=== PATIENT | female | born 1935 | race Caucasian/White ===

== ENCOUNTER 2020-04-16 14:34 | Inpatient (IN) | payer MEDICARE, MEDICAID ==
[~2020-04-16] VITALS: Ht 167.6 cm; Wt 106.5 kg
--- NOTE | 2020-04-16 13:50 | NUR ---
Admission Note with Justification for Admission to [facility] Patient admitted to [facility] for protective oversight for emergency stabilization of acute psychiatric crisis. Pt admitted from: [facility] to [facility] Mode of arrival: EMS Accompanied By: EMS Precipitating behaviors that initiated intake and admission: anxiety, aggression, combative, paranoia Description of failure of out patient attempts at stabilization in previous setting list behavior and medication trials: trazodone Behaviors and assessment findings upon admission: Intermittent confusion, attention seeking Plan: Admit for protective oversight for adjustment and stabilization of medications, behaviors and mood. Intense treatment regimen including groups, medication adjustments, therapy, consistent regimen for ADL's, self care, and sleep hygiene. Daily monitoring by Inpatient staff, Psychiatry, and Medical Physician.
[2020-04-16 14:47] VITALS: BP 109/60
[2020-04-16] MEDS ORDERED: ALBUTEROL SULFATE 2.5 MG/3 ML NEBU. INH PRN (15:45)
[2020-04-16] MEDS ORDERED: NON FORMULARY ITEM (Mg Trisilicate/Alh/Nahco3/Aa (Gaviscon 80-14.2 Mg Tab Chew) 1 EACH) PO PRN (15:45)
[2020-04-16] MEDS ORDERED: LOPERAMIDE HCL PO SCH (16:00)
[2020-04-16] MEDS ORDERED: MELA5TAB20 PO (16:55)
[2020-04-16] MEDS ORDERED: TIOT18CA IH (16:55)
[2020-04-16] MEDS ORDERED: KETO5DRO OU (16:55)
[2020-04-16] MEDS ORDERED: FLUT9.9S NS (16:55)
[2020-04-16] MEDS ORDERED: POLY17PO5 PO (16:55)
[2020-04-16] MEDS ORDERED: SPIR25TA5 PO (16:55)
[2020-04-16] MEDS ORDERED: FURO-68 PO (16:55)
[2020-04-16] MEDS ORDERED: MAGN24003 PO (16:55)
[2020-04-16] MEDS ORDERED: VIT1CAPS12 PO (16:55)
[2020-04-16] MEDS ORDERED: VITA1TAB19 PO (16:55)
[2020-04-16] MEDS ORDERED: OLAN5TAB99 PO (16:55)
[2020-04-16] MEDS ORDERED: DIVA125C2 PO (16:55)
[2020-04-16] MEDS ORDERED: ALBU2.5V8 INH (16:55)
[2020-04-16] MEDS ORDERED: FLUO20CA16 PO (16:55)
[2020-04-16] MEDS ORDERED: IPRA4AER INH (16:55)
[2020-04-16] MEDS ORDERED: LEVO150T5 PO (16:55)
[2020-04-16] MEDS ORDERED: POTA10TA5 PO (16:55)
[2020-04-16] MEDS ORDERED: ATEN25TA42 PO (16:55)
[2020-04-16] MEDS ORDERED: LOPE2TAB27 PO (16:55)
[2020-04-16] MEDS ORDERED: METH1TAB20 PO (16:55)
[2020-04-16] MEDS ORDERED: MG T1TAB PO (16:55)
[2020-04-16] MEDS ORDERED: CHOL500050 PO (16:55)
[2020-04-16] MEDS ORDERED: DICL100G18 TP (16:55)
[2020-04-16] MEDS ORDERED: TRAZ-120 PO (16:55)
[2020-04-16] MEDS ORDERED: WARF2TAB96 PO (16:56)
[2020-04-16] MEDS ORDERED: NON FORMULARY ITEM (Ipratropium/Albuterol Sulfate (Combivent Respimat Inhal) 1 PUFF) INH SCH (17:00)
[2020-04-16] MEDS: KETOROLAC TROMETHAMINE 0.5% OPHTH SOLUTION BOTTLE. OU SCH ×2 (17:00→21:42)
[2020-04-16] MEDS ORDERED: MELATONIN 3 MG TABLET PO PRN (17:45)
[2020-04-16] MEDS ORDERED: LOPERAMIDE 2 MG CAPSULE PO PRN (17:45)
[2020-04-16] MEDS ORDERED: MAGNESIUM HYDROXIDE 2,400 MG/30 ML ORAL.SUSP. PO PRN (17:45)
[2020-04-16] MEDS: FUROSEMIDE 40 MG TABLET PO SCH (18:00)
[2020-04-16 18:23] LABS: BASO # 0.1 x10^3/uL (0.0-0.2); BASO % 1 % (0-3); EOS # 0.2 x10^3/uL (0.0-0.7); EOS % 2 % (0-3); HEMOGLOBIN 12.7 g/dL (12.0-15.5); LYMPH % 11 % (24-48); MEAN CORPUSCULAR HEMOGLOBIN 29 pg (25-35); MEAN CORPUSCULAR HGB CONC 32 g/dL (31-37); MEAN CORPUSCULAR VOLUME 90 fL (79-100); MONO # 0.5 x10^3/uL (0.0-1.1); MONO % 6 % (0-9); NEUT # 7.1 x10^3uL (1.8-7.7); NEUT % 80 % (31-73); PLATELET COUNT 461 x10^3/uL (140-400); RED BLOOD COUNT 4.46 x10^6/uL (3.50-5.40); RED CELL DISTRIBUTION WIDTH 17.2 % (11.5-14.5); WHITE BLOOD COUNT 8.9 x10^3/uL (4.0-11.0)
[2020-04-16 18:29] LABS: ALBUMIN/GLOBULIN RATIO 0.7 (1.0-1.7); CALCIUM 9.2 mg/dL (8.5-10.1); CREATININE 0.9 mg/dL (0.6-1.0); GFR 59.4; MAGNESIUM 2.4 mg/dL (1.8-2.4); POTASSIUM 4.6 mmol/L (3.5-5.1); TOTAL BILIRUBIN 0.4 mg/dL (0.2-1.0); TOTAL PROTEIN 7.5 g/dL (6.4-8.2)
[2020-04-16] MEDS: METHENAMINE HIPPURATE 1 GM TABLET PO SCH (21:00)
[2020-04-16] MEDS: MULTIVITAMIN I-VITE TABLET. PO SCH (21:00)
[2020-04-16] MEDS ORDERED: WARFARIN 2 MG TABLET. PO SCH (21:00)
[2020-04-16] MEDS: traZODone 50 MG TABLET. PO SCH (21:00)
[2020-04-16] MEDS: DIVALPROEX 125 MG CAP.SPRINK PO SCH (21:00)
[2020-04-16] MEDS: POTASSIUM CHLORIDE 10 MEQ TABLET.ER. PO SCH (21:00)
[2020-04-16] MEDS: MAG HYDROX/AL HYDROX/SIMETH 30 ML ORAL.SUSP PO PRN (21:36)
[2020-04-16] MEDS: IPRATROPIUM/ALBUTEROL 20/100mcg/INH INHALER. INH SCH (21:44)
[2020-04-16] MEDS: DICLOFENAC SODIUM 1% TOPICAL GEL 100GM TUBE. TP SCH (21:44)
--- NOTE | 2020-04-16 22:40 | PDOC ---
Exam Note: Derick Note: Please also refer to the separate dictated note~for this date of service dictated separately.~Patient seen individually. Discussed the patient with Nursing staff reviewed the chart.~Reviewed interim history and current functioning. Reviewed vital signs,~Labs/ Radiology~and current medications noted below. Continue current treatment with the changes noted in the dictated addendum note Assessment: Vital Signs/I&O: Vital Signs Date Time Temp Pulse Resp B/P (MAP) Pulse Ox O2 Delivery O2 Flow Rate FiO2 04/16/20 14:47 97.9 70 20 109/60 (76) 98 Room Air Labs: Laboratory Tests Test 04/16/20 18:00 White Blood Count 8.9 x10^3/uL (4.0-11.0) Red Blood Count 4.46 x10^6/uL (3.50-5.40) Hemoglobin 12.7 g/dL (12.0-15.5) Hematocrit 40.0 % (36.0-47.0) Mean Corpuscular Volume 90 fL (79-100) Mean Corpuscular Hemoglobin 29 pg (25-35) Mean Corpuscular Hemoglobin Concent 32 g/dL (31-37) Red Cell Distribution Width 17.2 % (11.5-14.5) H Platelet Count 461 x10^3/uL (140-400) H Neutrophils (%) (Auto) 80 % (31-73) H Lymphocytes (%) (Auto) 11 % (24-48) L Monocytes (%) (Auto) 6 % (0-9) Eosinophils (%) (Auto) 2 % (0-3) Basophils (%) (Auto) 1 % (0-3) Neutrophils # (Auto) 7.1 x10^3uL (1.8-7.7) Lymphocytes # (Auto) 1.0 x10^3/uL (1.0-4.8) Monocytes # (Auto) 0.5 x10^3/uL (0.0-1.1) Eosinophils # (Auto) 0.2 x10^3/uL (0.0-0.7) Basophils # (Auto) 0.1 x10^3/uL (0.0-0.2) Prothrombin Time 11.8 SEC (9.4-11.4) H Prothrombin Time INR 1.1 (0.9-1.1) Sodium Level 139 mmol/L (136-145) Potassium Level 4.6 mmol/L (3.5-5.1) Chloride Level 99 mmol/L (98-107) Carbon Dioxide Level 38 mmol/L (21-32) H Anion Gap 2 (6-14) L Blood Urea Nitrogen 18 mg/dL (7-20) Creatinine 0.9 mg/dL (0.6-1.0) Estimated GFR (Cockcroft-Gault) 59.4 BUN/Creatinine Ratio 20 (6-20) Glucose Level 94 mg/dL (70-99) Calcium Level 9.2 mg/dL (8.5-10.1) Magnesium Level 2.4 mg/dL (1.8-2.4) Total Bilirubin 0.4 mg/dL (0.2-1.0) Aspartate Amino Transferase (AST) 23 U/L (15-37) Alanine Aminotransferase (ALT) 22 U/L (14-59) Alkaline Phosphatase 116 U/L (46-116) Total Protein 7.5 g/dL (6.4-8.2) Albumin 3.0 g/dL (3.4-5.0) L Albumin/Globulin Ratio 0.7 (1.0-1.7) L Current Medications: Meds: Current Medications Medications (Trade) Dose Ordered Sig/Marina Route PRN Reason Start Time Stop Time Status Last Admin Dose Admin Diclofenac Sodium (Voltaren) 1 afua QID TP 04/16/20 21:00 04/16/20 21:44 Ketorolac Tromethamine (Acular) 1 drop QID OU 04/16/20 17:00 04/16/20 21:42 Warfarin Sodium (Coumadin) 2 mg HS PO 04/16/20 21:00 04/16/20 21:37 Al Hydroxide/Mg Hydroxide (Mylanta Plus Xs) 15 ml PRN AFTMEALHC PRN PO DYSPEPSIA 04/16/20 17:15 04/16/20 21:36 Albuterol/ Ipratropium (Combivent Respimat 20-100 Mcg) 1 puff RTQID INH 04/16/20 20:00 04/16/20 21:44 I have reviewed the current psychotropics carefully including drug interactions. Risk benefit ratio favors no change other than as noted in my dictated progress note. ROHIT SIBLEY MD Apr 16, 2020 22:40
--- NOTE | 2020-04-16 23:59 | NUR ---
Patient is laying in her bed on assumption of care, awake. Pleasant demeanor, compliant with assessments. Patient is very particular, needy, entitled, attention-seeking. She refused to take almost all of her PO medications, only accepting her Coumadin. She requested PRN Mylanta to take before her pills. This nurse went through each medication as patient requested, explaining what it was for. Patient had multiple reasons for refusal: "I've never taken that before." "I've been on another medication for 50 years, why change it now?" "I have trouble swallowing." "Maybe I'll take that one tomorrow." This nurse explained to patient several times that we adjust, add or discontinue medicines here in order to find the right balance, and that our bodies change as we age and sometimes meds don't work as well as they used to. She still insisted that she wasn't going to take those medications right now. During HS care, the patient appeared to be feigning helplessness. Staff observed that she seemed to be more capable of performing certain ADL tasks than she was letting on. Patient denied any pain or discomfort, no agitation. Denies SI. Speech eval ordered for patient's complaint of difficulty swallowing. Will continue to monitor.
[2020-04-17] MEDS: LEVOTHYROXINE 150 MCG TABLET PO SCH (05:18)
[2020-04-17 06:16] VITALS: BP 134/80
[2020-04-17] MEDS: IPRATROPIUM/ALBUTEROL 20/100mcg/INH INHALER. INH SCH ×6 (08:00→20:15)
[2020-04-17] MEDS: POLYETHYLENE GLYCOL 3350 17 GM PACKET. PO SCH ×2 (08:19→09:00)
[2020-04-17] MEDS: POTASSIUM CHLORIDE 10 MEQ TABLET.ER. PO SCH ×2 (08:20→20:13)
[2020-04-17] MEDS: MULTIVITAMIN I-VITE TABLET. PO SCH ×2 (08:20→20:14)
[2020-04-17] MEDS: DIVALPROEX 125 MG CAP.SPRINK PO SCH ×2 (08:20→20:13)
[2020-04-17] MEDS: VITAMIN B COMPLEX CAPSULE. PO SCH (08:20)
[2020-04-17] MEDS: METHENAMINE HIPPURATE 1 GM TABLET PO SCH ×2 (08:20→20:14)
[2020-04-17] MEDS: FUROSEMIDE 40 MG TABLET PO SCH ×2 (08:20→17:30)
[2020-04-17] MEDS: CHOLECALCIFEROL (VITAMIN D3) 1,000 UNIT TABLET PO SCH (08:21)
[2020-04-17] MEDS: traZODone 50 MG TABLET. PO SCH ×3 (08:21→20:13)
[2020-04-17] MEDS: ATENOLOL 25 MG TABLET PO SCH (08:21)
[2020-04-17] MEDS: SPIRONOLACTONE 25 MG TABLET PO SCH (08:21)
[2020-04-17] MEDS: FLUoxetine HCL 20 MG CAPSULE PO SCH (08:21)
[2020-04-17] MEDS: FLUTICASONE 50MCG/NASAL SPRAY 16GM BOTTLE. NS SCH ×2 (08:23→09:00)
[2020-04-17] MEDS: DICLOFENAC SODIUM 1% TOPICAL GEL 100GM TUBE. TP SCH ×6 (08:24→20:15)
[2020-04-17] MEDS: KETOROLAC TROMETHAMINE 0.5% OPHTH SOLUTION BOTTLE. OU SCH ×5 (08:24→20:15)
[2020-04-17] MEDS ORDERED: NON FORMULARY ITEM (Tiotropium Bromide (Spiriva) 18 MCG) IH SCH (09:00)
--- NOTE | 2020-04-17 09:05 | HP ---
ADMIT DATE: 04/16/2020 PSYCHIATRIC ADMISSION HISTORY AND EVALUATION This late entry date of service 04/16 covers elements not covered in my initial note. I met with the patient evening of 04/16 in her room. Discussed with nursing staff, reviewed the chart. Discussed with DARYL Reynolds. Previously, I discussed with Catina Stewart, hospital unit coordinator after we received a referral from [facility] to consider inpatient psychiatric stabilization for the patient. IDENTIFYING DATA: The patient is an 85-year-old female, referred to us from [facility] after she had a psychiatric consultation there, resulting in a referral for inpatient psychiatric stabilization on account of worsening anxiety, being aggressive to staff at [facility]. She was punching staff, throwing chairs, paranoid. She thought she was being poisoned. She was delusional, thought there was a worm in her room and this persisted at . Prior to that, she has been an inpatient at [facility] for several weeks following a UTI and encephalopathy consequent to that. Her confusion has worsened over the past 6 months. Attempts were made at adjustments in her psychotropics at the [facility], but when she failed this, she is referred for inpatient psychiatric stabilization. CHIEF COMPLAINT: "I came here today." HISTORY OF PRESENT ILLNESS: The patient has a history of worsening symptoms of depression, anxiety, paranoia, short-term memory deficits. She has been residing at [facility] for some time and then was inpatient at following the UTI/sepsis and encephalopathy. She returned to [facility] for a couple of days. The above behaviors resurfaced. She was referred back to and then to us. She does have a history of mood swings, questionable history of bipolar symptoms. No active suicidal or homicidal ideation. She has had sleep and appetite changes. PAST PSYCHIATRIC HISTORY: As above. PAST MEDICAL HISTORY: Asthma, CHF, fibromyalgia, GERD, hypertension, obstructive sleep apnea, atrial fibrillation, COPD with chronic hypoxic respiratory failure. CODE STATUS: DNR. ALLERGIES: TYLENOL, CODEINE, LATEX, MEPERIDINE, VICODIN, TROPICAMIDE, CORTISONE, GABAPENTIN, NEOMYCIN, PROPOXYPHENE, PREDNISONE. ACCU-CHEKS: Not applicable. DIET: Regular, cardiac. Ambulates with assistance of 2 persons. CURRENT PSYCHOTROPICS: Depakote 125 mg t.i.d. a.c., Prozac 20 mg a day, melatonin 5 mg at bedtime, Zyprexa 2.5 mg b.i.d. and p.r.n. trazodone 12.5 mg t.i.d. p.r.n. FAMILY HISTORY: Noncontributory. SOCIAL HISTORY: No history of alcohol, drug abuse; physical, sexual or elder abuse. She is not known to be a perpetrator. REACTION TO HOSPITALIZATION: The patient accepting of it. ASSETS: Supportive, living at the above nursing facility. MENTAL STATUS EXAMINATION: The patient was seen individually evening of 04/16. REVIEW OF SYSTEMS: Ambulation impaired. No CV, , pulmonary, eye, ENT system symptoms on review. She is complaining of feeling hot and wanted air-conditioning turned down She is oriented to herself, situation, knew she had come here on 04/16 from [facility]. She knew the year was 2019, month was March, not exactly sure about the date, though she knew it was the latter part of the month. Speech is coherent. Thought processes goal directed. Intellect average. Insight good. Judgment intact. Short-term memory is impaired. She is paranoid, suspicious. Attention span short. IMPRESSION: Major depressive disorder, recurrent with psychotic features, rule out bipolar disorder, mixed with psychotic features; major neurocognitive disorder, early Alzheimer, vascular with delusion, depression; psychotic disorder, unspecified. Rest as above. PLAN: Admit to Geropsychiatry Unit at [facility]. I will see the patient daily individually from a psychiatric standpoint. Medical followup with Dr. Rodríguez/Dr. Mercedes. Continue the patient on her current psychotropics. She remains on 6 liters oxygen consequent to COPD. 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 We will continue current psychotropics. Observe baseline, adjust as clinically indicated. ESTIMATED LENGTH OF STAY: 10-12 days. DISPOSITION: Plans back to long-term when stable. MAN Lena SIBLEY MD DR: VAN/brianda JOB#: [id number] / [id number]
[2020-04-17 11:11] LABS: THYROID STIM HORMONE (TSH) 7.603 uIU/mL (0.358-3.740)
[2020-04-17 15:07] LABS: THYROXINE 8.5 ug/dL (4.5-12.0)
[2020-04-17 15:11] LABS: VAL ACID 9 mcg/mL (50-100)
[2020-04-17] MEDS ORDERED: WARFARIN 2 MG TABLET. PO SCH (16:00)
[2020-04-17] MEDS ORDERED: WARFARIN 5 MG TABLET. PO ONE (16:00)
[2020-04-17 16:28] VITALS: BP 110/53
--- NOTE | 2020-04-17 17:58 | NUR ---
Pt has been up in bed. Has been attention seeking at times. Took meds but refused creams, inhalers and eye drops stating she only takes those at night. Pt c/o stomach being upset. Has had 1 soft stool and 2 loose stools today will collect next loose stool. State she doesn't know why she is here. States she has her own help at home.
[2020-04-17] MEDS: MIRTAZAPINE 7.5 MG TABLET. PO SCH (20:13)
[2020-04-17 21:32] LABS: BACTERIA,URINE 0 /HPF (0-FEW); BILIRUBIN,URINE NEG (NEG); CLARITY,URINE CLEAR; COLOR,URINE YELLOW; GLUCOSE,URINE NEG (NEG); HYALINE CASTS, URINE FEW /HPF; NITRITE,URINE NEG (NEG); RBC,URINE 0 /HPF (0-2); SQUAMOUS EPITHELIAL CELL,UR MOD /LPF; UROBILINOGEN,URINE 0.2 mg/dL (0.2 mg/dL); WBC,URINE OCC /HPF (0-4)
--- NOTE | 2020-04-17 22:00 | NUR ---
Patient is laying in her bed on assumption of care, awake. Pleasant demeanor, compliant with assessments. More compliant with her medications this evening, only refusing to take her Trazadone. She continues to feign helplessness, was incontinent of urine several times.....often soiling herself right after staff had been in to see if she needed anything. She was encouraged by staff to participate more in her own ADL care, and she eventually did cooperate with being assisted from bed to chair to toilet with 2-assist. No agitation. Denies any pain or discomfort. Will continue to monitor.
--- NOTE | 2020-04-17 22:48 | PDOC ---
Exam Note: Derick Note: Please also refer to the separate dictated note~for this date of service dictated separately.~Patient seen individually. Discussed the patient with Nursing staff reviewed the chart.~Reviewed interim history and current functioning. Reviewed vital signs,~Labs/ Radiology~and current medications noted below. Continue current treatment with the changes noted in the dictated addendum note Assessment: Vital Signs/I&O: Vital Signs Date Time Temp Pulse Resp B/P (MAP) Pulse Ox O2 Delivery O2 Flow Rate FiO2 04/17/20 16:28 97.8 67 20 110/53 (72) 96 6.0 04/16/20 14:47 Room Air I & O 04/16/20 04/16/20 04/17/20 15:00 23:00 07:00 Intake Total 240 ml 240 ml Balance 240 ml 240 ml Labs: Laboratory Tests Test 04/17/20 21:05 Urine Collection Type Unknown Urine Color Yellow Urine Clarity Clear Urine pH 8.5 Urine Specific [place] 1.020 Urine Protein Neg (NEG-TRACE) Urine Glucose (UA) Neg mg/dL (NEG) Urine Ketones (Stick) Neg mg/dL (NEG) Urine Blood Neg (NEG) Urine Nitrite Neg (NEG) Urine Bilirubin Neg (NEG) Urine Urobilinogen Dipstick 0.2 mg/dL (0.2 mg/dL) Urine Leukocyte Esterase Neg (NEG) Urine RBC 0 /HPF (0-2) Urine WBC Occ /HPF (0-4) Urine Squamous Epithelial Cells Mod /LPF Urine Bacteria 0 /HPF (0-FEW) Urine Hyaline Casts Few /HPF Current Medications: Meds: Current Medications Medications (Trade) Dose Ordered Sig/Marina Route PRN Reason Start Time Stop Time Status Last Admin Dose Admin Atenolol (Tenormin) 25 mg DAILY PO 04/17/20 09:00 04/17/20 08:21 Vitamin D (Vitamin D3) 1,000 unit DAILY PO 04/17/20 09:00 04/17/20 08:21 Fluoxetine HCl (PROzac) 20 mg DAILY PO 04/17/20 09:00 04/17/20 08:21 Levothyroxine Sodium (Synthroid) 150 mcg DAILY06 PO 04/17/20 06:00 04/17/20 05:18 Spironolactone (Aldactone) 25 mg DAILY PO 04/17/20 09:00 04/17/20 08:21 Vitamin B Complex 1 cap DAILY PO 04/17/20 09:00 04/17/20 08:20 Warfarin Sodium (Coumadin) 5 mg 1X WARF ONCE PO 04/17/20 16:00 04/17/20 16:01 DC 04/17/20 17:31 Mirtazapine (Remeron) 7.5 mg QHS PO 04/17/20 21:00 04/17/20 20:13 I have reviewed the current psychotropics carefully including drug interactions. Risk benefit ratio favors no change other than as noted in my dictated progress note. Diagnosis: Problems: (1) Major depressive disorder with psychotic features (2) Major neurocognitive disorder (3) Dementia in Alzheimer's disease with delusions (4) Dementia in Alzheimer's disease with depression (5) Dementia, vascular, with depression (6) Dementia, vascular, with delusions (7) Psychotic disorder ROHIT SIBLEY MD Apr 17, 2020 22:48
[2020-04-18 01:06] LABS: HEMOGLOBIN A1C 5.4 % (4.8-5.6)
--- NOTE | 2020-04-18 02:15 | CONS ---
DATE OF CONSULTATION: REASON FOR CONSULTATION: Medical management. HISTORY OF PRESENT ILLNESS: The patient is an 85-year-old female patient, who was a resident at [facility] and was referred from [facility] on account of being anxious, aggressive towards staff, punching throwing chair, paranoid, thinks she is being poisoned, delusional, thinks there is a bomb in her room, all this in a background of major neurocognitive disorder with delusion and behavioral disturbances, major depressive disorder, recurrent, mild with anxious features. PAST MEDICAL HISTORY: Significant for bronchial asthma, congestive heart failure, fibromyalgia, gastroesophageal reflux disease, hypertension, obstructive sleep apnea, atrial fibrillation, COPD with chronic hypoxic respiratory failure. PAST PSYCHIATRIC HISTORY: Significant for anxiety, depression. PAST SURGICAL HISTORY: Significant for breast biopsy, bilateral cataract extraction and she also has dental surgery. ALLERGIES: She is allergic to ACETAMINOPHEN, CODEINE, GABADONE, LATEX, MEPERIDINE, NEOMYCIN, PROPOXYPHENE, TROPICAMIDE, VICODIN, CORTISONE and PREDNISONE. MEDICATIONS: She is currently on following medications: She is on methenamine hippurate 1 gram twice a day, ipratropium bromide and albuterol sulfate 1 puff 4 times a day, Spiriva HandiHaler 1 inhalation once a day, albuterol sulfate 1 inhalation every 4 hours. She is on Coumadin 2 mg at bedtime, atenolol 25 mg once a day, spironolactone 25 mg once a day, diclofenac sodium 1 gram applied topically 4 times a day, divalproex sodium 125 mg p.o. b.i.d., fluoxetine 20 mg daily, trazodone 12.5 mg 3 times a day, olanzapine 2.5 mg at bedtime. She is on potassium chloride 10 mEq twice a day, furosemide 40 mg twice a day, Flonase 2 sprays to each nostril once a day, ketorolac for Acular 1 drop to each eye 4 times a day. She is on Gaviscon 1 chewable tablet every 4 hours, loperamide 2 mg every 4 hours, milk of magnesia 30 mL p.o. daily p.r.n. for constipation, polyethylene glycol for MiraLax 17 grams daily, levothyroxine 150 mcg daily, vitamin B complex one tablet once a day, cholecalciferol (vitamin D) 1250 mcg daily, melatonin 5 mg at bedtime and ____ one capsule twice a day. FAMILY HISTORY: Unremarkable. SOCIAL HISTORY: She is , has 2 sons. She never smoked, does not use any smokeless tobacco, does not drink alcohol or use any recreational drugs. She is currently a resident at [facility]. REVIEW OF SYSTEMS: The patient complained mostly of generalized weakness and inability to do anything for herself and also diffuse abdominal pain and diarrhea versus incontinence. PHYSICAL EXAMINATION: GENERAL: When I examined her, she was resting slightly, propped up in bed, in no apparent respiratory distress. She was somewhat pale. No jaundice, cyanosis or thyromegaly. No jugular venous distention. No limb edema. VITAL SIGNS: Her heart rate was 84, blood pressure was 134/80, temperature was 97.9, respiratory rate 20 and oxygen saturation was 96%. HEAD, EYES, EARS, NOSE AND THROAT: Normocephalic, atraumatic. NECK: Supple. HEART: Showed normal first and second heart sounds. No gallop, rub or murmur. CHEST: Clear to auscultation. No crepitation or rhonchi. ABDOMEN: Distended, soft, mild tenderness mostly in the left upper quadrant. NEUROLOGIC: She is awake, alert. All her cranial nerves seem to be intact. She moves upper extremities to much good extent than lower extremities. She claimed that she is unable to walk or do anything for herself. LABORATORY DATA: Her lab work showed a white cell count of 8900, hemoglobin 12.7, hematocrit 40, MCV 90 and platelet count 461,000. Her chemistry showed a serum sodium 139, potassium 4.6, chloride 99, bicarbonate 38, anion gap of 2, BUN 18, creatinine 0.9, estimated GFR was 59 mL per minute. Her glucose was 94. Calcium was 9.2, magnesium was 2.4. Her serum iron, TIBC and iron saturation are all consistent with iron deficiency anemia. Her total bilirubin, AST, ALT, alkaline phosphatase normal. Total protein 7.5, albumin 3. Her serum triglycerides 157, total cholesterol 233, LDL was 166, VLDL was 31 and HDL was 36 and ratio was 6. 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 Her prothrombin time and INR are normal. Her valproic acid was only 9 mcg/mL. IMPRESSION: In summary, this is an 85-year-old female patient who was admitted as a transfer from [facility] on account of being extremely anxious, aggressive towards staff, punching throwing chair, paranoid, thinks she is being poisoned, delusional, thinks there is a bomb in her room, all this in a major neurocognitive disorder with delusion and behavioral disorder, major depressive disorder, recurrent, mild with anxious features. Medically, she is known to have atrial fibrillation; however, rate is well controlled, although her INR is subtherapeutic. She is known to have bronchial asthma, chronic obstructive pulmonary disease, congestive heart failure with preserved ejection fraction, hypertension, hypothyroidism. She has also chronic hypoxic respiratory failure from which she is on 6 liters of oxygen by nasal cannula. She is also known to have pulmonary hypertension. Psychologically, she is known to have anxiety and depression as well as paranoia. 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 All in all, she seemed to be medically stable and I will obviously follow her lab works that are still pending at the time of this dictation. I will definitely continue with all her current medication and probably her Coumadin needs to be increased to maintain her INR between 2-2.5 and I believe the pharmacy is adjusting that. Thank you, Dr. Rebolledo, for allowing me to participate in the care of this patient. YULISSA MICHELLE MD DR: CATHERINE/brianda JOB#: [id number] / [id number]
[2020-04-18] MEDS: LEVOTHYROXINE 150 MCG TABLET PO SCH (05:14)
[2020-04-18 06:36] VITALS: BP 114/76
[2020-04-18 06:59] LABS: BASO % 1 % (0-3); EOS # 0.2 x10^3/uL (0.0-0.7); EOS % 3 % (0-3); HEMATOCRIT 39.6 % (36.0-47.0); HEMOGLOBIN 12.8 g/dL (12.0-15.5); LYMPH # 1.1 x10^3/uL (1.0-4.8); LYMPH % 13 % (24-48); MEAN CORPUSCULAR HEMOGLOBIN 29 pg (25-35); MEAN CORPUSCULAR HGB CONC 32 g/dL (31-37); MEAN CORPUSCULAR VOLUME 90 fL (79-100); MONO # 0.7 x10^3/uL (0.0-1.1); MONO % 9 % (0-9); NEUT # 6.3 x10^3uL (1.8-7.7); NEUT % 75 % (31-73); PLATELET COUNT 382 x10^3/uL (140-400); RED BLOOD COUNT 4.41 x10^6/uL (3.50-5.40); RED CELL DISTRIBUTION WIDTH 17.7 % (11.5-14.5); WHITE BLOOD COUNT 8.4 x10^3/uL (4.0-11.0)
[2020-04-18 07:10] LABS: ALBUMIN 2.9 g/dL (3.4-5.0); ALBUMIN/GLOBULIN RATIO 0.7 (1.0-1.7); CALCIUM 9.3 mg/dL (8.5-10.1); GFR 52.6; POTASSIUM 4.5 mmol/L (3.5-5.1); TOTAL BILIRUBIN 0.4 mg/dL (0.2-1.0); TOTAL PROTEIN 7.2 g/dL (6.4-8.2)
[2020-04-18] MEDS: FLUTICASONE 50MCG/NASAL SPRAY 16GM BOTTLE. NS SCH (09:00)
[2020-04-18] MEDS: POLYETHYLENE GLYCOL 3350 17 GM PACKET. PO SCH (09:00)
[2020-04-18] MEDS: VITAMIN B COMPLEX CAPSULE. PO SCH (09:39)
[2020-04-18] MEDS: KETOROLAC TROMETHAMINE 0.5% OPHTH SOLUTION BOTTLE. OU SCH ×4 (09:39→20:21)
[2020-04-18] MEDS: DIVALPROEX 125 MG CAP.SPRINK PO SCH ×3 (09:39→20:22)
[2020-04-18] MEDS: METHENAMINE HIPPURATE 1 GM TABLET PO SCH ×2 (09:39→20:22)
[2020-04-18] MEDS: FLUoxetine HCL 20 MG CAPSULE PO SCH (09:40)
[2020-04-18] MEDS: SPIRONOLACTONE 25 MG TABLET PO SCH (09:40)
[2020-04-18] MEDS: traZODone 50 MG TABLET. PO SCH ×4 (09:40→20:23)
[2020-04-18] MEDS: MULTIVITAMIN I-VITE TABLET. PO SCH ×2 (09:40→20:23)
[2020-04-18] MEDS: FUROSEMIDE 40 MG TABLET PO SCH ×3 (09:40→17:22)
[2020-04-18] MEDS: POTASSIUM CHLORIDE 10 MEQ TABLET.ER. PO SCH ×2 (09:41→20:22)
[2020-04-18] MEDS: CHOLECALCIFEROL (VITAMIN D3) 1,000 UNIT TABLET PO SCH (09:41)
[2020-04-18] MEDS: ATENOLOL 25 MG TABLET PO SCH (09:41)
--- NOTE | 2020-04-18 11:16 | PDOC ---
Exam Note: Derick Note: This note is a late entry for 04/17/2020 covers elements not covered in my initial note. Subjective: The patient was seen individually in the evening of 04/17/2020. Per Gail BRITO, she slept 1-1/4 hours previous night. She remains anxious, restless, but not aggressive. Review of Systems: Ambulation impaired with 2-person assist. No CV, , pulmonary, eye, system symptoms on review. Mental Status Exam: Insight and judgment, recent and remote memory, attention and concentration, fund of knowledge is poor consistent with her diagnoses. Laboratory Data: Reviewed. 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 Anxiety disorder unspecified. Impulse control disorder unspecified. Plan: Start Remeron 7.5 mg p.o. h.s. We will check valproic acid level in the morning and adjust Depakote thereafter. Rest unchanged for now. Assessment: Vital Signs/I&O: Vital Signs Date Time Temp Pulse Resp B/P (MAP) Pulse Ox O2 Delivery O2 Flow Rate FiO2 04/18/20 09:41 70 114/76 04/18/20 06:36 98.0 18 95 6.0 04/16/20 14:47 Room Air I & O 04/17/20 04/17/20 04/18/20 15:00 23:00 07:00 Intake Total 600 ml 120 ml Balance 600 ml 120 ml Labs: Laboratory Tests Test 04/17/20 21:05 04/18/20 06:36 Urine Collection Type Unknown Urine Color Yellow Urine Clarity Clear Urine pH 8.5 Urine Specific [place] 1.020 Urine Protein Neg (NEG-TRACE) Urine Glucose (UA) Neg mg/dL (NEG) Urine Ketones (Stick) Neg mg/dL (NEG) Urine Blood Neg (NEG) Urine Nitrite Neg (NEG) Urine Bilirubin Neg (NEG) Urine Urobilinogen Dipstick 0.2 mg/dL (0.2 mg/dL) Urine Leukocyte Esterase Neg (NEG) Urine RBC 0 /HPF (0-2) Urine WBC Occ /HPF (0-4) Urine Squamous Epithelial Cells Mod /LPF Urine Bacteria 0 /HPF (0-FEW) Urine Hyaline Casts Few /HPF White Blood Count 8.4 x10^3/uL (4.0-11.0) Red Blood Count 4.41 x10^6/uL (3.50-5.40) Hemoglobin 12.8 g/dL (12.0-15.5) Hematocrit 39.6 % (36.0-47.0) Mean Corpuscular Volume 90 fL (79-100) Mean Corpuscular Hemoglobin 29 pg (25-35) Mean Corpuscular Hemoglobin Concent 32 g/dL (31-37) Red Cell Distribution Width 17.7 % (11.5-14.5) H Platelet Count 382 x10^3/uL (140-400) Neutrophils (%) (Auto) 75 % (31-73) H Lymphocytes (%) (Auto) 13 % (24-48) L Monocytes (%) (Auto) 9 % (0-9) Eosinophils (%) (Auto) 3 % (0-3) Basophils (%) (Auto) 1 % (0-3) Neutrophils # (Auto) 6.3 x10^3uL (1.8-7.7) Lymphocytes # (Auto) 1.1 x10^3/uL (1.0-4.8) Monocytes # (Auto) 0.7 x10^3/uL (0.0-1.1) Eosinophils # (Auto) 0.2 x10^3/uL (0.0-0.7) Basophils # (Auto) 0.0 x10^3/uL (0.0-0.2) Prothrombin Time 12.0 SEC (9.4-11.4) H Prothrombin Time INR 1.2 (0.9-1.1) H Sodium Level 141 mmol/L (136-145) Potassium Level 4.5 mmol/L (3.5-5.1) Chloride Level 102 mmol/L (98-107) Carbon Dioxide Level 40 mmol/L (21-32) H Anion Gap -1 (6-14) L Blood Urea Nitrogen 23 mg/dL (7-20) H Creatinine 1.0 mg/dL (0.6-1.0) Estimated GFR (Cockcroft-Gault) 52.6 BUN/Creatinine Ratio 23 (6-20) H Glucose Level 96 mg/dL (70-99) Calcium Level 9.3 mg/dL (8.5-10.1) Total Bilirubin 0.4 mg/dL (0.2-1.0) Aspartate Amino Transferase (AST) 24 U/L (15-37) Alanine Aminotransferase (ALT) 20 U/L (14-59) Alkaline Phosphatase 108 U/L (46-116) Total Protein 7.2 g/dL (6.4-8.2) Albumin 2.9 g/dL (3.4-5.0) L Albumin/Globulin Ratio 0.7 (1.0-1.7) L Current Medications: Meds: Current Medications Medications (Trade) Dose Ordered Sig/Marina Route PRN Reason Start Time Stop Time Status Last Admin Dose Admin Warfarin Sodium (Coumadin) 5 mg 1X WARF ONCE PO 04/17/20 16:00 04/17/20 16:01 DC 04/17/20 17:31 Mirtazapine (Remeron) 7.5 mg QHS PO 04/17/20 21:00 04/17/20 20:13 I have reviewed the current psychotropics carefully including drug interactions. Risk benefit ratio favors no change other than as noted in my dictated progress note. Diagnosis: Problems: (1) Dementia, vascular, with depression (2) Dementia, vascular, with delusions (3) Dementia in Alzheimer's disease with depression (4) Dementia in Alzheimer's disease with delusions (5) Major neurocognitive disorder (6) Dementia in Alzheimer's disease with early onset with behavioral disturbance (7) Major depressive disorder with psychotic features (8) Psychotic disorder ROHIT SIBLEY MD Apr 18, 2020 11:16
--- NOTE | 2020-04-18 12:17 | NUR ---
Pharmacy Warfarin Dosing Note S:Pharmacy consulted to assist with anticoagulation therapy started with target INR: 2-2.5 O:ARNULFO KEVIN is a 85 year old F with Atrial Fibrillation LABS: Last INR: 1.2 Last HGB: 12.8 Last HCT: 39.6 Last PLT: 12.8 Last dose of 5 mg given on 04/17/20 at 1600 Previous Regimen: Vitamin K given: Drug Interaction Changes: Same Interacting Drug Ongoing Drug Interactions: A:INR Below desired Range. Target Range for this patient is: 2-2.5 P: Warfarin dose: 5 mg Today at 1600 Bridge Therapy: None Next INR due 04/19/20 @ 0600 Pharmacy anticoagulation service will continue to follow. CURTIS COOPER [facility], 04/18/20 1740
[2020-04-18] MEDS: DICLOFENAC SODIUM 1% TOPICAL GEL 100GM TUBE. TP SCH ×3 (13:00→20:21)
--- NOTE | 2020-04-18 13:00 | NUR ---
PSYCHOSOCIAL ASSESSMENT ADMISSION DATE: 04/16/20 CONTACT INFORMATION: DPOA/Guardian Contact Name: Federico Arzola Contact Address: [place], [place] Contact Phone #: ETHNIC ORIGIN: REASONS FOR ADMISSION: Aggressive Anxiety/Panic Combative Suspicious/paranoid ADDITIONAL ADMISSION COMMENTS: According to the intake, pt is anxious, aggressive towards staff, punching, throwing a chair, paranoid, things she being poisoned, delusional that there is a bomb in her room. REASON FOR ADMISSION IN PATIENT/FAMILY'S OWN WORDS: N/A PATIENT/FAMILY EXPECTATIONS FOR ADMISSION: N/A LIVING SITUATION: Patient lives with: [facility] Other living arrangements: Contact Name: David Contact Address: [address]; [place] [address] Contact Phone #: Contact Fax #: FAMILY RELATIONS: Marital Status: # of Marriages: # of Children: 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 Fitzpatrick (psychologist) STRENGTHS & WEAKNESSES: Patient's strengths: Good verbal skills Approachable Other patient strengths: Patient's weaknesses: Poor family support Impulsive Physically Aggressive Other patient weaknesses: PRELIMINARY PLAN OF TREATMENT: Preliminary plan: Dec. Anxiety/Panic Promote Coping Skill Medication Stabilization Dec. Aggression Other preliminary treatment comments: DISCHARGE PLANNING: Discharge planning/disposition: Current Living Arrange. Additional discharge needs identified: Continued mental health support ADDITIONAL INFORMATION: Other Pertinent Data: SW attempted to contact pt son twice to complete PSA. SW will continue to contact son.
[2020-04-18] MEDS: IPRATROPIUM/ALBUTEROL 20/100mcg/INH INHALER. INH SCH ×3 (13:22→20:00)
--- NOTE | 2020-04-18 15:12 | NUR ---
Nursing note: Pt in her room for morning meds and assessment. She was compliant with her meds and cooperative with her assessment. She did not have any complaints this morning. Pt refused her 1400 trazodone and was also complaining of pain in her hip at that time. Scheduled voltaren gel was administered. Will continue to monitor.
--- NOTE | 2020-04-18 15:58 | NUR ---
PINKY attempted to contact pt son Federico and ended up leaving a message requesting a call back to discuss pt history/PSA and goals for discharge.
[2020-04-18] MEDS ORDERED: WARFARIN 5 MG TABLET. PO ONE (16:00)
[2020-04-18 16:15] VITALS: BP 95/52
[2020-04-18] MEDS: ALBUTEROL SULFATE 8GM INHALER. INH PRN (20:21)
[2020-04-18] MEDS: MIRTAZAPINE 7.5 MG TABLET. PO SCH (20:22)
--- NOTE | 2020-04-18 22:44 | PDOC ---
Exam Note: Derick Note: Please also refer to the separate dictated note~for this date of service dictated separately.~Patient seen individually. Discussed the patient with Nursing staff reviewed the chart.~Reviewed interim history and current functioning. Reviewed vital signs,~Labs/ Radiology~and current medications noted below. Continue current treatment with the changes noted in the dictated addendum note Assessment: Vital Signs/I&O: Vital Signs Date Time Temp Pulse Resp B/P (MAP) Pulse Ox O2 Delivery O2 Flow Rate FiO2 04/18/20 16:15 97.8 98 20 95/52 (66) 95 6.0 04/16/20 14:47 Room Air I & O 04/17/20 04/17/20 04/18/20 15:00 23:00 07:00 Intake Total 600 ml 120 ml Balance 600 ml 120 ml Labs: Laboratory Tests Test 04/18/20 06:36 White Blood Count 8.4 x10^3/uL (4.0-11.0) Red Blood Count 4.41 x10^6/uL (3.50-5.40) Hemoglobin 12.8 g/dL (12.0-15.5) Hematocrit 39.6 % (36.0-47.0) Mean Corpuscular Volume 90 fL (79-100) Mean Corpuscular Hemoglobin 29 pg (25-35) Mean Corpuscular Hemoglobin Concent 32 g/dL (31-37) Red Cell Distribution Width 17.7 % (11.5-14.5) H Platelet Count 382 x10^3/uL (140-400) Neutrophils (%) (Auto) 75 % (31-73) H Lymphocytes (%) (Auto) 13 % (24-48) L Monocytes (%) (Auto) 9 % (0-9) Eosinophils (%) (Auto) 3 % (0-3) Basophils (%) (Auto) 1 % (0-3) Neutrophils # (Auto) 6.3 x10^3uL (1.8-7.7) Lymphocytes # (Auto) 1.1 x10^3/uL (1.0-4.8) Monocytes # (Auto) 0.7 x10^3/uL (0.0-1.1) Eosinophils # (Auto) 0.2 x10^3/uL (0.0-0.7) Basophils # (Auto) 0.0 x10^3/uL (0.0-0.2) Prothrombin Time 12.0 SEC (9.4-11.4) H Prothrombin Time INR 1.2 (0.9-1.1) H Sodium Level 141 mmol/L (136-145) Potassium Level 4.5 mmol/L (3.5-5.1) Chloride Level 102 mmol/L (98-107) Carbon Dioxide Level 40 mmol/L (21-32) H Anion Gap -1 (6-14) L Blood Urea Nitrogen 23 mg/dL (7-20) H Creatinine 1.0 mg/dL (0.6-1.0) Estimated GFR (Cockcroft-Gault) 52.6 BUN/Creatinine Ratio 23 (6-20) H Glucose Level 96 mg/dL (70-99) Calcium Level 9.3 mg/dL (8.5-10.1) Total Bilirubin 0.4 mg/dL (0.2-1.0) Aspartate Amino Transferase (AST) 24 U/L (15-37) Alanine Aminotransferase (ALT) 20 U/L (14-59) Alkaline Phosphatase 108 U/L (46-116) Total Protein 7.2 g/dL (6.4-8.2) Albumin 2.9 g/dL (3.4-5.0) L Albumin/Globulin Ratio 0.7 (1.0-1.7) L Current Medications: Meds: Current Medications Medications (Trade) Dose Ordered Sig/Marina Route PRN Reason Start Time Stop Time Status Last Admin Dose Admin Warfarin Sodium (Coumadin) 5 mg 1X WARF ONCE PO 04/18/20 16:00 04/18/20 16:01 DC 04/18/20 17:23 Divalproex Sodium (Depakote Sprinkles) 250 mg TID PO 04/18/20 14:00 04/18/20 20:22 I have reviewed the current psychotropics carefully including drug interactions. Risk benefit ratio favors no change other than as noted in my dictated progress note. Diagnosis: Problems: (1) Dementia, vascular, with depression (2) Dementia, vascular, with delusions (3) Dementia in Alzheimer's disease with depression (4) Dementia in Alzheimer's disease with delusions (5) Major neurocognitive disorder (6) Dementia in Alzheimer's disease with early onset with behavioral disturbance (7) Major depressive disorder with psychotic features (8) Psychotic disorder ROHIT SIBLEY MD Apr 18, 2020 22:44
--- NOTE | 2020-04-19 01:32 | NUR ---
Pt has been in her room this shift, she has had numerous somatic complaints, mainly due to her fibromyalgia and lung disease. She took her meds whole after some prompting.
[2020-04-19] MEDS: LEVOTHYROXINE 150 MCG TABLET PO SCH (05:26)
[2020-04-19] MEDS: MAG HYDROX/AL HYDROX/SIMETH 30 ML ORAL.SUSP PO PRN ×3 (06:12→17:33)
[2020-04-19 06:29] VITALS: BP 97/64
[2020-04-19] MEDS: KETOROLAC TROMETHAMINE 0.5% OPHTH SOLUTION BOTTLE. OU SCH ×4 (09:44→20:40)
[2020-04-19] MEDS: DICLOFENAC SODIUM 1% TOPICAL GEL 100GM TUBE. TP SCH ×4 (09:46→20:41)
[2020-04-19] MEDS: ALBUTEROL SULFATE 8GM INHALER. INH PRN (09:46)
[2020-04-19] MEDS: FLUTICASONE 50MCG/NASAL SPRAY 16GM BOTTLE. NS SCH (09:47)
[2020-04-19] MEDS: IPRATROPIUM/ALBUTEROL 20/100mcg/INH INHALER. INH SCH ×5 (09:47→20:40)
[2020-04-19] MEDS: POLYETHYLENE GLYCOL 3350 17 GM PACKET. PO SCH ×2 (09:47→10:12)
[2020-04-19] MEDS: METHENAMINE HIPPURATE 1 GM TABLET PO SCH ×2 (09:47→10:05)
[2020-04-19] MEDS: MULTIVITAMIN I-VITE TABLET. PO SCH ×3 (09:48→21:00)
[2020-04-19] MEDS: traZODone 50 MG TABLET. PO SCH ×3 (09:49→20:41)
[2020-04-19] MEDS: VITAMIN B COMPLEX CAPSULE. PO SCH (09:49)
[2020-04-19] MEDS: ATENOLOL 25 MG TABLET PO SCH ×2 (09:50→10:00)
[2020-04-19] MEDS: CHOLECALCIFEROL (VITAMIN D3) 1,000 UNIT TABLET PO SCH (09:50)
[2020-04-19] MEDS: POTASSIUM CHLORIDE 10 MEQ TABLET.ER. PO SCH ×2 (09:51→20:42)
[2020-04-19] MEDS: FUROSEMIDE 40 MG TABLET PO SCH ×3 (09:51→17:18)
[2020-04-19] MEDS: DIVALPROEX 125 MG CAP.SPRINK PO SCH ×3 (09:51→20:42)
[2020-04-19] MEDS: FLUoxetine HCL 20 MG CAPSULE PO SCH (09:51)
[2020-04-19] MEDS: QUEtiapine 25 MG TABLET. PO SCH ×3 (09:52→17:19)
[2020-04-19] MEDS: SPIRONOLACTONE 25 MG TABLET PO SCH ×2 (09:53→10:30)
--- NOTE | 2020-04-19 10:01 | PDOC ---
Exam Note: Derick Note: This note is a late entry for 04/18/2020 covers elements not covered in my initial note. Subjective: The patient was seen individually in the morning of 04/18/2020 with treatment team meeting with Raymond (social service staff), [facility] staff, and Dione BRITO. I met the patient in the evening in her room with Dione BRITO. She slept 7-1/2 hours previous night. Appetite 50%. Nursing report indicate the patient appears entitled, anxious, demanding. She was having loose stools yesterday and was purposely trying to soil the nursing staff. Review of Systems: Ambulation impaired. No CV, , pulmonary, eye, system symptoms on review. Mental Status Exam: Oriented to herself. Insight and judgment, recent and remote memory, attention and concentration, fund of knowledge is poor consistent with her diagnoses. Laboratory Data: Reviewed. Impression: Major depressive disorder with psychotic features. Major neurocogn itive disorder, Alzheimer, vascular with delusions, depression and behavioral disturbance. Anxiety disorder unspecified. Impulse control disorder unspecified. Plan: Valproic acid level is 9 on Depakote 125 mg t.i.d. We will increase to 250 mg t.i.d. Check CBC, CMP, valproic acid level in 3 days. She states she was taken off of Xanax 6 days back and wants back on it, but we will change the Zyprexa 2.5 mg b.i.d. to Seroquel 25 mg t.i.d. and then adjust gradually, keep her off the Xanax. Assessment: Vital Signs/I&O: Vital Signs Date Time Temp Pulse Resp B/P (MAP) Pulse Ox O2 Delivery O2 Flow Rate FiO2 04/19/20 09:50 70 97/64 04/19/20 06:29 97.2 20 99 04/18/20 16:15 6.0 04/16/20 14:47 Room Air I & O 04/18/20 04/18/20 04/19/20 15:00 23:00 07:00 Intake Total 240 ml 360 ml Balance 240 ml 360 ml Current Medications: Meds: Current Medications Medications (Trade) Dose Ordered Sig/Marina Route PRN Reason Start Time Stop Time Status Last Admin Dose Admin Warfarin Sodium (Coumadin) 5 mg 1X WARF ONCE PO 04/18/20 16:00 04/18/20 16:01 DC 04/18/20 17:23 Divalproex Sodium (Depakote Sprinkles) 250 mg TID PO 04/18/20 14:00 04/19/20 09:51 Quetiapine Fumarate (SEROquel) 25 mg 0900,1300,1700 PO 04/19/20 09:00 04/19/20 09:52 I have reviewed the current psychotropics carefully including drug interactions. Risk benefit ratio favors no change other than as noted in my dictated progress note. Diagnosis: Problems: (1) Dementia, vascular, with depression (2) Dementia, vascular, with delusions (3) Dementia in Alzheimer's disease with depression (4) Dementia in Alzheimer's disease with delusions (5) Major neurocognitive disorder (6) Dementia in Alzheimer's disease with early onset with behavioral disturbance (7) Major depressive disorder with psychotic features (8) Psychotic disorder ROHIT SIBLEY MD Apr 19, 2020 10:01
[2020-04-19 11:00] VITALS: BP 100/70
--- NOTE | 2020-04-19 13:30 | NUR ---
Patient is compliant with morning medications taken 2 at a time with water. Patient wants a detailed explanation of each medication before she will take it. Patient compliant with all oral, optical, inhaled and topical medications at this time. Patient has many somatic complaints and explained her fibromyalgia in great detail. Patient angry that she could not have a shower today as yesterday was her shower day. She stated she did not remember that and doubted that it was true. Patient was in her room until lunch, sitting in her wheelchair and looking out the window. After lunch staff encouraged patient to go to day room to participate in group. Patient observed sitting in day room but is not contributing to the discussion about leisure activities. Patient told nurse she was unable to hear what was being said and asked to be taken back to her room. CNAs said that patient should stay in group and so patient continued to sit in the day room. Nurse held patients atenolol, lasix and spirolactone as patients BP was 97/64 and then 2 hours later was 100/70. Will consult with doctor Marcos on rounds.
--- NOTE | 2020-04-19 14:07 | NUR ---
Pharmacy Warfarin Dosing Note S:Pharmacy consulted to assist with anticoagulation therapy started with target INR: 2 -3 O:ARNULFO KEVIN is a 85 year old F with Atrial Fibrillation LABS: Last INR: 2 Last HGB: 12.8 Last HCT: 39.6 Last PLT: 382 Last dose of 5 mg given on 04/18/20 at 1600 Previous Regimen: Vitamin K given: N Drug Interaction Changes: Same Interacting Drug Ongoing Drug Interactions: A:INR Within desired Range. Target Range for this patient is: 2 -3 P: Warfarin dose: 4 mg Today at 1600 Bridge Therapy: None Next INR due 04/20/20 @ 0600 Pharmacy anticoagulation service will continue to follow. CURTIS COOPER [facility], 04/19/20 1861
--- NOTE | 2020-04-19 14:27 | NUR ---
Patient refused 1200 combivent respirmat inhaler stating that she "doesn't have that kind and won't use it". Nurse provided education to patient about substitution of drugs while in the hospital and how it is done based on what is stocked in the pharmacy. Nurse also stressed that the medication we supply would do the same things for her, she continued to refuse. Patient in day room on 6L continuous oxygen, This nurse obtained high flow NC from ICU and assisted patient to switch from the standard NC.
--- NOTE | 2020-04-19 14:45 | NUR ---
ACTIVITY THERAPY ASSESSMENT completed based on notes, interview, and observation. Pt. was off to the side in the daybook and was willing to let AT ask questions. Pt. was calm and pleasant during time of assessment. Pt. was nonsensical at times. Pt. said that it would be easier to participate in groups if her eyes and ears were better. Pt. states that she likes to play bingo, read, and write. Pt. said that she is willing to try exercise groups but is a bit unsure of them.Pt. said that she was admitted to the unit to build back up strength so she could just use her walker. Pt was able to tell AT that she was at [place] after some thought but was unaware of the city we were in. Pt reports unsuitability at times, indigestion, and dry mouth. Pt didn't want to continue talking until AT got her some water. AT got some water and continued on with assessment. Pt said that her is and she has two sons. Pt reports she is 85 and born in 1935 and that the year is 2019. Pt. reports that her friends aren't here anymore and that she only sees her family on the holidays. Pt. reported she was having a bad day and had frequent somatic complaints. Initial goal is aimed to increase self-esteem development and socialization skills. Pt will participate in at least three activity therapy sessions per week. Addendum: 04/25/20 at 1254 by SNEHA PELLETIER ACT Goal changed 04/25: Pt. will participate in one individual or group before discharge Addendum: 05/09/20 at 1651 by SNEHA PELLETIER ACT Goal changed 05/09: Pt. will participate in at least two Activity Therapy groups per week
[2020-04-19] MEDS ORDERED: WARFARIN 4 MG TABLET. PO ONE (16:00)
[2020-04-19 16:03] VITALS: BP 97/56
--- NOTE | 2020-04-19 17:23 | NUR ---
Patient refused combivent respimat inhaler. Stating "I don't think I need that". Nurse provided education but patient continued to refuse.
--- NOTE | 2020-04-19 17:33 | NUR ---
patient reports esophogeal/stomach discomfort when she eats. PRN Mylanta provided per order per patient request.
--- NOTE | 2020-04-19 18:16 | NUR ---
Nurse spoke with Dr Rodríguez about patients low blood pressures. Patients pressures too low to give atenolol, furosemide and spriolactone, they were held today. Patient has a history of CHF, Dr Rodríguez ordered a chest xray. Dr Mercedes is on starting tomorrow. Nurse will address BP and meds with him after the xray is resulted.
--- NOTE | 2020-04-19 19:59 | RAD ---
EXAM: AP View of the chest DATE: 04/19/2020 5:07 PM INDICATION: Congestive heart failure COMPARISON: No Prior FINDINGS: Heart is mildly enlarged. Prominence of pulmonary arterial trunk may seen with pulmonary arterial hypertension. Atherosclerotic calcifications of the aorta are seen. Linear opacities in the left greater than right midlung and lung base likely scarring/atelectasis. Trace left pleural effusion. No pneumothorax. IMPRESSION: 1. Cardiomegaly. 2. Trace left pleural effusion. 3. No definite radiographic evidence for pulmonary edema consolidation consolidation. Electronically signed by: Talha Paris MD (04/19/2020 7:56 PM) ASHWIN
[2020-04-19] MEDS: MIRTAZAPINE 15 MG TABLET PO SCH (20:42)
--- NOTE | 2020-04-19 22:32 | PDOC ---
Exam Note: Derick Note: Please also refer to the separate dictated note~for this date of service dictated separately.~Patient seen individually. Discussed the patient with Nursing staff reviewed the chart.~Reviewed interim history and current functioning. Reviewed vital signs,~Labs/ Radiology~and current medications noted below. Continue current treatment with the changes noted in the dictated addendum note Assessment: Vital Signs/I&O: Vital Signs Date Time Temp Pulse Resp B/P (MAP) Pulse Ox O2 Delivery O2 Flow Rate FiO2 04/19/20 16:03 97.5 70 18 97/56 (70) 96 High Flow Nasal Cannula 6.0 I & O 04/18/20 04/18/20 04/19/20 15:00 23:00 07:00 Intake Total 240 ml 360 ml Balance 240 ml 360 ml Labs: Laboratory Tests Test 04/19/20 09:39 Prothrombin Time 20.5 SEC (9.4-11.4) H Prothrombin Time INR 2.0 (0.9-1.1) H Current Medications: Meds: Current Medications Medications (Trade) Dose Ordered Sig/Marina Route PRN Reason Start Time Stop Time Status Last Admin Dose Admin Quetiapine Fumarate (SEROquel) 25 mg 0900,1300,1700 PO 04/19/20 09:00 04/19/20 17:19 Warfarin Sodium (Coumadin) 4 mg 1X WARF ONCE PO 04/19/20 16:00 04/19/20 16:01 DC 04/19/20 17:19 Mirtazapine (Remeron) 15 mg QHS PO 04/19/20 21:00 04/19/20 20:42 I have reviewed the current psychotropics carefully including drug interactions. Risk benefit ratio favors no change other than as noted in my dictated progress note. Diagnosis: Problems: (1) Dementia, vascular, with depression (2) Dementia, vascular, with delusions (3) Dementia in Alzheimer's disease with depression (4) Dementia in Alzheimer's disease with delusions (5) Major neurocognitive disorder (6) Dementia in Alzheimer's disease with early onset with behavioral disturbance (7) Major depressive disorder with psychotic features (8) Psychotic disorder ROHIT SIBLEY MD Apr 19, 2020 22:32
--- NOTE | 2020-04-20 00:58 | NUR ---
Last evening pt was in her room and had large BM in her wc. She had numerous complaints about care and was reluctant to assist staff by standing saying she was too weak. Eventually she did stand and transfer with encouragement and some assistance. She took her meds whole but refused the vitamin saying it was too big and began sorting meds arbitrarily saying she would take this or that one but not others. When I asked pt what is the name of the meds you are refusing she did not know and could not say why she did not want to take them. Then she wanted to take some now and some later on. Eventually she did take them at one time. Since going to bed she has been sleeping well.
[2020-04-20] MEDS: LEVOTHYROXINE 150 MCG TABLET PO SCH (05:58)
[2020-04-20 05:59] VITALS: BP 111/69
[2020-04-20] MEDS: DICLOFENAC SODIUM 1% TOPICAL GEL 100GM TUBE. TP SCH ×4 (08:56→20:18)
[2020-04-20] MEDS: IPRATROPIUM/ALBUTEROL 20/100mcg/INH INHALER. INH SCH ×5 (08:57→18:03)
[2020-04-20] MEDS: KETOROLAC TROMETHAMINE 0.5% OPHTH SOLUTION BOTTLE. OU SCH ×4 (08:57→20:18)
[2020-04-20] MEDS: FLUTICASONE 50MCG/NASAL SPRAY 16GM BOTTLE. NS SCH (08:57)
[2020-04-20] MEDS: POLYETHYLENE GLYCOL 3350 17 GM PACKET. PO SCH ×2 (08:57→09:13)
[2020-04-20] MEDS: MULTIVITAMIN I-VITE TABLET. PO SCH ×2 (08:58→20:18)
[2020-04-20] MEDS: DIVALPROEX 125 MG CAP.SPRINK PO SCH ×3 (08:58→17:31)
[2020-04-20] MEDS: ATENOLOL 25 MG TABLET PO SCH (08:58)
[2020-04-20] MEDS: CHOLECALCIFEROL (VITAMIN D3) 1,000 UNIT TABLET PO SCH (08:58)
[2020-04-20] MEDS: SPIRONOLACTONE 25 MG TABLET PO SCH (08:58)
[2020-04-20] MEDS: VITAMIN B COMPLEX CAPSULE. PO SCH (08:58)
[2020-04-20] MEDS: FLUoxetine HCL 20 MG CAPSULE PO SCH (08:58)
[2020-04-20] MEDS: METHENAMINE HIPPURATE 1 GM TABLET PO SCH ×2 (08:58→20:18)
[2020-04-20] MEDS: QUEtiapine 25 MG TABLET. PO SCH ×3 (08:59→17:32)
[2020-04-20] MEDS: POTASSIUM CHLORIDE 10 MEQ TABLET.ER. PO SCH ×2 (08:59→20:18)
[2020-04-20] MEDS: FUROSEMIDE 40 MG TABLET PO SCH ×2 (08:59→17:32)
[2020-04-20] MEDS: traZODone 50 MG TABLET. PO SCH ×3 (08:59→20:17)
--- NOTE | 2020-04-20 10:37 | NUR ---
Patient refused to take her miralax, she stated she does not need it. Patient reports having a large bowel movement yesterday. Patient was compliant with the remaining medications. She takes them one at a time with water. She is very resistive with her prescribed scheduled inhaler, she will sometimes use it after a discussion about its ingredients and how it works. She did use it this morning. She remains on 6L oxygen with high flow NC. Patient remains unwilling to help during transfers, insisting that she cannot stand (patient has been observed standing, she has assisted during previous transfers) to get from wheelchair to shower chair, she eventually cooperated with staff. Patient withdrawn to room stating that she is just "cold all over" and in pain. Nurse provided extra blankets. Patient stating that "the light hurts her eyes" and wants to sit in the dark in her room with the curtains closed. Patient reported that she "must have thrush" as her throat is sore. Nurse examined tongue with pen light, noting nothing abnormal. Patient record shows she is allergic to many oral pain relievers and she refuses to take naproxen stating it upsets her stomach. She has scheduled diclofenac sodium gel prescribed QID. Nurse spoke to patients son when he called to check her progress. Son stated that those aren't "verified" allergies on the list and he believes that they are simply things that patient did not like taking. Son stated he will call patient on his break from work. Nurse added patient to hospitalist list for tomorrow regarding thrush and some additional type of pain control.
--- NOTE | 2020-04-20 12:56 | NUR ---
PINKY attempted to return call to Jennifer at [facility] and was not able to leave a message as her voicemail is full. PINKY will try back at a later time.
--- NOTE | 2020-04-20 14:23 | NUR ---
Pharmacy Warfarin Dosing Note S:Pharmacy consulted to assist with anticoagulation therapy started with target INR: 2 -2.5 O:ARNULFO KEVIN is a 85 year old F with Atrial Fibrillation LABS: Last INR: 2.6 Last HGB: 12.8 Last HCT: 39.6 Last PLT: 382 Last dose of 4 mg given on 04/18/20 at 1600 Previous Regimen: Vitamin K given: N Drug Interaction Changes: Same Interacting Drug Ongoing Drug Interactions: A:INR Above desired Range. Target Range for this patient is: 2 -2.5 P: Warfarin dose: 3 mg Today at 1600 Bridge Therapy: None Next INR due: 04/21/20 Pharmacy anticoagulation service will continue to follow. MARYLIN PETERSEN, 04/20/20 [id number]
[2020-04-20] MEDS ORDERED: WARFARIN 3 MG TABLET. PO ONE (16:00)
[2020-04-20 16:04] VITALS: BP 111/71
--- NOTE | 2020-04-20 18:09 | NUR ---
Patient remains resistive to inhaler, refusing it at 1200 and 1600. She stated she will take Naproxen for pain if Dr Mercedes prescribes it for her tomorrow.
[2020-04-20] MEDS: MIRTAZAPINE 15 MG TABLET PO SCH (20:18)
--- NOTE | 2020-04-20 22:31 | PDOC ---
Exam Note: Derick Note: Please also refer to the separate dictated note~for this date of service dictated separately.~Patient seen individually. Discussed the patient with Nursing staff reviewed the chart.~Reviewed interim history and current functioning. Reviewed vital signs,~Labs/ Radiology~and current medications noted below. Continue current treatment with the changes noted in the dictated addendum note Assessment: Vital Signs/I&O: Vital Signs Date Time Temp Pulse Resp B/P (MAP) Pulse Ox O2 Delivery O2 Flow Rate FiO2 04/20/20 16:04 97.8 75 18 111/71 (84) 99 04/20/20 05:59 Nasal Cannula 6.0 I & O 04/19/20 04/19/20 04/20/20 14:59 22:59 06:59 Intake Total 420 ml 600 ml Balance 420 ml 600 ml Labs: Laboratory Tests Test 04/20/20 06:40 Prothrombin Time 26.5 SEC (9.4-11.4) H Prothrombin Time INR 2.6 (0.9-1.1) H Current Medications: Meds: Current Medications Medications (Trade) Dose Ordered Sig/Marina Route PRN Reason Start Time Stop Time Status Last Admin Dose Admin Warfarin Sodium (Coumadin) 3 mg 1X WARF ONCE PO 04/20/20 16:00 04/20/20 16:01 DC 04/20/20 17:34 I have reviewed the current psychotropics carefully including drug interactions. Risk benefit ratio favors no change other than as noted in my dictated progress note. Diagnosis: Problems: (1) Dementia, vascular, with depression (2) Dementia, vascular, with delusions (3) Dementia in Alzheimer's disease with depression (4) Dementia in Alzheimer's disease with delusions (5) Major neurocognitive disorder (6) Dementia in Alzheimer's disease with early onset with behavioral disturbance (7) Major depressive disorder with psychotic features (8) Psychotic disorder ROHIT SIBLEY MD Apr 20, 2020 22:31
--- NOTE | 2020-04-21 05:13 | NUR ---
Last evening pt took meds whole without issue. When going to bed she would not assist by standing saying her legs are too weak. Sit to stand used and HS cares completed. She was not very happy with sit to stand, explained to her as she gets stronger she will not need to use it any more. After going to bed she has slept well.
[2020-04-21] MEDS: LEVOTHYROXINE 150 MCG TABLET PO SCH (06:13)
[2020-04-21 06:26] VITALS: BP 99/61
[2020-04-21] MEDS: IPRATROPIUM/ALBUTEROL 20/100mcg/INH INHALER. INH SCH ×6 (08:00→21:21)
[2020-04-21] MEDS: ATENOLOL 25 MG TABLET PO SCH (09:00)
[2020-04-21] MEDS: FLUTICASONE 50MCG/NASAL SPRAY 16GM BOTTLE. NS SCH (09:15)
[2020-04-21] MEDS: KETOROLAC TROMETHAMINE 0.5% OPHTH SOLUTION BOTTLE. OU SCH ×4 (09:15→21:22)
[2020-04-21] MEDS: VITAMIN B COMPLEX CAPSULE. PO SCH (09:17)
[2020-04-21] MEDS: FLUoxetine HCL 20 MG CAPSULE PO SCH (09:18)
[2020-04-21] MEDS: DIVALPROEX 125 MG CAP.SPRINK PO SCH ×3 (09:18→21:22)
[2020-04-21] MEDS: CHOLECALCIFEROL (VITAMIN D3) 1,000 UNIT TABLET PO SCH (09:18)
[2020-04-21] MEDS: MULTIVITAMIN I-VITE TABLET. PO SCH ×2 (09:18→21:22)
[2020-04-21] MEDS: SPIRONOLACTONE 25 MG TABLET PO SCH (09:18)
[2020-04-21] MEDS: METHENAMINE HIPPURATE 1 GM TABLET PO SCH ×2 (09:18→21:22)
[2020-04-21] MEDS: QUEtiapine 25 MG TABLET. PO SCH ×3 (09:19→16:25)
[2020-04-21] MEDS: POTASSIUM CHLORIDE 10 MEQ TABLET.ER. PO SCH ×2 (09:19→21:22)
[2020-04-21] MEDS: POLYETHYLENE GLYCOL 3350 17 GM PACKET. PO SCH (09:19)
[2020-04-21] MEDS: FUROSEMIDE 40 MG TABLET PO SCH ×2 (09:19→16:25)
[2020-04-21] MEDS: traZODone 50 MG TABLET. PO SCH ×3 (09:19→21:22)
--- NOTE | 2020-04-21 09:19 | PDOC ---
Exam Note: Derick Note: This note is a late entry for 04/19/2020 covers elements not covered in my initial note. Subjective: The patient was seen individually in the evening of 04/19/2020. Per Natalee BRITO, she slept just 3-1/4 hours previous night. Per nursing report she has been extremely needy, anxious, demanding at times, somewhat hard of hearing. Review of Systems: She is hard of hearing. Ambulation 2-person assist. No CV, , pulmonary, eye system symptoms on review. She has vague somatic symptoms. Mental Status Exam: Oriented to herself and situation. Speech coherent, at times a little pressured. Abstraction fair. Computation impaired. Language function intact. Mood and affect somewhat anxious, labile. Laboratory Data: Reviewed. 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 Anxiety disorder unspecified. Impulse control disorder unspecified. Plan: Increase Remeron from 7.5 mg h.s. to 15 mg h.s. due to her insomnia. Start trazodone 50 mg h.s. p.r.n. May repeat x1 for insomnia. Continue Seroquel, Depakote, Prozac, melatonin along with Zyprexa p.r.n. Check CBC, CMP, valproic acid level on 04/21/2020 and then adjust Depakote to reach therapeutic level. Assessment: Vital Signs/I&O: Vital Signs Date Time Temp Pulse Resp B/P (MAP) Pulse Ox O2 Delivery O2 Flow Rate FiO2 04/21/20 06:26 97.4 79 20 99/61 (74) 94 6.0 04/20/20 05:59 Nasal Cannula I & O 04/20/20 04/20/20 04/21/20 14:59 22:59 06:59 Intake Total 600 ml 360 ml 120 ml Balance 600 ml 360 ml 120 ml Current Medications: Meds: Current Medications Medications (Trade) Dose Ordered Sig/Marina Route PRN Reason Start Time Stop Time Status Last Admin Dose Admin Warfarin Sodium (Coumadin) 3 mg 1X WARF ONCE PO 04/20/20 16:00 04/20/20 16:01 DC 04/20/20 17:34 I have reviewed the current psychotropics carefully including drug interactions. Risk benefit ratio favors no change other than as noted in my dictated progress note. Diagnosis: Problems: (1) Dementia, vascular, with depression (2) Dementia, vascular, with delusions (3) Dementia in Alzheimer's disease with depression (4) Dementia in Alzheimer's disease with delusions (5) Major neurocognitive disorder (6) Dementia in Alzheimer's disease with early onset with behavioral disturbance (7) Major depressive disorder with psychotic features (8) Psychotic disorder ROHIT SIBLEY MD Apr 21, 2020 09:19
[2020-04-21] MEDS: DICLOFENAC SODIUM 1% TOPICAL GEL 100GM TUBE. TP SCH ×4 (09:20→21:23)
[2020-04-21] MEDS ORDERED: NAPROXEN 500 MG TABLET PO PRN (11:00)
[2020-04-21 11:04] LABS: BASO # 0.1 x10^3/uL (0.0-0.2); BASO % 1 % (0-3); EOS # 0.2 x10^3/uL (0.0-0.7); EOS % 2 % (0-3); LYMPH # 0.7 x10^3/uL (1.0-4.8); LYMPH % 10 % (24-48); MEAN CORPUSCULAR HEMOGLOBIN 29 pg (25-35); MEAN CORPUSCULAR HGB CONC 33 g/dL (31-37); MEAN CORPUSCULAR VOLUME 89 fL (79-100); MONO # 0.5 x10^3/uL (0.0-1.1); MONO % 8 % (0-9); NEUT # 5.1 x10^3uL (1.8-7.7); NEUT % 78 % (31-73); PLATELET COUNT 322 x10^3/uL (140-400); RED BLOOD COUNT 4.18 x10^6/uL (3.50-5.40); RED CELL DISTRIBUTION WIDTH 17.2 % (11.5-14.5); WHITE BLOOD COUNT 6.5 x10^3/uL (4.0-11.0)
[2020-04-21 11:13] LABS: ALBUMIN 2.7 g/dL (3.4-5.0); ALBUMIN/GLOBULIN RATIO 0.7 (1.0-1.7); CALCIUM 8.6 mg/dL (8.5-10.1); CREATININE 1.1 mg/dL (0.6-1.0); GFR 47.1; POTASSIUM 4.6 mmol/L (3.5-5.1); TOTAL BILIRUBIN 0.2 mg/dL (0.2-1.0); TOTAL PROTEIN 6.5 g/dL (6.4-8.2)
[2020-04-21 11:23] LABS: VAL ACID 39 mcg/mL (50-100)
--- NOTE | 2020-04-21 12:55 | NUR ---
Pharmacy Warfarin Dosing Note S:Pharmacy consulted to assist with anticoagulation therapy started 04/16 with target INR: 2 -3 O:ARNULFO KEVIN is a 85 year old F with Atrial Fibrillation LABS: Last INR: 4.1 Last HGB: 12.0 Last HCT: 37.0 Last PLT: 322 Last dose of 3 mg given on 04/20/20 at 1600 Previous Regimen: 4 mg given 04/19/20 at 1600 Vitamin K given: N Drug Interaction Changes: Same Interacting Drug A:INR Above desired Range. Target Range for this patient is: 2 -3 P: Warfarin dose: Hold Today at 1600 Bridge Therapy: None Next INR due 04/22 Pharmacy anticoagulation service will continue to follow. MARYLIN PETERSEN, 04/21/20 2902
--- NOTE | 2020-04-21 13:13 | NUR ---
NURSING SHIFT NOTE PT WAS IN HER BED THIS AM UPON ASSESSMENT AND MEDICATION ADMINISTRATION. PT REFUSED TO GET UP OUT OF BED. PT WAS VERY RUDE THIS AM. PT DID TAKE HER PILLS WHOLE AFTER COMPLAINING ABOUT THEM AND TOOK THEM 1 PILL AT A TIME. PT HAS VOLTAREN GEL THAT SHE STATES GOES "ALL OVER HER BODY", APPLIED TO NECK, SHOULDERS, AND KNEES. PT HAS 2-3+ EDEMA IN HER LOWER LEGS. PT DOES HAVE HER LENZ BOOTS ON WHILE IN THE BED TO PROTECT HER HEELS. PT CURRENTLY ON 6L OF OXYGEN AND IS SOB WHILE MOVING AROUND IN THE BED. PT ATENOLOL HELD THIS AM D/T LOW BP. WILL REEVALUATE AT A LATER TIME. PRN ORDER OBTAINED FROM DR KUO FOR NAPROSYN 500 BID PRN PAIN. ORDER FROM PHARMACY FOR NO COUMADIN DOSE TODAY. PT DID TAKE HER MIRALAX THIS AM, BUT REFUSED TO USE THE INHALER. PT IS CURRENTLY A [id number] ASSISTANCE. WILL CONTINUE TO MONITOR. DARYL KELLER.
[2020-04-21 15:55] VITALS: BP 93/66
[2020-04-21] MEDS: MIRTAZAPINE 15 MG TABLET PO SCH (21:22)
--- NOTE | 2020-04-21 22:20 | PDOC ---
Exam Note: Derick Note: Please also refer to the separate dictated note~for this date of service dictated separately.~Patient seen individually. Discussed the patient with Nursing staff reviewed the chart.~Reviewed interim history and current functioning. Reviewed vital signs,~Labs/ Radiology~and current medications noted below. Continue current treatment with the changes noted in the dictated addendum note Assessment: Vital Signs/I&O: Vital Signs Date Time Temp Pulse Resp B/P (MAP) Pulse Ox O2 Delivery O2 Flow Rate FiO2 04/21/20 15:55 97.8 74 17 93/66 (75) 97 Room Air 6.0 I & O 04/20/20 04/20/20 04/21/20 15:00 23:00 07:00 Intake Total 600 ml 360 ml 120 ml Balance 600 ml 360 ml 120 ml Labs: Laboratory Tests Test 04/21/20 10:47 White Blood Count 6.5 x10^3/uL (4.0-11.0) Red Blood Count 4.18 x10^6/uL (3.50-5.40) Hemoglobin 12.0 g/dL (12.0-15.5) Hematocrit 37.0 % (36.0-47.0) Mean Corpuscular Volume 89 fL (79-100) Mean Corpuscular Hemoglobin 29 pg (25-35) Mean Corpuscular Hemoglobin Concent 33 g/dL (31-37) Red Cell Distribution Width 17.2 % (11.5-14.5) H Platelet Count 322 x10^3/uL (140-400) Neutrophils (%) (Auto) 78 % (31-73) H Lymphocytes (%) (Auto) 10 % (24-48) L Monocytes (%) (Auto) 8 % (0-9) Eosinophils (%) (Auto) 2 % (0-3) Basophils (%) (Auto) 1 % (0-3) Neutrophils # (Auto) 5.1 x10^3uL (1.8-7.7) Lymphocytes # (Auto) 0.7 x10^3/uL (1.0-4.8) L Monocytes # (Auto) 0.5 x10^3/uL (0.0-1.1) Eosinophils # (Auto) 0.2 x10^3/uL (0.0-0.7) Basophils # (Auto) 0.1 x10^3/uL (0.0-0.2) Prothrombin Time 42.6 SEC (9.4-11.4) H Prothrombin Time INR 4.1 (0.9-1.1) H Sodium Level 140 mmol/L (136-145) Potassium Level 4.6 mmol/L (3.5-5.1) Chloride Level 102 mmol/L (98-107) Carbon Dioxide Level 34 mmol/L (21-32) H Anion Gap 4 (6-14) L Blood Urea Nitrogen 36 mg/dL (7-20) H Creatinine 1.1 mg/dL (0.6-1.0) H Estimated GFR (Cockcroft-Gault) 47.1 BUN/Creatinine Ratio 33 (6-20) H Glucose Level 85 mg/dL (70-99) Calcium Level 8.6 mg/dL (8.5-10.1) Total Bilirubin 0.2 mg/dL (0.2-1.0) Aspartate Amino Transferase (AST) 20 U/L (15-37) Alanine Aminotransferase (ALT) 19 U/L (14-59) Alkaline Phosphatase 93 U/L (46-116) Total Protein 6.5 g/dL (6.4-8.2) Albumin 2.7 g/dL (3.4-5.0) L Albumin/Globulin Ratio 0.7 (1.0-1.7) L Valproic Acid Level 39 mcg/mL (50-100) L Valproic Acid Last Dose Date 04/20/20 Valproic Acid Last Dose Time 2100 Current Medications: I have reviewed the current psychotropics carefully including drug interactions. Risk benefit ratio favors no change other than as noted in my dictated progress note. Diagnosis: Problems: (1) Dementia, vascular, with depression (2) Dementia, vascular, with delusions (3) Dementia in Alzheimer's disease with depression (4) Dementia in Alzheimer's disease with delusions (5) Major neurocognitive disorder (6) Dementia in Alzheimer's disease with early onset with behavioral disturbance (7) Major depressive disorder with psychotic features (8) Psychotic disorder ROHIT SIBLEY MD Apr 21, 2020 22:20
--- NOTE | 2020-04-22 01:18 | NUR ---
Pt in dayroom at time of medpass and assessment. Pt pleasant and cooperative. She took all meds as ordered with water. She c/o larger pills feeling stuck and "likes to eat a bite to push it down." Pt expressed urgency to urinate. Pt wheeled in chair to room and placed on BSC using sit to stand lift. Pt tolerated and cooperated well. After getting situated in bed, voltaren gel administered to bilateral upper torso front and back as requested by pt in addition to bilat knees. Pt states at home she usually only sleeps for a short while then gets up to eat a bite and repeats the cycle through the night. Assisted pt in getting comfortable by raising and lowering head and foot of bed. Will continue to monitor.
[2020-04-22] MEDS: LEVOTHYROXINE 150 MCG TABLET PO SCH (05:48)
[2020-04-22 06:20] VITALS: BP 122/78
[2020-04-22] MEDS: MULTIVITAMIN I-VITE TABLET. PO SCH ×2 (07:59→19:42)
[2020-04-22] MEDS: POTASSIUM CHLORIDE 10 MEQ TABLET.ER. PO SCH ×2 (07:59→19:42)
[2020-04-22] MEDS: DIVALPROEX 125 MG CAP.SPRINK PO SCH ×3 (07:59→19:43)
[2020-04-22] MEDS: METHENAMINE HIPPURATE 1 GM TABLET PO SCH ×2 (07:59→19:42)
[2020-04-22] MEDS: VITAMIN B COMPLEX CAPSULE. PO SCH (07:59)
[2020-04-22] MEDS: FUROSEMIDE 40 MG TABLET PO SCH ×2 (08:00→12:29)
[2020-04-22] MEDS: SPIRONOLACTONE 25 MG TABLET PO SCH (08:00)
[2020-04-22] MEDS: ATENOLOL 25 MG TABLET PO SCH (08:00)
[2020-04-22] MEDS: CHOLECALCIFEROL (VITAMIN D3) 1,000 UNIT TABLET PO SCH (08:00)
[2020-04-22] MEDS: FLUoxetine HCL 20 MG CAPSULE PO SCH (08:01)
[2020-04-22] MEDS: traZODone 50 MG TABLET. PO SCH ×3 (08:01→19:42)
[2020-04-22] MEDS: QUEtiapine 25 MG TABLET. PO SCH ×3 (08:01→17:00)
[2020-04-22] MEDS: DICLOFENAC SODIUM 1% TOPICAL GEL 100GM TUBE. TP SCH ×2 (08:01→12:30)
[2020-04-22] MEDS: POLYETHYLENE GLYCOL 3350 17 GM PACKET. PO SCH (08:01)
[2020-04-22] MEDS: IPRATROPIUM/ALBUTEROL 20/100mcg/INH INHALER. INH SCH ×4 (08:02→19:43)
[2020-04-22] MEDS: FLUTICASONE 50MCG/NASAL SPRAY 16GM BOTTLE. NS SCH (08:02)
[2020-04-22] MEDS: KETOROLAC TROMETHAMINE 0.5% OPHTH SOLUTION BOTTLE. OU SCH ×4 (08:02→19:42)
--- NOTE | 2020-04-22 08:16 | NUR ---
Pharmacy Warfarin Dosing Note S:Pharmacy consulted to assist with anticoagulation therapy started with target INR: 2 -3 O:ARNULFO KEVIN is a 85 year old F with Atrial Fibrillation LABS: Last INR: 3.7 Last HGB: 12.0 Last HCT: 37.0 Last PLT: 322 Last dose HELD on 04/21/20 at 1600 Drug Interaction Changes: Same Interacting Drug Ongoing Drug Interactions: FLUOXETINE A:INR Above desired Range. Target Range for this patient is: 2 -3 P: Warfarin dose: Hold Today at 1600 Bridge Therapy: None Next INR due 04/23/20 AM Pharmacy anticoagulation service will continue to follow. CURTIS CRUM RPH, 04/22/20 0816
[2020-04-22] MEDS ORDERED: SODIUM CHL/ALOE VERA NASAL GEL 14.1GM TUBE. NS PRN (11:00)
[2020-04-22 15:39] VITALS: BP 99/62
[2020-04-22] MEDS: MIRTAZAPINE 15 MG TABLET PO SCH (19:42)
--- NOTE | 2020-04-22 22:30 | PDOC ---
Exam Note: Derick Note: Please also refer to the separate dictated note~for this date of service dictated separately.~Patient seen individually. Discussed the patient with Nursing staff reviewed the chart.~Reviewed interim history and current functioning. Reviewed vital signs,~Labs/ Radiology~and current medications noted below. Continue current treatment with the changes noted in the dictated addendum note Assessment: Vital Signs/I&O: Vital Signs Date Time Temp Pulse Resp B/P (MAP) Pulse Ox O2 Delivery O2 Flow Rate FiO2 04/22/20 15:39 98.0 110 20 99/62 (74) 98 6.0 04/22/20 06:20 Room Air I & O 04/21/20 04/21/20 04/22/20 15:00 23:00 07:00 Intake Total 240 ml 240 ml 120 ml Balance 240 ml 240 ml 120 ml Labs: Laboratory Tests Test 04/22/20 06:15 Prothrombin Time 38.6 SEC (9.4-11.4) H Prothrombin Time INR 3.7 (0.9-1.1) H Current Medications: Meds: Current Medications Medications (Trade) Dose Ordered Sig/Marina Route PRN Reason Start Time Stop Time Status Last Admin Dose Admin Divalproex Sodium (Depakote Sprinkles) 375 mg TID PO 04/22/20 21:00 04/22/20 19:43 I have reviewed the current psychotropics carefully including drug interactions. Risk benefit ratio favors no change other than as noted in my dictated progress note. Diagnosis: Problems: (1) Dementia, vascular, with depression (2) Dementia, vascular, with delusions (3) Dementia in Alzheimer's disease with depression (4) Dementia in Alzheimer's disease with delusions (5) Major neurocognitive disorder (6) Dementia in Alzheimer's disease with early onset with behavioral disturbance (7) Major depressive disorder with psychotic features (8) Psychotic disorder ROHIT SIBLEY MD Apr 22, 2020 22:30
--- NOTE | 2020-04-23 01:52 | NUR ---
Nursing Note The patient was calm and compliant during interactions and took her medication whole. Although brief; the interactions between this nurse and the patient were pleasant. The patient is currently sleeping in her room.
[2020-04-23] MEDS: LEVOTHYROXINE 150 MCG TABLET PO SCH (05:55)
[2020-04-23 06:52] VITALS: BP 119/70
--- NOTE | 2020-04-23 07:20 | PDOC ---
Exam Note: Derick Note: This note is a late entry for 04/20/2020 covers elements not covered in my initial note. Subjective: The patient was seen individually in the evening of 04/20/2020. Per Natalee BRITO, she slept 6-1/4 hours. Previous night she was manic, hyperverbal, had a bowel movement in the wheelchair purposely per nursing r eport. She is able to help transfer herself but refused to do this from wheelchair to shower. She has some thrush and is very somatically preoccupied, wants the hospital to purchase a hearing aid for her. Her son did call per nursing report and he was updated on the patients progress on ongoing lability. Review of Systems: Ambulation impaired with 2-person assist. No CV, , pulmonary, eye system symptoms on review. She has vague somatic symptoms. Mental Status Exam: Oriented to herself and situation. Speech coherent, at times a little pressured. Abstraction fair. Computation impaired. Language function intact. Mood and affect somewhat manic. Laboratory Data: Reviewed. Impression: Major depressive disorder with psychotic features. Major n eurocognitive disorder, Alzheimer, vascular with delusions, depression and behavioral disturbance. Anxiety disorder unspecified. Impulse control disorder unspecified. Plan: No change from initial note. Assessment: Vital Signs/I&O: Vital Signs Date Time Temp Pulse Resp B/P (MAP) Pulse Ox O2 Delivery O2 Flow Rate FiO2 04/23/20 06:52 98.0 68 24 119/70 (86) 98 6.0 04/22/20 06:20 Room Air I & O 04/22/20 04/22/20 04/23/20 15:00 23:00 07:00 Intake Total 600 ml 720 ml Balance 600 ml 720 ml Current Medications: Meds: Current Medications Medications (Trade) Dose Ordered Sig/Marina Route PRN Reason Start Time Stop Time Status Last Admin Dose Admin Divalproex Sodium (Depakote Sprinkles) 375 mg TID PO 04/22/20 21:00 04/22/20 19:43 I have reviewed the current psychotropics carefully including drug interactions. Risk benefit ratio favors no change other than as noted in my dictated progress note. Diagnosis: Problems: (1) Dementia, vascular, with depression (2) Dementia, vascular, with delusions (3) Dementia in Alzheimer's disease with depression (4) Dementia in Alzheimer's disease with delusions (5) Major neurocognitive disorder (6) Dementia in Alzheimer's disease with early onset with behavioral disturbance (7) Major depressive disorder with psychotic features (8) Psychotic disorder ROHIT SIBLEY MD Apr 23, 2020 07:20
--- NOTE | 2020-04-23 07:49 | PDOC ---
Exam Note: Derick Note: This note is a late entry for 04/21/2020 covers elements not covered in my initial note. Subjective: The patient was seen individually in the evening of 04/21/2020. She slept 7-1/4 hours previous night. Per nursing report she remains somewhat anxious with mood lability. Review of Systems: Ambulation impaired with 2-person assist. No CV, , pulmonary, eye system symptoms on review. She has vague somatic symptoms. Mental Status Exam: Oriented to herself and situation. Speech coherent, at times a little pressured. Abstraction fair. Computation impaired. Language function intact. Mood and affect somewhat labile. Laboratory Data: Reviewed. 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 Anxiety disorder unspecified. Impulse control disorder unspecified. Plan: No change from initial note. Valproic acid level has been checked. We will await the results. Adjust to reach therapeutic level. Assessment: Vital Signs/I&O: Vital Signs Date Time Temp Pulse Resp B/P (MAP) Pulse Ox O2 Delivery O2 Flow Rate FiO2 04/23/20 06:52 98.0 68 24 119/70 (86) 98 6.0 04/22/20 06:20 Room Air I & O 04/22/20 04/22/20 04/23/20 15:00 23:00 07:00 Intake Total 600 ml 720 ml Balance 600 ml 720 ml Current Medications: Meds: Current Medications Medications (Trade) Dose Ordered Sig/Marina Route PRN Reason Start Time Stop Time Status Last Admin Dose Admin Divalproex Sodium (Depakote Sprinkles) 375 mg TID PO 04/22/20 21:00 04/22/20 19:43 I have reviewed the current psychotropics carefully including drug interactions. Risk benefit ratio favors no change other than as noted in my dictated progress note. Diagnosis: Problems: (1) Dementia, vascular, with depression (2) Dementia, vascular, with delusions (3) Dementia in Alzheimer's disease with depression (4) Dementia in Alzheimer's disease with delusions (5) Major neurocognitive disorder (6) Dementia in Alzheimer's disease with early onset with behavioral disturbance (7) Major depressive disorder with psychotic features (8) Psychotic disorder ROHIT SIBLEY MD Apr 23, 2020 07:49
[2020-04-23] MEDS: IPRATROPIUM/ALBUTEROL 20/100mcg/INH INHALER. INH SCH ×4 (07:53→21:11)
[2020-04-23] MEDS: FLUTICASONE 50MCG/NASAL SPRAY 16GM BOTTLE. NS SCH (07:53)
[2020-04-23] MEDS: KETOROLAC TROMETHAMINE 0.5% OPHTH SOLUTION BOTTLE. OU SCH ×4 (07:53→21:10)
[2020-04-23] MEDS: FUROSEMIDE 40 MG TABLET PO SCH ×2 (07:54→16:00)
[2020-04-23] MEDS: MULTIVITAMIN I-VITE TABLET. PO SCH ×2 (07:54→21:10)
[2020-04-23] MEDS: VITAMIN B COMPLEX CAPSULE. PO SCH (07:54)
[2020-04-23] MEDS: CHOLECALCIFEROL (VITAMIN D3) 1,000 UNIT TABLET PO SCH (07:54)
[2020-04-23] MEDS: POLYETHYLENE GLYCOL 3350 17 GM PACKET. PO SCH (07:54)
[2020-04-23] MEDS: SPIRONOLACTONE 25 MG TABLET PO SCH (07:54)
[2020-04-23] MEDS: DIVALPROEX 125 MG CAP.SPRINK PO SCH ×3 (07:55→21:11)
[2020-04-23] MEDS: POTASSIUM CHLORIDE 10 MEQ TABLET.ER. PO SCH ×2 (07:55→21:10)
[2020-04-23] MEDS: METHENAMINE HIPPURATE 1 GM TABLET PO SCH ×2 (07:55→21:10)
[2020-04-23] MEDS: ATENOLOL 25 MG TABLET PO SCH (07:55)
[2020-04-23] MEDS: QUEtiapine 25 MG TABLET. PO SCH ×3 (07:55→17:00)
[2020-04-23] MEDS: traZODone 50 MG TABLET. PO SCH ×3 (07:55→21:10)
[2020-04-23] MEDS: FLUoxetine HCL 20 MG CAPSULE PO SCH (07:55)
[2020-04-23] MEDS: MAG HYDROX/AL HYDROX/SIMETH 30 ML ORAL.SUSP PO PRN ×2 (12:15→21:30)
--- NOTE | 2020-04-23 13:22 | NUR ---
Pharmacy Warfarin Dosing Note S:Pharmacy consulted to assist with anticoagulation therapy with target INR: 2 -3 O:ARNULFO KEVIN is a 85 year old F with Atrial Fibrillation LABS: Last INR: 2.6 Last HGB: 12.0 Last HCT: 37.0 Last PLT: 322 Last dose of Hold given on 04/20/20 at 1600 Previous Regimen: 2MG DAILY Vitamin K given: N Drug Interaction Changes: Same Interacting Drug Ongoing Drug Interactions: FLUOXETINE A:INR Within desired Range. Target Range for this patient is: 2 -3 P: Warfarin dose: 1 mg Today at 1600 Bridge Therapy: None Next INR due 04/24 Pharmacy anticoagulation service will continue to follow. MARYLIN PETERSEN, 04/23/20 [id number]
[2020-04-23] MEDS ORDERED: WARFARIN 1 MG TABLET. PO ONE (16:00)
[2020-04-23 16:08] VITALS: BP 100/68
--- NOTE | 2020-04-23 18:10 | NUR ---
Pt up in wc for meals. Has been compliant with meds and cares. Still askes about being put back on xanax as she ststes she has been on it for years and has never felt well after being taken off at other times.
[2020-04-23] MEDS: MIRTAZAPINE 15 MG TABLET PO SCH (21:10)
--- NOTE | 2020-04-23 22:19 | PDOC ---
Exam Note: Derick Note: Please also refer to the separate dictated note~for this date of service dictated separately.~Patient seen individually. Discussed the patient with Nursing staff reviewed the chart.~Reviewed interim history and current functioning. Reviewed vital signs,~Labs/ Radiology~and current medications noted below. Continue current treatment with the changes noted in the dictated addendum note Assessment: Vital Signs/I&O: Vital Signs Date Time Temp Pulse Resp B/P (MAP) Pulse Ox O2 Delivery O2 Flow Rate FiO2 04/23/20 16:08 98.2 63 16 100/68 (79) 99 04/23/20 06:52 6.0 04/22/20 06:20 Room Air I & O 0 04/22/20 04/22/20 04/23/20 15:00 23:00 07:00 Intake Total 600 ml 720 ml Balance 600 ml 720 ml Labs: Laboratory Tests Test 04/23/20 08:10 Prothrombin Time 27.5 SEC (9.4-11.4) H Prothrombin Time INR 2.6 (0.9-1.1) H Current Medications: Meds: Current Medications Medications (Trade) Dose Ordered Sig/Marina Route PRN Reason Start Time Stop Time Status Last Admin Dose Admin Warfarin Sodium (Coumadin) 1 mg 1X WARF ONCE PO 04/23/20 16:00 04/23/20 16:01 DC 04/23/20 16:00 I have reviewed the current psychotropics carefully including drug interactions. Risk benefit ratio favors no change other than as noted in my dictated progress note. Diagnosis: Problems: (1) Dementia, vascular, with depression (2) Dementia, vascular, with delusions (3) Dementia in Alzheimer's disease with depression (4) Dementia in Alzheimer's disease with delusions (5) Major neurocognitive disorder (6) Dementia in Alzheimer's disease with early onset with behavioral disturbance (7) Major depressive disorder with psychotic features (8) Psychotic disorder ROHIT SIBLEY MD Apr 23, 2020 22:19
--- NOTE | 2020-04-24 03:36 | NUR ---
Pt in wheelchair in room during med pass and assessment. Pt requested snacks and juice prior to medications along with mylanta. Pt's affect agitated and demanding. Pt encouraged to ambulate with assistance to bed instead of using sit to stand lift this evening. Pt seemed fearful and objected but with encouragement was able to do so. Pt resting soundly this evening. Will continue to monitor.
[2020-04-24] MEDS: LEVOTHYROXINE 150 MCG TABLET PO SCH (06:00)
[2020-04-24 06:43] VITALS: BP 139/84
--- NOTE | 2020-04-24 07:24 | PDOC ---
Exam Note: Derick Note: This note is a late entry for 04/22/2020 covers elements not covered in my initial note. Subjective: The patient was seen individually in the evening of 04/22/2020. Per Zaina BRITO, she slept 4 hours previous night. She is up for meals, somewhat somatic, compliant with medications. Valproic acid level 39 on Depakote 250 mg t.i.d. We will increase to 375 mg t.i.d. Check CBC, CMP, valproic acid level in 3 days. Review of Systems: Shortness of breath on O2 supplements. Impaired ambulation in wheelchair. No CV, , eye system symptoms on review. Mental Status Exam: Oriented to herself and situation. Speech coherent. Abstraction fair. Computation impaired. Language function intact. Attention span short. Mood and affect somewhat labile, grandiose. Laboratory Data: Reviewed. Impression: Major depressive disorder. Major neurocognitive disorder Alzheimer, vascular with delusion, depression, behavioral disturbance. Anxiety disorder unspecified. Impulse control disorder unspecified. Plan: Change Depakote as noted. Rest unchanged for now. Repeat labs. Assessment: Vital Signs/I&O: Vital Signs Date Time Temp Pulse Resp B/P (MAP) Pulse Ox O2 Delivery O2 Flow Rate FiO2 04/24/20 06:43 97.3 77 20 139/84 (102) 97 04/23/20 06:52 6.0 04/22/20 06:20 Room Air I & O 04/23/20 04/23/20 04/24/20 14:59 22:59 06:59 Intake Total 720 ml 120 ml 120 ml Balance 720 ml 120 ml 120 ml Labs: Laboratory Tests Test 04/23/20 08:10 Prothrombin Time 27.5 SEC (9.4-11.4) H Prothrombin Time INR 2.6 (0.9-1.1) H Current Medications: Meds: Current Medications Medications (Trade) Dose Ordered Sig/Marina Route PRN Reason Start Time Stop Time Status Last Admin Dose Admin Warfarin Sodium (Coumadin) 1 mg 1X WARF ONCE PO 04/23/20 16:00 04/23/20 16:01 DC 04/23/20 16:00 I have reviewed the current psychotropics carefully including drug interactions. Risk benefit ratio favors no change other than as noted in my dictated progress note. Diagnosis: Problems: (1) Dementia, vascular, with depression (2) Dementia, vascular, with delusions (3) Dementia in Alzheimer's disease with depression (4) Dementia in Alzheimer's disease with delusions (5) Major neurocognitive disorder (6) Dementia in Alzheimer's disease with early onset with behavioral disturbance (7) Major depressive disorder with psychotic features (8) Psychotic disorder ROHIT SIBLEY MD Apr 24, 2020 07:24
--- NOTE | 2020-04-24 07:45 | PDOC ---
Exam Note: Derick Note: This note is a late entry for 04/23/2020 covers elements not covered in my initial note. Subjective: The patient was seen individually in the evening of 04/23/2020. Per Gail BRITO, she slept 5-1/4 hours previous night. She remains somewhat obsessive, anxious, wanting to restart her Xanax which was tapered and stopped while she was with the [facility]. She is angry about this and I addressed this with her individually. Review of Systems: No CV, , pulmonary, eye system symptoms on review. Mental Status Exam: Oriented to herself and situation. Speech coherent, at times a little pressured. Abstraction fair. Computation impaired. Language function intact. Mood and affect somewhat labile. Laboratory Data: Reviewed. Impression: Major depressive disorder. Major neurocognitive disorder, Alzheimer, vascular with delusion, depression, behavioral disturbance. Anxiety disorder unspecified. Impulse control disorder unspecified. Plan: No change from initial note. Assessment: Vital Signs/I&O: Vital Signs Date Time Temp Pulse Resp B/P (MAP) Pulse Ox O2 Delivery O2 Flow Rate FiO2 04/24/20 06:43 97.3 77 20 139/84 (102) 97 04/23/20 06:52 6.0 04/22/20 06:20 Room Air I & O 04/23/20 04/23/20 04/24/20 15:00 23:00 07:00 Intake Total 720 ml 120 ml 120 ml Balance 720 ml 120 ml 120 ml Labs: Laboratory Tests Test 04/23/20 08:10 Prothrombin Time 27.5 SEC (9.4-11.4) H Prothrombin Time INR 2.6 (0.9-1.1) H Current Medications: Meds: Current Medications Medications (Trade) Dose Ordered Sig/Marina Route PRN Reason Start Time Stop Time Status Last Admin Dose Admin Warfarin Sodium (Coumadin) 1 mg 1X WARF ONCE PO 04/23/20 16:00 04/23/20 16:01 DC 04/23/20 16:00 I have reviewed the current psychotropics carefully including drug interactions. Risk benefit ratio favors no change other than as noted in my dictated progress note. Diagnosis: Problems: (1) Dementia, vascular, with depression (2) Dementia, vascular, with delusions (3) Dementia in Alzheimer's disease with depression (4) Dementia in Alzheimer's disease with delusions (5) Major neurocognitive disorder (6) Dementia in Alzheimer's disease with early onset with behavioral disturbance (7) Major depressive disorder with psychotic features (8) Psychotic disorder ROHIT SIBLEY MD Apr 24, 2020 07:45
--- NOTE | 2020-04-24 07:50 | NUR ---
Synthroid given per Rosa Banks RN.
[2020-04-24] MEDS: MULTIVITAMIN I-VITE TABLET. PO SCH ×2 (07:52→20:31)
[2020-04-24] MEDS: FLUTICASONE 50MCG/NASAL SPRAY 16GM BOTTLE. NS SCH (07:52)
[2020-04-24] MEDS: POTASSIUM CHLORIDE 10 MEQ TABLET.ER. PO SCH ×2 (07:52→20:31)
[2020-04-24] MEDS: DIVALPROEX 125 MG CAP.SPRINK PO SCH ×3 (07:52→20:32)
[2020-04-24] MEDS: METHENAMINE HIPPURATE 1 GM TABLET PO SCH ×2 (07:53→20:32)
[2020-04-24] MEDS: VITAMIN B COMPLEX CAPSULE. PO SCH (07:53)
[2020-04-24] MEDS: FLUoxetine HCL 20 MG CAPSULE PO SCH (07:53)
[2020-04-24] MEDS: CHOLECALCIFEROL (VITAMIN D3) 1,000 UNIT TABLET PO SCH (07:53)
[2020-04-24] MEDS: SPIRONOLACTONE 25 MG TABLET PO SCH (07:54)
[2020-04-24] MEDS: traZODone 50 MG TABLET. PO SCH ×3 (07:54→20:32)
[2020-04-24] MEDS: ATENOLOL 25 MG TABLET PO SCH (07:54)
[2020-04-24] MEDS: QUEtiapine 25 MG TABLET. PO SCH ×3 (07:54→12:53)
[2020-04-24] MEDS: FUROSEMIDE 40 MG TABLET PO SCH ×2 (07:55→16:00)
[2020-04-24] MEDS: POLYETHYLENE GLYCOL 3350 17 GM PACKET. PO SCH (07:55)
[2020-04-24] MEDS: IPRATROPIUM/ALBUTEROL 20/100mcg/INH INHALER. INH SCH ×4 (07:55→20:33)
[2020-04-24] MEDS: KETOROLAC TROMETHAMINE 0.5% OPHTH SOLUTION BOTTLE. OU SCH ×4 (07:55→20:32)
[2020-04-24] MEDS: MAG HYDROX/AL HYDROX/SIMETH 30 ML ORAL.SUSP PO PRN (11:30)
--- NOTE | 2020-04-24 14:04 | NUR ---
Pharmacy Warfarin Dosing Note S:Pharmacy consulted to assist with anticoagulation therapy started with target INR: 2 -3 O:ARNULFO KEVIN is a 85 year old F with Atrial Fibrillation LABS: Last INR: 2.0 Last HGB: 12.0 Last HCT: 37.0 Last PLT: 322 Last dose of 1 mg given on 04/23/20 at 1600 Vitamin K given: No Drug Interaction Changes: Same Interacting Drug Ongoing Drug Interactions: FLUOXETINE A:INR Within desired Range. Target Range for this patient is: 2 -3 P: Warfarin dose: 2 mg Today at 1600 Bridge Therapy: None Next INR due 04/25 Pharmacy anticoagulation service will continue to follow. MARYLIN PETERSEN, 04/24/20 [id number]
[2020-04-24] MEDS ORDERED: WARFARIN 2 MG TABLET. PO ONE (16:00)
[2020-04-24 16:35] VITALS: BP 108/71
--- NOTE | 2020-04-24 18:22 | NUR ---
Pt up in for meals and out to day room. Has been drowsy today. Pt stated in am that she thought one of her new meds was causing her to have problems with her hearing, iching ear and static. Pt decided it was her seroquel. Looked up medication and seroquel does have ototoxic potential. Dr Rebolledo ordered to dc med and monitor if there are continued SE. Will assess ear canals with otoscope.
[2020-04-24] MEDS: MIRTAZAPINE 15 MG TABLET PO SCH (20:32)
--- NOTE | 2020-04-24 22:24 | PDOC ---
Exam Note: Derick Note: Please also refer to the separate dictated note~for this date of service dictated separately.~Patient seen individually. Discussed the patient with Nursing staff reviewed the chart.~Reviewed interim history and current functioning. Reviewed vital signs,~Labs/ Radiology~and current medications noted below. Continue current treatment with the changes noted in the dictated addendum note Assessment: Vital Signs/I&O: Vital Signs Date Time Temp Pulse Resp B/P (MAP) Pulse Ox O2 Delivery O2 Flow Rate FiO2 04/24/20 16:35 97.9 93 20 108/71 (83) 100 6.0 04/22/20 06:20 Room Air I & O 04/23/20 04/23/20 04/24/20 15:00 23:00 07:00 Intake Total 720 ml 120 ml 120 ml Balance 720 ml 120 ml 120 ml Labs: Laboratory Tests Test 04/24/20 07:55 Prothrombin Time 20.4 SEC (9.4-11.4) H Prothrombin Time INR 2.0 (0.9-1.1) H Current Medications: Meds: Current Medications Medications (Trade) Dose Ordered Sig/Marina Route PRN Reason Start Time Stop Time Status Last Admin Dose Admin Warfarin Sodium (Coumadin) 2 mg 1X WARF ONCE PO 04/24/20 16:00 04/24/20 16:01 DC 04/24/20 16:00 I have reviewed the current psychotropics carefully including drug interactions. Risk benefit ratio favors no change other than as noted in my dictated progress note. Diagnosis: Problems: (1) Dementia, vascular, with depression (2) Dementia, vascular, with delusions (3) Dementia in Alzheimer's disease with depression (4) Dementia in Alzheimer's disease with delusions (5) Major neurocognitive disorder (6) Dementia in Alzheimer's disease with early onset with behavioral disturbance (7) Major depressive disorder with psychotic features (8) Psychotic disorder ROHIT SIBLEY MD Apr 24, 2020 22:24
--- NOTE | 2020-04-25 00:17 | NUR ---
Nursing Note Pt begins our conversation with "I am swelling out of control, no one is listening to me, I take up to 4 water pills a day if I need them, you need to call the doctor to let him know I cannot walk and that I can't drink anything because I cannot get to the bathroom to go pee. I cannot take the seroquel because my hearing got static like, and I need xanax if he's taking the seroquel away it's all a huge mess and then on top of it all I cannot walk anymore." I responded by telling her she was talking too fast, but that she already took aldactone, and 2 lasix doses and that he did d/c the seroquel but she was on many other things. She does have significant edema to her lower extremities, but doesn't have any prn diuretics. No crackles or wheezes to her lungs.
[2020-04-25 05:05] VITALS: BP 120/80
[2020-04-25] MEDS: LEVOTHYROXINE 150 MCG TABLET PO SCH (05:35)
[2020-04-25 06:42] LABS: ALBUMIN 2.7 g/dL (3.4-5.0); ALBUMIN/GLOBULIN RATIO 0.7 (1.0-1.7); BASO % 1 % (0-3); CALCIUM 8.6 mg/dL (8.5-10.1); CREATININE 1.3 mg/dL (0.6-1.0); EOS # 0.2 x10^3/uL (0.0-0.7); EOS % 3 % (0-3); GFR 38.8; HEMATOCRIT 36.7 % (36.0-47.0); HEMOGLOBIN 11.9 g/dL (12.0-15.5); LYMPH # 0.8 x10^3/uL (1.0-4.8); LYMPH % 11 % (24-48); MEAN CORPUSCULAR HEMOGLOBIN 29 pg (25-35); MEAN CORPUSCULAR HGB CONC 32 g/dL (31-37); MEAN CORPUSCULAR VOLUME 90 fL (79-100); MONO # 0.6 x10^3/uL (0.0-1.1); MONO % 8 % (0-9); NEUT # 6.2 x10^3uL (1.8-7.7); NEUT % 79 % (31-73); PLATELET COUNT 314 x10^3/uL (140-400); POTASSIUM 5.1 mmol/L (3.5-5.1); RED BLOOD COUNT 4.11 x10^6/uL (3.50-5.40); RED CELL DISTRIBUTION WIDTH 17.4 % (11.5-14.5); TOTAL BILIRUBIN 0.2 mg/dL (0.2-1.0); TOTAL PROTEIN 6.5 g/dL (6.4-8.2); WHITE BLOOD COUNT 7.9 x10^3/uL (4.0-11.0)
[2020-04-25 06:47] LABS: VAL ACID 56 mcg/mL (50-100)
[2020-04-25] MEDS: SPIRONOLACTONE 25 MG TABLET PO SCH (09:06)
[2020-04-25] MEDS: POTASSIUM CHLORIDE 10 MEQ TABLET.ER. PO SCH ×2 (09:07→20:16)
[2020-04-25] MEDS: METHENAMINE HIPPURATE 1 GM TABLET PO SCH ×2 (09:07→20:16)
[2020-04-25] MEDS: VITAMIN B COMPLEX CAPSULE. PO SCH (09:07)
[2020-04-25] MEDS: MULTIVITAMIN I-VITE TABLET. PO SCH ×2 (09:07→20:16)
[2020-04-25] MEDS: FUROSEMIDE 40 MG TABLET PO SCH (09:07)
[2020-04-25] MEDS: DIVALPROEX 125 MG CAP.SPRINK PO SCH ×3 (09:07→20:15)
[2020-04-25] MEDS: traZODone 50 MG TABLET. PO SCH ×3 (09:08→20:16)
[2020-04-25] MEDS: ATENOLOL 25 MG TABLET PO SCH (09:08)
[2020-04-25] MEDS: CHOLECALCIFEROL (VITAMIN D3) 1,000 UNIT TABLET PO SCH (09:08)
[2020-04-25] MEDS: KETOROLAC TROMETHAMINE 0.5% OPHTH SOLUTION BOTTLE. OU SCH ×4 (09:08→20:17)
[2020-04-25] MEDS: FLUoxetine HCL 20 MG CAPSULE PO SCH (09:08)
[2020-04-25] MEDS: IPRATROPIUM/ALBUTEROL 20/100mcg/INH INHALER. INH SCH ×4 (09:09→20:16)
[2020-04-25] MEDS: POLYETHYLENE GLYCOL 3350 17 GM PACKET. PO SCH (09:09)
[2020-04-25] MEDS: FLUTICASONE 50MCG/NASAL SPRAY 16GM BOTTLE. NS SCH (09:09)
--- NOTE | 2020-04-25 10:02 | PDOC ---
Exam Note: Derick Note: This note is a late entry for 04/24/2020 covers elements not covered in my initial note. Subjective: The patient was seen individually in the evening of 04/24/2020. Per Gail BRITO, she slept 6-1/4 hours previous night. Overall the patient is doing better. The patient feels she is having static sensation in her ear and scratching her ear and she attributes this to Seroquel. It is difficult to ascertain this but we will go ahead and stop it anyway as the patient has refused for the last two dosages. She is again wanting to be back on Xanax and it is best to avoid benzodiazepines and these were tapered while she was at . I addressed this with her. Review of Systems: Ambulation impaired in wheelchair. Shortness of breath. No CV, , eye system symptoms on review. Mental Status Exam: Oriented to herself and situation. Speech coherent, at times a little pressured. Abstraction fair. Computation impaired. Language function intact. Mood and affect somewhat labile. Laboratory Data: Reviewed. Impression: Major neurocognitive disorder Alzheimer, vascular with delusion, depression, behavioral disturbance. Anxiety disorder unspecified. Impulse control disorder unspecified. Plan: No change from initial note other than as noted above. We will stop the Seroquel. Continue Prozac, Depakote, melatonin at current dosage along with Remeron, trazodone and Zyprexa p.r.n. Assessment: Vital Signs/I&O: Vital Signs Date Time Temp Pulse Resp B/P (MAP) Pulse Ox O2 Delivery O2 Flow Rate FiO2 04/25/20 09:08 78 120/80 04/25/20 05:05 97.3 18 96 04/24/20 16:35 6.0 04/22/20 06:20 Room Air I & O 04/24/20 04/24/20 04/25/20 15:00 23:00 07:00 Intake Total 720 ml 600 ml Balance 720 ml 600 ml Labs: Laboratory Tests Test 04/25/20 06:12 White Blood Count 7.9 x10^3/uL (4.0-11.0) Red Blood Count 4.11 x10^6/uL (3.50-5.40) Hemoglobin 11.9 g/dL (12.0-15.5) L Hematocrit 36.7 % (36.0-47.0) Mean Corpuscular Volume 90 fL (79-100) Mean Corpuscular Hemoglobin 29 pg (25-35) Mean Corpuscular Hemoglobin Concent 32 g/dL (31-37) Red Cell Distribution Width 17.4 % (11.5-14.5) H Platelet Count 314 x10^3/uL (140-400) Neutrophils (%) (Auto) 79 % (31-73) H Lymphocytes (%) (Auto) 11 % (24-48) L Monocytes (%) (Auto) 8 % (0-9) Eosinophils (%) (Auto) 3 % (0-3) Basophils (%) (Auto) 1 % (0-3) Neutrophils # (Auto) 6.2 x10^3uL (1.8-7.7) Lymphocytes # (Auto) 0.8 x10^3/uL (1.0-4.8) L Monocytes # (Auto) 0.6 x10^3/uL (0.0-1.1) Eosinophils # (Auto) 0.2 x10^3/uL (0.0-0.7) Basophils # (Auto) 0.0 x10^3/uL (0.0-0.2) Prothrombin Time 19.4 SEC (9.4-11.4) H Prothrombin Time INR 1.9 (0.9-1.1) H Sodium Level 141 mmol/L (136-145) Potassium Level 5.1 mmol/L (3.5-5.1) Chloride Level 103 mmol/L (98-107) Carbon Dioxide Level 38 mmol/L (21-32) H Anion Gap 0 (6-14) L Blood Urea Nitrogen 34 mg/dL (7-20) H Creatinine 1.3 mg/dL (0.6-1.0) H Estimated GFR (Cockcroft-Gault) 38.8 BUN/Creatinine Ratio 26 (6-20) H Glucose Level 99 mg/dL (70-99) Calcium Level 8.6 mg/dL (8.5-10.1) Total Bilirubin 0.2 mg/dL (0.2-1.0) Aspartate Amino Transferase (AST) 20 U/L (15-37) Alanine Aminotransferase (ALT) 21 U/L (14-59) Alkaline Phosphatase 95 U/L (46-116) Total Protein 6.5 g/dL (6.4-8.2) Albumin 2.7 g/dL (3.4-5.0) L Albumin/Globulin Ratio 0.7 (1.0-1.7) L Valproic Acid Level 56 mcg/mL (50-100) Valproic Acid Last Dose Date 04/24/2020 Valproic Acid Last Dose Time 2100 Current Medications: Meds: Current Medications Medications (Trade) Dose Ordered Sig/Marina Route PRN Reason Start Time Stop Time Status Last Admin Dose Admin Warfarin Sodium (Coumadin) 2 mg 1X WARF ONCE PO 04/24/20 16:00 04/24/20 16:01 DC 04/24/20 16:00 I have reviewed the current psychotropics carefully including drug interactions. Risk benefit ratio favors no change other than as noted in my dictated progress note. Diagnosis: Problems: (1) Dementia, vascular, with depression (2) Dementia, vascular, with delusions (3) Dementia in Alzheimer's disease with depression (4) Dementia in Alzheimer's disease with delusions (5) Major neurocognitive disorder (6) Dementia in Alzheimer's disease with early onset with behavioral disturbance (7) Major depressive disorder with psychotic features (8) Psychotic disorder ROHIT SIBLEY MD Apr 25, 2020 10:02
[2020-04-25] MEDS: MAG HYDROX/AL HYDROX/SIMETH 30 ML ORAL.SUSP PO PRN (12:08)
--- NOTE | 2020-04-25 12:45 | NUR ---
WEEKLY ACTIVITY THERAPY NOTE Date of Admission:04/16/20 Date of AT Assessment: 04/19/20 Precipitating behaviors that initiated intake and admission: anxiety, aggression, combative, paranoia Goal aimed: to increase self-esteem development and socialization skills. Initial Goal: Pt will participate in at least three activity therapy sessions per week Weekly progress towards goal: did not achieve, no groups Group participation level: zero Weekly highlights: Behaviors observed: no interest in groups-complains sunlight hurts her eyes or can't hear, using oxygen, sits away from group if around but usually in her room Plan: change goal to: Pt. will participate in one individual or group before discharge Beneficial adaptations:
--- NOTE | 2020-04-25 14:19 | NUR ---
nsg note; pt states she does not want to go back to her facility because "all these people are being killed there. My son's roommate did something so now they are after me. One person was killed right over me"
--- NOTE | 2020-04-25 14:34 | NUR ---
nsg note; pt was in the dayroom this am, but remains in her room this afternoon. she cont to have multiple small complaints about numerous things
--- NOTE | 2020-04-25 15:12 | NUR ---
Pharmacy Warfarin Dosing Note S:Pharmacy consulted to assist with anticoagulation therapy started with target INR: 2 -3 O:ARNULFO KEVIN is a 85 year old F with Atrial Fibrillation LABS: Last INR: 1.9 Last HGB: 11.9 Last HCT: 36.7 Last PLT: 314 Last dose of 2 mg given on 04/24/20 at 1600 Previous Regimen: Vitamin K given: N Drug Interaction Changes: Same Interacting Drug Ongoing Drug Interactions: FLUOXETINE A:INR Below desired Range. Target Range for this patient is: 2 -3 P: Warfarin dose: 2 mg Today at 1600 Bridge Therapy: None Next INR due 04/26/20 @ 0600 Pharmacy anticoagulation service will continue to follow. CURTIS COOPER [facility], 04/25/20 [id number]
[2020-04-25] MEDS ORDERED: WARFARIN 2 MG TABLET. PO ONE (16:00)
--- NOTE | 2020-04-25 16:34 | NUR ---
NSG NOTE; D/C OF MED MEDS TREND OVER LAST SEVERAL DAYS: AM BP 120s/70s THREE BP MEDS GIVEN IN THE AM WITH AFTERNOON BP 90s/60s THIS AFTERNOON'S BP 85/54- DR KUO CALLED AND HE ORDERED FOR THE DIURETICS (LASIX & ALDACTONE) TO BE D/C'D
[2020-04-25 16:48] VITALS: BP 85/54
[2020-04-25] MEDS: MIRTAZAPINE 15 MG TABLET PO SCH (20:16)
--- NOTE | 2020-04-25 22:24 | PDOC ---
Exam Note: Derick Note: Please also refer to the separate dictated note~for this date of service dictated separately.~Patient seen individually. Discussed the patient with Nursing staff reviewed the chart.~Reviewed interim history and current functioning. Reviewed vital signs,~Labs/ Radiology~and current medications noted below. Continue current treatment with the changes noted in the dictated addendum note Assessment: Vital Signs/I&O: Vital Signs Date Time Temp Pulse Resp B/P (MAP) Pulse Ox O2 Delivery O2 Flow Rate FiO2 04/25/20 16:48 97.1 95 20 85/54 (64) 96 6.0 04/22/20 06:20 Room Air I & O 04/24/20 04/24/20 04/25/20 14:59 22:59 06:59 Intake Total 720 ml 600 ml Balance 720 ml 600 ml Labs: Laboratory Tests Test 04/25/20 06:12 White Blood Count 7.9 x10^3/uL (4.0-11.0) Red Blood Count 4.11 x10^6/uL (3.50-5.40) Hemoglobin 11.9 g/dL (12.0-15.5) L Hematocrit 36.7 % (36.0-47.0) Mean Corpuscular Volume 90 fL (79-100) Mean Corpuscular Hemoglobin 29 pg (25-35) Mean Corpuscular Hemoglobin Concent 32 g/dL (31-37) Red Cell Distribution Width 17.4 % (11.5-14.5) H Platelet Count 314 x10^3/uL (140-400) Neutrophils (%) (Auto) 79 % (31-73) H Lymphocytes (%) (Auto) 11 % (24-48) L Monocytes (%) (Auto) 8 % (0-9) Eosinophils (%) (Auto) 3 % (0-3) Basophils (%) (Auto) 1 % (0-3) Neutrophils # (Auto) 6.2 x10^3uL (1.8-7.7) Lymphocytes # (Auto) 0.8 x10^3/uL (1.0-4.8) L Monocytes # (Auto) 0.6 x10^3/uL (0.0-1.1) Eosinophils # (Auto) 0.2 x10^3/uL (0.0-0.7) Basophils # (Auto) 0.0 x10^3/uL (0.0-0.2) Prothrombin Time 19.4 SEC (9.4-11.4) H Prothrombin Time INR 1.9 (0.9-1.1) H Sodium Level 141 mmol/L (136-145) Potassium Level 5.1 mmol/L (3.5-5.1) Chloride Level 103 mmol/L (98-107) Carbon Dioxide Level 38 mmol/L (21-32) H Anion Gap 0 (6-14) L Blood Urea Nitrogen 34 mg/dL (7-20) H Creatinine 1.3 mg/dL (0.6-1.0) H Estimated GFR (Cockcroft-Gault) 38.8 BUN/Creatinine Ratio 26 (6-20) H Glucose Level 99 mg/dL (70-99) Calcium Level 8.6 mg/dL (8.5-10.1) Total Bilirubin 0.2 mg/dL (0.2-1.0) Aspartate Amino Transferase (AST) 20 U/L (15-37) Alanine Aminotransferase (ALT) 21 U/L (14-59) Alkaline Phosphatase 95 U/L (46-116) Total Protein 6.5 g/dL (6.4-8.2) Albumin 2.7 g/dL (3.4-5.0) L Albumin/Globulin Ratio 0.7 (1.0-1.7) L Valproic Acid Level 56 mcg/mL (50-100) Valproic Acid Last Dose Date 04/24/2020 Valproic Acid Last Dose Time 2100 Current Medications: Meds: Current Medications Medications (Trade) Dose Ordered Sig/Marina Route PRN Reason Start Time Stop Time Status Last Admin Dose Admin Warfarin Sodium (Coumadin) 2 mg 1X WARF ONCE PO 04/25/20 16:00 04/25/20 16:01 DC 04/25/20 17:19 I have reviewed the current psychotropics carefully including drug interactions. Risk benefit ratio favors no change other than as noted in my dictated progress note. Diagnosis: Problems: (1) Dementia, vascular, with depression (2) Dementia, vascular, with delusions (3) Dementia in Alzheimer's disease with depression (4) Dementia in Alzheimer's disease with delusions (5) Major neurocognitive disorder (6) Dementia in Alzheimer's disease with early onset with behavioral disturbance (7) Major depressive disorder with psychotic features (8) Psychotic disorder ROHIT SIBLEY MD Apr 25, 2020 22:24
--- NOTE | 2020-04-25 23:02 | NUR ---
Nursing Note Pt has significant difficulty helping herself secondary to her pulmonary status. She has a hard time with bed mobility, sitting up etc. Lungs are diminished with a scattered wheeze here and there, pt becomes SOA with movement. Pt c/o intense hunger, eats multiple snacks in 1 sitting. Pleasant and cooperative with meds just soa this pm. Sats 96% on RA.
[2020-04-26] MEDS: LEVOTHYROXINE 150 MCG TABLET PO SCH (05:32)
[2020-04-26 05:42] VITALS: BP 125/78
--- NOTE | 2020-04-26 07:32 | PDOC ---
Exam Note: Derick Note: This note is a late entry for 04/25/2020 covers elements not covered in my initial note. Subjective: The patient was seen individually in the morning of 04/25/2020 with treatment team meeting with Raymond Marquis RN (social service staff), [facility] staff. Sleeping 6 hours average. Appetite is 75%, somewhat demanding, whiny, anxious, spending some time in the dayroom. She refused to attend groups. Seroquel was stopped due to some auditory functional complaints and the patient was concerned that this was related to side effects from Seroquel. She is wanting Xanax back. I addressed this with her at length, best to avoid this. Valproic acid level is 56. Blood pressure in the evening was 85/50 mmHg and morning was 126/70 mmHg. We will defer it to Dr. Mercedes to hold the Lasix and also discussed with Kandis BRITO in the evening. Review of Systems: Ambulation impaired on Broda chair. Shortness of breath on O2 supplements. No CV, , eye system symptoms on review. Mental Status Exam: Oriented to herself and situation. Speech coherent, at times a little pressured. Abstraction fair. Computation impaired. Language function intact. Mood and affect somewhat labile. Laboratory Data: Reviewed. Impression: Major neurocognitive disorder Alzheimer, vascular with delusion, depression, behavioral disturbance. Anxiety disorder unspecified. Impulse control disorder unspecified. Plan: No change from initial note other than as noted above. We will stop the Seroquel. Continue Prozac, Depakote, melatonin at current dosage along with Remeron, trazodone and Zyprexa p.r.n. Assessment: Vital Signs/I&O: Vital Signs Date Time Temp Pulse Resp B/P (MAP) Pulse Ox O2 Delivery O2 Flow Rate FiO2 04/26/20 05:42 97.9 75 20 125/78 (94) 98 6.0 04/22/20 06:20 Room Air I & O 04/25/20 04/25/20 04/26/20 15:00 23:00 07:00 Intake Total 440 ml 240 ml 100 ml Balance 440 ml 240 ml 100 ml Labs: Laboratory Tests Test 04/26/20 05:56 Prothrombin Time 18.4 SEC (9.4-11.4) H Prothrombin Time INR 1.8 (0.9-1.1) H Current Medications: Meds: Current Medications Medications (Trade) Dose Ordered Sig/Marina Route PRN Reason Start Time Stop Time Status Last Admin Dose Admin Warfarin Sodium (Coumadin) 2 mg 1X WARF ONCE PO 04/25/20 16:00 04/25/20 16:01 DC 04/25/20 17:19 I have reviewed the current psychotropics carefully including drug interactions. Risk benefit ratio favors no change other than as noted in my dictated progress note. Diagnosis: Problems: (1) Dementia, vascular, with depression (2) Dementia, vascular, with delusions (3) Dementia in Alzheimer's disease with depression (4) Dementia in Alzheimer's disease with delusions (5) Major neurocognitive disorder (6) Dementia in Alzheimer's disease with early onset with behavioral disturbance (7) Major depressive disorder with psychotic features (8) Psychotic disorder ROHIT SIBLEY MD Apr 26, 2020 07:32
[2020-04-26] MEDS: MAG HYDROX/AL HYDROX/SIMETH 30 ML ORAL.SUSP PO PRN ×3 (09:13→17:10)
[2020-04-26] MEDS: IPRATROPIUM/ALBUTEROL 20/100mcg/INH INHALER. INH SCH ×4 (09:16→20:10)
[2020-04-26] MEDS: KETOROLAC TROMETHAMINE 0.5% OPHTH SOLUTION BOTTLE. OU SCH ×4 (09:16→20:10)
[2020-04-26] MEDS: FLUTICASONE 50MCG/NASAL SPRAY 16GM BOTTLE. NS SCH (09:16)
[2020-04-26] MEDS: VITAMIN B COMPLEX CAPSULE. PO SCH (09:17)
[2020-04-26] MEDS: FLUoxetine HCL 20 MG CAPSULE PO SCH (09:17)
[2020-04-26] MEDS: DIVALPROEX 125 MG CAP.SPRINK PO SCH ×3 (09:17→20:10)
[2020-04-26] MEDS: METHENAMINE HIPPURATE 1 GM TABLET PO SCH ×2 (09:17→20:10)
[2020-04-26] MEDS: MULTIVITAMIN I-VITE TABLET. PO SCH ×2 (09:17→20:10)
[2020-04-26] MEDS: traZODone 50 MG TABLET. PO SCH ×3 (09:17→20:09)
[2020-04-26] MEDS: CHOLECALCIFEROL (VITAMIN D3) 1,000 UNIT TABLET PO SCH (09:17)
[2020-04-26] MEDS: POTASSIUM CHLORIDE 10 MEQ TABLET.ER. PO SCH ×2 (09:17→20:09)
[2020-04-26] MEDS: ATENOLOL 25 MG TABLET PO SCH (09:18)
[2020-04-26] MEDS: POLYETHYLENE GLYCOL 3350 17 GM PACKET. PO SCH (09:18)
--- NOTE | 2020-04-26 09:45 | NUR ---
PINKY received a call from ALFRED Eason at [facility], who wanted to give an update on pt care. PINKY went over pt behaviors and offered to fax Jenaro updates on pt medications. PINKY requested that Jenaro inform PINKY Rodriguez, that I spoke with her. PINKY attempted to contact Jennifer but is unable to leave a voice message as her inbox is full. PINKY will fax updates and give them a call on with a tx team update.
[2020-04-26] MEDS: FUROSEMIDE 80 MG TABLET PO SCH ×2 (10:40→17:12)
--- NOTE | 2020-04-26 13:25 | NUR ---
Pharmacy Warfarin Dosing Note S:Pharmacy consulted to assist with anticoagulation therapy with target INR: 2 -3 O:ARNULFO KEVIN is a 85 year old F with Atrial Fibrillation LABS: Last INR: 1.8 Last HGB: 11.9 Last HCT: 36.7 Last PLT: 314 Last dose of 2 mg given on 04/25/20 at 1600 Vitamin K given: N Drug Interaction Changes: Same Interacting Drug Ongoing Drug Interactions: FLUOXETINE A:INR Below desired Range. Target Range for this patient is: 2 -3 P: Warfarin dose: 2.5 mg Today at 1600 Bridge Therapy: None Next INR due 04/27/20 Pharmacy anticoagulation service will continue to follow. MARYLIN PETERSEN, 04/26/20 [id number]
[2020-04-26 15:57] VITALS: BP 94/62
[2020-04-26] MEDS ORDERED: WARFARIN 2.5 MG TABLET. PO ONE (16:00)
--- NOTE | 2020-04-26 16:23 | NUR ---
Patient compliant with medications, including inhalers. Patient in day room most of the day sitting at table by window. She continues on 6L oxygen thru high flow NC. Patient has had many complaints this day. She has had Mylanta at 0915 and 1215 and continued to complain of stomach pain. She stated this is "nothing new and she lives with it". Patient stated that her feet and ankles hurt, they are edematous with tight, shiny skin, with indentation where her socks were. Dr Mercedes put patient on Lasix BID 0900,1600. It had previouslt Addendum: 04/26/20 at 1633 by DAVID MCNAIR RN *previously discontinued r/t low BP in the afternoon. Patient asked nurse to tell Dr Rebolledo that she no longer thinks that the seroquel was causing the "itching in her ears" and requested to be put back on it. Dr. Rebolledo gave order for Seroquel 12.5mg BID@0900,1700 which will start tonight. Patient refused miralax stating she had a large bowel movement today. Nurse provided education about Miralax but patient continued to refuse it.
[2020-04-26] MEDS: QUEtiapine 25 MG TABLET. PO SCH (17:12)
[2020-04-26] MEDS: MIRTAZAPINE 15 MG TABLET PO SCH (20:10)
--- NOTE | 2020-04-26 22:16 | PDOC ---
Exam Note: Derick Note: Please also refer to the separate dictated note~for this date of service dictated separately.~Patient seen individually. Discussed the patient with Nursing staff reviewed the chart.~Reviewed interim history and current functioning. Reviewed vital signs,~Labs/ Radiology~and current medications noted below. Continue current treatment with the changes noted in the dictated addendum note Assessment: Vital Signs/I&O: Vital Signs Date Time Temp Pulse Resp B/P (MAP) Pulse Ox O2 Delivery O2 Flow Rate FiO2 04/26/20 15:57 97.6 61 16 94/62 (73) 95 Room Air 04/26/20 05:42 6.0 I & O 04/25/20 04/25/20 04/26/20 15:00 23:00 07:00 Intake Total 440 ml 240 ml 100 ml Balance 440 ml 240 ml 100 ml Labs: Laboratory Tests Test 04/26/20 05:56 Prothrombin Time 18.4 SEC (9.4-11.4) H Prothrombin Time INR 1.8 (0.9-1.1) H Current Medications: Meds: Current Medications Medications (Trade) Dose Ordered Sig/Marina Route PRN Reason Start Time Stop Time Status Last Admin Dose Admin Furosemide (Lasix) 80 mg 0900,1600 PO 04/26/20 10:15 04/26/20 17:12 Warfarin Sodium (Coumadin) 2.5 mg 1X WARF ONCE PO 04/26/20 16:00 04/26/20 16:01 DC 04/26/20 17:11 Quetiapine Fumarate (SEROquel) 12.5 mg 0900,1700 PO 04/26/20 17:00 04/26/20 17:12 I have reviewed the current psychotropics carefully including drug interactions. Risk benefit ratio favors no change other than as noted in my dictated progress note. Diagnosis: Problems: (1) Dementia, vascular, with depression (2) Dementia, vascular, with delusions (3) Dementia in Alzheimer's disease with depression (4) Dementia in Alzheimer's disease with delusions (5) Major neurocognitive disorder (6) Dementia in Alzheimer's disease with early onset with behavioral disturbance (7) Major depressive disorder with psychotic features (8) Psychotic disorder ROHIT SIBLEY MD Apr 26, 2020 22:16
[2020-04-26] MEDS: DICLOFENAC SODIUM 1% TOPICAL GEL 100GM TUBE. TP PRN (23:16)
[2020-04-26] MEDS: traZODone 50 MG TABLET. PO PRN (23:16)
--- NOTE | 2020-04-27 00:31 | NUR ---
Nursing Note Pt somatic this pm, worried about her swelling in her legs and her pulmonary status. States she really wants to get her legs down to a normal size that she is worried about them being so large etc. She states she is eating too much here and needs to cut back once she gets back to where she lives. Later complained of pain, gave her voltaren gel to smith MCCALL with massage. She refused a repeat trazodone stating she would take it if she couldn't get to sleep later. 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 That there used to be a show she enjoyed featuring miners and their struggles. She stated that she owned lots of jewelry but she had given it all away to her grandchildren at one time or another.
[2020-04-27 05:27] VITALS: BP 97/59
[2020-04-27] MEDS: LEVOTHYROXINE 150 MCG TABLET PO SCH (06:15)
[2020-04-27 07:02] LABS: BASO % 1 % (0-3); EOS # 0.2 x10^3/uL (0.0-0.7); EOS % 3 % (0-3); HEMATOCRIT 35.4 % (36.0-47.0); HEMOGLOBIN 11.3 g/dL (12.0-15.5); LYMPH # 0.9 x10^3/uL (1.0-4.8); LYMPH % 14 % (24-48); MEAN CORPUSCULAR HEMOGLOBIN 29 pg (25-35); MEAN CORPUSCULAR HGB CONC 32 g/dL (31-37); MEAN CORPUSCULAR VOLUME 91 fL (79-100); MONO # 0.6 x10^3/uL (0.0-1.1); MONO % 10 % (0-9); NEUT # 4.6 x10^3uL (1.8-7.7); NEUT % 73 % (31-73); PLATELET COUNT 296 x10^3/uL (140-400); RED BLOOD COUNT 3.91 x10^6/uL (3.50-5.40); RED CELL DISTRIBUTION WIDTH 17.2 % (11.5-14.5); WHITE BLOOD COUNT 6.3 x10^3/uL (4.0-11.0)
[2020-04-27 07:11] LABS: CALCIUM 8.6 mg/dL (8.5-10.1); CREATININE 1.3 mg/dL (0.6-1.0); GFR 38.8; POTASSIUM 4.7 mmol/L (3.5-5.1)
--- NOTE | 2020-04-27 07:19 | RAD ---
CHEST AP ONLY INDICATION: Dyspnea. COMPARISON STUDY: 04/19/2020. FINDINGS: Lungs: Normal lung volume. No confluent consolidation. Stable left mid lung linear opacity, likely subsegmental atelectasis or linear fibrosis. Prominent interstitial markings. Pleura: Slightly increased small left pleural effusion. Heart and Mediastinum: Cardiomegaly. Tortuous atherosclerotic aorta. IMPRESSION: 1. Prominent interstitial markings may reflect trace interstitial edema. 2. Slightly increased small left pleural effusion. Electronically signed by: Taurus Anglin MD (04/27/2020 7:16 AM) [id number]
[2020-04-27 07:23] LABS: ALBUMIN 2.6 g/dL (3.4-5.0); ALBUMIN/GLOBULIN RATIO 0.7 (1.0-1.7); TOTAL BILIRUBIN 0.3 mg/dL (0.2-1.0); TOTAL PROTEIN 6.2 g/dL (6.4-8.2)
--- NOTE | 2020-04-27 07:24 | PDOC ---
Exam Note: Derick Note: This note is a late entry for 04/26/2020 covers elements not covered in my initial note. Subjective: The patient was seen individually in the evening of 04/26/2020. Per Natalee BRITO, she slept 6-1/2 hours previous night. The patient states he wants her Seroquel back. She felt less anxious on it and less paranoid. We will restart 12.5 mg 9 a.m. and 5 p.m. Lasix restarted by Dr. Mercedes. She is wanting her catheter, unable to explain why she wants one. Does complain of vague GI symptoms. Review of Systems: Ambulation impaired with 2-person assist. Mental Status Exam: Oriented to herself and situation. Speech coherent, at times a little pressured. Abstraction fair. Computation impaired. Language function intact. Mood and affect somewhat labile, less paranoid. Laboratory Data: Reviewed. Impression: Major neurocognitive disorder Alzheimer, vascular with delusion, depression, behavioral disturbance. Anxiety disorder unspecified. Impulse control disorder unspecified. Plan: No change from initial note other than as noted above. As noted above we will restart Seroquel 12.5 mg 9 a.m. and 5 p.m. to help agitation, anxiety and mood lability. Adjust further as clinically indicated. Assessment: Vital Signs/I&O: Vital Signs Date Time Temp Pulse Resp B/P (MAP) Pulse Ox O2 Delivery O2 Flow Rate FiO2 04/27/20 05:27 97.4 65 20 97/59 (72) 94 Nasal Cannula 5.0 I & O 04/26/20 04/26/20 04/27/20 15:00 23:00 07:00 Intake Total 360 ml 360 ml Output Total 1 ml Balance 360 ml 359 ml Labs: Laboratory Tests Test 04/27/20 06:55 White Blood Count 6.3 x10^3/uL (4.0-11.0) Red Blood Count 3.91 x10^6/uL (3.50-5.40) Hemoglobin 11.3 g/dL (12.0-15.5) L Hematocrit 35.4 % (36.0-47.0) L Mean Corpuscular Volume 91 fL (79-100) Mean Corpuscular Hemoglobin 29 pg (25-35) Mean Corpuscular Hemoglobin Concent 32 g/dL (31-37) Red Cell Distribution Width 17.2 % (11.5-14.5) H Platelet Count 296 x10^3/uL (140-400) Neutrophils (%) (Auto) 73 % (31-73) Lymphocytes (%) (Auto) 14 % (24-48) L Monocytes (%) (Auto) 10 % (0-9) H Eosinophils (%) (Auto) 3 % (0-3) Basophils (%) (Auto) 1 % (0-3) Neutrophils # (Auto) 4.6 x10^3uL (1.8-7.7) Lymphocytes # (Auto) 0.9 x10^3/uL (1.0-4.8) L Monocytes # (Auto) 0.6 x10^3/uL (0.0-1.1) Eosinophils # (Auto) 0.2 x10^3/uL (0.0-0.7) Basophils # (Auto) 0.0 x10^3/uL (0.0-0.2) Sodium Level 140 mmol/L (136-145) Potassium Level 4.7 mmol/L (3.5-5.1) Chloride Level 101 mmol/L (98-107) Carbon Dioxide Level 40 mmol/L (21-32) H Anion Gap -1 (6-14) L Blood Urea Nitrogen 26 mg/dL (7-20) H Creatinine 1.3 mg/dL (0.6-1.0) H Estimated GFR (Cockcroft-Gault) 38.8 BUN/Creatinine Ratio 20 (6-20) Glucose Level 91 mg/dL (70-99) Calcium Level 8.6 mg/dL (8.5-10.1) Total Bilirubin Pending Aspartate Amino Transferase (AST) Pending Alanine Aminotransferase (ALT) Pending Alkaline Phosphatase Pending UF-Uyd-Y-Type Natriuretic Peptide Pending Total Protein Pending Albumin Pending Albumin/Globulin Ratio Pending Current Medications: Meds: Current Medications Medications (Trade) Dose Ordered Sig/Marina Route PRN Reason Start Time Stop Time Status Last Admin Dose Admin Furosemide (Lasix) 80 mg 0900,1600 PO 04/26/20 10:15 04/26/20 17:12 Warfarin Sodium (Coumadin) 2.5 mg 1X WARF ONCE PO 04/26/20 16:00 04/26/20 16:01 DC 04/26/20 17:11 Quetiapine Fumarate (SEROquel) 12.5 mg 0900,1700 PO 04/26/20 17:00 04/26/20 17:12 I have reviewed the current psychotropics carefully including drug interactions. Risk benefit ratio favors no change other than as noted in my dictated progress note. Diagnosis: Problems: (1) Dementia, vascular, with depression (2) Dementia, vascular, with delusions (3) Dementia in Alzheimer's disease with depression (4) Dementia in Alzheimer's disease with delusions (5) Major neurocognitive disorder (6) Dementia in Alzheimer's disease with early onset with behavioral disturbance (7) Major depressive disorder with psychotic features (8) Psychotic disorder ROHIT SIBLEY MD Apr 27, 2020 07:23
[2020-04-27] MEDS: POLYETHYLENE GLYCOL 3350 17 GM PACKET. PO SCH (09:45)
[2020-04-27] MEDS: MAG HYDROX/AL HYDROX/SIMETH 30 ML ORAL.SUSP PO PRN (09:45)
[2020-04-27] MEDS: POTASSIUM CHLORIDE 10 MEQ TABLET.ER. PO SCH (09:46)
[2020-04-27] MEDS: DIVALPROEX 125 MG CAP.SPRINK PO SCH ×3 (09:46→20:45)
[2020-04-27] MEDS: FUROSEMIDE 80 MG TABLET PO SCH ×2 (09:46→16:57)
[2020-04-27] MEDS: QUEtiapine 25 MG TABLET. PO SCH ×2 (09:47→16:59)
[2020-04-27] MEDS: traZODone 50 MG TABLET. PO SCH ×3 (09:48→20:45)
[2020-04-27] MEDS: KETOROLAC TROMETHAMINE 0.5% OPHTH SOLUTION BOTTLE. OU SCH ×4 (09:54→20:44)
[2020-04-27] MEDS: IPRATROPIUM/ALBUTEROL 20/100mcg/INH INHALER. INH SCH ×4 (09:54→20:00)
[2020-04-27] MEDS: FLUTICASONE 50MCG/NASAL SPRAY 16GM BOTTLE. NS SCH (09:54)
[2020-04-27] MEDS: METHENAMINE HIPPURATE 1 GM TABLET PO SCH ×2 (09:54→20:45)
[2020-04-27] MEDS: FLUoxetine HCL 20 MG CAPSULE PO SCH (09:55)
--- NOTE | 2020-04-27 09:55 | RAD ---
EXAMINATION: VENOUS LOWER EXT BILATERAL HISTORY: Edema and pain COMPARISON/CORRELATION: None FINDINGS: Bilateral lower extremity duplex venous ultrasound exam was performed. Grayscale, color Doppler, and spectral Doppler imaging was performed. Compression and augmentation was performed. This exam is limited for evaluation of the calf veins due to patient body habitus. The right common femoral vein, superficial femoral vein, popliteal vein, and saphenofemoral junction are normal with no evidence of deep venous thrombus. The visualized calf veins are unremarkable. Normal compressibility and augmentation is evident. The left common femoral vein, superficial femoral vein, popliteal vein, and saphenofemoral junction are normal with no evidence of deep venous thrombus. The visualized calf veins are unremarkable. Normal compressibility and augmentation is evident. IMPRESSION: Normal bilateral lower extremity duplex ultrasound exam. No evidence of deep venous thrombus involving the lower extremities. Electronically signed by: David Golden MD (04/27/2020 9:52 AM) [id number]
[2020-04-27] MEDS: VITAMIN B COMPLEX CAPSULE. PO SCH (10:28)
[2020-04-27] MEDS: MULTIVITAMIN I-VITE TABLET. PO SCH ×2 (10:28→20:45)
[2020-04-27] MEDS: CHOLECALCIFEROL (VITAMIN D3) 1,000 UNIT TABLET PO SCH (10:29)
--- NOTE | 2020-04-27 10:30 | NUR ---
patient in bed, complains of not feeling well. Lab work ordered per Dr Rodríguez. BUN 26, CR 1.3 and BNP 5097. Patient has swollen lower legs, had been taken off her lasix and aldactone earlier this week. Lasix was restarted yesterday and has been given twice a day. Patients cheeks appear flushed, vital signs BP 97/57, P 65, R 20, 94% 5L. temperature is normal. Radiology up to do chest xray and bilateral lower leg Doppler r/t leg pain and swelling. Patient continues to use accessory muscles to breathe, respirations 20 p/minute. Lung sounds diminished with no wheezing heard. Nurse held atenolol per Dr. Rodríguez instruction and patient stated she did not want her vitamins this morning as she was having difficulty swallowing the medications. She remains in bed, head elevated, side rail up with oxygen at 5L. Will monitor test results and report to Dr Rodríguez as necessary.
--- NOTE | 2020-04-27 13:25 | NUR ---
Patient sleeping, appears calm with no s/s pain noted. She ate 100% of breakfast. She did not want to get up for lunch so tray was saved. Held 1300 medications r/t sleeping.
--- NOTE | 2020-04-27 15:11 | NUR ---
Pharmacy Warfarin Dosing Note S:Pharmacy consulted to assist with anticoagulation therapy with target INR: 2 -3 O:ARNULFO KEVIN is a 85 year old F with Atrial Fibrillation LABS: Last INR: 1.7 Last HGB: 11.3 Last HCT: 35.4 Last PLT: 296 Last dose of 2.5 mg given on 04/25/20 at 1600 Vitamin K given: N Drug Interaction Changes: Same Interacting Drug Ongoing Drug Interactions: FLUOXETINE A:INR Below desired Range. Target Range for this patient is: 2 -3 P: Warfarin dose: 3 mg Today at 1600 Bridge Therapy: None Next INR due 04/28/20 Pharmacy anticoagulation service will continue to follow. MARYLIN PETERSEN, 04/27/20 [id number]
[2020-04-27] MEDS ORDERED: WARFARIN 3 MG TABLET. PO ONE (16:00)
[2020-04-27 16:14] LABS: BGAS PH 7.43 (7.35-7.45)
[2020-04-27 16:55] VITALS: BP 90/57
--- NOTE | 2020-04-27 17:19 | PN ---
DATE: 04/27/2020 SUBJECTIVE: The patient was seen at the nursing staff request. Her legs are more swollen and she is also somewhat short of breath. Her blood pressure is borderline and apparently she was evaluated by Dr. Mercedes and he stopped her Lasix and spironolactone initially. PHYSICAL EXAMINATION: GENERAL: When I saw her this afternoon, she looked well and was slightly tachypneic, but not jaundiced, cyanosis or thyromegaly. No jugular venous distention. Mild bilateral limb edema. VITAL SIGNS: Her heart rate was 65, blood pressure 97/59, her temperature was 97.4, respiratory rate 20, and oxygen saturation was 94% on 5 liters of oxygen. HEAD, EYES, EARS, NOSE AND THROAT: Showed normocephalic, atraumatic. NECK: Supple. CARDIAC: Normal first and second heart sounds. No gallop or murmur. CHEST: Clear to auscultation. No crepitation or rhonchi. ABDOMEN: Distended, soft. NEUROLOGIC: She is awake, alert, responding appropriately. All cranial nerves intact. She moves upper extremities to much great extent than lower extremities. She apparently is mostly bedbound. We did actually extensive labwork today including CBC, which showed a white cell count of 6300, hemoglobin 11.3, hematocrit 35.4, MCV 91, and platelet count 296,000 with normal manual differential. Her chemistry showed a serum sodium 140, potassium 4.7, chloride 101, bicarbonate 40, anion gap of 1, a BUN of 26, creatinine was 1.3 and estimated GFR was 38 mL per minute. Her glucose was 91, calcium was 8.6. Total bilirubin, AST, ALT, alkaline phosphatase were normal. Her beta natriuretic peptide was high at 5097. Her total protein was 6.2, albumin was 2.6. Her valproic acid was 56 mcg/mL. We did actually also bilateral venous Doppler ultrasound of both lower extremities showed normal bilateral lower extremity Doppler ultrasound exam. No evidence of deep vein thrombosis involving the lower extremities and her chest x-ray showed prominent interstitial markings, may reflect trace interstitial edema and slightly increased small left side pleural effusion. We did also blood gases, which showed a pH of 7.438, pCO2 of 58, pO2 of 17 and bicarbonate of 39, which indicates a compensated chronic respiratory failure. So, all in all, the patient actually is in heart failure with borderline hypotension, so we held her atenolol. We put her back on her Lasix 80 mg twice a day. She should also go back on her spironolactone and her prothrombin time was somewhat subtherapeutic, so I will adjust her Coumadin to maintain INR between 2-2.5. YULISSA MICHELLE MD DR: CATHERINE/brianda JOB#: [id number] / [id number]
[2020-04-27] MEDS: MIRTAZAPINE 15 MG TABLET PO SCH (20:44)
--- NOTE | 2020-04-27 22:05 | NUR ---
PT seen in her room. PT was just incontinent. PT given MiraLax earlier in day along with multiple apple juices. PT short of breath with exertion. PT currently on 6L of O2 NC. PT calm, cooperative and compliant.
--- NOTE | 2020-04-27 22:22 | PDOC ---
Exam Note: Derick Note: Please also refer to the separate dictated note~for this date of service dictated separately.~Patient seen individually. Discussed the patient with Nursing staff reviewed the chart.~Reviewed interim history and current functioning. Reviewed vital signs,~Labs/ Radiology~and current medications noted below. Continue current treatment with the changes noted in the dictated addendum note Assessment: Vital Signs/I&O: Vital Signs Date Time Temp Pulse Resp B/P (MAP) Pulse Ox O2 Delivery O2 Flow Rate FiO2 04/27/20 16:55 98.0 65 16 90/57 (68) 97 5.0 04/27/20 05:27 Nasal Cannula I & O 04/26/20 04/26/20 04/27/20 15:00 23:00 07:00 Intake Total 360 ml 360 ml Output Total 1 ml Balance 360 ml 359 ml Labs: Laboratory Tests Test 04/27/20 06:55 04/27/20 15:41 White Blood Count 6.3 x10^3/uL (4.0-11.0) Red Blood Count 3.91 x10^6/uL (3.50-5.40) Hemoglobin 11.3 g/dL (12.0-15.5) L Hematocrit 35.4 % (36.0-47.0) L Mean Corpuscular Volume 91 fL (79-100) Mean Corpuscular Hemoglobin 29 pg (25-35) Mean Corpuscular Hemoglobin Concent 32 g/dL (31-37) Red Cell Distribution Width 17.2 % (11.5-14.5) H Platelet Count 296 x10^3/uL (140-400) Neutrophils (%) (Auto) 73 % (31-73) Lymphocytes (%) (Auto) 14 % (24-48) L Monocytes (%) (Auto) 10 % (0-9) H Eosinophils (%) (Auto) 3 % (0-3) Basophils (%) (Auto) 1 % (0-3) Neutrophils # (Auto) 4.6 x10^3uL (1.8-7.7) Lymphocytes # (Auto) 0.9 x10^3/uL (1.0-4.8) L Monocytes # (Auto) 0.6 x10^3/uL (0.0-1.1) Eosinophils # (Auto) 0.2 x10^3/uL (0.0-0.7) Basophils # (Auto) 0.0 x10^3/uL (0.0-0.2) Prothrombin Time 17.8 SEC (9.4-11.4) H Prothrombin Time INR 1.7 (0.9-1.1) H Sodium Level 140 mmol/L (136-145) Potassium Level 4.7 mmol/L (3.5-5.1) Chloride Level 101 mmol/L (98-107) Carbon Dioxide Level 40 mmol/L (21-32) H Anion Gap -1 (6-14) L Blood Urea Nitrogen 26 mg/dL (7-20) H Creatinine 1.3 mg/dL (0.6-1.0) H Estimated GFR (Cockcroft-Gault) 38.8 BUN/Creatinine Ratio 20 (6-20) Glucose Level 91 mg/dL (70-99) Calcium Level 8.6 mg/dL (8.5-10.1) Total Bilirubin 0.3 mg/dL (0.2-1.0) Aspartate Amino Transferase (AST) 18 U/L (15-37) Alanine Aminotransferase (ALT) 19 U/L (14-59) Alkaline Phosphatase 85 U/L (46-116) IC-Bll-V-Type Natriuretic Peptide 5097 pg/mL (0-449) H Total Protein 6.2 g/dL (6.4-8.2) L Albumin 2.6 g/dL (3.4-5.0) L Albumin/Globulin Ratio 0.7 (1.0-1.7) L Blood pH 7.43 (7.35-7.45) Blood Gas PCO2 58 mmHg (35-45) H Blood Gas PO2 100 mmHg (71-100) Blood Gas HCO3 39 mmol/L (22-26) H Arterial Bld O2 Saturation (Calc) 98 % (92-99) FiO2 40 % Current Medications: Meds: Current Medications Medications (Trade) Dose Ordered Sig/Marina Route PRN Reason Start Time Stop Time Status Last Admin Dose Admin Warfarin Sodium (Coumadin) 3 mg 1X WARF ONCE PO 04/27/20 16:00 04/27/20 16:01 DC 04/27/20 16:56 I have reviewed the current psychotropics carefully including drug interactions. Risk benefit ratio favors no change other than as noted in my dictated progress note. Diagnosis: Problems: (1) Dementia, vascular, with depression (2) Dementia, vascular, with delusions (3) Dementia in Alzheimer's disease with depression (4) Dementia in Alzheimer's disease with delusions (5) Major neurocognitive disorder (6) Dementia in Alzheimer's disease with early onset with behavioral disturbance (7) Major depressive disorder with psychotic features (8) Psychotic disorder ROHIT SIBLEY MD Apr 27, 2020 22:22
[2020-04-28 05:44] VITALS: BP 109/55
[2020-04-28] MEDS: LEVOTHYROXINE 150 MCG TABLET PO SCH (05:53)
--- NOTE | 2020-04-28 07:32 | PDOC ---
Exam Note: Derick Note: This note is a late entry for 04/27/2020 covers elements not covered in my initial note. Subjective: The patient was seen individually in the evening of 04/27/2020. Per Natalee BRITO, she slept 5-1/2 hours previous night. She has been in bed most of the day, tired and exhausted. Blood pressure is low. ABGs are low. Dr. Rodríguez is managing this. BNP is greater than 5000. She does have CHF. Review of Systems: Ambulation impaired with 2-person assist. Positive for tiredness. No CV, , pulmonary, eye system symptoms on review Mental Status Exam: Oriented to herself and situation. Speech coherent, at times a little pressured. Abstraction fair. Computation impaired. Language function intact. Mood and affect somewhat labile, less paranoid. Laboratory Data: Reviewed. Impression: Major neurocognitive disorder Alzheimer, vascular with delusion, depression, behavioral disturbance. Anxiety disorder unspecified. Impulse control disorder unspecified. Plan: No change from initial note. She does have CHF. We will defer to Dr. Rodríguez. Assessment: Vital Signs/I&O: Vital Signs Date Time Temp Pulse Resp B/P (MAP) Pulse Ox O2 Delivery O2 Flow Rate FiO2 04/28/20 05:44 97.8 62 20 109/55 (73) 97 Nasal Cannula 6.0 I & O 04/27/20 04/27/20 04/28/20 15:00 23:00 07:00 Intake Total 600 ml 480 ml Balance 600 ml 480 ml Labs: Laboratory Tests Test 04/27/20 15:41 04/28/20 06:33 Blood pH 7.43 (7.35-7.45) Blood Gas PCO2 58 mmHg (35-45) H Blood Gas PO2 100 mmHg (71-100) Blood Gas HCO3 39 mmol/L (22-26) H Arterial Bld O2 Saturation (Calc) 98 % (92-99) FiO2 40 % Prothrombin Time 20.3 SEC (9.4-11.4) H Prothrombin Time INR 2.0 (0.9-1.1) H Current Medications: Meds: Current Medications Medications (Trade) Dose Ordered Sig/Marina Route PRN Reason Start Time Stop Time Status Last Admin Dose Admin Warfarin Sodium (Coumadin) 3 mg 1X WARF ONCE PO 04/27/20 16:00 04/27/20 16:01 DC 04/27/20 16:56 I have reviewed the current psychotropics carefully including drug interactions. Risk benefit ratio favors no change other than as noted in my dictated progress note. Diagnosis: Problems: (1) Dementia, vascular, with depression (2) Dementia, vascular, with delusions (3) Dementia in Alzheimer's disease with depression (4) Dementia in Alzheimer's disease with delusions (5) Major neurocognitive disorder (6) Dementia in Alzheimer's disease with early onset with behavioral disturbance (7) Major depressive disorder with psychotic features (8) Psychotic disorder ROHIT SIBLEY MD Apr 28, 2020 07:32
--- NOTE | 2020-04-28 11:30 | NUR ---
Patient slept through breakfast. Nurse checked on patient multiple times, patient was asleep in bed with no s/s pain noted. At 1100, when patient awoke vital signs were checked, all WNL. Patient appears to have a flushed face, patient stated that she has rosacea. Morning medications to be provided to patient at this time.
[2020-04-28] MEDS: traZODone 50 MG TABLET. PO SCH ×3 (13:12→20:43)
[2020-04-28] MEDS: VITAMIN B COMPLEX CAPSULE. PO SCH (13:13)
[2020-04-28] MEDS: POLYETHYLENE GLYCOL 3350 17 GM PACKET. PO SCH (13:13)
[2020-04-28] MEDS: MULTIVITAMIN I-VITE TABLET. PO SCH ×2 (13:14→20:43)
[2020-04-28] MEDS: CHOLECALCIFEROL (VITAMIN D3) 1,000 UNIT TABLET PO SCH (13:14)
[2020-04-28] MEDS: QUEtiapine 25 MG TABLET. PO SCH ×2 (13:15→18:09)
[2020-04-28] MEDS: IPRATROPIUM/ALBUTEROL 20/100mcg/INH INHALER. INH SCH ×4 (13:15→20:44)
[2020-04-28] MEDS: KETOROLAC TROMETHAMINE 0.5% OPHTH SOLUTION BOTTLE. OU SCH ×4 (13:15→20:43)
[2020-04-28] MEDS: FUROSEMIDE 80 MG TABLET PO SCH ×2 (13:34→18:21)
[2020-04-28] MEDS: SPIRONOLACTONE 25 MG TABLET PO SCH (13:34)
[2020-04-28] MEDS: FLUTICASONE 50MCG/NASAL SPRAY 16GM BOTTLE. NS SCH (13:35)
[2020-04-28] MEDS: METHENAMINE HIPPURATE 1 GM TABLET PO SCH ×2 (13:43→20:43)
[2020-04-28] MEDS: DIVALPROEX 125 MG CAP.SPRINK PO SCH ×3 (13:43→20:43)
[2020-04-28] MEDS: FLUoxetine HCL 20 MG CAPSULE PO SCH (13:44)
--- NOTE | 2020-04-28 14:26 | NUR ---
Pharmacy Warfarin Dosing Note S:Pharmacy consulted to assist with anticoagulation therapy started with target INR: 2 -3 O:ARNULFO KEVIN is a 85 year old F with Atrial Fibrillation LABS: Last INR: 2 Last HGB: 11.3 Last HCT: 35.4 Last PLT: 296 Last dose of 3 mg given on 04/27/20 at 1600 Previous Regimen: Vitamin K given: N Drug Interaction Changes: Same Interacting Drug Ongoing Drug Interactions: FLUOXETINE A:INR Within desired Range. Target Range for this patient is: 2 -3 P: Warfarin dose: 3 mg Today at 1600 Bridge Therapy: None Next INR due 04/29/20 @ 0600 Pharmacy anticoagulation service will continue to follow. CURTIS COOPER [facility], 04/28/20 [id number]
--- NOTE | 2020-04-28 15:31 | NUR ---
Patient has been in bed this shift. She has edema in her lower legs and lung sounds are diminished. Patient continues to "feel ill" stating that her back hurts as well as other body parts (because of fibromyalgia) but she cannot take most pain medications as she is allergic to them. She also reported a headache and wanted the curtain closed because the light hurts her eyes (because of macular degeneration). She states that her whole body hurts. Patient did not eat breakfast and picked at lunch. She has been drowsy and sleeping on and off through out the day. Trazodone and seroquel held r/t sedating effects. Patient has upset stomach and would only agree to take lasix and spirolactone for her fluid retention. She took her inhaler and her eye drops as well. She did eat a cup of pudding and apple juice with medications. Patients daughter called this morning while patient was asleep. Daughter stated she would call back later.
[2020-04-28 15:41] VITALS: BP 113/71
[2020-04-28] MEDS ORDERED: WARFARIN 3 MG TABLET. PO ONE (16:00)
[2020-04-28] MEDS: MIRTAZAPINE 15 MG TABLET PO SCH (20:43)
[2020-04-28] MEDS: DICLOFENAC SODIUM 1% TOPICAL GEL 100GM TUBE. TP PRN (20:44)
--- NOTE | 2020-04-28 22:11 | PDOC ---
Exam Note: Derick Note: Please also refer to the separate dictated note~for this date of service dictated separately.~Patient seen individually. Discussed the patient with Nursing staff reviewed the chart.~Reviewed interim history and current functioning. Reviewed vital signs,~Labs/ Radiology~and current medications noted below. Continue current treatment with the changes noted in the dictated addendum note Assessment: Vital Signs/I&O: Vital Signs Date Time Temp Pulse Resp B/P (MAP) Pulse Ox O2 Delivery O2 Flow Rate FiO2 04/28/20 15:41 98.3 88 18 113/71 (85) 95 6.0 04/28/20 05:44 Nasal Cannula I & O 04/27/20 04/27/20 04/28/20 15:00 23:00 07:00 Intake Total 600 ml 480 ml Balance 600 ml 480 ml Labs: Laboratory Tests Test 04/28/20 06:33 Prothrombin Time 20.3 SEC (9.4-11.4) H Prothrombin Time INR 2.0 (0.9-1.1) H Current Medications: Meds: Current Medications Medications (Trade) Dose Ordered Sig/Marina Route PRN Reason Start Time Stop Time Status Last Admin Dose Admin Spironolactone (Aldactone) 25 mg DAILY PO 04/28/20 09:00 04/28/20 13:34 Warfarin Sodium (Coumadin) 3 mg 1X WARF ONCE PO 04/28/20 16:00 04/28/20 16:01 DC 04/28/20 18:21 I have reviewed the current psychotropics carefully including drug interactions. Risk benefit ratio favors no change other than as noted in my dictated progress note. Diagnosis: Problems: (1) Dementia, vascular, with depression (2) Dementia, vascular, with delusions (3) Dementia in Alzheimer's disease with depression (4) Dementia in Alzheimer's disease with delusions (5) Major neurocognitive disorder (6) Dementia in Alzheimer's disease with early onset with behavioral disturbance (7) Major depressive disorder with psychotic features (8) Psychotic disorder ROHIT SIBLEY MD Apr 28, 2020 22:11
--- NOTE | 2020-04-29 02:16 | NUR ---
Pt has been in her room in bed this shift. She has been pleasant, cooperative and took meds whole without difficulty. No behaviors tonight.
[2020-04-29 05:31] VITALS: BP 125/83
[2020-04-29] MEDS: LEVOTHYROXINE 150 MCG TABLET PO SCH (06:09)
[2020-04-29] MEDS: FLUTICASONE 50MCG/NASAL SPRAY 16GM BOTTLE. NS SCH (09:00)
[2020-04-29] MEDS: SPIRONOLACTONE 25 MG TABLET PO SCH (09:00)
[2020-04-29] MEDS: MULTIVITAMIN I-VITE TABLET. PO SCH ×2 (09:00→21:05)
[2020-04-29] MEDS: traZODone 50 MG TABLET. PO SCH ×3 (09:00→21:06)
[2020-04-29] MEDS: DIVALPROEX 125 MG CAP.SPRINK PO SCH ×3 (09:00→21:06)
[2020-04-29] MEDS: VITAMIN B COMPLEX CAPSULE. PO SCH (09:00)
[2020-04-29] MEDS: CHOLECALCIFEROL (VITAMIN D3) 1,000 UNIT TABLET PO SCH (09:00)
[2020-04-29] MEDS: FLUoxetine HCL 20 MG CAPSULE PO SCH (09:00)
[2020-04-29] MEDS: FUROSEMIDE 80 MG TABLET PO SCH ×2 (09:00→15:15)
[2020-04-29] MEDS: METHENAMINE HIPPURATE 1 GM TABLET PO SCH ×2 (09:01→21:06)
[2020-04-29] MEDS: QUEtiapine 25 MG TABLET. PO SCH ×2 (09:01→17:56)
[2020-04-29] MEDS: IPRATROPIUM/ALBUTEROL 20/100mcg/INH INHALER. INH SCH ×4 (09:02→20:00)
[2020-04-29] MEDS: KETOROLAC TROMETHAMINE 0.5% OPHTH SOLUTION BOTTLE. OU SCH ×4 (09:02→21:05)
[2020-04-29] MEDS: POLYETHYLENE GLYCOL 3350 17 GM PACKET. PO SCH (09:03)
[2020-04-29] MEDS: MAG HYDROX/AL HYDROX/SIMETH 30 ML ORAL.SUSP PO PRN (09:12)
--- NOTE | 2020-04-29 10:47 | NUR ---
Pharmacy Warfarin Dosing Note S:Pharmacy consulted to assist with anticoagulation therapy started with target INR: 2 -3 O:ARNULFO KEVIN is a 85 year old F with Atrial Fibrillation LABS: Last INR: 1.9 Last HGB: 11.3 Last HCT: 35.4 Last PLT: 296 Last dose of 3 mg given on 04/28/20 at 1800 Previous Regimen: Vitamin K given: N Drug Interaction Changes: Same Interacting Drug Ongoing Drug Interactions: FLUOXETINE A:INR Below desired Range. Target Range for this patient is: 2 -3 P: Warfarin dose: 3.5MG Today at 1600 Bridge Therapy: None Next INR due 04/30/20 Pharmacy anticoagulation service will continue to follow. VERNON VALDEZ, 04/29/20 [id number]
[2020-04-29] MEDS ORDERED: WARFARIN 1 MG TABLET. PO ONE (16:00)
[2020-04-29] MEDS ORDERED: WARFARIN 2.5 MG TABLET. PO ONE (16:00)
[2020-04-29 16:05] VITALS: BP 118/78
--- NOTE | 2020-04-29 18:35 | NUR ---
Patient complaining of sore throat and left ear pain. Stating it hurts to swallow, refusing her vitamins, did take all other schedule meds. Swallowed without difficulty. Stating she can't hear out of left ear but doesn't seem to have any trouble hearing nurse. Pt lied in bed most of day. Vitals stable. No fever. Held trazadone this afternoon due to patients drowsiness. WCTM.
[2020-04-29] MEDS: MIRTAZAPINE 15 MG TABLET PO SCH (21:05)
--- NOTE | 2020-04-29 22:22 | PDOC ---
Exam Note: Derick Note: Please also refer to the separate dictated note~for this date of service dictated separately.~Patient seen individually. Discussed the patient with Nursing staff reviewed the chart.~Reviewed interim history and current functioning. Reviewed vital signs,~Labs/ Radiology~and current medications noted below. Continue current treatment with the changes noted in the dictated addendum note Assessment: Vital Signs/I&O: Vital Signs Date Time Temp Pulse Resp B/P (MAP) Pulse Ox O2 Delivery O2 Flow Rate FiO2 04/29/20 16:05 98.0 82 20 118/78 (91) 99 5.0 04/28/20 05:44 Nasal Cannula I & O 04/28/20 04/28/20 04/29/20 15:00 23:00 07:00 Intake Total 240 ml 250 ml Balance 240 ml 250 ml Labs: Laboratory Tests Test 04/29/20 07:02 Prothrombin Time 20.0 SEC (9.4-11.4) H Prothrombin Time INR 1.9 (0.9-1.1) H Current Medications: Meds: Current Medications Medications (Trade) Dose Ordered Sig/Marina Route PRN Reason Start Time Stop Time Status Last Admin Dose Admin Warfarin Sodium (Coumadin) 1 mg 1X WARF ONCE PO 04/29/20 16:00 04/29/20 16:01 DC 04/29/20 17:55 Warfarin Sodium (Coumadin) 2.5 mg 1X WARF ONCE PO 04/29/20 16:00 04/29/20 16:01 DC 04/29/20 17:55 I have reviewed the current psychotropics carefully including drug interactions. Risk benefit ratio favors no change other than as noted in my dictated progress note. Diagnosis: Problems: (1) Dementia, vascular, with depression (2) Dementia, vascular, with delusions (3) Dementia in Alzheimer's disease with depression (4) Dementia in Alzheimer's disease with delusions (5) Major neurocognitive disorder (6) Dementia in Alzheimer's disease with early onset with behavioral disturbance (7) Major depressive disorder with psychotic features (8) Psychotic disorder ROHIT SIBLEY MD Apr 29, 2020 22:22
[2020-04-30 05:46] VITALS: BP 150/91
[2020-04-30] MEDS: LEVOTHYROXINE 150 MCG TABLET PO SCH (05:50)
--- NOTE | 2020-04-30 07:59 | PDOC ---
Exam Note: Derick Note: This note is a late entry for 04/28/2020 covers elements not covered in my initial note. Subjective: The patient was seen individually in the evening of 04/28/2020. Per Natalee BRITO, she slept 5-1/4 hours previous night. She is spending much time in her bed, medically more compromised with congestive heart failure. Restarted on diuretics per Dr. Rodríguez. She is fixated on headaches wanting Bengay for it, which is not available at the hospital. She slept till 11.30 a.m., complains of nausea. She is a DNR status. Review of Systems: Ambulation impaired in Broda chair. Positive for shortness of breath. No CV, , eye system symptoms on review Mental Status Exam: Oriented to herself and situation. Speech coherent, at times a little pressured. Abstraction fair. Computation impaired. Language function intact. Mood and affect somewhat withdrawn paranoid. Laboratory Data: Reviewed. Impression: Major neurocognitive disorder Alzheimer, vascular with delusion, depression, behavioral disturbance. Anxiety disorder unspecified. Impulse control disorder unspecified. Plan: No change from initial note. Stabilized medically by Dr. Rodríguez. Adjust further as clinically indicated. Assessment: Vital Signs/I&O: Vital Signs Date Time Temp Pulse Resp B/P (MAP) Pulse Ox O2 Delivery O2 Flow Rate FiO2 04/30/20 05:46 98.6 106 20 150/91 (110) 95 Nasal Cannula 7.0 I & O 04/29/20 04/29/20 04/30/20 15:00 23:00 07:00 Intake Total 720 ml 0 ml Balance 720 ml 0 ml Current Medications: Meds: Current Medications Medications (Trade) Dose Ordered Sig/Marina Route PRN Reason Start Time Stop Time Status Last Admin Dose Admin Warfarin Sodium (Coumadin) 1 mg 1X WARF ONCE PO 04/29/20 16:00 04/29/20 16:01 DC 04/29/20 17:55 Warfarin Sodium (Coumadin) 2.5 mg 1X WARF ONCE PO 04/29/20 16:00 04/29/20 16:01 DC 04/29/20 17:55 I have reviewed the current psychotropics carefully including drug interactions. Risk benefit ratio favors no change other than as noted in my dictated progress note. Diagnosis: Problems: (1) Dementia, vascular, with depression (2) Dementia, vascular, with delusions (3) Dementia in Alzheimer's disease with depression (4) Dementia in Alzheimer's disease with delusions (5) Major neurocognitive disorder (6) Dementia in Alzheimer's disease with early onset with behavioral disturbance (7) Major depressive disorder with psychotic features (8) Psychotic disorder ROHIT SIBLEY MD Apr 30, 2020 07:59
--- NOTE | 2020-04-30 08:17 | PDOC ---
Exam Note: Derick Note: This note is a late entry for 04/29/2020 covers elements not covered in my initial note. Subjective: The patient was seen individually in the evening of 04/29/2020. Per Nixon BRITO, she slept 5-3/4 hours previous night. She does complain of sore throat. Remains isolative in bed. Review of Systems: Ambulation impaired. Positive for shortness of breath. No CV, , eye system symptoms on review. Mental Status Exam: Oriented to herself and situation. Speech coherent, at times a little pressured. Abstraction fair. Computation impaired. Language function intact. Mood and affect somewhat withdrawn. Laboratory Data: Reviewed. Impression: Major neurocognitive disorder Alzheimer, vascular with delusion, depression, behavioral disturbance. Anxiety disorder unspecified. Impulse control disorder unspecified. Plan: No change from initial note. Assessment: Vital Signs/I&O: Vital Signs Date Time Temp Pulse Resp B/P (MAP) Pulse Ox O2 Delivery O2 Flow Rate FiO2 04/30/20 05:46 98.6 106 20 150/91 (110) 95 Nasal Cannula 7.0 I & O 04/29/20 04/29/20 04/30/20 15:00 23:00 07:00 Intake Total 720 ml 0 ml Balance 720 ml 0 ml Current Medications: Meds: Current Medications Medications (Trade) Dose Ordered Sig/Marina Route PRN Reason Start Time Stop Time Status Last Admin Dose Admin Warfarin Sodium (Coumadin) 1 mg 1X WARF ONCE PO 04/29/20 16:00 04/29/20 16:01 DC 04/29/20 17:55 Warfarin Sodium (Coumadin) 2.5 mg 1X WARF ONCE PO 04/29/20 16:00 04/29/20 16:01 DC 04/29/20 17:55 I have reviewed the current psychotropics carefully including drug interactions. Risk benefit ratio favors no change other than as noted in my dictated progress note. Diagnosis: Problems: (1) Dementia, vascular, with depression (2) Dementia, vascular, with delusions (3) Dementia in Alzheimer's disease with depression (4) Dementia in Alzheimer's disease with delusions (5) Major neurocognitive disorder (6) Dementia in Alzheimer's disease with early onset with behavioral disturbance (7) Major depressive disorder with psychotic features (8) Psychotic disorder ROHIT SIBLEY MD Apr 30, 2020 08:17
[2020-04-30] MEDS: IPRATROPIUM/ALBUTEROL 20/100mcg/INH INHALER. INH SCH ×4 (09:12→20:49)
[2020-04-30] MEDS: FLUTICASONE 50MCG/NASAL SPRAY 16GM BOTTLE. NS SCH (09:13)
[2020-04-30] MEDS: KETOROLAC TROMETHAMINE 0.5% OPHTH SOLUTION BOTTLE. OU SCH ×4 (09:13→20:49)
[2020-04-30] MEDS: VITAMIN B COMPLEX CAPSULE. PO SCH (09:14)
[2020-04-30] MEDS: SPIRONOLACTONE 25 MG TABLET PO SCH (09:15)
[2020-04-30] MEDS: traZODone 50 MG TABLET. PO SCH ×3 (09:15→20:50)
[2020-04-30] MEDS: DIVALPROEX 125 MG CAP.SPRINK PO SCH ×3 (09:15→20:49)
[2020-04-30] MEDS: FUROSEMIDE 80 MG TABLET PO SCH ×2 (09:16→17:20)
[2020-04-30] MEDS: METHENAMINE HIPPURATE 1 GM TABLET PO SCH ×2 (09:16→20:50)
[2020-04-30] MEDS: MULTIVITAMIN I-VITE TABLET. PO SCH ×2 (09:16→20:49)
[2020-04-30] MEDS: FLUoxetine HCL 20 MG CAPSULE PO SCH (09:17)
[2020-04-30] MEDS: POLYETHYLENE GLYCOL 3350 17 GM PACKET. PO SCH (09:17)
[2020-04-30] MEDS: QUEtiapine 25 MG TABLET. PO SCH ×2 (09:17→17:23)
[2020-04-30] MEDS: CHOLECALCIFEROL (VITAMIN D3) 1,000 UNIT TABLET PO SCH (09:18)
--- NOTE | 2020-04-30 09:56 | NUR ---
Pharmacy Warfarin Dosing Note S:Pharmacy consulted to assist with anticoagulation therapy started with target INR: 2 -3 O:ARNULFO KEVIN is a 85 year old F with Atrial Fibrillation LABS: Last INR: 1.9 Last HGB: 11.3 Last HCT: 35.4 Last PLT: 296 Last dose of 3.5 given on 04/29/20 at 1800 Previous Regimen: Vitamin K given: N Drug Interaction Changes: Same Interacting Drug Ongoing Drug Interactions: FLUOXETINE A:INR Below desired Range. 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 VERNON VALDEZ, 04/30/20 0956
--- NOTE | 2020-04-30 11:53 | NUR ---
pt is calm, cooperative, compliant, no agitation, no aggression, no hallucinations, no delusions noted. pt is helpless, hopeless AEB not wanting to get out of bed and stating she cannot complete tasks for herself. Nurse offered pt a lot of encouragement which was receptive too.
[2020-04-30] MEDS ORDERED: WARFARIN 2.5 MG TABLET. PO ONE (16:00)
[2020-04-30] MEDS ORDERED: WARFARIN 1 MG TABLET. PO ONE (16:00)
[2020-04-30 16:59] VITALS: BP 119/76
[2020-04-30] MEDS ORDERED: BENZOCAINE/MENTHOL LOZNGE 18'S BOX. PO PRN (17:30)
[2020-04-30] MEDS: MIRTAZAPINE 15 MG TABLET PO SCH (20:50)
--- NOTE | 2020-04-30 22:36 | PDOC ---
Exam Note: Derick Note: Please also refer to the separate dictated note~for this date of service dictated separately.~Patient seen individually. Discussed the patient with Nursing staff reviewed the chart.~Reviewed interim history and current functioning. Reviewed vital signs,~Labs/ Radiology~and current medications noted below. Continue current treatment with the changes noted in the dictated addendum note Assessment: Vital Signs/I&O: Vital Signs Date Time Temp Pulse Resp B/P (MAP) Pulse Ox O2 Delivery O2 Flow Rate FiO2 04/30/20 16:59 98.0 76 20 119/76 (90) 95 Nasal Cannula 7.0 I & O 04/29/20 04/29/20 04/30/20 15:00 23:00 07:00 Intake Total 720 ml 0 ml Balance 720 ml 0 ml Labs: Laboratory Tests Test 04/30/20 07:29 Prothrombin Time 19.9 SEC (9.4-11.4) H Prothrombin Time INR 1.9 (0.9-1.1) H Current Medications: Meds: Current Medications Medications (Trade) Dose Ordered Sig/Marina Route PRN Reason Start Time Stop Time Status Last Admin Dose Admin Warfarin Sodium (Coumadin) 1 mg 1X WARF ONCE PO 04/30/20 16:00 04/30/20 16:01 DC 04/30/20 17:18 Warfarin Sodium (Coumadin) 2.5 mg 1X WARF ONCE PO 04/30/20 16:00 04/30/20 16:01 DC 04/30/20 17:19 I have reviewed the current psychotropics carefully including drug interactions. Risk benefit ratio favors no change other than as noted in my dictated progress note. Diagnosis: Problems: (1) Dementia, vascular, with depression (2) Dementia, vascular, with delusions (3) Dementia in Alzheimer's disease with depression (4) Dementia in Alzheimer's disease with delusions (5) Major neurocognitive disorder (6) Dementia in Alzheimer's disease with early onset with behavioral disturbance (7) Major depressive disorder with psychotic features (8) Psychotic disorder ROHIT SIBLEY MD Apr 30, 2020 22:35
--- NOTE | 2020-04-30 23:57 | NUR ---
Pt located in her room all evening. Pt calm with a flat affect. Compliant with whole medications.
[2020-05-01 05:05] VITALS: BP 125/84
[2020-05-01] MEDS: LEVOTHYROXINE 150 MCG TABLET PO SCH (06:23)
--- NOTE | 2020-05-01 07:45 | PDOC ---
Exam Note: Derick Note: This note is a late entry for 04/30/2020 covers elements not covered in my initial note. Subjective: The patient was seen individually in the evening of 04/30/2020. Per Dominique BRITO, she slept 9-1/2 hours previous night. At times she makes statements that she wants to . Denies active suicidal ideation, but states she is frustrated with her medical conditions. She did have shower today and for short period of time she was in the dayroom, rest of the time in her room in bed and this is where I met with her. Review of Systems: Ambulation impaired. No CV, , eye, ENT system symptoms on review. Mental Status Exam: Oriented to herself and situation. Speech coherent. Abstraction fair. Computation impaired. Language function intact. Attention span is fair. Mood and affect somewhat dysphoric. She appears helpless and hopeless at times. Laboratory Data: Reviewed. Impression: Major neurocognitive disorder Alzheimer, vascular with delusion, depression, behavioral disturbance. Anxiety disorder unspecified. Impulse control disorder unspecified. Plan: No change from initial note. Assessment: Vital Signs/I&O: Vital Signs Date Time Temp Pulse Resp B/P (MAP) Pulse Ox O2 Delivery O2 Flow Rate FiO2 05/01/20 05:05 97.9 62 20 125/84 (98) 98 6.0 04/30/20 16:59 Nasal Cannula I & O 04/30/20 04/30/20 05/01/20 15:00 23:00 07:00 Intake Total 840 ml 120 ml Balance 840 ml 120 ml Current Medications: Meds: Current Medications Medications (Trade) Dose Ordered Sig/Marina Route PRN Reason Start Time Stop Time Status Last Admin Dose Admin Warfarin Sodium (Coumadin) 1 mg 1X WARF ONCE PO 04/30/20 16:00 04/30/20 16:01 DC 04/30/20 17:18 Warfarin Sodium (Coumadin) 2.5 mg 1X WARF ONCE PO 04/30/20 16:00 04/30/20 16:01 DC 04/30/20 17:19 I have reviewed the current psychotropics carefully including drug interactions. Risk benefit ratio favors no change other than as noted in my dictated progress note. Diagnosis: Problems: (1) Dementia, vascular, with depression (2) Dementia, vascular, with delusions (3) Dementia in Alzheimer's disease with depression (4) Dementia in Alzheimer's disease with delusions (5) Major neurocognitive disorder (6) Dementia in Alzheimer's disease with early onset with behavioral disturbance (7) Major depressive disorder with psychotic features ROHIT SIBLEY MD May 01, 2020 07:45
[2020-05-01] MEDS: IPRATROPIUM/ALBUTEROL 20/100mcg/INH INHALER. INH SCH ×4 (08:42→19:56)
[2020-05-01] MEDS: FLUTICASONE 50MCG/NASAL SPRAY 16GM BOTTLE. NS SCH (08:43)
[2020-05-01] MEDS: KETOROLAC TROMETHAMINE 0.5% OPHTH SOLUTION BOTTLE. OU SCH ×4 (08:43→19:57)
[2020-05-01] MEDS: POLYETHYLENE GLYCOL 3350 17 GM PACKET. PO SCH (08:43)
[2020-05-01] MEDS: SPIRONOLACTONE 25 MG TABLET PO SCH (08:44)
[2020-05-01] MEDS: VITAMIN B COMPLEX CAPSULE. PO SCH (08:44)
[2020-05-01] MEDS: DIVALPROEX 125 MG CAP.SPRINK PO SCH ×3 (08:45→20:00)
[2020-05-01] MEDS: traZODone 50 MG TABLET. PO SCH ×3 (08:45→20:00)
[2020-05-01] MEDS: METHENAMINE HIPPURATE 1 GM TABLET PO SCH ×2 (08:46→19:57)
[2020-05-01] MEDS: FUROSEMIDE 80 MG TABLET PO SCH ×2 (08:46→16:00)
[2020-05-01] MEDS: MULTIVITAMIN I-VITE TABLET. PO SCH ×2 (08:46→19:57)
[2020-05-01] MEDS: FLUoxetine HCL 20 MG CAPSULE PO SCH (08:46)
[2020-05-01] MEDS: QUEtiapine 25 MG TABLET. PO SCH ×2 (08:46→17:00)
[2020-05-01] MEDS: CHOLECALCIFEROL (VITAMIN D3) 1,000 UNIT TABLET PO SCH (08:46)
[2020-05-01] MEDS: MAG HYDROX/AL HYDROX/SIMETH 30 ML ORAL.SUSP PO PRN (08:49)
--- NOTE | 2020-05-01 09:40 | NUR ---
Pharmacy Warfarin Dosing Note S:Pharmacy consulted to assist with anticoagulation therapy started with target INR: 2-2.5 O:ARNULFO KEVIN is a 85 year old F with Atrial Fibrillation LABS: Last INR: 2.7 Last HGB: 11.3 Last HCT: 35.4 Last PLT: 296 Last dose of 3.5MG given on 04/30/20 at 1800 Previous Regimen: Vitamin K given: N Drug Interaction Changes: Same Interacting Drug Ongoing Drug Interactions: FLUOXETINE A:INR Above desired Range. Target Range for this patient is: 2-2.5 P: Warfarin dose: Hold Today at 1600- wishes pt to be 2 to 2.5. Bridge Therapy: None Next INR due 05/02/20 Pharmacy anticoagulation service will continue to follow. VERNON VALDEZ, 05/01/20 0975
--- NOTE | 2020-05-01 10:45 | NUR ---
Pt is calm, cooperative, compliant, no agitation, no aggression, no hallucinations, no delusions noted. She is compliant with her medications and assessment.
[2020-05-01 15:43] VITALS: BP 141/82
[2020-05-01] MEDS: MIRTAZAPINE 15 MG TABLET PO SCH (20:00)
[2020-05-01] MEDS: NYSTATIN 100,000 UNITS/ML ORAL SUSPENSION 60ML BOTTLE. SWSW SCH (21:00)
--- NOTE | 2020-05-01 22:10 | PDOC ---
Exam Note: Derick Note: Please also refer to the separate dictated note~for this date of service dictated separately.~Patient seen individually. Discussed the patient with Nursing staff reviewed the chart.~Reviewed interim history and current functioning. Reviewed vital signs,~Labs/ Radiology~and current medications noted below. Continue current treatment with the changes noted in the dictated addendum note Assessment: Vital Signs/I&O: Vital Signs Date Time Temp Pulse Resp B/P (MAP) Pulse Ox O2 Delivery O2 Flow Rate FiO2 05/01/20 15:43 97.5 75 16 141/82 (101) 98.0 05/01/20 05:05 98 04/30/20 16:59 Nasal Cannula I & O 04/30/20 04/30/20 05/01/20 15:00 23:00 07:00 Intake Total 840 ml 120 ml Balance 840 ml 120 ml Labs: Laboratory Tests Test 05/01/20 07:58 Prothrombin Time 27.7 SEC (9.4-11.4) H Prothrombin Time INR 2.7 (0.9-1.1) H Current Medications: Meds: Current Medications Medications (Trade) Dose Ordered Sig/Marina Route PRN Reason Start Time Stop Time Status Last Admin Dose Admin Warfarin Sodium (Coumadin - No Dose Today) 1 each 1X WARF ONCE MC 05/01/20 16:00 05/01/20 16:01 DC 05/01/20 16:00 I have reviewed the current psychotropics carefully including drug interactions. Risk benefit ratio favors no change other than as noted in my dictated progress note. Diagnosis: Problems: (1) Dementia, vascular, with depression (2) Dementia, vascular, with delusions (3) Dementia in Alzheimer's disease with depression (4) Dementia in Alzheimer's disease with delusions (5) Major neurocognitive disorder (6) Dementia in Alzheimer's disease with early onset with behavioral disturbance (7) Major depressive disorder with psychotic features ROHIT SIBLEY MD May 01, 2020 22:09
--- NOTE | 2020-05-01 23:54 | NUR ---
Pt located in her room all evening. Pt pleasant and compliant with HS medications. Pt stated she was hungry because she did not eat dinner. Box lunch ordered for pt and 100% was consumed.
[2020-05-02] MEDS: DICLOFENAC SODIUM 1% TOPICAL GEL 100GM TUBE. TP PRN (00:52)
[2020-05-02] MEDS: LEVOTHYROXINE 150 MCG TABLET PO SCH (05:04)
[2020-05-02 06:26] VITALS: BP 118/56
[2020-05-02 06:36] LABS: BASO # 0.1 x10^3/uL (0.0-0.2); BASO % 1 % (0-3); EOS # 0.1 x10^3/uL (0.0-0.7); EOS % 2 % (0-3); HEMATOCRIT 35.1 % (36.0-47.0); HEMOGLOBIN 11.3 g/dL (12.0-15.5); LYMPH # 0.8 x10^3/uL (1.0-4.8); LYMPH % 10 % (24-48); MEAN CORPUSCULAR HEMOGLOBIN 29 pg (25-35); MEAN CORPUSCULAR HGB CONC 32 g/dL (31-37); MEAN CORPUSCULAR VOLUME 90 fL (79-100); MONO # 0.9 x10^3/uL (0.0-1.1); MONO % 11 % (0-9); NEUT # 6.2 x10^3uL (1.8-7.7); NEUT % 76 % (31-73); PLATELET COUNT 246 x10^3/uL (140-400); RED CELL DISTRIBUTION WIDTH 17.4 % (11.5-14.5); WHITE BLOOD COUNT 8.1 x10^3/uL (4.0-11.0)
[2020-05-02 06:52] LABS: ALBUMIN 2.4 g/dL (3.4-5.0); ALBUMIN/GLOBULIN RATIO 0.6 (1.0-1.7); CALCIUM 8.7 mg/dL (8.5-10.1); GFR 52.6; POTASSIUM 3.5 mmol/L (3.5-5.1); TOTAL BILIRUBIN 0.2 mg/dL (0.2-1.0); TOTAL PROTEIN 6.3 g/dL (6.4-8.2)
--- NOTE | 2020-05-02 07:55 | PDOC ---
Exam Note: Derick Note: This note is a late entry for 05/01/2020 covers elements not covered in my initial note. Subjective: The patient was seen individually in the evening of 05/01/2020. Per Dominique BRITO, she slept 7 hours previous night. She did well previous night and during the day today. She remains anxious, somewhat dysphoric, wants to be discharged from the psychiatry service. Review of Systems: Ambulation impaired in wheelchair. No CV, , eye, ENT system symptoms on review. Mental Status Exam: Oriented to herself and situation. Speech coherent. Abstraction fair. Computation impaired. Language function intact. Attention span is fair. Mood and affect somewhat dysphoric, anxious. Laboratory Data: Reviewed. Impression: Major neurocognitive disorder Alzheimer, vascular with delusion, depression, behavioral disturbance. Anxiety disorder unspecified. Impulse control disorder unspecified. Plan: No change from initial note. Assessment: Vital Signs/I&O: Vital Signs Date Time Temp Pulse Resp B/P (MAP) Pulse Ox O2 Delivery O2 Flow Rate FiO2 05/02/20 06:26 97.9 59 20 118/56 (76) 97 6.0 04/30/20 16:59 Nasal Cannula I & O 05/01/20 05/01/20 05/02/20 15:00 23:00 07:00 Intake Total 720 ml 320 ml Balance 720 ml 320 ml Labs: Laboratory Tests Test 05/01/20 07:58 05/02/20 06:30 Prothrombin Time 27.7 SEC (9.4-11.4) H 23.7 SEC (9.4-11.4) H Prothrombin Time INR 2.7 (0.9-1.1) H 2.3 (0.9-1.1) H White Blood Count 8.1 x10^3/uL (4.0-11.0) Red Blood Count 3.90 x10^6/uL (3.50-5.40) Hemoglobin 11.3 g/dL (12.0-15.5) L Hematocrit 35.1 % (36.0-47.0) L Mean Corpuscular Volume 90 fL (79-100) Mean Corpuscular Hemoglobin 29 pg (25-35) Mean Corpuscular Hemoglobin Concent 32 g/dL (31-37) Red Cell Distribution Width 17.4 % (11.5-14.5) H Platelet Count 246 x10^3/uL (140-400) Neutrophils (%) (Auto) 76 % (31-73) H Lymphocytes (%) (Auto) 10 % (24-48) L Monocytes (%) (Auto) 11 % (0-9) H Eosinophils (%) (Auto) 2 % (0-3) Basophils (%) (Auto) 1 % (0-3) Neutrophils # (Auto) 6.2 x10^3uL (1.8-7.7) Lymphocytes # (Auto) 0.8 x10^3/uL (1.0-4.8) L Monocytes # (Auto) 0.9 x10^3/uL (0.0-1.1) Eosinophils # (Auto) 0.1 x10^3/uL (0.0-0.7) Basophils # (Auto) 0.1 x10^3/uL (0.0-0.2) Sodium Level 141 mmol/L (136-145) Potassium Level 3.5 mmol/L (3.5-5.1) Chloride Level 99 mmol/L (98-107) Carbon Dioxide Level 41 mmol/L (21-32) H Anion Gap 1 (6-14) L Blood Urea Nitrogen 15 mg/dL (7-20) Creatinine 1.0 mg/dL (0.6-1.0) Estimated GFR (Cockcroft-Gault) 52.6 BUN/Creatinine Ratio 15 (6-20) Glucose Level 93 mg/dL (70-99) Calcium Level 8.7 mg/dL (8.5-10.1) Total Bilirubin 0.2 mg/dL (0.2-1.0) Aspartate Amino Transferase (AST) 19 U/L (15-37) Alanine Aminotransferase (ALT) 16 U/L (14-59) Alkaline Phosphatase 85 U/L (46-116) Total Protein 6.3 g/dL (6.4-8.2) L Albumin 2.4 g/dL (3.4-5.0) L Albumin/Globulin Ratio 0.6 (1.0-1.7) L Current Medications: Meds: Current Medications Medications (Trade) Dose Ordered Sig/Marina Route PRN Reason Start Time Stop Time Status Last Admin Dose Admin Warfarin Sodium (Coumadin - No Dose Today) 1 each 1X WARF ONCE 05/01/20 16:00 05/01/20 16:01 DC 05/01/20 16:00 I have reviewed the current psychotropics carefully including drug interactions. Risk benefit ratio favors no change other than as noted in my dictated progress note. Diagnosis: Problems: (1) Major depressive disorder with psychotic features (2) Dementia in Alzheimer's disease with early onset with behavioral disturbance (3) Major neurocognitive disorder (4) Dementia in Alzheimer's disease with delusions (5) Dementia, vascular, with delusions (6) Dementia, vascular, with depression (7) Dementia in Alzheimer's disease with depression ROHIT SIBLEY MD May 02, 2020 07:55
[2020-05-02] MEDS: MULTIVITAMIN I-VITE TABLET. PO SCH ×2 (08:55→20:37)
[2020-05-02] MEDS: VITAMIN B COMPLEX CAPSULE. PO SCH (08:55)
[2020-05-02] MEDS: SPIRONOLACTONE 25 MG TABLET PO SCH (08:55)
[2020-05-02] MEDS: traZODone 50 MG TABLET. PO SCH (08:55)
[2020-05-02] MEDS: FLUoxetine HCL 20 MG CAPSULE PO SCH (08:55)
[2020-05-02] MEDS: DIVALPROEX 125 MG CAP.SPRINK PO SCH ×3 (08:55→20:37)
[2020-05-02] MEDS: POLYETHYLENE GLYCOL 3350 17 GM PACKET. PO SCH (08:55)
[2020-05-02] MEDS: METHENAMINE HIPPURATE 1 GM TABLET PO SCH ×2 (08:56→20:38)
[2020-05-02] MEDS: QUEtiapine 25 MG TABLET. PO SCH ×2 (08:56→16:15)
[2020-05-02] MEDS: FUROSEMIDE 80 MG TABLET PO SCH ×2 (08:56→16:15)
[2020-05-02] MEDS: CHOLECALCIFEROL (VITAMIN D3) 1,000 UNIT TABLET PO SCH (08:56)
[2020-05-02] MEDS: KETOROLAC TROMETHAMINE 0.5% OPHTH SOLUTION BOTTLE. OU SCH ×4 (08:57→21:00)
[2020-05-02] MEDS: FLUTICASONE 50MCG/NASAL SPRAY 16GM BOTTLE. NS SCH (08:57)
[2020-05-02] MEDS: IPRATROPIUM/ALBUTEROL 20/100mcg/INH INHALER. INH SCH ×4 (08:57→20:00)
[2020-05-02] MEDS: CARBAMIDE PEROXIDE 6.5% OTIC SOLUTION 15ML BOTTLE. AU SCH ×2 (09:00→21:00)
[2020-05-02] MEDS: NYSTATIN 100,000 UNITS/ML ORAL SUSPENSION 60ML BOTTLE. SWSW SCH ×3 (09:00→20:38)
--- NOTE | 2020-05-02 09:09 | NUR ---
WEEKLY ACTIVITY THERAPY NOTE Date of Admission:04/16/20 Date of AT Assessment: 04/19/20 Precipitating behaviors that initiated intake and admission: anxiety, aggression, combative, paranoia Goal aimed: to increase self-esteem development and socialization skills. Initial Goal: Pt will participate in at least three activity therapy sessions per week Goal changed 04/25: Pt. will participate in one individual or group before discharge Weekly progress towards goal: on track Group participation level: zero Weekly highlights: around group last Saturday Behaviors observed: withdrawn to room, no interest in participating Plan: no change to goal Beneficial adaptations:
--- NOTE | 2020-05-02 11:34 | NUR ---
Nursing note: Pt in her room for morning meds and assessment. She was med compliant and cooperative with her assessment. Pt c/o not sleeping well at night because of the light and music playing constantly. Pt was reassured that music does not play at night. When questioned more about it, pt said she is hearing "organ music" playing. Pt was also encouraged to come to the dining room for meals and to try and spend more time in the day room. Pt refused saying, "there's too many windows with too much sunlight coming in. My eyes are too sensitive with my macular degeneration for that." Pt continues to remain in her bed at this time. Will continue to monitor.
--- NOTE | 2020-05-02 14:18 | NUR ---
Pharmacy Warfarin Dosing Note S:Pharmacy consulted to assist with anticoagulation therapy started with target INR: 2-2.5 O:ARNULFO KEVIN is a 85 year old F with Atrial Fibrillation LABS: Last INR: 2.3 Last HGB: 11.3 Last HCT: 35.1 Last PLT: 246 Last dose of Hold given on 05/01/20 at 1600 Previous Regimen: Vitamin K given: N Drug Interaction Changes: Same Interacting Drug Ongoing Drug Interactions: FLUOXETINE A:INR Within desired Range. Target Range for this patient is: 2-2.5 P: Warfarin dose: 1.5MG Today at 1600 Bridge Therapy: None Next INR due 05/03/20 @ 0600 Pharmacy anticoagulation service will continue to follow. CURTIS COOPER [facility], 05/02/20 [id number]
--- NOTE | 2020-05-02 15:26 | NUR ---
SW received call from Jennifer at [facility] to get an update on pt. SW discussed the fact that pt is withdrawn to her room and attends no group or social activity on the unit. Jennifer reports that when pt first came to them, she was very active. As of late, pt has been withdrawn and they have accepted that as a new norm. Staff is trying to encourage pt to get into a routine of getting up as she lays in bed all day and then refuses her Trazodone at night because it makes her feel too drowsy. Pt may potentially be having hallucinations as well, as she reports hearing organ music playing, when that is not the case. Pt will continue to be monitored. PINKY will also plan to fax information as updates to see if pt can return either later this week if not the early part of next week.
[2020-05-02] MEDS ORDERED: WARFARIN 3 MG TABLET. PO ONE (16:00)
[2020-05-02 16:28] VITALS: BP 118/72
[2020-05-02] MEDS: MIRTAZAPINE 15 MG TABLET PO SCH (20:37)
[2020-05-02] MEDS: ALBUTEROL SULFATE 8GM INHALER. INH PRN (20:37)
--- NOTE | 2020-05-02 22:13 | PDOC ---
Exam Note: Derick Note: Please also refer to the separate dictated note~for this date of service dictated separately.~Patient seen individually. Discussed the patient with Nursing staff reviewed the chart.~Reviewed interim history and current functioning. Reviewed vital signs,~Labs/ Radiology~and current medications noted below. Continue current treatment with the changes noted in the dictated addendum note Assessment: Vital Signs/I&O: Vital Signs Date Time Temp Pulse Resp B/P (MAP) Pulse Ox O2 Delivery O2 Flow Rate FiO2 05/02/20 16:28 97.5 85 16 118/72 (87) 96 6.0 04/30/20 16:59 Nasal Cannula I & O 05/01/20 05/01/20 05/02/20 15:00 23:00 07:00 Intake Total 720 ml 320 ml Balance 720 ml 320 ml Labs: Laboratory Tests Test 05/02/20 06:30 White Blood Count 8.1 x10^3/uL (4.0-11.0) Red Blood Count 3.90 x10^6/uL (3.50-5.40) Hemoglobin 11.3 g/dL (12.0-15.5) L Hematocrit 35.1 % (36.0-47.0) L Mean Corpuscular Volume 90 fL (79-100) Mean Corpuscular Hemoglobin 29 pg (25-35) Mean Corpuscular Hemoglobin Concent 32 g/dL (31-37) Red Cell Distribution Width 17.4 % (11.5-14.5) H Platelet Count 246 x10^3/uL (140-400) Neutrophils (%) (Auto) 76 % (31-73) H Lymphocytes (%) (Auto) 10 % (24-48) L Monocytes (%) (Auto) 11 % (0-9) H Eosinophils (%) (Auto) 2 % (0-3) Basophils (%) (Auto) 1 % (0-3) Neutrophils # (Auto) 6.2 x10^3uL (1.8-7.7) Lymphocytes # (Auto) 0.8 x10^3/uL (1.0-4.8) L Monocytes # (Auto) 0.9 x10^3/uL (0.0-1.1) Eosinophils # (Auto) 0.1 x10^3/uL (0.0-0.7) Basophils # (Auto) 0.1 x10^3/uL (0.0-0.2) Prothrombin Time 23.7 SEC (9.4-11.4) H Prothrombin Time INR 2.3 (0.9-1.1) H Sodium Level 141 mmol/L (136-145) Potassium Level 3.5 mmol/L (3.5-5.1) Chloride Level 99 mmol/L (98-107) Carbon Dioxide Level 41 mmol/L (21-32) H Anion Gap 1 (6-14) L Blood Urea Nitrogen 15 mg/dL (7-20) Creatinine 1.0 mg/dL (0.6-1.0) Estimated GFR (Cockcroft-Gault) 52.6 BUN/Creatinine Ratio 15 (6-20) Glucose Level 93 mg/dL (70-99) Calcium Level 8.7 mg/dL (8.5-10.1) Total Bilirubin 0.2 mg/dL (0.2-1.0) Aspartate Amino Transferase (AST) 19 U/L (15-37) Alanine Aminotransferase (ALT) 16 U/L (14-59) Alkaline Phosphatase 85 U/L (46-116) Total Protein 6.3 g/dL (6.4-8.2) L Albumin 2.4 g/dL (3.4-5.0) L Albumin/Globulin Ratio 0.6 (1.0-1.7) L Current Medications: Meds: Current Medications Medications (Trade) Dose Ordered Sig/Marina Route PRN Reason Start Time Stop Time Status Last Admin Dose Admin Warfarin Sodium (Coumadin) 1.5 mg 1X WARF ONCE PO 05/02/20 16:00 05/02/20 16:01 DC 05/02/20 16:15 I have reviewed the current psychotropics carefully including drug interactions. Risk benefit ratio favors no change other than as noted in my dictated progress note. Diagnosis: Problems: (1) Dementia, vascular, with depression (2) Dementia, vascular, with delusions (3) Dementia in Alzheimer's disease with depression (4) Dementia in Alzheimer's disease with delusions (5) Major neurocognitive disorder (6) Dementia in Alzheimer's disease with early onset with behavioral disturbance (7) Major depressive disorder with psychotic features (8) Psychotic disorder ROHIT SIBLEY MD May 02, 2020 22:13
--- NOTE | 2020-05-02 23:02 | NUR ---
Patient in bed with eyes closed when this nurse assumed care. Patient easily aroused and compliant with medications and assessment. No hallucinations or behaviors noted at this time . Will continue to monitor.
[2020-05-03] MEDS: CARBAMIDE PEROXIDE 6.5% OTIC SOLUTION 15ML BOTTLE. AU SCH ×2 (03:54→20:19)
[2020-05-03] MEDS: KETOROLAC TROMETHAMINE 0.5% OPHTH SOLUTION BOTTLE. OU SCH ×4 (03:54→20:19)
[2020-05-03] MEDS: LEVOTHYROXINE 150 MCG TABLET PO SCH (05:25)
[2020-05-03 06:10] VITALS: BP 125/65
[2020-05-03] MEDS: FLUTICASONE 50MCG/NASAL SPRAY 16GM BOTTLE. NS SCH (08:59)
[2020-05-03] MEDS: POLYETHYLENE GLYCOL 3350 17 GM PACKET. PO SCH (08:59)
[2020-05-03] MEDS: SPIRONOLACTONE 25 MG TABLET PO SCH (09:00)
[2020-05-03] MEDS: VITAMIN B COMPLEX CAPSULE. PO SCH (09:00)
[2020-05-03] MEDS: DIVALPROEX 125 MG CAP.SPRINK PO SCH ×3 (09:01→20:20)
[2020-05-03] MEDS: CHOLECALCIFEROL (VITAMIN D3) 1,000 UNIT TABLET PO SCH (09:01)
[2020-05-03] MEDS: FLUoxetine HCL 20 MG CAPSULE PO SCH (09:01)
[2020-05-03] MEDS: QUEtiapine 25 MG TABLET. PO SCH ×2 (09:01→17:04)
[2020-05-03] MEDS: FUROSEMIDE 80 MG TABLET PO SCH ×2 (09:01→17:04)
[2020-05-03] MEDS: METHENAMINE HIPPURATE 1 GM TABLET PO SCH ×2 (09:01→20:20)
[2020-05-03] MEDS: MULTIVITAMIN I-VITE TABLET. PO SCH ×2 (09:01→20:19)
[2020-05-03] MEDS: NYSTATIN 100,000 UNITS/ML ORAL SUSPENSION 60ML BOTTLE. SWSW SCH ×3 (09:02→20:19)
[2020-05-03] MEDS: IPRATROPIUM/ALBUTEROL 20/100mcg/INH INHALER. INH SCH ×4 (09:15→20:19)
--- NOTE | 2020-05-03 09:31 | NUR ---
Pt is calm, cooperative, compliant, no agitation, no aggression, no hallucinations, no delusions noted. She is compliant with her medications and assessment.
--- NOTE | 2020-05-03 13:36 | NUR ---
Pharmacy Warfarin Dosing Note S:Pharmacy consulted to assist with anticoagulation therapy with target INR: 2-2.5 O:ARNULFO KEVIN is a 85 year old F with Atrial Fibrillation LABS: Last INR: 1.6 Last HGB: 11.3 Last HCT: 35.1 Last PLT: 246 Last dose of 1.5MG given on 05/02/20 at 1600 Vitamin K given: N Drug Interaction Changes: Same Interacting Drug Ongoing Drug Interactions: FLUOXETINE A:INR Below desired Range. Target Range for this patient is: 2-2.5 P: Warfarin dose: 2.5 mg Today at 1600 Bridge Therapy: None Next INR due 05/04 Pharmacy anticoagulation service will continue to follow. MARYLIN PETERSEN, 05/03/20 [id number]
--- NOTE | 2020-05-03 13:57 | NUR ---
PINKY sent updates to [employer] on an update on pt for a discharge plan for Saturday05/10/2020
[2020-05-03] MEDS ORDERED: WARFARIN 2.5 MG TABLET. PO ONE (16:00)
[2020-05-03 16:07] VITALS: BP_SYST 102; BP_SYST 124; BP_DIAS 65; BP_DIAS 83
[2020-05-03] MEDS: MIRTAZAPINE 15 MG TABLET PO SCH (20:20)
--- NOTE | 2020-05-03 22:04 | PDOC ---
Exam Note: Derick Note: Please also refer to the separate dictated note~for this date of service dictated separately.~Patient seen individually. Discussed the patient with Nursing staff reviewed the chart.~Reviewed interim history and current functioning. Reviewed vital signs,~Labs/ Radiology~and current medications noted below. Continue current treatment with the changes noted in the dictated addendum note Assessment: Vital Signs/I&O: Vital Signs Date Time Temp Pulse Resp B/P (MAP) Pulse Ox O2 Delivery O2 Flow Rate FiO2 05/03/20 16:07 98.1 93 18 124/83 (97) 96 Nasal Cannula 6.0 I & O 05/02/20 05/02/20 05/03/20 15:00 23:00 07:00 Intake Total 480 ml Balance 480 ml Labs: Laboratory Tests Test 05/03/20 09:45 Prothrombin Time 16.4 SEC (9.4-11.4) H Prothrombin Time INR 1.6 (0.9-1.1) H Current Medications: Meds: Current Medications Medications (Trade) Dose Ordered Sig/Marina Route PRN Reason Start Time Stop Time Status Last Admin Dose Admin Warfarin Sodium (Coumadin) 2.5 mg 1X WARF ONCE PO 05/03/20 16:00 05/03/20 16:01 DC 05/03/20 17:04 I have reviewed the current psychotropics carefully including drug interactions. Risk benefit ratio favors no change other than as noted in my dictated progress note. Diagnosis: Problems: (1) Dementia, vascular, with depression (2) Dementia, vascular, with delusions (3) Dementia in Alzheimer's disease with depression (4) Dementia in Alzheimer's disease with delusions (5) Major neurocognitive disorder (6) Dementia in Alzheimer's disease with early onset with behavioral disturbance (7) Major depressive disorder with psychotic features ROHIT SIBLEY MD May 03, 2020 22:04
--- NOTE | 2020-05-03 22:43 | NUR ---
Pt located in the dayroom sitting calmly. Pt pleasant, more interactive and compliant with HS medications.
[2020-05-04 04:58] VITALS: BP 124/75
[2020-05-04] MEDS: LEVOTHYROXINE 150 MCG TABLET PO SCH (06:00)
--- NOTE | 2020-05-04 07:45 | PDOC ---
Exam Note: Derick Note: This note is a late entry for 05/02/2020 covers elements not covered in my initial note. Subjective: The patient was seen individually in the morning of 05/02/2020 with treatment team meeting with DARYL, Raymond (social service staff), [facility] staff, and MARIXA Campbell. Per Dione BRITO, she slept 3-1/2 hours previous night. Appetite 50% of her meals. Reportedly per nursing report she was hallucinating and seeing an organ on the floor. Risperdal may need to be adjusted. She does complain of hearing non-stop music all night. She spent much of the day in bed, somewhat drowsy. Review of Systems: Positive for shortness of breath. Impaired ambulation lying in bed. No CV, , eye system symptoms on review. Mental Status Exam: Oriented to herself and situation. Speech coherent. Abstraction fair. Computation impaired. Language function intact. Attention span is fair. Mood and affect somewhat dysphoric, anxious. Laboratory Data: Reviewed. Impression: Major neurocognitive disorder Alzheimer, vascular with delusion, depression, behavioral disturbance. Anxiety disorder unspecified. Impulse control disorder unspecified. Plan: No change from initial note. Stop trazodone 12.5 mg t.i.d. Continue rest of the psychotropics unchanged. May need to increase Seroquel if psychotic symptoms persist or change to Risperdal. Assessment: Vital Signs/I&O: Vital Signs Date Time Temp Pulse Resp B/P (MAP) Pulse Ox O2 Delivery O2 Flow Rate FiO2 05/04/20 04:58 97.9 92 22 124/75 (91) 99 5.0 05/03/20 16:07 Nasal Cannula I & O 05/03/20 05/03/20 05/04/20 15:00 23:00 07:00 Intake Total 840 ml 480 ml Balance 840 ml 480 ml Labs: Laboratory Tests Test 05/03/20 09:45 05/04/20 06:20 Prothrombin Time 16.4 SEC (9.4-11.4) H 16.4 SEC (9.4-11.4) H Prothrombin Time INR 1.6 (0.9-1.1) H 1.6 (0.9-1.1) H Current Medications: Meds: Current Medications Medications (Trade) Dose Ordered Sig/Marina Route PRN Reason Start Time Stop Time Status Last Admin Dose Admin Warfarin Sodium (Coumadin) 2.5 mg 1X WARF ONCE PO 05/03/20 16:00 05/03/20 16:01 DC 05/03/20 17:04 I have reviewed the current psychotropics carefully including drug interactions. Risk benefit ratio favors no change other than as noted in my dictated progress note. Diagnosis: Problems: (1) Dementia, vascular, with depression (2) Dementia, vascular, with delusions (3) Dementia in Alzheimer's disease with depression (4) Dementia in Alzheimer's disease with delusions (5) Major neurocognitive disorder (6) Dementia in Alzheimer's disease with early onset with behavioral disturbance (7) Major depressive disorder with psychotic features ROHIT SIBLEY MD May 04, 2020 07:45
--- NOTE | 2020-05-04 08:34 | PDOC ---
Exam Note: Derick Note: This note is a late entry for 05/03/2020 covers elements not covered in my initial note. Subjective: The patient was seen individually in the evening of 05/03/2020. Per Dominique BRITO, she slept 4-3/4 hours previous night. She did well previous night and during the day today. Still somewhat withdrawn. Review of Systems: Positive for tiredness. No CV, , eye system symptoms on review. Mental Status Exam: Oriented reasonably. Speech coherent, less pressured. Abstraction fair. Computation impaired. Language function intact. Attention span is short. Mood and affect improved. Laboratory Data: Reviewed. Impression: Major neurocognitive disorder Alzheimer, vascular with delusion, depression, behavioral disturbance. Anxiety disorder unspecified. Impulse control disorder unspecified. Plan: No change from initial note. Assessment: Vital Signs/I&O: Vital Signs Date Time Temp Pulse Resp B/P (MAP) Pulse Ox O2 Delivery O2 Flow Rate FiO2 05/04/20 04:58 97.9 92 22 124/75 (91) 99 5.0 05/03/20 16:07 Nasal Cannula I & O 05/03/20 05/03/20 05/04/20 15:00 23:00 07:00 Intake Total 840 ml 480 ml Balance 840 ml 480 ml Labs: Laboratory Tests Test 05/03/20 09:45 05/04/20 06:20 Prothrombin Time 16.4 SEC (9.4-11.4) H 16.4 SEC (9.4-11.4) H Prothrombin Time INR 1.6 (0.9-1.1) H 1.6 (0.9-1.1) H Current Medications: Meds: Current Medications Medications (Trade) Dose Ordered Sig/Marina Route PRN Reason Start Time Stop Time Status Last Admin Dose Admin Warfarin Sodium (Coumadin) 2.5 mg 1X WARF ONCE PO 05/03/20 16:00 05/03/20 16:01 DC 05/03/20 17:04 I have reviewed the current psychotropics carefully including drug interactions. Risk benefit ratio favors no change other than as noted in my dictated progress note. Diagnosis: Problems: (1) Dementia, vascular, with depression (2) Dementia, vascular, with delusions (3) Dementia in Alzheimer's disease with depression (4) Dementia in Alzheimer's disease with delusions (5) Major neurocognitive disorder (6) Dementia in Alzheimer's disease with early onset with behavioral disturbance (7) Major depressive disorder with psychotic features ROHIT SIBLEY MD May 04, 2020 08:34
[2020-05-04] MEDS: VITAMIN B COMPLEX CAPSULE. PO SCH (09:40)
[2020-05-04] MEDS: CHOLECALCIFEROL (VITAMIN D3) 1,000 UNIT TABLET PO SCH (09:40)
[2020-05-04] MEDS: QUEtiapine 25 MG TABLET. PO SCH ×2 (09:40→17:00)
[2020-05-04] MEDS: FLUoxetine HCL 20 MG CAPSULE PO SCH (09:40)
[2020-05-04] MEDS: MULTIVITAMIN I-VITE TABLET. PO SCH ×2 (09:40→21:26)
[2020-05-04] MEDS: FUROSEMIDE 80 MG TABLET PO SCH ×2 (09:40→16:58)
[2020-05-04] MEDS: POLYETHYLENE GLYCOL 3350 17 GM PACKET. PO SCH (09:41)
[2020-05-04] MEDS: DIVALPROEX 125 MG CAP.SPRINK PO SCH ×3 (09:41→21:26)
[2020-05-04] MEDS: SPIRONOLACTONE 25 MG TABLET PO SCH (09:41)
[2020-05-04] MEDS: NYSTATIN 100,000 UNITS/ML ORAL SUSPENSION 60ML BOTTLE. SWSW SCH ×3 (09:42→21:27)
[2020-05-04] MEDS: CARBAMIDE PEROXIDE 6.5% OTIC SOLUTION 15ML BOTTLE. AU SCH ×2 (09:42→21:26)
[2020-05-04] MEDS: FLUTICASONE 50MCG/NASAL SPRAY 16GM BOTTLE. NS SCH (09:42)
[2020-05-04] MEDS: IPRATROPIUM/ALBUTEROL 20/100mcg/INH INHALER. INH SCH ×4 (09:43→21:26)
[2020-05-04] MEDS: KETOROLAC TROMETHAMINE 0.5% OPHTH SOLUTION BOTTLE. OU SCH ×4 (09:43→21:26)
[2020-05-04] MEDS: METHENAMINE HIPPURATE 1 GM TABLET PO SCH ×2 (09:47→21:26)
--- NOTE | 2020-05-04 09:56 | NUR ---
Pharmacy Warfarin Dosing Note S:Pharmacy consulted to assist with anticoagulation therapy with target INR: 2-2.5 O:ARNULFO KEVIN is a 85 year old F with Atrial Fibrillation LABS: Last INR: 1.6 Last HGB: 11.3 Last HCT: 35.1 Last PLT: 246 Last dose of 2.5 mg given on 05/03/20 at 1600 Vitamin K given: N Drug Interaction Changes: Same Interacting Drug Ongoing Drug Interactions: FLUOXETINE A:INR Below desired range. Target Range for this patient is: 2-2.5. 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 P: Warfarin dose: 3 mg Today at 1600 Bridge Therapy: None Next INR due 05/05/20 Pharmacy anticoagulation service will continue to follow. MARYLIN PETERSEN, 05/04/20 [id number]
--- NOTE | 2020-05-04 13:30 | NUR ---
Patient in room in bed with eyes closed at shift change, but easily arousable. Patient stated she slept so well and is happy with her new room. Patient takes medications whole without difficulty. No delusions or anxiety noted at this time. Will continue to monitor.
[2020-05-04 16:03] VITALS: BP 153/80
[2020-05-04] MEDS: MIRTAZAPINE 15 MG TABLET PO SCH (21:26)
--- NOTE | 2020-05-04 22:25 | PDOC ---
Exam Note: Derick Note: Please also refer to the separate dictated note~for this date of service dictated separately.~Patient seen individually. Discussed the patient with Nursing staff reviewed the chart.~Reviewed interim history and current functioning. Reviewed vital signs,~Labs/ Radiology~and current medications noted below. Continue current treatment with the changes noted in the dictated addendum note Assessment: Vital Signs/I&O: Vital Signs Date Time Temp Pulse Resp B/P (MAP) Pulse Ox O2 Delivery O2 Flow Rate FiO2 05/04/20 16:03 98.4 78 18 153/80 (104) 94 5.0 05/03/20 16:07 Nasal Cannula I & O 05/03/20 05/03/20 05/04/20 15:00 23:00 07:00 Intake Total 840 ml 480 ml Balance 840 ml 480 ml Labs: Laboratory Tests Test 05/04/20 06:20 Prothrombin Time 16.4 SEC (9.4-11.4) H Prothrombin Time INR 1.6 (0.9-1.1) H Current Medications: I have reviewed the current psychotropics carefully including drug interactions. Risk benefit ratio favors no change other than as noted in my dictated progress note. Diagnosis: Problems: (1) Dementia, vascular, with depression (2) Dementia, vascular, with delusions (3) Dementia in Alzheimer's disease with depression (4) Dementia in Alzheimer's disease with delusions (5) Major neurocognitive disorder (6) Dementia in Alzheimer's disease with early onset with behavioral disturbance (7) Major depressive disorder with psychotic features ROHIT SIBLEY MD May 04, 2020 22:25
--- NOTE | 2020-05-04 22:26 | NUR ---
Nursing Note The patient was located in her room for her assessment and medication. The patient stated that she had missed dinner and wanted to eat prior to taking her medication. After being provided with food the patient was compliant with her medication and took them whole. The patient was pleasant during interactions with this nurse. The patient is currently laying awake in her bed.
[2020-05-05 05:11] VITALS: BP 125/73
[2020-05-05] MEDS: LEVOTHYROXINE 150 MCG TABLET PO SCH (05:36)
--- NOTE | 2020-05-05 07:50 | NUR ---
Pharmacy Warfarin Dosing Note S:Pharmacy consulted to assist with anticoagulation therapy with target INR: 2-2.5 O:ARNULFO KEVIN is a 85 year old F with Atrial Fibrillation LABS: Last INR: 1.5 Last HGB: 11.3 Last HCT: 35.1 Last PLT: 246 Last dose of 3 mg given on 05/04/20 at 1600 Vitamin K given: N Drug Interaction Changes: Same Interacting Drug Ongoing Drug Interactions: FLUOXETINE A:INR Below desired Range. Target Range for this patient is: 2-2.5 P: Warfarin dose: 4 mg Today at 1600 Bridge Therapy: None Next INR due 05/06/20 Pharmacy anticoagulation service will continue to follow. MARYLIN PETERSEN, 05/05/20 0750 Addendum: 05/05/20 at 1319 by MARYLIN WILLIAMSON update to previous dose: last dose of 2.5 mg given on 05/03/20 at 1600
[2020-05-05] MEDS: NYSTATIN 100,000 UNITS/ML ORAL SUSPENSION 60ML BOTTLE. SWSW SCH ×3 (08:38→20:17)
[2020-05-05] MEDS: IPRATROPIUM/ALBUTEROL 20/100mcg/INH INHALER. INH SCH ×4 (08:38→20:17)
[2020-05-05] MEDS: KETOROLAC TROMETHAMINE 0.5% OPHTH SOLUTION BOTTLE. OU SCH ×4 (08:38→20:18)
[2020-05-05] MEDS: POLYETHYLENE GLYCOL 3350 17 GM PACKET. PO SCH (08:39)
[2020-05-05] MEDS: MULTIVITAMIN I-VITE TABLET. PO SCH ×2 (08:39→20:17)
[2020-05-05] MEDS: DIVALPROEX 125 MG CAP.SPRINK PO SCH ×3 (08:39→20:16)
[2020-05-05] MEDS: CARBAMIDE PEROXIDE 6.5% OTIC SOLUTION 15ML BOTTLE. AU SCH (08:39)
[2020-05-05] MEDS: CHOLECALCIFEROL (VITAMIN D3) 1,000 UNIT TABLET PO SCH (08:39)
[2020-05-05] MEDS: QUEtiapine 25 MG TABLET. PO SCH ×2 (08:39→17:55)
[2020-05-05] MEDS: VITAMIN B COMPLEX CAPSULE. PO SCH (08:39)
[2020-05-05] MEDS: SPIRONOLACTONE 25 MG TABLET PO SCH (08:40)
[2020-05-05] MEDS: FUROSEMIDE 80 MG TABLET PO SCH ×2 (08:40→17:55)
[2020-05-05] MEDS: FLUoxetine HCL 20 MG CAPSULE PO SCH (08:40)
[2020-05-05] MEDS: METHENAMINE HIPPURATE 1 GM TABLET PO SCH ×2 (08:40→20:16)
[2020-05-05] MEDS: FLUTICASONE 50MCG/NASAL SPRAY 16GM BOTTLE. NS SCH (09:00)
[2020-05-05 15:33] VITALS: BP 119/76
[2020-05-05] MEDS ORDERED: WARFARIN 4 MG TABLET. PO ONE (16:00)
--- NOTE | 2020-05-05 18:13 | NUR ---
Patient compliant with medications. Pt did come out to dining room for breakfast and for lunch. After breakfast while in day room, pt began complaining that the glare was too much for her and that it was going to cause her to go blind. Wanting to go back to room. Pt told she needed to stay up. After lunch, pt put back in bed. Pt asked to take her 1500 meds later as she was nauseas. Pt sitting on side of bed at time for dinner deciding "whether she could eat or not". Wanted to eat in her room, pt told no that she must eat in dining room by [employer]. Pt responded, "I don't want to get back into that lift so im not going to eat." When RN entered room, pt asking for food. RN agreed to bring broth. RN asked patient if she had ever been told that she may not eat meals in her room. Pt stated "no". RN informed patient that starting tomorrow she must eat meals in dining room as coming to dining room and eating is a part of her therapy. Pt verbalized understanding. Pt took her medications without difficulty. MISSY.
[2020-05-05] MEDS: MIRTAZAPINE 15 MG TABLET PO SCH (20:17)
--- NOTE | 2020-05-05 22:00 | PDOC ---
Exam Note: Derick Note: Please also refer to the separate dictated note~for this date of service dictated separately.~Patient seen individually. Discussed the patient with Nursing staff reviewed the chart.~Reviewed interim history and current functioning. Reviewed vital signs,~Labs/ Radiology~and current medications noted below. Continue current treatment with the changes noted in the dictated addendum note Assessment: Vital Signs/I&O: Vital Signs Date Time Temp Pulse Resp B/P (MAP) Pulse Ox O2 Delivery O2 Flow Rate FiO2 05/05/20 15:33 98.1 76 18 119/76 (90) 91 5.0 05/05/20 05:11 Nasal Cannula I & O 05/04/20 05/04/20 05/05/20 15:00 23:00 07:00 Intake Total 480 ml 0 ml 360 ml Balance 480 ml 0 ml 360 ml Labs: Laboratory Tests Test 05/05/20 05:57 Prothrombin Time 15.7 SEC (9.4-11.4) H Prothrombin Time INR 1.5 (0.9-1.1) H Current Medications: Meds: Current Medications Medications (Trade) Dose Ordered Sig/Marina Route PRN Reason Start Time Stop Time Status Last Admin Dose Admin Warfarin Sodium (Coumadin) 4 mg 1X WARF ONCE PO 05/05/20 16:00 05/05/20 16:01 DC 05/05/20 17:55 I have reviewed the current psychotropics carefully including drug interactions. Risk benefit ratio favors no change other than as noted in my dictated progress note. Diagnosis: Problems: (1) Dementia, vascular, with depression (2) Dementia, vascular, with delusions (3) Dementia in Alzheimer's disease with depression (4) Dementia in Alzheimer's disease with delusions (5) Major neurocognitive disorder (6) Dementia in Alzheimer's disease with early onset with behavioral disturbance (7) Major depressive disorder with psychotic features ROHIT SIBLEY MD May 05, 2020 22:00
--- NOTE | 2020-05-05 23:19 | NUR ---
Nursing Note The patient was located in her room for her assessment and medication pass. The patient took her medication whole and was pleasant during interactions. The patient had a snack while in bed that consisted of a boost and a chicken broth. The patient is currently awake in her room laying in bed.
[2020-05-06] MEDS: LEVOTHYROXINE 150 MCG TABLET PO SCH (05:50)
[2020-05-06 06:01] VITALS: BP 116/69
[2020-05-06 06:47] LABS: HEMATOCRIT 35.8 % (36.0-47.0); HEMOGLOBIN 11.7 g/dL (12.0-15.5); RED BLOOD COUNT 3.96 x10^6/uL (3.50-5.40); RED CELL DISTRIBUTION WIDTH 16.9 % (11.5-14.5); WHITE BLOOD COUNT 6.3 x10^3/uL (4.0-11.0)
--- NOTE | 2020-05-06 06:53 | PDOC ---
Exam Note: Derick Note: This note is a late entry for 05/04/2020 covers elements not covered in my initial note. Subjective: The patient was seen individually in the evening of 05/04/2020. Per Chantal, she slept 7 hours previous night. She has been somewhat tired, withdrawn, up for meals. Appetite is better. Review of Systems: Ambulation impaired. She was lying in bed in her room which is where I met with her. No CV, , eye system symptoms on review. Mental Status Exam: Oriented reasonably. She was quite pleasant, interactive, somewhat anxious. Speech coherent, less pressured. Abstraction fair. Computation impaired. Language function intact. Attention span is short. Mood and affect anxious. No suicidal or homicidal ideation. Laboratory Data: Reviewed. Impression: Major neurocognitive disorder Alzheimer, vascular with delusion, depression, behavioral disturbance. Anxiety disorder unspecified. Impulse control disorder unspecified. Plan: No change from initial note. Assessment: Vital Signs/I&O: Vital Signs Date Time Temp Pulse Resp B/P (MAP) Pulse Ox O2 Delivery O2 Flow Rate FiO2 05/06/20 06:01 97.8 85 16 116/69 (85) 99 6.0 05/05/20 05:11 Nasal Cannula I & O 05/05/20 05/05/20 05/06/20 15:00 23:00 07:00 Intake Total 720 ml 480 ml Balance 720 ml 480 ml Current Medications: Meds: Current Medications Medications (Trade) Dose Ordered Sig/Marina Route PRN Reason Start Time Stop Time Status Last Admin Dose Admin Warfarin Sodium (Coumadin) 4 mg 1X WARF ONCE PO 05/05/20 16:00 05/05/20 16:01 DC 05/05/20 17:55 I have reviewed the current psychotropics carefully including drug interactions. Risk benefit ratio favors no change other than as noted in my dictated progress note. Diagnosis: Problems: (1) Dementia, vascular, with depression (2) Dementia, vascular, with delusions (3) Dementia in Alzheimer's disease with depression (4) Dementia in Alzheimer's disease with delusions (5) Major neurocognitive disorder (6) Dementia in Alzheimer's disease with early onset with behavioral disturbance (7) Major depressive disorder with psychotic features ROHIT SIBLEY MD May 06, 2020 06:53
[2020-05-06 06:58] LABS: CALCIUM 8.7 mg/dL (8.5-10.1); GFR 52.6; POTASSIUM 3.6 mmol/L (3.5-5.1)
--- NOTE | 2020-05-06 07:31 | PDOC ---
Exam Note: Derick Note: This note is a late entry for 05/05/2020 covers elements not covered in my initial note. Subjective: The patient was seen individually in the evening of 05/05/2020. Per Nixon BRITO, she slept 5-1/4 hours previous night. She remains somewhat somatic, anxious, quite insistent on wanting Xanax back. I had a very lengthy discussion with her on this explaining why benzodiazepines were not a good option at this stage of her health, diagnosis and treatment. Review of Systems: No CV, , eye system symptoms on review. Mental Status Exam: Oriented reasonably. Speech coherent. Abstraction fair. Computation impaired. Language function intact. Attention span is short. Mood and affect somatic, anxious. Laboratory Data: Reviewed. Impression: Major neurocognitive disorder Alzheimer, vascular with delusion, depression, behavioral disturbance. Anxiety disorder unspecified. Impulse control disorder unspecified. Plan: No change from initial note. Assessment: Vital Signs/I&O: Vital Signs Date Time Temp Pulse Resp B/P (MAP) Pulse Ox O2 Delivery O2 Flow Rate FiO2 05/06/20 06:01 97.8 85 16 116/69 (85) 99 6.0 05/05/20 05:11 Nasal Cannula I & O 05/05/20 05/05/20 05/06/20 15:00 23:00 07:00 Intake Total 720 ml 480 ml Balance 720 ml 480 ml Labs: Laboratory Tests Test 05/06/20 06:25 White Blood Count 6.3 x10^3/uL (4.0-11.0) Red Blood Count 3.96 x10^6/uL (3.50-5.40) Hemoglobin 11.7 g/dL (12.0-15.5) L Hematocrit 35.8 % (36.0-47.0) L Mean Corpuscular Volume 90 fL (79-100) Mean Corpuscular Hemoglobin 30 pg (25-35) Mean Corpuscular Hemoglobin Concent 33 g/dL (31-37) Red Cell Distribution Width 16.9 % (11.5-14.5) H Platelet Count 261 x10^3/uL (140-400) Prothrombin Time 15.5 SEC (9.4-11.4) H Prothrombin Time INR 1.5 (0.9-1.1) H Sodium Level 142 mmol/L (136-145) Potassium Level 3.6 mmol/L (3.5-5.1) Chloride Level 98 mmol/L (98-107) Carbon Dioxide Level 40 mmol/L (21-32) H Anion Gap 4 (6-14) L Blood Urea Nitrogen 16 mg/dL (7-20) Creatinine 1.0 mg/dL (0.6-1.0) Estimated GFR (Cockcroft-Gault) 52.6 Glucose Level 92 mg/dL (70-99) Calcium Level 8.7 mg/dL (8.5-10.1) Current Medications: Meds: Current Medications Medications (Trade) Dose Ordered Sig/Marina Route PRN Reason Start Time Stop Time Status Last Admin Dose Admin Warfarin Sodium (Coumadin) 4 mg 1X WARF ONCE PO 05/05/20 16:00 05/05/20 16:01 DC 05/05/20 17:55 I have reviewed the current psychotropics carefully including drug interactions. Risk benefit ratio favors no change other than as noted in my dictated progress note. Diagnosis: Problems: (1) Dementia, vascular, with depression (2) Dementia, vascular, with delusions (3) Dementia in Alzheimer's disease with depression (4) Dementia in Alzheimer's disease with delusions (5) Major neurocognitive disorder (6) Dementia in Alzheimer's disease with early onset with behavioral disturbance (7) Major depressive disorder with psychotic features ROHIT SIBLEY MD May 06, 2020 07:31
[2020-05-06] MEDS: ALBUTEROL SULFATE 8GM INHALER. INH PRN (08:09)
[2020-05-06] MEDS: KETOROLAC TROMETHAMINE 0.5% OPHTH SOLUTION BOTTLE. OU SCH ×4 (08:09→20:03)
[2020-05-06] MEDS: FLUTICASONE 50MCG/NASAL SPRAY 16GM BOTTLE. NS SCH (08:09)
[2020-05-06] MEDS: POLYETHYLENE GLYCOL 3350 17 GM PACKET. PO SCH (08:09)
[2020-05-06] MEDS: IPRATROPIUM/ALBUTEROL 20/100mcg/INH INHALER. INH SCH ×4 (08:09→20:02)
[2020-05-06] MEDS: NYSTATIN 100,000 UNITS/ML ORAL SUSPENSION 60ML BOTTLE. SWSW SCH ×3 (08:10→20:03)
[2020-05-06] MEDS: CHOLECALCIFEROL (VITAMIN D3) 1,000 UNIT TABLET PO SCH (08:10)
[2020-05-06] MEDS: SPIRONOLACTONE 25 MG TABLET PO SCH (08:10)
[2020-05-06] MEDS: MULTIVITAMIN I-VITE TABLET. PO SCH ×2 (08:10→20:00)
[2020-05-06] MEDS: FLUoxetine HCL 20 MG CAPSULE PO SCH (08:11)
[2020-05-06] MEDS: METHENAMINE HIPPURATE 1 GM TABLET PO SCH ×2 (08:11→19:59)
[2020-05-06] MEDS: FUROSEMIDE 80 MG TABLET PO SCH ×2 (08:11→16:46)
[2020-05-06] MEDS: QUEtiapine 25 MG TABLET. PO SCH ×2 (08:11→16:46)
[2020-05-06] MEDS: DIVALPROEX 125 MG CAP.SPRINK PO SCH ×3 (08:12→20:00)
[2020-05-06] MEDS: VITAMIN B COMPLEX CAPSULE. PO SCH (08:12)
--- NOTE | 2020-05-06 11:22 | NUR ---
Pharmacy Warfarin Dosing Note S:Pharmacy consulted to assist with anticoagulation therapy with target INR: 2-2.5 O:ARNULFO KEVIN is a 85 year old F with Atrial Fibrillation LABS: Last INR: 1.5 Last HGB: 11.7 Last HCT: 35.8 Last PLT: 261 Last dose of 4 mg given on 05/05/20 at 1600 Vitamin K given: N Drug Interaction Changes: Same Interacting Drug Ongoing Drug Interactions: FLUOXETINE A:INR Below desired Range of 2-2.5. 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 Will maintain 4mg dose and recheck INR tomorrow. P: Warfarin dose: 4 mg Today at 1600 Bridge Therapy: None Next INR due 05/07/20 Pharmacy anticoagulation service will continue to follow. MARYLIN PETERSEN, 05/06/20 1122
--- NOTE | 2020-05-06 11:30 | NUR ---
Patient in room at shift change. Patient to dining room for breakfast and in day room this morning. Compliant with medication administration and assessment. No behaviors or delusions noted at this time. Will continue to monitor.
[2020-05-06 15:36] VITALS: BP 96/63
[2020-05-06] MEDS ORDERED: WARFARIN 4 MG TABLET. PO ONE (16:00)
[2020-05-06] MEDS: MIRTAZAPINE 15 MG TABLET PO SCH (20:00)
[2020-05-06] MEDS: traZODone 50 MG TABLET. PO PRN (20:00)
--- NOTE | 2020-05-06 21:26 | NUR ---
Patient is in the day room on assumption of care, watching a movie with her peers. She is in pleasant spirits. Calm, cooperative and compliant with assessments and medications taken whole. No agitation. Denies any pain or discomfort. Denies SI.
--- NOTE | 2020-05-06 21:58 | PDOC ---
Exam Note: Derick Note: Please also refer to the separate dictated note~for this date of service dictated separately.~Patient seen individually. Discussed the patient with Nursing staff reviewed the chart.~Reviewed interim history and current functioning. Reviewed vital signs,~Labs/ Radiology~and current medications noted below. Continue current treatment with the changes noted in the dictated addendum note Assessment: Vital Signs/I&O: Vital Signs Date Time Temp Pulse Resp B/P (MAP) Pulse Ox O2 Delivery O2 Flow Rate FiO2 05/06/20 15:36 98.0 91 18 96/63 (74) 92 Nasal Cannula 6.0 I & O 05/05/20 05/05/20 05/06/20 15:00 23:00 07:00 Intake Total 720 ml 480 ml Balance 720 ml 480 ml Labs: Laboratory Tests Test 05/06/20 06:25 White Blood Count 6.3 x10^3/uL (4.0-11.0) Red Blood Count 3.96 x10^6/uL (3.50-5.40) Hemoglobin 11.7 g/dL (12.0-15.5) L Hematocrit 35.8 % (36.0-47.0) L Mean Corpuscular Volume 90 fL (79-100) Mean Corpuscular Hemoglobin 30 pg (25-35) Mean Corpuscular Hemoglobin Concent 33 g/dL (31-37) Red Cell Distribution Width 16.9 % (11.5-14.5) H Platelet Count 261 x10^3/uL (140-400) Prothrombin Time 15.5 SEC (9.4-11.4) H Prothrombin Time INR 1.5 (0.9-1.1) H Sodium Level 142 mmol/L (136-145) Potassium Level 3.6 mmol/L (3.5-5.1) Chloride Level 98 mmol/L (98-107) Carbon Dioxide Level 40 mmol/L (21-32) H Anion Gap 4 (6-14) L Blood Urea Nitrogen 16 mg/dL (7-20) Creatinine 1.0 mg/dL (0.6-1.0) Estimated GFR (Cockcroft-Gault) 52.6 Glucose Level 92 mg/dL (70-99) Calcium Level 8.7 mg/dL (8.5-10.1) Current Medications: Meds: Current Medications Medications (Trade) Dose Ordered Sig/Marina Route PRN Reason Start Time Stop Time Status Last Admin Dose Admin Warfarin Sodium (Coumadin) 4 mg 1X WARF ONCE PO 05/06/20 16:00 05/06/20 16:02 DC 05/06/20 16:45 I have reviewed the current psychotropics carefully including drug interactions. Risk benefit ratio favors no change other than as noted in my dictated progress note. 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
[2020-05-07] MEDS: LEVOTHYROXINE 150 MCG TABLET PO SCH (04:18)
[2020-05-07 05:57] VITALS: BP 122/64
[2020-05-07] MEDS: IPRATROPIUM/ALBUTEROL 20/100mcg/INH INHALER. INH SCH ×4 (08:35→20:13)
[2020-05-07] MEDS: FLUTICASONE 50MCG/NASAL SPRAY 16GM BOTTLE. NS SCH (08:36)
[2020-05-07] MEDS: KETOROLAC TROMETHAMINE 0.5% OPHTH SOLUTION BOTTLE. OU SCH ×4 (08:37→20:13)
[2020-05-07] MEDS: NYSTATIN 100,000 UNITS/ML ORAL SUSPENSION 60ML BOTTLE. SWSW SCH ×3 (08:38→20:14)
[2020-05-07] MEDS: FLUoxetine HCL 20 MG CAPSULE PO SCH (08:40)
[2020-05-07] MEDS: CHOLECALCIFEROL (VITAMIN D3) 1,000 UNIT TABLET PO SCH (08:40)
[2020-05-07] MEDS: SPIRONOLACTONE 25 MG TABLET PO SCH (08:40)
[2020-05-07] MEDS: QUEtiapine 25 MG TABLET. PO SCH ×2 (08:40→17:10)
[2020-05-07] MEDS: DIVALPROEX 125 MG CAP.SPRINK PO SCH ×3 (08:40→20:14)
[2020-05-07] MEDS: METHENAMINE HIPPURATE 1 GM TABLET PO SCH ×2 (08:40→20:14)
[2020-05-07] MEDS: VITAMIN B COMPLEX CAPSULE. PO SCH (08:40)
[2020-05-07] MEDS: POLYETHYLENE GLYCOL 3350 17 GM PACKET. PO SCH (08:41)
[2020-05-07] MEDS: MULTIVITAMIN I-VITE TABLET. PO SCH ×2 (08:41→20:14)
[2020-05-07] MEDS: FUROSEMIDE 80 MG TABLET PO SCH ×2 (08:41→17:10)
--- NOTE | 2020-05-07 09:27 | NUR ---
Patient calm and cooperative in dining room. Patient states she enjoyed movie night yesterday. Patient has no complaints at this time.
[2020-05-07] MEDS ORDERED: WARFARIN 4 MG TABLET. PO ONE (16:00)
[2020-05-07 16:06] VITALS: BP 99/64
[2020-05-07] MEDS: MIRTAZAPINE 15 MG TABLET PO SCH (20:14)
--- NOTE | 2020-05-07 22:14 | PDOC ---
Exam Note: Derick Note: Please also refer to the separate dictated note~for this date of service dictated separately.~Patient seen individually. Discussed the patient with Nursing staff reviewed the chart.~Reviewed interim history and current functioning. Reviewed vital signs,~Labs/ Radiology~and current medications noted below. Continue current treatment with the changes noted in the dictated addendum note Assessment: Vital Signs/I&O: Vital Signs Date Time Temp Pulse Resp B/P (MAP) Pulse Ox O2 Delivery O2 Flow Rate FiO2 05/07/20 16:06 97.6 82 22 99/64 (76) 97 05/07/20 05:57 Nasal Cannula 6.0 I & O 05/06/20 05/06/20 05/07/20 15:00 23:00 07:00 Intake Total 840 ml 240 ml Balance 840 ml 240 ml Labs: Laboratory Tests Test 05/07/20 10:57 Prothrombin Time 16.1 SEC (9.4-11.4) H Prothrombin Time INR 1.6 (0.9-1.1) H Current Medications: Meds: Current Medications Medications (Trade) Dose Ordered Sig/Marina Route PRN Reason Start Time Stop Time Status Last Admin Dose Admin Warfarin Sodium (Coumadin) 4 mg 1X WARF ONCE PO 05/07/20 16:00 05/07/20 16:01 DC 05/07/20 17:13 I have reviewed the current psychotropics carefully including drug interactions. Risk benefit ratio favors no change other than as noted in my dictated progress note. Diagnosis: Problems: (1) Dementia, vascular, with depression (2) Dementia, vascular, with delusions (3) Dementia in Alzheimer's disease with depression (4) Dementia in Alzheimer's disease with delusions (5) Major neurocognitive disorder (6) Dementia in Alzheimer's disease with early onset with behavioral disturbance (7) Major depressive disorder with psychotic features ROHIT SIBLEY MD May 07, 2020 22:14
--- NOTE | 2020-05-07 22:28 | NUR ---
Pt located in her room in bed. Pleasant and compliant with whole medications. No behaviors this evening.
[2020-05-08] MEDS: LEVOTHYROXINE 150 MCG TABLET PO SCH (05:28)
[2020-05-08 05:39] VITALS: BP 127/75
--- NOTE | 2020-05-08 06:49 | PDOC ---
Exam Note: Derick Note: This note is a late entry for 05/06/2020 covers elements not covered in my initial note. Subjective: The patient was seen individually in the evening of 05/06/2020. Per Chantal BRITO, she slept 5-1/2 hours previous night. She had a good day spending much time in her room. Review of Systems: Ambulation impaired in wheelchair. Shortness of breath on O2 supplements. No CV, GI/, eye, ENT system symptoms on review. Mental Status Exam: Oriented reasonably. The patient had many questions about discharge plans and I addressed these with her. Speech coherent. Abstraction fair. Computation impaired. Language function intact. Attention span is short. Mood and affect withdrawn, anxious. Laboratory Data: Reviewed. Impression: Major neurocognitive disorder Alzheimer, vascular with delusion, depression, behavioral disturbance. Anxiety disorder unspecified. Impulse control disorder unspecified. Plan: No change from initial note. Valproic acid level is therapeutic at 56, Depakote 375 mg t.i.d., Prozac 20 mg a day, melatonin 4.5 mg h.s. p.r.n., Remeron 15 mg h.s., Seroquel 12.5 mg b.i.d., trazodone h.s. p.r.n. Adjust further as clinically indicated. Assessment: Vital Signs/I&O: Vital Signs Date Time Temp Pulse Resp B/P (MAP) Pulse Ox O2 Delivery O2 Flow Rate FiO2 05/08/20 05:39 98.5 88 20 127/75 (92) 96 6.0 05/07/20 05:57 Nasal Cannula I & O 0 05/07/20 05/07/20 05/08/20 15:00 23:00 07:00 Intake Total 840 ml 600 ml Balance 840 ml 600 ml Labs: Laboratory Tests Test 05/07/20 10:57 Prothrombin Time 16.1 SEC (9.4-11.4) H Prothrombin Time INR 1.6 (0.9-1.1) H Current Medications: Meds: Current Medications Medications (Trade) Dose Ordered Sig/Marina Route PRN Reason Start Time Stop Time Status Last Admin Dose Admin Warfarin Sodium (Coumadin) 4 mg 1X WARF ONCE PO 05/07/20 16:00 05/07/20 16:01 DC 05/07/20 17:13 I have reviewed the current psychotropics carefully including drug interactions. Risk benefit ratio favors no change other than as noted in my dictated progress note. 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
--- NOTE | 2020-05-08 07:09 | PDOC ---
Exam Note: Derick Note: This note is a late entry for 05/07/2020 covers elements not covered in my initial note. Subjective: The patient was seen individually in the evening of 05/07/2020. Per Sumit BRITO, she slept 7 hours previous night. She has been coming out for meals and I met with her in the dining room. She is somewhat anxious, repeatedly questioning about discharge plans. I addressed with her. At times she was yelling in the morning, then took a nap later in the day and did much better after that. Review of Systems: No CV, GI/, eye, ENT system symptoms on review. Mental Status Exam: Oriented reasonably. Speech coherent. Abstraction fair. Computation impaired. Language function intact. Attention span is short. Mood and affect anxious. Laboratory Data: Reviewed. Impression: Major neurocognitive disorder Alzheimer, vascular with delusion, depression, behavioral disturbance. Anxiety disorder unspecified. Impulse control disorder unspecified. Plan: No change from initial note. Assessment: Vital Signs/I&O: Vital Signs Date Time Temp Pulse Resp B/P (MAP) Pulse Ox O2 Delivery O2 Flow Rate FiO2 05/08/20 05:39 98.5 88 20 127/75 (92) 96 6.0 05/07/20 05:57 Nasal Cannula I & O 05/07/20 05/07/20 05/08/20 15:00 23:00 07:00 Intake Total 840 ml 600 ml Balance 840 ml 600 ml Labs: Laboratory Tests Test 05/07/20 10:57 Prothrombin Time 16.1 SEC (9.4-11.4) H Prothrombin Time INR 1.6 (0.9-1.1) H Current Medications: Meds: Current Medications Medications (Trade) Dose Ordered Sig/Marina Route PRN Reason Start Time Stop Time Status Last Admin Dose Admin Warfarin Sodium (Coumadin) 4 mg 1X WARF ONCE PO 05/07/20 16:00 05/07/20 16:01 DC 05/07/20 17:13 I have reviewed the current psychotropics carefully including drug interactions. Risk benefit ratio favors no change other than as noted in my dictated progress note. Diagnosis: Problems: (1) Dementia, vascular, with depression (2) Dementia, vascular, with delusions (3) Dementia in Alzheimer's disease with depression (4) Dementia in Alzheimer's disease with delusions (5) Major neurocognitive disorder (6) Dementia in Alzheimer's disease with early onset with behavioral disturbance (7) Major depressive disorder with psychotic features ROHIT SIBLEY MD May 08, 2020 07:09
[2020-05-08] MEDS: POLYETHYLENE GLYCOL 3350 17 GM PACKET. PO SCH (07:27)
[2020-05-08] MEDS: NYSTATIN 100,000 UNITS/ML ORAL SUSPENSION 60ML BOTTLE. SWSW SCH ×2 (08:10→12:41)
[2020-05-08] MEDS: FLUTICASONE 50MCG/NASAL SPRAY 16GM BOTTLE. NS SCH (08:10)
[2020-05-08] MEDS: KETOROLAC TROMETHAMINE 0.5% OPHTH SOLUTION BOTTLE. OU SCH ×4 (08:10→20:20)
[2020-05-08] MEDS: IPRATROPIUM/ALBUTEROL 20/100mcg/INH INHALER. INH SCH ×4 (08:10→20:20)
[2020-05-08] MEDS: CHOLECALCIFEROL (VITAMIN D3) 1,000 UNIT TABLET PO SCH (08:13)
[2020-05-08] MEDS: MULTIVITAMIN I-VITE TABLET. PO SCH ×2 (08:13→20:18)
[2020-05-08] MEDS: DIVALPROEX 125 MG CAP.SPRINK PO SCH ×3 (08:13→20:19)
[2020-05-08] MEDS: METHENAMINE HIPPURATE 1 GM TABLET PO SCH ×2 (08:13→20:19)
[2020-05-08] MEDS: SPIRONOLACTONE 25 MG TABLET PO SCH (08:14)
[2020-05-08] MEDS: VITAMIN B COMPLEX CAPSULE. PO SCH (08:14)
[2020-05-08] MEDS: QUEtiapine 25 MG TABLET. PO SCH ×2 (08:14→17:04)
[2020-05-08] MEDS: FUROSEMIDE 80 MG TABLET PO SCH ×2 (08:14→17:04)
[2020-05-08] MEDS: FLUoxetine HCL 20 MG CAPSULE PO SCH (08:14)
--- NOTE | 2020-05-08 08:59 | NUR ---
Patient calm and cooperative in dining room. Patient states she has some knee soreness this morning.
--- NOTE | 2020-05-08 14:44 | NUR ---
Pharmacy Warfarin Dosing Note S:Pharmacy consulted to assist with anticoagulation therapy started with target INR: 2-2.5 O:ARNULFO KEVIN is a 85 year old F with Atrial Fibrillation LABS: Last INR: 1.7 Last HGB: 11.7 Last HCT: 35.8 Last PLT: 261 Last dose of 4 mg given on 05/07/20 at 1600 Previous Regimen: Vitamin K given: N Drug Interaction Changes: Same Interacting Drug Ongoing Drug Interactions: FLUOXETINE A:INR Below desired Range. Target Range for this patient is: 2-2.5 P: Warfarin dose: 4 mg Today at 1600 Bridge Therapy: None Next INR due 05/09/20 @ 0600 Pharmacy anticoagulation service will continue to follow. CURTIS COOPER [facility], 05/08/20 [id number]
[2020-05-08 15:40] VITALS: BP 120/77
[2020-05-08] MEDS ORDERED: WARFARIN 4 MG TABLET. PO ONE (16:00)
[2020-05-08] MEDS: MIRTAZAPINE 15 MG TABLET PO SCH (20:19)
[2020-05-08] MEDS: traZODone 50 MG TABLET. PO PRN (20:20)
--- NOTE | 2020-05-08 21:12 | NUR ---
Patient is in the day room on assumption of care. She is in pleasant spirits. Calm, cooperative and compliant with assessments and medications taken whole. No agitation. Denies any pain or discomfort. Denies SI.
--- NOTE | 2020-05-08 21:58 | PDOC ---
Exam Note: Derick Note: Please also refer to the separate dictated note~for this date of service dictated separately.~Patient seen individually. Discussed the patient with Nursing staff reviewed the chart.~Reviewed interim history and current functioning. Reviewed vital signs,~Labs/ Radiology~and current medications noted below. Continue current treatment with the changes noted in the dictated addendum note Assessment: Vital Signs/I&O: Vital Signs Date Time Temp Pulse Resp B/P (MAP) Pulse Ox O2 Delivery O2 Flow Rate FiO2 05/08/20 15:40 98.3 86 20 120/77 (91) 93 6.0 05/07/20 05:57 Nasal Cannula I & O 05/07/20 05/07/20 05/08/20 14:59 22:59 06:59 Intake Total 840 ml 600 ml Balance 840 ml 600 ml Labs: Laboratory Tests Test 05/08/20 13:40 Prothrombin Time 17.7 SEC (9.4-11.4) H Prothrombin Time INR 1.7 (0.9-1.1) H Current Medications: Meds: Current Medications Medications (Trade) Dose Ordered Sig/Marina Route PRN Reason Start Time Stop Time Status Last Admin Dose Admin Warfarin Sodium (Coumadin) 4 mg 1X WARF ONCE PO 05/08/20 16:00 05/08/20 16:01 DC 05/08/20 17:04 I have reviewed the current psychotropics carefully including drug interactions. Risk benefit ratio favors no change other than as noted in my dictated progress note. 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
[2020-05-09] MEDS: LEVOTHYROXINE 150 MCG TABLET PO SCH (05:24)
[2020-05-09 05:37] VITALS: BP 103/62
[2020-05-09] MEDS: FLUTICASONE 50MCG/NASAL SPRAY 16GM BOTTLE. NS SCH (07:56)
[2020-05-09] MEDS: IPRATROPIUM/ALBUTEROL 20/100mcg/INH INHALER. INH SCH ×4 (08:00→20:00)
[2020-05-09] MEDS: SPIRONOLACTONE 25 MG TABLET PO SCH (08:04)
[2020-05-09] MEDS: POLYETHYLENE GLYCOL 3350 17 GM PACKET. PO SCH (08:04)
[2020-05-09] MEDS: DIVALPROEX 125 MG CAP.SPRINK PO SCH ×3 (08:04→21:42)
[2020-05-09] MEDS: CHOLECALCIFEROL (VITAMIN D3) 1,000 UNIT TABLET PO SCH (08:04)
[2020-05-09] MEDS: VITAMIN B COMPLEX CAPSULE. PO SCH (08:04)
[2020-05-09] MEDS: MULTIVITAMIN I-VITE TABLET. PO SCH ×2 (08:04→21:41)
[2020-05-09] MEDS: METHENAMINE HIPPURATE 1 GM TABLET PO SCH ×2 (08:05→21:42)
[2020-05-09] MEDS: QUEtiapine 25 MG TABLET. PO SCH ×2 (08:05→17:16)
[2020-05-09] MEDS: FLUoxetine HCL 20 MG CAPSULE PO SCH (08:05)
[2020-05-09] MEDS: FUROSEMIDE 80 MG TABLET PO SCH ×2 (08:05→17:16)
[2020-05-09] MEDS: KETOROLAC TROMETHAMINE 0.5% OPHTH SOLUTION BOTTLE. OU SCH ×4 (09:00→21:00)
--- NOTE | 2020-05-09 11:39 | NUR ---
WEEKLY ACTIVITY THERAPY NOTE Date of Admission:04/16/20 Date of AT Assessment: 04/19/20 Precipitating behaviors that initiated intake and admission: anxiety, aggression, combative, paranoia Goal aimed: to increase self-esteem development and socialization skills. Initial Goal: Pt will participate in at least three activity therapy sessions per week Goal changed 04/25: Pt. will participate in one individual or group before discharge Weekly progress towards goal: achieved, 12/26 Group participation level: 1 full, 1 mod, 1 min Weekly highlights: fully engaged in group crossword on Thursday 05/03, expressed she has some interest in puzzles on Tuesday 05/08 Behaviors observed: Most of the time she is in her room or in the day room away from group using oxygen, seems content with minimal engagement in activities Plan: change goal to: Pt. will participate in at least two Activity Therapy groups per week Beneficial adaptations: positive response to conversation groups
--- NOTE | 2020-05-09 12:32 | NUR ---
Patient calm, compliant with meds. Stayed in day room this morning. Does complain about the light, only wants to be in her room with lights off and curtains closed. Drowsy this morning. MISSY.
--- NOTE | 2020-05-09 13:47 | NUR ---
Pharmacy Warfarin Dosing Note S:Pharmacy consulted to assist with anticoagulation therapy started with target INR: 2-2.5 O:ARNULFO KEVIN is a 85 year old F with Atrial Fibrillation LABS: Last INR: 1.8 Last HGB: 11.7 Last HCT: 35.8 Last PLT: 261 Last dose of 4 mg given on 05/08/20 at 1600 Vitamin K given: N Drug Interaction Changes: Same Interacting Drug Ongoing Drug Interactions: FLUOXETINE A:INR Below desired range, but trending up. Target Range for this patient is: 2-2.5 P: Warfarin dose: 4 mg Today at 1600 Bridge Therapy: None Next INR due 05/10/20 Pharmacy anticoagulation service will continue to follow. MARYLIN PETERSEN, 05/09/20 [id number]
[2020-05-09] MEDS ORDERED: WARFARIN 4 MG TABLET. PO ONE (16:00)
[2020-05-09 16:05] VITALS: BP 130/87
[2020-05-09] MEDS: MIRTAZAPINE 15 MG TABLET PO SCH (21:41)
--- NOTE | 2020-05-09 21:58 | PDOC ---
Exam Note: Derick Note: Please also refer to the separate dictated note~for this date of service dictated separately.~Patient seen individually. Discussed the patient with Nursing staff reviewed the chart.~Reviewed interim history and current functioning. Reviewed vital signs,~Labs/ Radiology~and current medications noted below. Continue current treatment with the changes noted in the dictated addendum note Assessment: Vital Signs/I&O: Vital Signs Date Time Temp Pulse Resp B/P (MAP) Pulse Ox O2 Delivery O2 Flow Rate FiO2 05/09/20 16:05 98.4 89 18 130/87 (101) 99 5.0 05/07/20 05:57 Nasal Cannula I & O 05/08/20 05/08/20 05/09/20 15:00 23:00 07:00 Intake Total 480 ml 480 ml Balance 480 ml 480 ml Labs: Laboratory Tests Test 05/09/20 06:50 Prothrombin Time 18.8 SEC (9.4-11.4) H Prothrombin Time INR 1.8 (0.9-1.1) H Current Medications: Meds: Current Medications Medications (Trade) Dose Ordered Sig/Marina Route PRN Reason Start Time Stop Time Status Last Admin Dose Admin Warfarin Sodium (Coumadin) 4 mg 1X WARF ONCE PO 05/09/20 16:00 05/09/20 16:01 DC 05/09/20 17:16 I have reviewed the current psychotropics carefully including drug interactions. Risk benefit ratio favors no change other than as noted in my dictated progress note. Diagnosis: Problems: (1) Dementia, vascular, with depression (2) Dementia, vascular, with delusions (3) Dementia in Alzheimer's disease with depression (4) Dementia in Alzheimer's disease with delusions (5) Major neurocognitive disorder (6) Dementia in Alzheimer's disease with early onset with behavioral disturbance (7) Major depressive disorder with psychotic features ROHIT SIBLEY MD May 09, 2020 21:58
--- NOTE | 2020-05-09 23:34 | NUR ---
Nursing Note The patient was located in her room for her assessment and medication pass. The patient was calm and cooperative and took her medication whole. The patient was curious about what medications she was taking and asked this nurse to explain them. The patient is currently sleeping in her room.
[2020-05-10 05:00] VITALS: BP 122/75
[2020-05-10] MEDS: LEVOTHYROXINE 150 MCG TABLET PO SCH (06:00)
--- NOTE | 2020-05-10 08:50 | PDOC ---
Exam Note: Derick Note: This note is a late entry for 05/08/2020 covers elements not covered in my initial note. Subjective: The patient was seen individually in the evening of 05/08/2020. Per Sumit BRITO, she slept 8 hours previous night. Overall she is doing well. She spends much time in her room but comes out for all meals, much more verbal, interactive as I met with her. She had many questions about her medications, some ongoing anxiety and discharge plans and we addressed at some length. Review of Systems: Ambulation impaired in wheelchair. Shortness of breath on O2 supplements. No CV, GI/, eye, ENT system symptoms on review. Mental Status Exam: Oriented reasonably. She was very verbal, interactive, little obsessive and repetitive. Speech coherent. Abstraction fair. Computation impaired. Language function intact. Attention span is short. Mood and affect anxious, obsessed about discharge plans. Laboratory Data: Reviewed. Impression: Major neurocognitive disorder Alzheimer, vascular with delusion, depression, behavioral disturbance. Anxiety disorder unspecified. Impulse control disorder unspecified. Plan: No change from initial note. Assessment: Vital Signs/I&O: Vital Signs Date Time Temp Pulse Resp B/P (MAP) Pulse Ox O2 Delivery O2 Flow Rate FiO2 05/10/20 08:24 97.3 05/09/20 16:05 89 18 130/87 (101) 99 5.0 05/07/20 05:57 Nasal Cannula I & O 05/09/20 05/09/20 05/10/20 15:00 23:00 07:00 Intake Total 240 ml 560 ml Balance 240 ml 560 ml Current Medications: Meds: Current Medications Medications (Trade) Dose Ordered Sig/Marina Route PRN Reason Start Time Stop Time Status Last Admin Dose Admin Warfarin Sodium (Coumadin) 4 mg 1X WARF ONCE PO 05/09/20 16:00 05/09/20 16:01 DC 05/09/20 17:16 I have reviewed the current psychotropics carefully including drug interactions. Risk benefit ratio favors no change other than as noted in my dictated progress note. Diagnosis: Problems: (1) Dementia, vascular, with depression (2) Dementia, vascular, with delusions (3) Dementia in Alzheimer's disease with depression (4) Dementia in Alzheimer's disease with delusions (5) Major neurocognitive disorder (6) Dementia in Alzheimer's disease with early onset with behavioral disturbance (7) Major depressive disorder with psychotic features ROHIT SIBLEY MD May 10, 2020 08:50
--- NOTE | 2020-05-10 08:58 | NUR ---
Levothyroxine given on AM shift at 0600. [employer] was down.
[2020-05-10] MEDS: POLYETHYLENE GLYCOL 3350 17 GM PACKET. PO SCH (09:00)
--- NOTE | 2020-05-10 09:08 | PDOC ---
Exam Note: Derick Note: This note is a late entry for 05/09/2020 covers elements not covered in my initial note. Subjective: The patient was seen individually in the morning of 05/09/2020 with treatment team meeting with Raymond (social service staff), Nena Activity Therapy staff, and Nixon BRITO. We discussed that overall the patient has been cooperative, compliant with treatment, coming out more. She slept 7- 1/4 hours previous night. She is very pleasant, verbal, interactive as I met with her, still somewhat anxious, repetitive. In the evening also discussed with Dominique BRITO. The patient did better last evening and during the day today. Review of Systems: Ambulation in wheelchair. Shortness of breath on O2 supplements. No CV, GI/, eye, ENT system symptoms on review. Mental Status Exam: Oriented reasonably. She is pleasant, cooperative, verbal. Speech coherent. Abstraction fair. Computation impaired. Language function intact. Attention span is short. Mood and affect anxious. Laboratory Data: Reviewed. Impression: Major neurocognitive disorder Alzheimer, vascular with delusion, depression, behavioral disturbance. Anxiety disorder unspecified. Impulse control disorder unspecified. Plan: No change from initial note. Assessment: Vital Signs/I&O: Vital Signs Date Time Temp Pulse Resp B/P (MAP) Pulse Ox O2 Delivery O2 Flow Rate FiO2 05/10/20 08:24 97.3 05/09/20 16:05 89 18 130/87 (101) 99 5.0 05/07/20 05:57 Nasal Cannula I & O 05/09/20 05/09/20 05/10/20 15:00 23:00 07:00 Intake Total 240 ml 560 ml Balance 240 ml 560 ml Current Medications: Meds: Current Medications Medications (Trade) Dose Ordered Sig/Marina Route PRN Reason Start Time Stop Time Status Last Admin Dose Admin Warfarin Sodium (Coumadin) 4 mg 1X WARF ONCE PO 05/09/20 16:00 05/09/20 16:01 DC 05/09/20 17:16 I have reviewed the current psychotropics carefully including drug interactions. Risk benefit ratio favors no change other than as noted in my dictated progress note. Diagnosis: Problems: (1) Dementia, vascular, with depression (2) Dementia, vascular, with delusions (3) Dementia in Alzheimer's disease with depression (4) Dementia in Alzheimer's disease with delusions (5) Major neurocognitive disorder (6) Dementia in Alzheimer's disease with early onset with behavioral disturbance (7) Major depressive disorder with psychotic features ROHIT SIBLEY MD May 10, 2020 09:08
[2020-05-10] MEDS: IPRATROPIUM/ALBUTEROL 20/100mcg/INH INHALER. INH SCH ×4 (10:17→19:34)
[2020-05-10] MEDS: FLUTICASONE 50MCG/NASAL SPRAY 16GM BOTTLE. NS SCH (10:17)
[2020-05-10] MEDS: KETOROLAC TROMETHAMINE 0.5% OPHTH SOLUTION BOTTLE. OU SCH ×4 (10:19→19:35)
[2020-05-10] MEDS: DIVALPROEX 125 MG CAP.SPRINK PO SCH ×3 (10:19→19:34)
[2020-05-10] MEDS: QUEtiapine 25 MG TABLET. PO SCH ×2 (10:20→17:08)
[2020-05-10] MEDS: VITAMIN B COMPLEX CAPSULE. PO SCH (10:20)
[2020-05-10] MEDS: METHENAMINE HIPPURATE 1 GM TABLET PO SCH ×2 (10:21→19:34)
[2020-05-10] MEDS: FUROSEMIDE 80 MG TABLET PO SCH ×2 (10:21→17:07)
[2020-05-10] MEDS: MULTIVITAMIN I-VITE TABLET. PO SCH ×2 (10:21→19:34)
[2020-05-10] MEDS: SPIRONOLACTONE 25 MG TABLET PO SCH (10:21)
[2020-05-10] MEDS: FLUoxetine HCL 20 MG CAPSULE PO SCH (10:21)
[2020-05-10] MEDS: CHOLECALCIFEROL (VITAMIN D3) 1,000 UNIT TABLET PO SCH (10:22)
--- NOTE | 2020-05-10 14:15 | NUR ---
Patient reports feeling "not herself" today. She has had loose stool, miralax was held this morning. She also states that food tastes "off". Patient compliant with medications and cooperative. Today she has urinated and defecated in her brief rather than calling for help. Patient was in bed this morning, but is now sitting up in wheelchair in her room. She has been calm. Patients scheduled COVID test for discharge planning has not come back yet. Sample was obtained 05/09.
--- NOTE | 2020-05-10 14:38 | NUR ---
Pharmacy Warfarin Dosing Note S:Pharmacy consulted to assist with anticoagulation therapy with target INR: 2-2.5 O:ARNULFO KEVIN is a 85 year old F with Atrial Fibrillation LABS: Last INR: 1.8 Last HGB: 11.7 Last HCT: 35.8 Last PLT: 261 Last dose of 4 mg given on 05/09/20 at 1600 Previous Regimen: Vitamin K given: N Drug Interaction Changes: Same Interacting Drug Ongoing Drug Interactions: FLUOXETINE A:INR Below desired Range. Target Range for this patient is: 2-2.5 P: Warfarin dose: 5 mg Today at 1600 Bridge Therapy: None Next INR due 05/11 Pharmacy anticoagulation service will continue to follow. MARYLIN PETERSEN, 05/10/20 0532
[2020-05-10 15:17] VITALS: BP 91/52
--- NOTE | 2020-05-10 15:48 | NUR ---
PINKY attempted to contact pt son and left a message for him to call PINKY back GE. PINKY also spoke with Jennifer at [facility] to notify her of the positive COVOID-19 test on the unit. Per the [facility], there will be no admissions in and no admissions out. PINKY will continue to send Jennifer updates and once discharge are permissible, plans for pt can be made at that time.
[2020-05-10] MEDS ORDERED: WARFARIN 5 MG TABLET. PO ONE (16:00)
--- NOTE | 2020-05-10 18:16 | NUR ---
Patients pending COVID 19 test has not resulted yet. Will pass on in shift report and continue to monitor.
[2020-05-10] MEDS: MIRTAZAPINE 15 MG TABLET PO SCH (19:34)
--- NOTE | 2020-05-10 21:57 | PDOC ---
Exam Note: Derick Note: Please also refer to the separate dictated note~for this date of service dictated separately.~Patient seen individually. Discussed the patient with Nursing staff reviewed the chart.~Reviewed interim history and current functioning. Reviewed vital signs,~Labs/ Radiology~and current medications noted below. Continue current treatment with the changes noted in the dictated addendum note Assessment: Vital Signs/I&O: Vital Signs Date Time Temp Pulse Resp B/P (MAP) Pulse Ox O2 Delivery O2 Flow Rate FiO2 05/10/20 20:42 97.9 97 6.0 05/10/20 15:17 85 18 91/52 (65) 05/07/20 05:57 Nasal Cannula I & O 05/09/20 05/09/20 05/10/20 15:00 23:00 07:00 Intake Total 240 ml 560 ml Balance 240 ml 560 ml Labs: Laboratory Tests Test 05/10/20 07:00 Prothrombin Time 18.8 SEC (9.4-11.4) H Prothrombin Time INR 1.8 (0.9-1.1) H Current Medications: Meds: Current Medications Medications (Trade) Dose Ordered Sig/Marina Route PRN Reason Start Time Stop Time Status Last Admin Dose Admin Warfarin Sodium (Coumadin) 5 mg 1X WARF ONCE PO 05/10/20 16:00 05/10/20 16:01 DC 05/10/20 17:07 I have reviewed the current psychotropics carefully including drug interactions. Risk benefit ratio favors no change other than as noted in my dictated progress note. 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
--- NOTE | 2020-05-11 00:01 | NUR ---
Nursing Note The patient was calm and cooperative this shift and when asked how she was feeling this shift the patient stated that besides being uncomfortable sitting in her chair she otherwise felt fine. The patient took her medication whole. The patient is currently sleeping in her room.
[2020-05-11] MEDS: LEVOTHYROXINE 150 MCG TABLET PO SCH (05:40)
[2020-05-11 06:09] VITALS: BP 116/71
--- NOTE | 2020-05-11 07:34 | PDOC ---
Exam Note: Derick Note: This note is a late entry for 05/10/2020 covers elements not covered in my initial note. Subjective: The patient was seen on telehealth rounds in the evening of 05/10/2020 with Tomer RN and Ivon RN. COVID-19 screen has been done on all patients and staff members since one patient has turned up positive for COVID-19 on the unit today. The unit is on lockdown per the [facility] ([facility])/Centers for Disease Control (CDC) due to the COVID positive patient on our unit, which was discovered. All patients are back in their rooms and are not using main dining room either to avoid group activities and exposure. Per Natalee BRITO, the patient slept 7-1/2 hours previous night. She has had a loose bowel movement, attributes this to the food, wanting repeatedly to go to bed. She was very pleasant and interactive in the evening. She states she is somewhat frustrated about the restrictions on the unit and her inpatient hospitalization being prolonged due to the COVID-19 exposure of another patient. Review of Systems: Ambulation in wheelchair. She still has shortness of breath on O2 supplements. No CV, GI/, eye, ENT system symptoms on review. Mental Status Exam: Oriented reasonably. She is verbal, interactive. Speech coherent. Abstraction fair. Computation impaired. Language function intact. Attention span is short. Mood and affect improved. No suicidal or homicidal ideation. Laboratory Data: Reviewed. Impression: Major neurocognitive disorder Alzheimer, vascular with delusion, depression, behavioral disturbance. Anxiety disorder unspecified. Impulse control disorder unspecified. Plan: No change from initial note. Assessment: Vital Signs/I&O: Vital Signs Date Time Temp Pulse Resp B/P (MAP) Pulse Ox O2 Delivery O2 Flow Rate FiO2 05/11/20 06:09 97.4 99 20 116/71 (86) 97 6.0 05/07/20 05:57 Nasal Cannula I & O 0 05/10/20 05/10/20 05/11/20 15:00 23:00 07:00 Intake Total 1140 ml 720 ml Balance 1140 ml 720 ml Current Medications: Meds: Current Medications Medications (Trade) Dose Ordered Sig/Marina Route PRN Reason Start Time Stop Time Status Last Admin Dose Admin Warfarin Sodium (Coumadin) 5 mg 1X WARF ONCE PO 05/10/20 16:00 05/10/20 16:01 DC 05/10/20 17:07 I have reviewed the current psychotropics carefully including drug interactions. Risk benefit ratio favors no change other than as noted in my dictated progress note. Diagnosis: Problems: (1) Dementia, vascular, with depression (2) Dementia, vascular, with delusions (3) Dementia in Alzheimer's disease with depression (4) Dementia in Alzheimer's disease with delusions (5) Major neurocognitive disorder (6) Dementia in Alzheimer's disease with early onset with behavioral disturbance (7) Major depressive disorder with psychotic features ROHIT SIBLEY MD May 11, 2020 07:34
[2020-05-11] MEDS: CHOLECALCIFEROL (VITAMIN D3) 1,000 UNIT TABLET PO SCH (09:00)
[2020-05-11] MEDS: FLUTICASONE 50MCG/NASAL SPRAY 16GM BOTTLE. NS SCH (09:07)
[2020-05-11] MEDS: DIVALPROEX 125 MG CAP.SPRINK PO SCH ×3 (09:07→20:05)
[2020-05-11] MEDS: FLUoxetine HCL 20 MG CAPSULE PO SCH (09:07)
[2020-05-11] MEDS: IPRATROPIUM/ALBUTEROL 20/100mcg/INH INHALER. INH SCH ×4 (09:07→20:05)
[2020-05-11] MEDS: KETOROLAC TROMETHAMINE 0.5% OPHTH SOLUTION BOTTLE. OU SCH ×4 (09:07→20:05)
[2020-05-11] MEDS: METHENAMINE HIPPURATE 1 GM TABLET PO SCH ×2 (09:08→20:05)
[2020-05-11] MEDS: POLYETHYLENE GLYCOL 3350 17 GM PACKET. PO SCH (09:08)
[2020-05-11] MEDS: SPIRONOLACTONE 25 MG TABLET PO SCH (09:08)
[2020-05-11] MEDS: FUROSEMIDE 80 MG TABLET PO SCH ×2 (09:08→15:53)
[2020-05-11] MEDS: QUEtiapine 25 MG TABLET. PO SCH ×2 (09:08→18:13)
[2020-05-11] MEDS: MULTIVITAMIN I-VITE TABLET. PO SCH ×2 (09:08→20:05)
[2020-05-11] MEDS: VITAMIN B COMPLEX CAPSULE. PO SCH (09:08)
--- NOTE | 2020-05-11 10:22 | NUR ---
Patient is in her room sitting in the chair. Compliant with medications taken whole, she prefers to drink gatorade with them. Patient stated she "will be leaving any day now" when nurse asked if she knew the year, etc. Patient also stated "I'm not supposed to even be here". Patient is TELIDA and she seems to be having more trouble with understanding communication since staff has begun wearing N95 masks. Patient refused miralax, saying that it caused her to have "loose stools" yesterday. Patient asked to have her bed made up so she could lay down. It is patients shower day and staff will make her bed and she can lay down after that. Patient has a depressed affect but is calm and cooperative. She has not been delusional or paranoid and is not aggressive.
--- NOTE | 2020-05-11 11:27 | TX PLAN ---
Interdisciplinary Tx Plan Admission Information Apr 16, 2020 at 14:34 Legal Status (on Admission): Voluntary DPOA/Guardian Name: Federico Arzola Contact Other Contact Name: David Cagle Contact Verified Code Status: DNR Allergies: Coded Allergies: acetaminophen (Verified Allergy, Intermediate, 04/22/20) codeine (Verified Allergy, Intermediate, 04/22/20) formoterol (Verified Allergy, Intermediate, 04/22/20) "get sick and can't think" gabapentin (Verified Allergy, Intermediate, 04/22/20) hydrocodone (Verified Allergy, Intermediate, 04/22/20) latex (Verified Allergy, Intermediate, 04/22/20) meperidine (Verified Allergy, Intermediate, 04/22/20) neomycin (Verified Allergy, Intermediate, 04/22/20) propoxyphene (Verified Allergy, Intermediate, 04/22/20) tropicamide (Verified Allergy, Intermediate, 04/22/20) "felt strange" cortisone (Verified Adverse Reaction, Intermediate, 04/22/20) Elevated BP prednisone (Verified Adverse Reaction, Intermediate, 04/22/20) Increased BP Diagnoses Primary Diagnosis: Major Neurocognitive D/O with delusions and behavioral disturbance; MDD recurrent Reasons for Admission: Aggressive, Anxiety/Panic, Combative, Suspicious/par anoid Problem in Patient's Words: N/A Additional Admission Comments: According to the intake, pt is anxious, aggressive towards staff, punching, throwing a chair, paranoid, things she being poisoned, delusional that there is a bomb in her room. Problems Active Problems: Anxious Delusional Inactive Problems: Medication compliance Pt Strengths/Limitations Ability for [place]: Poor Cognitive Functioning/Ability: Poor Communication Skills/Ability: Fair Financial Resources: Fair Insight/Judgement: Poor Intellectual Ability: Fair Physical Health: Poor Social Skills: Fair Stability in Family: Poor Stability in School/Work: Poor Verbal Skills: Fair Discharge Criteria Discharge Criteria: No need for close observ., Adequate arrangements @DC, Improved behavior, Improved mood/thought Preliminary Discharge Plan Preliminary DC Plan: Current Living Arrange. Special Precautions Fall Risk: Moderate Initial D/C Plan Pt will plan to return to [facility] once stable Identified Discharge Needs: Continued mental health support Currently Utilized Resources Currently Utilized Resources/P: Primary Care Physician Identified Problems/Hx/Goals Objectives/Short-Term Goals Short Term Goals: Dec. Aggression, Dec. Anxiety/Panic, Medication Stabilization, Promote Coping Skill Short Term Goals in Patient's: N/A Interventions/Frequency Staff Interventions/Frequency&: Psychiatrist to assess pt at least 3x per week Social Work to assess pt at least 2x per week Nursing to assess pt behaviors, medications and complete 15 minute checks daily Encourage group participation in activities or 1:1 engagement based off Activities Dept assessment Community Follow-up Will need follow-up with PCP Treatment Plan Explained Patient/Back Wedger had this treatment plan explained to him/her as indicated by the signature below and has been given the opportunity to ask questions and make suggestions: Date: Patient/Back Wedger Signature: Patient/Back Wedger Decline: Yes (Son is difficult to contact) Status Update Update Pt is eating roughly 50: of meals and sleeping on average 6/5 hours per night. Pt is calm and compliant with all medications and staff direction. Pt reported to night staff that things are tasting funny and that she feels right A speech evaluation was completed and was noted that pt has esophageal concerns and will need a GI follow-up once discharged from [facility]. Pt is currently on Depakote, Prozac, and Seroquel. Pt will return to [place] once stable. CLARISSA PEDRAZA May 11, 2020 11:27
--- NOTE | 2020-05-11 12:11 | NUR ---
Pharmacy Warfarin Dosing Note S:Pharmacy consulted to assist with anticoagulation therapy started with target INR: 2-2.5MG O:ARNULFO KEVIN is a 85 year old F with Atrial Fibrillation LABS: Last INR: 1.8 Last HGB: 11.7 Last HCT: 35.8 Last PLT: 261 Last dose of 5 mg given on 05/10/20 at 1600 Previous Regimen: Vitamin K given: N Drug Interaction Changes: Same Interacting Drug Ongoing Drug Interactions: FLUOXETINE A:INR Below desired Range. Target Range for this patient is: 2-2.5MG P: Warfarin dose: 5 mg Today at 1600 Bridge Therapy: None Next INR due 05/12/20 @ 0600 Pharmacy anticoagulation service will continue to follow. CURTIS COOPER [facility], 05/11/20 1211
[2020-05-11 15:30] VITALS: BP_SYST 124; BP_SYST 137; BP_DIAS 63; BP_DIAS 78
[2020-05-11] MEDS ORDERED: WARFARIN 5 MG TABLET. PO ONE (16:00)
[2020-05-11] MEDS: MIRTAZAPINE 15 MG TABLET PO SCH (20:04)
--- NOTE | 2020-05-11 22:02 | PDOC ---
Exam Note: Derick Note: Please also refer to the separate dictated note~for this date of service dictated separately.~Patient seen individually. Discussed the patient with Nursing staff reviewed the chart.~Reviewed interim history and current functioning. Reviewed vital signs,~Labs/ Radiology~and current medications noted below. Continue current treatment with the changes noted in the dictated addendum note Assessment: Vital Signs/I&O: Vital Signs Date Time Temp Pulse Resp B/P (MAP) Pulse Ox O2 Delivery O2 Flow Rate FiO2 05/11/20 18:59 98.2 05/11/20 15:30 84 18 124/78 (93) 99 5.0 05/07/20 05:57 Nasal Cannula I & O 05/10/20 05/10/20 05/11/20 15:00 23:00 07:00 Intake Total 1140 ml 720 ml Balance 1140 ml 720 ml Labs: Laboratory Tests Test 05/11/20 07:11 Prothrombin Time 18.2 SEC (9.4-11.4) H Prothrombin Time INR 1.8 (0.9-1.1) H Current Medications: Meds: Current Medications Medications (Trade) Dose Ordered Sig/Marina Route PRN Reason Start Time Stop Time Status Last Admin Dose Admin Warfarin Sodium (Coumadin) 5 mg 1X WARF ONCE PO 05/11/20 16:00 05/11/20 16:01 DC 05/11/20 15:53 I have reviewed the current psychotropics carefully including drug interactions. Risk benefit ratio favors no change other than as noted in my dictated progress note. Diagnosis: Problems: (1) Dementia, vascular, with depression (2) Dementia, vascular, with delusions (3) Dementia in Alzheimer's disease with depression (4) Dementia in Alzheimer's disease with delusions (5) Major neurocognitive disorder (6) Dementia in Alzheimer's disease with early onset with behavioral disturbance (7) Major depressive disorder with psychotic features ROHIT SIBLEY MD May 11, 2020 22:02
--- NOTE | 2020-05-12 01:45 | NUR ---
Nursing Note The patient was calm and compliant this shift and took her medication whole. The patient is currently sleeping in her room.
[2020-05-12] MEDS: LEVOTHYROXINE 150 MCG TABLET PO SCH (05:10)
[2020-05-12 06:19] VITALS: BP 126/83
--- NOTE | 2020-05-12 06:58 | PDOC ---
Exam Note: Derick Note: This note is a late entry for 05/11/2020 covers elements not covered in my initial note. Subjective: The patient was seen on telehealth rounds in the evening of 05/11/2020 with nursing staff. The unit is on lockdown due to the COVID positive patient on our unit, which was discovered. Each patient is in their room, not able to come out to the dining room or to interact with others according to the recommendation by the [facility]. Per Natalee BRITO, she slept 6-3/4 hours previous night. Per nursing report she has a flat affect. She remains somewhat isolative because she is spending time in her room by herself. She took nap from 12.30 p.m. to 3 p.m., did better after that. She was in bed in the evening as I met with her on telehealth rounds. Her COVID test is pending. Review of Systems: No CV, GI/, eye, ENT system symptoms on review. Mental Status Exam: Oriented reasonably. She was quite pleasant, cooperative. Denied being sick or febrile. Speech coherent. Abstraction fair. Computation impaired. Language function intact. Attention span is short. Mood improved and affect is flat. No suicidal or homicidal ideation. Laboratory Data: Reviewed. Impression: Major neurocognitive disorder Alzheimer, vascular with delusion, depression, behavioral disturbance. Anxiety disorder unspecified. Impulse control disorder unspecified. Plan: No change from initial note. Assessment: Vital Signs/I&O: Vital Signs Date Time Temp Pulse Resp B/P (MAP) Pulse Ox O2 Delivery O2 Flow Rate FiO2 05/12/20 06:19 97.9 85 22 126/83 (97) 97 Nasal Cannula 6.0 I & O 05/11/20 05/11/20 05/12/20 15:00 23:00 07:00 Intake Total 960 ml 200 ml 120 ml Balance 960 ml 200 ml 120 ml Labs: Laboratory Tests Test 05/11/20 07:11 Prothrombin Time 18.2 SEC (9.4-11.4) H Prothrombin Time INR 1.8 (0.9-1.1) H Current Medications: Meds: Current Medications Medications (Trade) Dose Ordered Sig/Marina Route PRN Reason Start Time Stop Time Status Last Admin Dose Admin Warfarin Sodium (Coumadin) 5 mg 1X WARF ONCE PO 05/11/20 16:00 05/11/20 16:01 DC 05/11/20 15:53 I have reviewed the current psychotropics carefully including drug interactions. Risk benefit ratio favors no change other than as noted in my dictated progress note. Diagnosis: Problems: (1) Dementia, vascular, with depression (2) Dementia, vascular, with delusions (3) Dementia in Alzheimer's disease with depression (4) Dementia in Alzheimer's disease with delusions (5) Major neurocognitive disorder (6) Dementia in Alzheimer's disease with early onset with behavioral disturbance (7) Major depressive disorder with psychotic features ROHIT SIBLEY MD May 12, 2020 06:58
[2020-05-12] MEDS: KETOROLAC TROMETHAMINE 0.5% OPHTH SOLUTION BOTTLE. OU SCH ×4 (09:19→20:13)
[2020-05-12] MEDS: POLYETHYLENE GLYCOL 3350 17 GM PACKET. PO SCH (09:19)
[2020-05-12] MEDS: IPRATROPIUM/ALBUTEROL 20/100mcg/INH INHALER. INH SCH ×4 (09:19→20:13)
[2020-05-12] MEDS: FLUoxetine HCL 20 MG CAPSULE PO SCH (09:20)
[2020-05-12] MEDS: VITAMIN B COMPLEX CAPSULE. PO SCH (09:20)
[2020-05-12] MEDS: SPIRONOLACTONE 25 MG TABLET PO SCH (09:20)
[2020-05-12] MEDS: FUROSEMIDE 80 MG TABLET PO SCH ×2 (09:20→17:58)
[2020-05-12] MEDS: QUEtiapine 25 MG TABLET. PO SCH ×2 (09:20→17:58)
[2020-05-12] MEDS: MULTIVITAMIN I-VITE TABLET. PO SCH ×2 (09:20→20:14)
[2020-05-12] MEDS: CHOLECALCIFEROL (VITAMIN D3) 1,000 UNIT TABLET PO SCH (09:20)
[2020-05-12] MEDS: DIVALPROEX 125 MG CAP.SPRINK PO SCH ×3 (09:20→20:14)
[2020-05-12] MEDS: METHENAMINE HIPPURATE 1 GM TABLET PO SCH ×2 (09:21→20:14)
[2020-05-12] MEDS: FLUTICASONE 50MCG/NASAL SPRAY 16GM BOTTLE. NS SCH (09:24)
--- NOTE | 2020-05-12 11:45 | NUR ---
Pharmacy Warfarin Dosing Note S:Pharmacy consulted to assist with anticoagulation therapy started with target INR: 2-2.5 O:ARNULFO KEVIN is a 85 year old F with Atrial Fibrillation LABS: Last INR: 2.2 Last HGB: 11.7 Last HCT: 35.8 Last PLT: 261 Last dose of 5 mg given on 05/11/20 at 1600 Previous Regimen: Vitamin K given: N Drug Interaction Changes: Same Interacting Drug Ongoing Drug Interactions: FLUOXETINE A:INR Within desired Range. Target Range for this patient is: 2-2.5 P: Warfarin dose: 4.5MG Today at 1600 Bridge Therapy: None Next INR due 05/13/20 @ 0600 Pharmacy anticoagulation service will continue to follow. CURTIS COOPER [facility], 05/12/20 1149
--- NOTE | 2020-05-12 15:00 | NUR ---
Patient sitting up in wheelchair for breakfast. Asking to go back to bed, RN educated patient on importance of sitting up, taking deep breathes and not lying in bed all day to prevent pneumonia and skin breakdown. Pt verbalized understanding. Pt had complaints of "feeling like I have thrush in my mouth". RN inspected mouth, no obvious areas of concern. WCTM.
[2020-05-12] MEDS ORDERED: WARFARIN 2.5 MG TABLET. PO ONE (16:00)
[2020-05-12] MEDS ORDERED: WARFARIN 2 MG TABLET. PO ONE (16:00)
[2020-05-12 16:34] VITALS: BP 119/75
[2020-05-12] MEDS: traZODone 50 MG TABLET. PO PRN (20:14)
[2020-05-12] MEDS: MIRTAZAPINE 15 MG TABLET PO SCH (20:14)
--- NOTE | 2020-05-12 22:03 | PDOC ---
Exam Note: Derick Note: Please also refer to the separate dictated note~for this date of service dictated separately.~Patient seen individually. Discussed the patient with Nursing staff reviewed the chart.~Reviewed interim history and current functioning. Reviewed vital signs,~Labs/ Radiology~and current medications noted below. Continue current treatment with the changes noted in the dictated addendum note Assessment: Vital Signs/I&O: Vital Signs Date Time Temp Pulse Resp B/P (MAP) Pulse Ox O2 Delivery O2 Flow Rate FiO2 05/12/20 18:22 98.4 05/12/20 16:34 97 20 119/75 (90) 94 Room Air 05/12/20 09:43 5.0 I & O 0 05/11/20 05/11/20 05/12/20 15:00 23:00 07:00 Intake Total 960 ml 200 ml 120 ml Balance 960 ml 200 ml 120 ml Labs: Laboratory Tests Test 05/12/20 06:00 Prothrombin Time 22.7 SEC (9.4-11.4) H Prothrombin Time INR 2.2 (0.9-1.1) H Current Medications: Meds: Current Medications Medications (Trade) Dose Ordered Sig/Marina Route PRN Reason Start Time Stop Time Status Last Admin Dose Admin Warfarin Sodium (Coumadin) 2.5 mg 1X WARF ONCE PO 05/12/20 16:00 05/12/20 16:01 DC 05/12/20 17:57 Warfarin Sodium (Coumadin) 2 mg 1X WARF ONCE PO 05/12/20 16:00 05/12/20 16:01 DC 05/12/20 17:57 I have reviewed the current psychotropics carefully including drug interactions. Risk benefit ratio favors no change other than as noted in my dictated progress note. Diagnosis: Problems: (1) Dementia, vascular, with depression (2) Dementia, vascular, with delusions (3) Dementia in Alzheimer's disease with depression (4) Dementia in Alzheimer's disease with delusions (5) Major neurocognitive disorder (6) Dementia in Alzheimer's disease with early onset with behavioral disturbance (7) Major depressive disorder with psychotic features ROHIT SIBLEY MD May 12, 2020 22:03
--- NOTE | 2020-05-12 23:25 | PDOC ---
Exam Note: Derick Note: This note is for 05/12/2020 covers elements not covered in my initial note. Subjective: The patient was evaluated via telehealth rounds in the evening of 05/12/2020 with nursing staff. Per Nixon BRITO, she slept 6-3/4 hours previous night. She complains of being anxious and is wanting Xanax. We have discussed with her that she was tapered off the Xanax and started on Seroquel in place of this and we will persevere with adjusting Seroquel as clinically indicated for her anxiety and mood swings. She is compliant with her medications. She is COVID negative on the swab. Review of Systems: Ambulation impaired. No CV, GI/, pulmonary eye system symptoms on review. Mental Status Exam: Oriented reasonably. Speech coherent. Abstraction fair. Computation impaired. Language function intact. Mood and affect withdrawn. Laboratory Data: Reviewed. Impression: Major neurocognitive disorder Alzheimer, vascular with delusion, depression, behavioral disturbance. Anxiety disorder unspecified. Impulse control disorder unspecified. Plan: No change from initial note. Assessment: Vital Signs/I&O: Vital Signs Date Time Temp Pulse Resp B/P (MAP) Pulse Ox O2 Delivery O2 Flow Rate FiO2 05/12/20 23:19 98.0 100 Nasal Cannula 6.0 05/12/20 16:34 97 20 119/75 (90) I & O 05/11/20 05/11/20 05/12/20 15:00 23:00 07:00 Intake Total 960 ml 200 ml 120 ml Balance 960 ml 200 ml 120 ml Labs: Laboratory Tests Test 05/12/20 06:00 Prothrombin Time 22.7 SEC (9.4-11.4) H Prothrombin Time INR 2.2 (0.9-1.1) H Current Medications: Meds: Current Medications Medications (Trade) Dose Ordered Sig/Marina Route PRN Reason Start Time Stop Time Status Last Admin Dose Admin Warfarin Sodium (Coumadin) 2.5 mg 1X WARF ONCE PO 05/12/20 16:00 05/12/20 16:01 DC 05/12/20 17:57 Warfarin Sodium (Coumadin) 2 mg 1X WARF ONCE PO 05/12/20 16:00 05/12/20 16:01 DC 05/12/20 17:57 I have reviewed the current psychotropics carefully including drug interactions. Risk benefit ratio favors no change other than as noted in my dictated progress note. Diagnosis: Problems: (1) Dementia, vascular, with depression (2) Dementia, vascular, with delusions (3) Dementia in Alzheimer's disease with depression (4) Dementia in Alzheimer's disease with delusions (5) Major neurocognitive disorder (6) Dementia in Alzheimer's disease with early onset with behavioral disturbance (7) Major depressive disorder with psychotic features ROHIT SIBLEY MD May 12, 2020 23:25
--- NOTE | 2020-05-12 23:37 | NUR ---
Pt has been cooperative this shift. Meds were taken whole and she requested to be put back on xanax due to her anxiety. Jesús stevenson on at HS.
[2020-05-13] MEDS: LEVOTHYROXINE 150 MCG TABLET PO SCH (06:18)
[2020-05-13 06:20] VITALS: BP 105/63
[2020-05-13 06:48] LABS: ALBUMIN 2.3 g/dL (3.4-5.0); ALBUMIN/GLOBULIN RATIO 0.6 (1.0-1.7); CALCIUM 8.4 mg/dL (8.5-10.1); GFR 52.6; TOTAL BILIRUBIN 0.2 mg/dL (0.2-1.0)
[2020-05-13] MEDS: KETOROLAC TROMETHAMINE 0.5% OPHTH SOLUTION BOTTLE. OU SCH ×4 (08:23→19:21)
[2020-05-13] MEDS: DIVALPROEX 125 MG CAP.SPRINK PO SCH ×3 (08:23→19:21)
[2020-05-13] MEDS: FLUTICASONE 50MCG/NASAL SPRAY 16GM BOTTLE. NS SCH (08:23)
[2020-05-13] MEDS: METHENAMINE HIPPURATE 1 GM TABLET PO SCH ×2 (08:23→19:21)
[2020-05-13] MEDS: QUEtiapine 25 MG TABLET. PO SCH ×2 (08:23→17:34)
[2020-05-13] MEDS: IPRATROPIUM/ALBUTEROL 20/100mcg/INH INHALER. INH SCH ×4 (08:23→19:21)
[2020-05-13] MEDS: SPIRONOLACTONE 25 MG TABLET PO SCH (08:24)
[2020-05-13] MEDS: MULTIVITAMIN I-VITE TABLET. PO SCH ×2 (08:24→19:22)
[2020-05-13] MEDS: POLYETHYLENE GLYCOL 3350 17 GM PACKET. PO SCH (08:24)
[2020-05-13] MEDS: FUROSEMIDE 80 MG TABLET PO SCH ×2 (08:24→17:34)
[2020-05-13] MEDS: CHOLECALCIFEROL (VITAMIN D3) 1,000 UNIT TABLET PO SCH (08:24)
[2020-05-13] MEDS: FLUoxetine HCL 20 MG CAPSULE PO SCH (08:24)
[2020-05-13] MEDS: VITAMIN B COMPLEX CAPSULE. PO SCH (08:24)
--- NOTE | 2020-05-13 08:58 | NUR ---
Pt reports not sleeping well last night. States her mind wouldn't shut off. Pt currently up in wheelchair, asking to go back to bed. RN again educated patient on importance of staying up. Encouraging patient to stay up until lunch. Pt states she is bored, RN provided a Joelle for patient and taught patient to play a word game. Pt has complaints of something that is on the inner right eye. RN inspected area, no obvious problems. Pt is no longer complaining of possible thrush today. WCTM.
--- NOTE | 2020-05-13 12:17 | NUR ---
Pharmacy Warfarin Dosing Note S:Pharmacy consulted to assist with anticoagulation therapy started with target INR: 2-2.5 O:ARNULFO KEVIN is a 85 year old F with Atrial Fibrillation LABS: Last INR: 2.7 Last HGB: 11.7 Last HCT: 35.8 Last PLT: 261 Last dose of 4.5MG given on 05/12/20 at 1600 Previous Regimen: Vitamin K given: N Drug Interaction Changes: Same Interacting Drug Ongoing Drug Interactions: FLUOXETINE A:INR Above desired Range. Target Range for this patient is: 2-2.5 P: Warfarin dose: Hold Today at 1600 Bridge Therapy: None Next INR due 05/14/20 @ 0600 Pharmacy anticoagulation service will continue to follow. CURTIS COOPER [facility], 05/13/20 [id number]
[2020-05-13 15:14] VITALS: BP 102/58
[2020-05-13] MEDS: traZODone 50 MG TABLET. PO PRN (19:22)
[2020-05-13] MEDS: MIRTAZAPINE 15 MG TABLET PO SCH (19:22)
--- NOTE | 2020-05-13 21:48 | NUR ---
Patient is located in her room at start of shift. She is sleeping, but wakes to her name. She is calm, cooperative and compliant with meds and assessments. No somatic complaints so far this shift. No agitation. Patient denies any pain or discomfort. Denies SI. Patient appears to be sleeping comfortably at present time. Will continue to monitor.
--- NOTE | 2020-05-13 21:54 | PDOC ---
Exam Note: Derick Note: Please also refer to the separate dictated note~for this date of service dictated separately.~Patient seen individually. Discussed the patient with Nursing staff reviewed the chart.~Reviewed interim history and current functioning. Reviewed vital signs,~Labs/ Radiology~and current medications noted below. Continue current treatment with the changes noted in the dictated addendum note Assessment: Vital Signs/I&O: Vital Signs Date Time Temp Pulse Resp B/P (MAP) Pulse Ox O2 Delivery O2 Flow Rate FiO2 05/13/20 20:00 97.8 94 6.0 05/13/20 15:14 87 16 102/58 (73) Nasal Cannula I & O 05/12/20 05/12/20 05/13/20 15:00 23:00 07:00 Intake Total 480 ml 480 ml 360 ml Balance 480 ml 480 ml 360 ml Labs: Laboratory Tests Test 05/13/20 05:55 Prothrombin Time 28.1 SEC (9.4-11.4) H Prothrombin Time INR 2.7 (0.9-1.1) H Sodium Level 140 mmol/L (136-145) Potassium Level 4.0 mmol/L (3.5-5.1) Chloride Level 99 mmol/L (98-107) Carbon Dioxide Level 38 mmol/L (21-32) H Anion Gap 3 (6-14) L Blood Urea Nitrogen 20 mg/dL (7-20) Creatinine 1.0 mg/dL (0.6-1.0) Estimated GFR (Cockcroft-Gault) 52.6 BUN/Creatinine Ratio 20 (6-20) Glucose Level 95 mg/dL (70-99) Calcium Level 8.4 mg/dL (8.5-10.1) L Total Bilirubin 0.2 mg/dL (0.2-1.0) Aspartate Amino Transferase (AST) 25 U/L (15-37) Alanine Aminotransferase (ALT) 13 U/L (14-59) L Alkaline Phosphatase 73 U/L (46-116) Total Protein 6.0 g/dL (6.4-8.2) L Albumin 2.3 g/dL (3.4-5.0) L Albumin/Globulin Ratio 0.6 (1.0-1.7) L Current Medications: Meds: Current Medications Medications (Trade) Dose Ordered Sig/Marina Route PRN Reason Start Time Stop Time Status Last Admin Dose Admin Warfarin Sodium (Coumadin - No Dose Today) 1 each 1X WARF ONCE MC 05/13/20 16:00 05/13/20 16:01 DC 05/13/20 16:00 I have reviewed the current psychotropics carefully including drug interactions. Risk benefit ratio favors no change other than as noted in my dictated progress note. Diagnosis: Problems: (1) Dementia, vascular, with depression (2) Dementia, vascular, with delusions (3) Dementia in Alzheimer's disease with depression (4) Dementia in Alzheimer's disease with delusions (5) Major neurocognitive disorder (6) Dementia in Alzheimer's disease with early onset with behavioral disturbance (7) Major depressive disorder with psychotic features ROHIT SIBLEY MD May 13, 2020 21:54
[2020-05-14] MEDS: LEVOTHYROXINE 150 MCG TABLET PO SCH (05:30)
[2020-05-14 06:28] VITALS: BP 141/84
[2020-05-14] MEDS: POLYETHYLENE GLYCOL 3350 17 GM PACKET. PO SCH (07:54)
[2020-05-14] MEDS: IPRATROPIUM/ALBUTEROL 20/100mcg/INH INHALER. INH SCH ×4 (07:57→20:50)
[2020-05-14] MEDS: FLUTICASONE 50MCG/NASAL SPRAY 16GM BOTTLE. NS SCH (07:57)
[2020-05-14] MEDS: KETOROLAC TROMETHAMINE 0.5% OPHTH SOLUTION BOTTLE. OU SCH ×4 (07:57→20:51)
[2020-05-14] MEDS: FLUoxetine HCL 20 MG CAPSULE PO SCH (07:58)
[2020-05-14] MEDS: VITAMIN B COMPLEX CAPSULE. PO SCH (07:58)
[2020-05-14] MEDS: METHENAMINE HIPPURATE 1 GM TABLET PO SCH ×2 (07:58→20:51)
[2020-05-14] MEDS: MULTIVITAMIN I-VITE TABLET. PO SCH ×2 (07:58→20:50)
[2020-05-14] MEDS: QUEtiapine 25 MG TABLET. PO SCH ×2 (07:58→16:47)
[2020-05-14] MEDS: SPIRONOLACTONE 25 MG TABLET PO SCH (07:58)
[2020-05-14] MEDS: FUROSEMIDE 80 MG TABLET PO SCH ×2 (07:58→16:47)
[2020-05-14] MEDS: DIVALPROEX 125 MG CAP.SPRINK PO SCH ×3 (07:59→20:50)
[2020-05-14] MEDS: CHOLECALCIFEROL (VITAMIN D3) 1,000 UNIT TABLET PO SCH (07:59)
--- NOTE | 2020-05-14 09:09 | NUR ---
Patient is calm and cooperative in room. Patient complaint with assessment and medication.
[2020-05-14 11:09] LABS: BASO # 0.1 x10^3/uL (0.0-0.2); BASO % 1 % (0-3); EOS # 0.1 x10^3/uL (0.0-0.7); EOS % 2 % (0-3); HEMOGLOBIN 12.1 g/dL (12.0-15.5); LYMPH # 0.7 x10^3/uL (1.0-4.8); LYMPH % 8 % (24-48); MEAN CORPUSCULAR HEMOGLOBIN 30 pg (25-35); MEAN CORPUSCULAR HGB CONC 33 g/dL (31-37); MEAN CORPUSCULAR VOLUME 91 fL (79-100); MONO % 11 % (0-9); NEUT # 7.1 x10^3uL (1.8-7.7); NEUT % 79 % (31-73); PLATELET COUNT 335 x10^3/uL (140-400); RED BLOOD COUNT 4.06 x10^6/uL (3.50-5.40); RED CELL DISTRIBUTION WIDTH 16.5 % (11.5-14.5); WHITE BLOOD COUNT 8.9 x10^3/uL (4.0-11.0)
--- NOTE | 2020-05-14 12:08 | NUR ---
Pharmacy Warfarin Dosing Note S:Pharmacy consulted to assist with anticoagulation therapy with target INR: 2-2.5 O:ARNULFO KEVIN is a 85 year old F with Atrial Fibrillation LABS: Last INR: 2.8 Last HGB: 12.1 Last HCT: 37 Last PLT: 335 Last dose of Hold given on 05/12/20 at 1600 Vitamin K given: N Drug Interaction Changes: Same Interacting Drug Ongoing Drug Interactions: FLUOXETINE A:INR Above desired Range. Target Range for this patient is: 2-2.5 P: Warfarin dose: Hold Today at 1600 Bridge Therapy: None Next INR due 05/15 Pharmacy anticoagulation service will continue to follow. MARY[facility], 05/14/20 [id number]
[2020-05-14 16:15] VITALS: BP 98/59
[2020-05-14] MEDS: MIRTAZAPINE 15 MG TABLET PO SCH (20:50)
--- NOTE | 2020-05-14 21:53 | PDOC ---
Exam Note: Derick Note: Please also refer to the separate dictated note~for this date of service dictated separately.~Patient seen individually. Discussed the patient with Nursing staff reviewed the chart.~Reviewed interim history and current functioning. Reviewed vital signs,~Labs/ Radiology~and current medications noted below. Continue current treatment with the changes noted in the dictated addendum note Assessment: Vital Signs/I&O: Vital Signs Date Time Temp Pulse Resp B/P (MAP) Pulse Ox O2 Delivery O2 Flow Rate FiO2 05/14/20 20:26 98.3 99 Nasal Cannula 6.0 05/14/20 16:15 78 20 98/59 (72) I & O 05/13/20 05/13/20 05/14/20 15:00 23:00 07:00 Intake Total 560 ml 600 ml Balance 560 ml 600 ml Labs: Laboratory Tests Test 05/14/20 10:55 White Blood Count 8.9 x10^3/uL (4.0-11.0) Red Blood Count 4.06 x10^6/uL (3.50-5.40) Hemoglobin 12.1 g/dL (12.0-15.5) Hematocrit 37.0 % (36.0-47.0) Mean Corpuscular Volume 91 fL (79-100) Mean Corpuscular Hemoglobin 30 pg (25-35) Mean Corpuscular Hemoglobin Concent 33 g/dL (31-37) Red Cell Distribution Width 16.5 % (11.5-14.5) H Platelet Count 335 x10^3/uL (140-400) Neutrophils (%) (Auto) 79 % (31-73) H Lymphocytes (%) (Auto) 8 % (24-48) L Monocytes (%) (Auto) 11 % (0-9) H Eosinophils (%) (Auto) 2 % (0-3) Basophils (%) (Auto) 1 % (0-3) Neutrophils # (Auto) 7.1 x10^3uL (1.8-7.7) Lymphocytes # (Auto) 0.7 x10^3/uL (1.0-4.8) L Monocytes # (Auto) 1.0 x10^3/uL (0.0-1.1) Eosinophils # (Auto) 0.1 x10^3/uL (0.0-0.7) Basophils # (Auto) 0.1 x10^3/uL (0.0-0.2) Prothrombin Time 29.0 SEC (9.4-11.4) H Prothrombin Time INR 2.8 (0.9-1.1) H Current Medications: I have reviewed the current psychotropics carefully including drug interactions. Risk benefit ratio favors no change other than as noted in my dictated progress note. Diagnosis: Problems: (1) Dementia, vascular, with depression (2) Dementia, vascular, with delusions (3) Dementia in Alzheimer's disease with depression (4) Dementia in Alzheimer's disease with delusions (5) Major neurocognitive disorder (6) Dementia in Alzheimer's disease with early onset with behavioral disturbance (7) Major depressive disorder with psychotic features ROHIT SIBLEY MD May 14, 2020 21:53
--- NOTE | 2020-05-14 22:49 | NUR ---
Pt located in her room. Pt calm and cooperative. Compliant with HS medications and assessment.
[2020-05-15] MEDS: LEVOTHYROXINE 150 MCG TABLET PO SCH (05:35)
[2020-05-15 06:26] VITALS: BP 109/72
--- NOTE | 2020-05-15 06:44 | PDOC ---
Exam Note: Derick Note: This note is a late entry for 05/13/2020 covers elements not covered in my initial note. Subjective: The patient was evaluated via telehealth rounds in the evening of 05/13/2020 with Nixon BRITO taking the camera around. Per Nixon BRITO, she slept 4-1/2 hours previous night. She is compliant with medications, using the laureen for music to keep herself busy. She is not running a temperature anymore. Review of Systems: Ambulation impaired with 2-person assist. She was lying in bed as I met with her on telehealth rounds. No CV, GI/, pulmonary eye system symptoms on review. Mental Status Exam: Oriented reasonably. Speech is coherent. Abstraction fair. Computation impaired. Language function intact. Mood and affect somewhat dysphoric and anxious, but improved. Laboratory Data: Reviewed. Impression: Major neurocognitive disorder Alzheimer, vascular with delusion, depression, behavioral disturbance. Anxiety disorder unspecified. Impulse control disorder unspecified. Plan: No change from initial note. Assessment: Vital Signs/I&O: Vital Signs Date Time Temp Pulse Resp B/P (MAP) Pulse Ox O2 Delivery O2 Flow Rate FiO2 05/15/20 06:26 98.3 85 20 109/72 (84) 96 Nasal Cannula 6.0 I & O 05/14/20 05/14/20 05/15/20 15:00 23:00 07:00 Intake Total 720 ml 220 ml Balance 720 ml 220 ml Labs: Laboratory Tests Test 05/14/20 10:55 White Blood Count 8.9 x10^3/uL (4.0-11.0) Red Blood Count 4.06 x10^6/uL (3.50-5.40) Hemoglobin 12.1 g/dL (12.0-15.5) Hematocrit 37.0 % (36.0-47.0) Mean Corpuscular Volume 91 fL (79-100) Mean Corpuscular Hemoglobin 30 pg (25-35) Mean Corpuscular Hemoglobin Concent 33 g/dL (31-37) Red Cell Distribution Width 16.5 % (11.5-14.5) H Platelet Count 335 x10^3/uL (140-400) Neutrophils (%) (Auto) 79 % (31-73) H Lymphocytes (%) (Auto) 8 % (24-48) L Monocytes (%) (Auto) 11 % (0-9) H Eosinophils (%) (Auto) 2 % (0-3) Basophils (%) (Auto) 1 % (0-3) Neutrophils # (Auto) 7.1 x10^3uL (1.8-7.7) Lymphocytes # (Auto) 0.7 x10^3/uL (1.0-4.8) L Monocytes # (Auto) 1.0 x10^3/uL (0.0-1.1) Eosinophils # (Auto) 0.1 x10^3/uL (0.0-0.7) Basophils # (Auto) 0.1 x10^3/uL (0.0-0.2) Prothrombin Time 29.0 SEC (9.4-11.4) H Prothrombin Time INR 2.8 (0.9-1.1) H Current Medications: I have reviewed the current psychotropics carefully including drug interactions. Risk benefit ratio favors no change other than as noted in my dictated progress note. 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
--- NOTE | 2020-05-15 06:55 | PDOC ---
Exam Note: Derick Note: This note is a late entry for 05/14/2020 covers elements not covered in my initial note. Subjective: The patient was evaluated via telehealth rounds in the evening of 05/14/2020 with Dominique BRITO taking the camera around. Per Sumit RN, she slept 7- 3/4 hours previous night. She has come out and spends time in her room in her wheelchair and she was quite appreciative of this rather than lying in bed all day. INR 2.7, Warfarin held, will defer to Dr. Rodríguez. She had long time telephone conversation with a friend and was quite upbeat about this as I met with her in the evening. Review of Systems: Ambulation impaired with 2-perosn assist. No CV, GI/, pulmonary eye system symptoms on review. Mental Status Exam: Oriented reasonably. She is very verbal, open, forthcoming, pleasant, and appreciative of cares that nursing staff are providing her. Speech coherent. Abstraction fair. Computation impaired. Language function intact. Mood and affect somewhat anxious. Laboratory Data: Reviewed. Impression: Major neurocognitive disorder Alzheimer, vascular with delusion, depression, behavioral disturbance. Anxiety disorder unspecified. Impulse control disorder unspecified. Plan: No change from initial note. Assessment: Vital Signs/I&O: Vital Signs Date Time Temp Pulse Resp B/P (MAP) Pulse Ox O2 Delivery O2 Flow Rate FiO2 05/15/20 06:26 98.3 85 20 109/72 (84) 96 Nasal Cannula 6.0 I & O 05/14/20 05/14/20 05/15/20 15:00 23:00 07:00 Intake Total 720 ml 220 ml Balance 720 ml 220 ml Labs: Laboratory Tests Test 05/14/20 10:55 White Blood Count 8.9 x10^3/uL (4.0-11.0) Red Blood Count 4.06 x10^6/uL (3.50-5.40) Hemoglobin 12.1 g/dL (12.0-15.5) Hematocrit 37.0 % (36.0-47.0) Mean Corpuscular Volume 91 fL (79-100) Mean Corpuscular Hemoglobin 30 pg (25-35) Mean Corpuscular Hemoglobin Concent 33 g/dL (31-37) Red Cell Distribution Width 16.5 % (11.5-14.5) H Platelet Count 335 x10^3/uL (140-400) Neutrophils (%) (Auto) 79 % (31-73) H Lymphocytes (%) (Auto) 8 % (24-48) L Monocytes (%) (Auto) 11 % (0-9) H Eosinophils (%) (Auto) 2 % (0-3) Basophils (%) (Auto) 1 % (0-3) Neutrophils # (Auto) 7.1 x10^3uL (1.8-7.7) Lymphocytes # (Auto) 0.7 x10^3/uL (1.0-4.8) L Monocytes # (Auto) 1.0 x10^3/uL (0.0-1.1) Eosinophils # (Auto) 0.1 x10^3/uL (0.0-0.7) Basophils # (Auto) 0.1 x10^3/uL (0.0-0.2) Prothrombin Time 29.0 SEC (9.4-11.4) H Prothrombin Time INR 2.8 (0.9-1.1) H Current Medications: I have reviewed the current psychotropics carefully including drug interactions. Risk benefit ratio favors no change other than as noted in my dictated progress note. 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
[2020-05-15] MEDS: POLYETHYLENE GLYCOL 3350 17 GM PACKET. PO SCH (07:02)
[2020-05-15] MEDS: FLUoxetine HCL 20 MG CAPSULE PO SCH (08:29)
[2020-05-15] MEDS: DIVALPROEX 125 MG CAP.SPRINK PO SCH ×3 (08:29→20:12)
[2020-05-15] MEDS: SPIRONOLACTONE 25 MG TABLET PO SCH (08:29)
[2020-05-15] MEDS: FUROSEMIDE 80 MG TABLET PO SCH ×2 (08:29→17:11)
[2020-05-15] MEDS: MULTIVITAMIN I-VITE TABLET. PO SCH ×2 (08:29→20:12)
[2020-05-15] MEDS: VITAMIN B COMPLEX CAPSULE. PO SCH (08:29)
[2020-05-15] MEDS: FLUTICASONE 50MCG/NASAL SPRAY 16GM BOTTLE. NS SCH (08:30)
[2020-05-15] MEDS: QUEtiapine 25 MG TABLET. PO SCH ×2 (08:30→17:11)
[2020-05-15] MEDS: CHOLECALCIFEROL (VITAMIN D3) 1,000 UNIT TABLET PO SCH (08:30)
[2020-05-15] MEDS: KETOROLAC TROMETHAMINE 0.5% OPHTH SOLUTION BOTTLE. OU SCH ×4 (08:30→20:12)
[2020-05-15] MEDS: METHENAMINE HIPPURATE 1 GM TABLET PO SCH ×2 (08:30→20:13)
[2020-05-15] MEDS: IPRATROPIUM/ALBUTEROL 20/100mcg/INH INHALER. INH SCH ×4 (08:30→20:12)
--- NOTE | 2020-05-15 08:47 | NUR ---
Patient is calm and cooperative in room. Patient complaint with assessment and medication.
--- NOTE | 2020-05-15 12:25 | NUR ---
Pharmacy Warfarin Dosing Note S:Pharmacy consulted to assist with anticoagulation therapy with target INR: 2-2.5 O:ARNULFO KEVIN is a 85 year old F with atrial fibrillation LABS: Last INR: 1.9 Last HGB: 12.1 Last HCT: 37 Last PLT: 335 Last dose of warfarin given on 05/12/20 at 1600, dose held x2 days for INR >2.5. Vitamin K given: N Drug Interaction Changes: Same Interacting Drug Ongoing Drug Interactions: FLUOXETINE A:INR Below desired range. Target Range for this patient is: 2-2.5 P: Resume warfarin dose: 4 mg today at 1600 Next INR due 05/16 Pharmacy anticoagulation service will continue to follow. MARYLIN PETERSEN, 05/15/20 [id number]
[2020-05-15] MEDS ORDERED: WARFARIN 4 MG TABLET. PO ONE (16:00)
[2020-05-15 16:25] VITALS: BP 115/64
[2020-05-15] MEDS: MIRTAZAPINE 15 MG TABLET PO SCH (20:13)
--- NOTE | 2020-05-15 21:45 | NUR ---
Pt was calm and cooperative this evening. Compliant with HS medications and assessment.
--- NOTE | 2020-05-15 21:53 | PDOC ---
Exam Note: Derick Note: Please also refer to the separate dictated note~for this date of service dictated separately.~Patient seen individually. Discussed the patient with Nursing staff reviewed the chart.~Reviewed interim history and current functioning. Reviewed vital signs,~Labs/ Radiology~and current medications noted below. Continue current treatment with the changes noted in the dictated addendum note Assessment: Vital Signs/I&O: Vital Signs Date Time Temp Pulse Resp B/P (MAP) Pulse Ox O2 Delivery O2 Flow Rate FiO2 05/15/20 21:34 97.7 99 6.0 05/15/20 16:25 82 16 115/64 (81) 05/15/20 06:26 Nasal Cannula I & O 05/14/20 05/14/20 05/15/20 15:00 23:00 07:00 Intake Total 720 ml 220 ml Balance 720 ml 220 ml Labs: Laboratory Tests Test 05/15/20 09:55 Prothrombin Time 19.9 SEC (9.4-11.4) H Prothrombin Time INR 1.9 (0.9-1.1) H Current Medications: Meds: Current Medications Medications (Trade) Dose Ordered Sig/Marina Route PRN Reason Start Time Stop Time Status Last Admin Dose Admin Warfarin Sodium (Coumadin) 4 mg 1X WARF ONCE PO 05/15/20 16:00 05/15/20 16:01 DC 05/15/20 17:12 I have reviewed the current psychotropics carefully including drug interactions. Risk benefit ratio favors no change other than as noted in my dictated progress note. Diagnosis: Problems: (1) Dementia, vascular, with depression (2) Dementia, vascular, with delusions (3) Dementia in Alzheimer's disease with depression (4) Dementia in Alzheimer's disease with delusions (5) Major neurocognitive disorder (6) Dementia in Alzheimer's disease with early onset with behavioral disturbance (7) Major depressive disorder with psychotic features ROHIT SIBLEY MD May 15, 2020 21:53
--- NOTE | 2020-05-15 23:00 | PDOC ---
Exam Note: Deirck Note: This note is for 05/15/2020 covers elements not covered in my initial note. Subjective: The patient was evaluated via telehealth rounds in the evening of 05/15/2020 with Dominique BRITO with the camera around. Per Dominique RN, she slept 7 hours previous night. Reportedly she was somewhat irritable last evening but during the day today she has been very appropriate, animated, expressed her interest in politics and has been interactive. I met with her in her room. Review of Systems: Ambulation impaired. Shortness of breath on O2 supplements. No CV, GI/, eye system symptoms on review. Mental Status Exam: Oriented reasonably. She is appropriate, animated. Speech coherent. Abstraction fair. Computation impaired. Language function intact. Mood and affect withdrawn. Laboratory Data: Reviewed. Impression: Major neurocognitive disorder Alzheimer, vascular with delusion, depression, behavioral disturbance. Anxiety disorder unspecified. Impulse control disorder unspecified. Shortness of breath. Plan: No change from initial note. Continue the patient on Depakote 375 mg t.i.d., level therapeutic at 56, Prozac 20 mg a day, melatonin 4.5 mg h.s. p.r.n., Remeron 15 mg h.s., Seroquel 12.5 mg b.i.d., trazodone h.s. p.r.n. Assessment: Vital Signs/I&O: Vital Signs Date Time Temp Pulse Resp B/P (MAP) Pulse Ox O2 Delivery O2 Flow Rate FiO2 05/15/20 21:34 97.7 99 6.0 05/15/20 16:25 82 16 115/64 (81) 05/15/20 06:26 Nasal Cannula I & O 05/14/20 05/14/20 05/15/20 15:00 23:00 07:00 Intake Total 720 ml 220 ml Balance 720 ml 220 ml Labs: Laboratory Tests Test 05/15/20 09:55 Prothrombin Time 19.9 SEC (9.4-11.4) H Prothrombin Time INR 1.9 (0.9-1.1) H Current Medications: Meds: Current Medications Medications (Trade) Dose Ordered Sig/Marina Route PRN Reason Start Time Stop Time Status Last Admin Dose Admin Warfarin Sodium (Coumadin) 4 mg 1X WARF ONCE PO 05/15/20 16:00 05/15/20 16:01 DC 05/15/20 17:12 I have reviewed the current psychotropics carefully including drug interactions. Risk benefit ratio favors no change other than as noted in my dictated progress note. Diagnosis: Problems: (1) Dementia, vascular, with depression (2) Dementia, vascular, with delusions (3) Dementia in Alzheimer's disease with depression (4) Dementia in Alzheimer's disease with delusions (5) Major neurocognitive disorder (6) Dementia in Alzheimer's disease with early onset with behavioral disturbance (7) Major depressive disorder with psychotic features (8) Shortness of breath ROHIT SIBLEY MD May 15, 2020 23:00
[2020-05-16] MEDS: LEVOTHYROXINE 150 MCG TABLET PO SCH (05:12)
[2020-05-16 05:47] VITALS: BP 120/78
[2020-05-16] MEDS: MAG HYDROX/AL HYDROX/SIMETH 30 ML ORAL.SUSP PO PRN (08:11)
[2020-05-16] MEDS: IPRATROPIUM/ALBUTEROL 20/100mcg/INH INHALER. INH SCH ×4 (08:11→19:31)
[2020-05-16] MEDS: FLUTICASONE 50MCG/NASAL SPRAY 16GM BOTTLE. NS SCH (08:12)
[2020-05-16] MEDS: VITAMIN B COMPLEX CAPSULE. PO SCH (08:13)
[2020-05-16] MEDS: POLYETHYLENE GLYCOL 3350 17 GM PACKET. PO SCH (08:13)
[2020-05-16] MEDS: CHOLECALCIFEROL (VITAMIN D3) 1,000 UNIT TABLET PO SCH (08:14)
[2020-05-16] MEDS: FLUoxetine HCL 20 MG CAPSULE PO SCH (08:14)
[2020-05-16] MEDS: QUEtiapine 25 MG TABLET. PO SCH ×2 (08:14→17:04)
[2020-05-16] MEDS: FUROSEMIDE 80 MG TABLET PO SCH ×2 (08:15→17:04)
[2020-05-16] MEDS: MULTIVITAMIN I-VITE TABLET. PO SCH ×2 (08:15→19:30)
[2020-05-16] MEDS: SPIRONOLACTONE 25 MG TABLET PO SCH (08:16)
[2020-05-16] MEDS: METHENAMINE HIPPURATE 1 GM TABLET PO SCH ×2 (08:16→19:30)
[2020-05-16] MEDS: DIVALPROEX 125 MG CAP.SPRINK PO SCH ×3 (08:17→19:30)
[2020-05-16] MEDS: KETOROLAC TROMETHAMINE 0.5% OPHTH SOLUTION BOTTLE. OU SCH ×4 (09:00→19:31)
--- NOTE | 2020-05-16 09:49 | NUR ---
Pt is calm, cooperative, compliant, no agitation, no aggression, no hallucinations, no delusions noted. She is compliant with her medications and assessment.
--- NOTE | 2020-05-16 14:06 | NUR ---
Pharmacy Warfarin Dosing Note S:Pharmacy consulted to assist with anticoagulation therapy started with target INR: 2-2.5 O:ARNULFO KEVIN is a 85 year old F with Atrial Fibrillation LABS: Last INR: 1.5 Last HGB: 12.1 Last HCT: 37 Last PLT: 335 Last dose of 4 mg given on 05/15/20 at 1600 Vitamin K given: N Drug Interaction Changes: Same Interacting Drug Ongoing Drug Interactions: FLUOXETINE A:INR Below desired Range. Target Range for this patient is: 2-2.5 P: Warfarin dose: 5 mg Today at 1600 Bridge Therapy: None Next INR due 05/17 Pharmacy anticoagulation service will continue to follow. MARYLIN PETERSEN, 05/16/20 [id number]
--- NOTE | 2020-05-16 14:08 | TX PLAN ---
Interdisciplinary Tx Plan Admission Information Apr 16, 2020 at 14:34 Legal Status (on Admission): Voluntary DPOA/Guardian Name: Federico Arzola Contact Other Contact Name: David Cagle Contact Verified Code Status: DNR Allergies: Coded Allergies: acetaminophen (Verified Allergy, Intermediate, 04/22/20) codeine (Verified Allergy, Intermediate, 04/22/20) formoterol (Verified Allergy, Intermediate, 04/22/20) "get sick and can't think" gabapentin (Verified Allergy, Intermediate, 04/22/20) hydrocodone (Verified Allergy, Intermediate, 04/22/20) latex (Verified Allergy, Intermediate, 04/22/20) meperidine (Verified Allergy, Intermediate, 04/22/20) neomycin (Verified Allergy, Intermediate, 04/22/20) propoxyphene (Verified Allergy, Intermediate, 04/22/20) tropicamide (Verified Allergy, Intermediate, 04/22/20) "felt strange" cortisone (Verified Adverse Reaction, Intermediate, 04/22/20) Elevated BP prednisone (Verified Adverse Reaction, Intermediate, 04/22/20) Increased BP Diagnoses Primary Diagnosis: Major Neurocognitive D/O with delusions and behavioral disturbance; MDD recurrent Reasons for Admission: Aggressive, Anxiety/Panic, Combative, Suspicious/par anoid Problem in Patient's Words: N/A Additional Admission Comments: According to the intake, pt is anxious, aggressive towards staff, punching, throwing a chair, paranoid, things she being poisoned, delusional that there is a bomb in her room. Problems Active Problems: Anxious Delusional Inactive Problems: Medication compliance Pt Strengths/Limitations Ability for [place]: Poor Cognitive Functioning/Ability: Poor Communication Skills/Ability: Fair Financial Resources: Fair Insight/Judgement: Poor Intellectual Ability: Fair Physical Health: Poor Social Skills: Fair Stability in Family: Poor Stability in School/Work: Poor Verbal Skills: Fair Discharge Criteria Discharge Criteria: No need for close observ., Adequate arrangements @DC, Improved behavior, Improved mood/thought Preliminary Discharge Plan Preliminary DC Plan: Current Living Arrange. Special Precautions Fall Risk: Moderate Initial D/C Plan [facility] Identified Discharge Needs: Continued mental health support Currently Utilized Resources Currently Utilized Resources/P: Primary Care Physician Identified Problems/Hx/Goals Objectives/Short-Term Goals Short Term Goals: Dec. Aggression, Dec. Anxiety/Panic, Medication Stabilization, Promote Coping Skill Short Term Goals in Patient's: N/A Interventions/Frequency Staff Interventions/Frequency&: Psychiatrist to assess pt at least 3x per week Social Work to assess pt at least 2x per week Nursing to assess pt behaviors, medications and complete 15 minute checks daily Encourage group participation in activities or 1:1 engagement based off Activities Dept assessment Community Follow-up Will need follow-up with PCP Treatment Plan Explained Patient/Director Of Radiology had this treatment plan explained to him/her as indicated by the signature below and has been given the opportunity to ask questions and make suggestions: Date: Patient/Director Of Radiology Signature: Status Update Update Pt is eating roughly 75% of meals and sleeping on average 7 hours per night. Pt is calm and compliant with all cares and staff direction. Pt is also compliant with all medications; in which she is taking Depakote, Prozac Seroquel, and Remeron. In light of recent events, the unit has been asked by [facility] and the [facility] to allow no admissions in and no discharge out until May 23. SW will work with family and the facility ([facility]) in making the appropriate discharge plans for that time. CLARISSA PEDRAZA May 16, 2020 14:08
[2020-05-16] MEDS ORDERED: WARFARIN 5 MG TABLET. PO ONE (16:00)
[2020-05-16 16:23] VITALS: BP 110/69
--- NOTE | 2020-05-16 17:12 | NUR ---
Pt appears more SOB with ADL's today than yesterday. She has also on occasion exhibited a dry cough which was not present yesterday. Pt states she does not feel SOB and she is not bothered by this cough. She stated she feels fine and appears in good spirits. She has requested a large print book to read today and is able to make her wants and needs known she has c/o of lethargy this afternoon. However, her appetite is good with no change as is her fluid intake. She has been up to the chair most of the day. No change in mentation. VSS. New order for COVID-19 swab. Addendum: 05/16/20 at 1719 by JUANJOSE ELAINE RN Her skin is warm, pink, and dry. Pt was able to transfer with 2 person assist today.
[2020-05-16] MEDS: MIRTAZAPINE 15 MG TABLET PO SCH (19:30)
[2020-05-16] MEDS: traZODone 50 MG TABLET. PO PRN (19:40)
--- NOTE | 2020-05-16 22:05 | PDOC ---
Exam Note: Derick Note: Please also refer to the separate dictated note~for this date of service dictated separately.~Patient seen individually. Discussed the patient with Nursing staff reviewed the chart.~Reviewed interim history and current functioning. Reviewed vital signs,~Labs/ Radiology~and current medications noted below. Continue current treatment with the changes noted in the dictated addendum note Assessment: Vital Signs/I&O: Vital Signs Date Time Temp Pulse Resp B/P (MAP) Pulse Ox O2 Delivery O2 Flow Rate FiO2 05/16/20 20:58 98.3 96 6.0 05/16/20 16:23 96 19 110/69 (83) Nasal Cannula I & O 05/15/20 05/15/20 05/16/20 15:00 23:00 07:00 Intake Total 480 ml 720 ml Balance 480 ml 720 ml Labs: Laboratory Tests Test 05/16/20 07:04 Prothrombin Time 15.2 SEC (9.4-11.4) H Prothrombin Time INR 1.5 (0.9-1.1) H Current Medications: Meds: Current Medications Medications (Trade) Dose Ordered Sig/Marina Route PRN Reason Start Time Stop Time Status Last Admin Dose Admin Warfarin Sodium (Coumadin) 5 mg 1X WARF ONCE PO 05/16/20 16:00 05/16/20 16:01 DC 05/16/20 17:04 I have reviewed the current psychotropics carefully including drug interactions. Risk benefit ratio favors no change other than as noted in my dictated progress note. 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
--- NOTE | 2020-05-17 04:07 | NUR ---
Pt took HS meds without difficulty. No c/o SOA at this time. Has rested quietly this kole.
[2020-05-17] MEDS: LEVOTHYROXINE 150 MCG TABLET PO SCH (05:46)
[2020-05-17 06:07] VITALS: BP 146/88
[2020-05-17 06:49] LABS: BASO % 1 % (0-3); EOS # 0.2 x10^3/uL (0.0-0.7); EOS % 3 % (0-3); HEMATOCRIT 35.6 % (36.0-47.0); HEMOGLOBIN 11.4 g/dL (12.0-15.5); LYMPH # 0.6 x10^3/uL (1.0-4.8); LYMPH % 8 % (24-48); MEAN CORPUSCULAR HEMOGLOBIN 29 pg (25-35); MEAN CORPUSCULAR HGB CONC 32 g/dL (31-37); MEAN CORPUSCULAR VOLUME 92 fL (79-100); MONO # 0.8 x10^3/uL (0.0-1.1); MONO % 11 % (0-9); NEUT # 5.5 x10^3uL (1.8-7.7); NEUT % 78 % (31-73); PLATELET COUNT 325 x10^3/uL (140-400); RED BLOOD COUNT 3.89 x10^6/uL (3.50-5.40); RED CELL DISTRIBUTION WIDTH 16.9 % (11.5-14.5); WHITE BLOOD COUNT 7.1 x10^3/uL (4.0-11.0)
[2020-05-17 06:59] LABS: ALBUMIN 2.4 g/dL (3.4-5.0); ALBUMIN/GLOBULIN RATIO 0.6 (1.0-1.7); CALCIUM 8.8 mg/dL (8.5-10.1); GFR 52.6; POTASSIUM 3.8 mmol/L (3.5-5.1); TOTAL BILIRUBIN 0.2 mg/dL (0.2-1.0); TOTAL PROTEIN 6.4 g/dL (6.4-8.2)
[2020-05-17] MEDS: CHOLECALCIFEROL (VITAMIN D3) 1,000 UNIT TABLET PO SCH (08:02)
[2020-05-17] MEDS: SPIRONOLACTONE 25 MG TABLET PO SCH (08:03)
[2020-05-17] MEDS: FUROSEMIDE 80 MG TABLET PO SCH ×2 (08:03→16:35)
[2020-05-17] MEDS: FLUoxetine HCL 20 MG CAPSULE PO SCH (08:03)
[2020-05-17] MEDS: QUEtiapine 25 MG TABLET. PO SCH ×2 (08:03→16:35)
[2020-05-17] MEDS: MULTIVITAMIN I-VITE TABLET. PO SCH ×2 (08:04→20:42)
[2020-05-17] MEDS: KETOROLAC TROMETHAMINE 0.5% OPHTH SOLUTION BOTTLE. OU SCH ×4 (08:04→20:42)
[2020-05-17] MEDS: POLYETHYLENE GLYCOL 3350 17 GM PACKET. PO SCH (08:04)
[2020-05-17] MEDS: VITAMIN B COMPLEX CAPSULE. PO SCH (08:04)
[2020-05-17] MEDS: METHENAMINE HIPPURATE 1 GM TABLET PO SCH ×2 (08:04→20:41)
[2020-05-17] MEDS: DIVALPROEX 125 MG CAP.SPRINK PO SCH ×3 (08:04→20:42)
[2020-05-17] MEDS: IPRATROPIUM/ALBUTEROL 20/100mcg/INH INHALER. INH SCH ×4 (08:04→20:42)
[2020-05-17] MEDS: FLUTICASONE 50MCG/NASAL SPRAY 16GM BOTTLE. NS SCH (08:05)
[2020-05-17 15:46] VITALS: BP 104/68
[2020-05-17] MEDS ORDERED: WARFARIN 5 MG TABLET. PO ONE (16:00)
--- NOTE | 2020-05-17 18:20 | NUR ---
Patient has been calm, compliant, and pleasant during this shift. She has been helpless at times, FAMILY EDUCATOR report that she was able to transfer without the [id number] without difficulty. Patient was able to use her inhaler and nasal spray independently; she did require assistance with her eye drops. Patient has stayed up out of bed for most of the afternoon. Will continue to monitor and report to oncoming shift.
--- NOTE | 2020-05-17 19:30 | NUR ---
Resumed care of pt.
[2020-05-17] MEDS: MIRTAZAPINE 15 MG TABLET PO SCH (20:42)
--- NOTE | 2020-05-17 22:31 | PDOC ---
Exam Note: Derick Note: Please also refer to the separate dictated note~for this date of service dictated separately.~Patient seen individually. Discussed the patient with Nursing staff reviewed the chart.~Reviewed interim history and current functioning. Reviewed vital signs,~Labs/ Radiology~and current medications noted below. Continue current treatment with the changes noted in the dictated addendum note Assessment: Vital Signs/I&O: Vital Signs Date Time Temp Pulse Resp B/P (MAP) Pulse Ox O2 Delivery O2 Flow Rate FiO2 05/17/20 21:22 98.0 94 6.0 05/17/20 15:46 78 19 104/68 (80) Nasal Cannula I & O 05/16/20 05/16/20 05/17/20 15:00 23:00 07:00 Intake Total 840 ml 600 ml Balance 840 ml 600 ml Labs: Laboratory Tests Test 05/17/20 06:27 White Blood Count 7.1 x10^3/uL (4.0-11.0) Red Blood Count 3.89 x10^6/uL (3.50-5.40) Hemoglobin 11.4 g/dL (12.0-15.5) L Hematocrit 35.6 % (36.0-47.0) L Mean Corpuscular Volume 92 fL (79-100) Mean Corpuscular Hemoglobin 29 pg (25-35) Mean Corpuscular Hemoglobin Concent 32 g/dL (31-37) Red Cell Distribution Width 16.9 % (11.5-14.5) H Platelet Count 325 x10^3/uL (140-400) Neutrophils (%) (Auto) 78 % (31-73) H Lymphocytes (%) (Auto) 8 % (24-48) L Monocytes (%) (Auto) 11 % (0-9) H Eosinophils (%) (Auto) 3 % (0-3) Basophils (%) (Auto) 1 % (0-3) Neutrophils # (Auto) 5.5 x10^3uL (1.8-7.7) Lymphocytes # (Auto) 0.6 x10^3/uL (1.0-4.8) L Monocytes # (Auto) 0.8 x10^3/uL (0.0-1.1) Eosinophils # (Auto) 0.2 x10^3/uL (0.0-0.7) Basophils # (Auto) 0.0 x10^3/uL (0.0-0.2) Prothrombin Time 16.8 SEC (9.4-11.4) H Prothrombin Time INR 1.6 (0.9-1.1) H Sodium Level 143 mmol/L (136-145) Potassium Level 3.8 mmol/L (3.5-5.1) Chloride Level 100 mmol/L (98-107) Carbon Dioxide Level 40 mmol/L (21-32) H Anion Gap 3 (6-14) L Blood Urea Nitrogen 15 mg/dL (7-20) Creatinine 1.0 mg/dL (0.6-1.0) Estimated GFR (Cockcroft-Gault) 52.6 BUN/Creatinine Ratio 15 (6-20) Glucose Level 89 mg/dL (70-99) Calcium Level 8.8 mg/dL (8.5-10.1) Total Bilirubin 0.2 mg/dL (0.2-1.0) Aspartate Amino Transferase (AST) 18 U/L (15-37) Alanine Aminotransferase (ALT) 12 U/L (14-59) L Alkaline Phosphatase 76 U/L (46-116) Total Protein 6.4 g/dL (6.4-8.2) Albumin 2.4 g/dL (3.4-5.0) L Albumin/Globulin Ratio 0.6 (1.0-1.7) L Current Medications: Meds: Current Medications Medications (Trade) Dose Ordered Sig/Marina Route PRN Reason Start Time Stop Time Status Last Admin Dose Admin Warfarin Sodium (Coumadin) 5 mg 1X WARF ONCE PO 05/17/20 16:00 05/17/20 16:01 DC 05/17/20 16:35 I have reviewed the current psychotropics carefully including drug interactions. Risk benefit ratio favors no change other than as noted in my dictated progress note. Diagnosis: Problems: (1) Dementia, vascular, with depression (2) Dementia, vascular, with delusions (3) Dementia in Alzheimer's disease with depression (4) Dementia in Alzheimer's disease with delusions (5) Major neurocognitive disorder (6) Dementia in Alzheimer's disease with early onset with behavioral disturbance (7) Major depressive disorder with psychotic features ROHIT SIBLEY MD May 17, 2020 22:30
--- NOTE | 2020-05-18 03:50 | NUR ---
Pt took HS meds without difficulty. Compliant with cares. Has rested quietly this evening.
[2020-05-18] MEDS: LEVOTHYROXINE 150 MCG TABLET PO SCH (05:41)
[2020-05-18 05:59] VITALS: BP 137/87
--- NOTE | 2020-05-18 07:00 | PDOC ---
Exam Note: Derick Note: This note is a late entry for 05/16/2020 covers elements not covered in my initial note. Subjective: The patient was evaluated in the morning of 05/16/2020 with treatment team meeting with Fredo (social service staff) and Dominique BRITO. Sleeping average is 7 hours but slept 5-1/2 hours previous night. She has had some cough and a repeat COVID swab has been completed on her. Result is awaited. There is no fever however. She has been in her room as our every patient is given the COVID status of the unit with no admissions and no discharges. Review of Systems: Impaired ambulation in wheelchair and shortness of breath on O2 supplements. No CV, GI/, eye system symptoms on review. Mental Status Exam: Oriented reasonably. She is generally more animated, verbal, and less anxious, appreciative of the nursing staff taking care of her and expressed it quite clearly. Speech coherent. Abstraction fair. Computation impaired. Language function intact. Mood and affect withdrawn. No suicidal or homicidal ideation. Laboratory Data: Reviewed. Impression: Major neurocognitive disorder Alzheimer, vascular with delusion, depression, behavioral disturbance. Anxiety disorder unspecified. Impulse control disorder unspecified. Shortness of breath. Plan: No change from initial note. Assessment: Vital Signs/I&O: Vital Signs Date Time Temp Pulse Resp B/P (MAP) Pulse Ox O2 Delivery O2 Flow Rate FiO2 05/18/20 05:59 98.7 88 18 137/87 (104) 96 6.0 05/17/20 15:46 Nasal Cannula I & O0 05/17/20 05/17/20 05/18/20 15:00 23:00 07:00 Intake Total 480 ml 360 ml Balance 480 ml 360 ml Current Medications: Meds: Current Medications Medications (Trade) Dose Ordered Sig/Marina Route PRN Reason Start Time Stop Time Status Last Admin Dose Admin Warfarin Sodium (Coumadin) 5 mg 1X WARF ONCE PO 05/17/20 16:00 05/17/20 16:01 DC 05/17/20 16:35 I have reviewed the current psychotropics carefully including drug interactions. Risk benefit ratio favors no change other than as noted in my dictated progress note. Diagnosis: Problems: (1) Dementia, vascular, with depression (2) Dementia, vascular, with delusions (3) Dementia in Alzheimer's disease with depression (4) Dementia in Alzheimer's disease with delusions (5) Major neurocognitive disorder (6) Dementia in Alzheimer's disease with early onset with behavioral disturbance (7) Major depressive disorder with psychotic features (8) Shortness of breath ROHIT SIBLEY MD May 18, 2020 07:00
--- NOTE | 2020-05-18 07:11 | PDOC ---
Exam Note: Derick Note: This note is a late entry for 05/17/2020 covers elements not covered in my initial note. Subjective: The patient was evaluated via telehealth rounds in the evening of 05/17/2020 with Suzanna, nursing staff. Per Lacho BRITO, she slept 7-1/2 hours previous night. She is COVID negative on the swab. Overall the patient is doing better. She is pleasant having no further cough. No fever. Review of Systems: Ambulation impaired. Shortness of breath on O2 supplements. No CV, GI/, eye system symptoms on review. Mental Status Exam: Oriented reasonably. She is appropriate, animated. Speech coherent. Abstraction fair. Computation impaired. Language function intact. Mood and affect withdrawn. No suicidal or homicidal ideation. Laboratory Data: Reviewed. Impression: Major neurocognitive disorder Alzheimer, vascular with delusion, depression, behavioral disturbance. Anxiety disorder unspecified. Impulse control disorder unspecified. Shortness of breath. Plan: No change from initial note. Assessment: Vital Signs/I&O: Vital Signs Date Time Temp Pulse Resp B/P (MAP) Pulse Ox O2 Delivery O2 Flow Rate FiO2 05/18/20 05:59 98.7 88 18 137/87 (104) 96 6.0 05/17/20 15:46 Nasal Cannula I & O 05/17/20 05/17/20 05/18/20 15:00 23:00 07:00 Intake Total 480 ml 360 ml Balance 480 ml 360 ml Current Medications: Meds: Current Medications Medications (Trade) Dose Ordered Sig/Marina Route PRN Reason Start Time Stop Time Status Last Admin Dose Admin Warfarin Sodium (Coumadin) 5 mg 1X WARF ONCE PO 05/17/20 16:00 05/17/20 16:01 DC 05/17/20 16:35 I have reviewed the current psychotropics carefully including drug interactions. Risk benefit ratio favors no change other than as noted in my dictated progress note. Diagnosis: Problems: (1) Dementia, vascular, with depression (2) Dementia, vascular, with delusions (3) Dementia in Alzheimer's disease with depression (4) Dementia in Alzheimer's disease with delusions (5) Major neurocognitive disorder (6) Dementia in Alzheimer's disease with early onset with behavioral disturbance (7) Major depressive disorder with psychotic features (8) Shortness of breath ROHIT SIBLEY MD May 18, 2020 07:11
[2020-05-18] MEDS: POLYETHYLENE GLYCOL 3350 17 GM PACKET. PO SCH (08:51)
[2020-05-18] MEDS: VITAMIN B COMPLEX CAPSULE. PO SCH (08:52)
[2020-05-18] MEDS: CHOLECALCIFEROL (VITAMIN D3) 1,000 UNIT TABLET PO SCH (08:52)
[2020-05-18] MEDS: FUROSEMIDE 80 MG TABLET PO SCH ×2 (08:53→17:06)
[2020-05-18] MEDS: DIVALPROEX 125 MG CAP.SPRINK PO SCH ×3 (08:53→21:01)
[2020-05-18] MEDS: METHENAMINE HIPPURATE 1 GM TABLET PO SCH ×2 (08:53→21:01)
[2020-05-18] MEDS: QUEtiapine 25 MG TABLET. PO SCH ×2 (08:53→17:06)
[2020-05-18] MEDS: SPIRONOLACTONE 25 MG TABLET PO SCH (08:53)
[2020-05-18] MEDS: MULTIVITAMIN I-VITE TABLET. PO SCH ×2 (08:53→21:01)
[2020-05-18] MEDS: FLUoxetine HCL 20 MG CAPSULE PO SCH (08:53)
[2020-05-18] MEDS: IPRATROPIUM/ALBUTEROL 20/100mcg/INH INHALER. INH SCH ×5 (08:54→21:01)
[2020-05-18] MEDS: KETOROLAC TROMETHAMINE 0.5% OPHTH SOLUTION BOTTLE. OU SCH ×4 (08:54→21:01)
[2020-05-18] MEDS: FLUTICASONE 50MCG/NASAL SPRAY 16GM BOTTLE. NS SCH (08:54)
--- NOTE | 2020-05-18 09:30 | NUR ---
Pharmacy Warfarin Dosing Note S:Pharmacy consulted to assist with anticoagulation therapy started with target INR: 2-2.5 O:ARNULFO KEVIN is a 85 year old F with Atrial Fibrillation LABS: Last INR: 2 Last HGB: 11.4 Last HCT: 35.6 Last PLT: 325 Last dose of 5 mg given on 05/17/20 at 1635 Previous Regimen: Vitamin K given: N Drug Interaction Changes: Same Interacting Drug Ongoing Drug Interactions: FLUOXETINE A:INR Within desired Range. Target Range for this patient is: 2-2.5 P: Warfarin dose: 4.5MG Today at 1600 Bridge Therapy: None Next INR due 05/19/2020 Pharmacy anticoagulation service will continue to follow. VERNON VALDEZ, 05/18/20 0996
--- NOTE | 2020-05-18 10:46 | NUR ---
Nursing note: Pt in her room for morning meds and assessment. She was calm, med compliant, and cooperative with assessment. Pt had no complaints at time of assessment, other than feeling tired d/t only getting 2 hrs of sleep. Pt requested her lights be turned out. She has been resting quietly in her bed all morning. Will continue to monitor.
[2020-05-18 15:33] VITALS: BP 154/75
[2020-05-18] MEDS ORDERED: WARFARIN 2.5 MG TABLET. PO ONE (16:00)
[2020-05-18] MEDS ORDERED: WARFARIN 2 MG TABLET. PO ONE (16:00)
[2020-05-18] MEDS: MIRTAZAPINE 15 MG TABLET PO SCH (21:01)
--- NOTE | 2020-05-18 22:02 | PDOC ---
Exam Note: Derick Note: Please also refer to the separate dictated note~for this date of service dictated separately.~Patient seen individually. Discussed the patient with Nursing staff reviewed the chart.~Reviewed interim history and current functioning. Reviewed vital signs,~Labs/ Radiology~and current medications noted below. Continue current treatment with the changes noted in the dictated addendum note Assessment: Vital Signs/I&O: Vital Signs Date Time Temp Pulse Resp B/P (MAP) Pulse Ox O2 Delivery O2 Flow Rate FiO2 05/18/20 19:52 98.4 97 05/18/20 15:33 80 18 154/75 (101) 6.0 05/17/20 15:46 Nasal Cannula I & O0 05/17/20 05/17/20 05/18/20 15:00 23:00 07:00 Intake Total 480 ml 360 ml Balance 480 ml 360 ml Labs: Laboratory Tests Test 05/18/20 07:15 Prothrombin Time 21.0 SEC (9.4-11.4) H Prothrombin Time INR 2.0 (0.9-1.1) H Current Medications: Meds: Current Medications Medications (Trade) Dose Ordered Sig/Marina Route PRN Reason Start Time Stop Time Status Last Admin Dose Admin Warfarin Sodium (Coumadin) 2.5 mg 1X WARF ONCE PO 05/18/20 16:00 05/18/20 16:01 DC 05/18/20 17:05 Warfarin Sodium (Coumadin) 2 mg 1X WARF ONCE PO 05/18/20 16:00 05/18/20 16:01 DC 05/18/20 17:06 I have reviewed the current psychotropics carefully including drug interactions. Risk benefit ratio favors no change other than as noted in my dictated progress note. Diagnosis: Problems: (1) Dementia, vascular, with depression (2) Dementia, vascular, with delusions (3) Dementia in Alzheimer's disease with depression (4) Dementia in Alzheimer's disease with delusions (5) Major neurocognitive disorder (6) Dementia in Alzheimer's disease with early onset with behavioral disturbance (7) Major depressive disorder with psychotic features (8) Shortness of breath ROHIT SIBLEY MD May 18, 2020 22:02
--- NOTE | 2020-05-19 01:48 | NUR ---
Nursing Note Pt in bed pleasant and cooperative. Has O2 on in place at 6 liters, is using accessory muscles to breathe, sats WNL 96%, states she isn't anymore SOA than normal. Left side of face is red/pink pt states she has rosacia. Calm and cooperative was asleep prior to assessment.
[2020-05-19] MEDS: LEVOTHYROXINE 150 MCG TABLET PO SCH (06:20)
[2020-05-19 06:23] VITALS: BP 133/79
[2020-05-19] MEDS: POLYETHYLENE GLYCOL 3350 17 GM PACKET. PO SCH (08:10)
[2020-05-19] MEDS: FLUTICASONE 50MCG/NASAL SPRAY 16GM BOTTLE. NS SCH (08:11)
[2020-05-19] MEDS: IPRATROPIUM/ALBUTEROL 20/100mcg/INH INHALER. INH SCH ×4 (08:11→19:46)
[2020-05-19] MEDS: CHOLECALCIFEROL (VITAMIN D3) 1,000 UNIT TABLET PO SCH (08:12)
[2020-05-19] MEDS: FLUoxetine HCL 20 MG CAPSULE PO SCH (08:12)
[2020-05-19] MEDS: KETOROLAC TROMETHAMINE 0.5% OPHTH SOLUTION BOTTLE. OU SCH ×4 (08:12→19:46)
[2020-05-19] MEDS: SPIRONOLACTONE 25 MG TABLET PO SCH (08:12)
[2020-05-19] MEDS: QUEtiapine 25 MG TABLET. PO SCH ×2 (08:12→16:58)
[2020-05-19] MEDS: DIVALPROEX 125 MG CAP.SPRINK PO SCH ×3 (08:13→19:46)
[2020-05-19] MEDS: MULTIVITAMIN I-VITE TABLET. PO SCH ×2 (08:13→19:47)
[2020-05-19] MEDS: VITAMIN B COMPLEX CAPSULE. PO SCH (08:13)
[2020-05-19] MEDS: METHENAMINE HIPPURATE 1 GM TABLET PO SCH ×2 (08:13→19:46)
[2020-05-19] MEDS: FUROSEMIDE 80 MG TABLET PO SCH ×2 (08:13→16:59)
--- NOTE | 2020-05-19 10:08 | NUR ---
Nursing note: Pt in her room for morning meds and assessment. She was interactive, med compliant, and cooperative. Pt was slightly irritable this morning, stating that something was wrong with her mouth because "everything I eat tastes bad". Pt requested this RN look in her mouth, no thrush to be noted. Pt did have nose bleed just prior to assessment where she complained about the blood going down her throat. Pt was informed that the bad taste in her mouth was probably d/t the blood since nothing appeared to be abnormal in her mouth. Pt had no other complaints at that time. She is currently laying in her room. Will continue to monitor.
--- NOTE | 2020-05-19 15:42 | NUR ---
Pharmacy Warfarin Dosing Note S:Pharmacy consulted to assist with anticoagulation therapy started with target INR: 2-2.5 O:ARNULFO KEVIN is a 85 year old F with Atrial Fibrillation LABS: Last INR: 2.6 Last HGB: 11.4 Last HCT: 35.6 Last PLT: 325 Last dose of 4.5 given on 05/18/20 at 1700 Vitamin K given: N Drug Interaction Changes: Same Interacting Drug Ongoing Drug Interactions: FLUOXETINE A:INR slightly elevated after large dose to get pt therapeutic. Target Range for this patient is: 2-2.5 P: Decrease dose by 1m.5mg warfarin today at 1600 Next INR due: 05/20 Pharmacy anticoagulation service will continue to follow. MARYLIN PETERSEN, 05/19/20 0033
[2020-05-19 15:47] VITALS: BP 118/68
[2020-05-19] MEDS ORDERED: WARFARIN 1 MG TABLET. PO ONE (16:00)
[2020-05-19] MEDS ORDERED: WARFARIN 2.5 MG TABLET. PO ONE (16:00)
[2020-05-19] MEDS: MIRTAZAPINE 15 MG TABLET PO SCH (19:47)
--- NOTE | 2020-05-19 20:31 | NUR ---
Pt lying in bed, awake at shift change. Pt calm, cooperative, and interactive when approached. Pt compliant with assessment and medications administered whole.
--- NOTE | 2020-05-19 22:01 | PDOC ---
Exam Note: Derick Note: Please also refer to the separate dictated note~for this date of service dictated separately.~Patient seen individually. Discussed the patient with Nursing staff reviewed the chart.~Reviewed interim history and current functioning. Reviewed vital signs,~Labs/ Radiology~and current medications noted below. Continue current treatment with the changes noted in the dictated addendum note Assessment: Vital Signs/I&O: Vital Signs Date Time Temp Pulse Resp B/P (MAP) Pulse Ox O2 Delivery O2 Flow Rate FiO2 05/19/20 20:20 98.3 92 Nasal Cannula 5.0 05/19/20 15:47 78 18 118/68 (85) I & O 05/18/20 05/18/20 05/19/20 15:00 23:00 07:00 Intake Total 480 ml 320 ml Balance 480 ml 320 ml Labs: Laboratory Tests Test 05/19/20 13:35 Prothrombin Time 26.8 SEC (9.4-11.4) H Prothrombin Time INR 2.6 (0.9-1.1) H Current Medications: Meds: Current Medications Medications (Trade) Dose Ordered Sig/Marina Route PRN Reason Start Time Stop Time Status Last Admin Dose Admin Warfarin Sodium (Coumadin) 2.5 mg 1X WARF ONCE PO 05/19/20 16:00 05/19/20 16:01 DC 05/19/20 16:58 Warfarin Sodium (Coumadin) 1 mg 1X WARF ONCE PO 05/19/20 16:00 05/19/20 16:01 DC 05/19/20 16:58 I have reviewed the current psychotropics carefully including drug interactions. Risk benefit ratio favors no change other than as noted in my dictated progress note. Diagnosis: Problems: (1) Dementia, vascular, with depression (2) Dementia, vascular, with delusions (3) Dementia in Alzheimer's disease with depression (4) Dementia in Alzheimer's disease with delusions (5) Major neurocognitive disorder (6) Dementia in Alzheimer's disease with early onset with behavioral disturbance (7) Major depressive disorder with psychotic features (8) Shortness of breath ROHIT SIBLEY MD May 19, 2020 22:01
[2020-05-20 05:27] VITALS: BP 117/77
[2020-05-20] MEDS: LEVOTHYROXINE 150 MCG TABLET PO SCH (05:41)
--- NOTE | 2020-05-20 07:50 | NUR ---
Pharmacy Warfarin Dosing Note S:Pharmacy consulted to assist with anticoagulation therapy with target INR: 2-2.5 O:ARNULFO KEVIN is a 85 year old F with afib. LABS: Last INR: 2.4 Last HGB: 11.4 Last HCT: 35.6 Last PLT: 325 Last dose of 3.5 given on 05/19/20 at 1700 Previous Regimen: Vitamin K given: N Drug Interaction Changes: Same Interacting Drug Ongoing Drug Interactions: FLUOXETINE A:INR within desired range, resume stable dose of 4mg. Target range for this patient is: 2-2.5 P: Warfarin dose: 4 mg Today at 1600 Next INR due 05/21 Pharmacy anticoagulation service will continue to follow. MARYLIN PETERSEN, 05/20/20 0030
[2020-05-20] MEDS: FLUTICASONE 50MCG/NASAL SPRAY 16GM BOTTLE. NS SCH (08:16)
[2020-05-20] MEDS: IPRATROPIUM/ALBUTEROL 20/100mcg/INH INHALER. INH SCH ×4 (08:16→19:48)
[2020-05-20] MEDS: KETOROLAC TROMETHAMINE 0.5% OPHTH SOLUTION BOTTLE. OU SCH ×4 (08:16→19:48)
[2020-05-20] MEDS: METHENAMINE HIPPURATE 1 GM TABLET PO SCH ×2 (08:17→19:48)
[2020-05-20] MEDS: SPIRONOLACTONE 25 MG TABLET PO SCH (08:17)
[2020-05-20] MEDS: MULTIVITAMIN I-VITE TABLET. PO SCH ×2 (08:17→19:49)
[2020-05-20] MEDS: FLUoxetine HCL 20 MG CAPSULE PO SCH (08:17)
[2020-05-20] MEDS: CHOLECALCIFEROL (VITAMIN D3) 1,000 UNIT TABLET PO SCH (08:17)
[2020-05-20] MEDS: QUEtiapine 25 MG TABLET. PO SCH ×2 (08:17→16:36)
[2020-05-20] MEDS: VITAMIN B COMPLEX CAPSULE. PO SCH (08:17)
[2020-05-20] MEDS: DIVALPROEX 125 MG CAP.SPRINK PO SCH ×3 (08:18→19:49)
[2020-05-20] MEDS: FUROSEMIDE 80 MG TABLET PO SCH ×2 (08:18→16:36)
[2020-05-20] MEDS: POLYETHYLENE GLYCOL 3350 17 GM PACKET. PO SCH (08:18)
--- NOTE | 2020-05-20 10:03 | NUR ---
Nursing note: Pt in her room eating breakfast for morning meds and assessment. She was pleasant, med compliant, and cooperative. Pt had no complaints at time of assessment. Will continue to monitor.
[2020-05-20] MEDS ORDERED: WARFARIN 4 MG TABLET. PO ONE (16:00)
[2020-05-20 16:10] VITALS: BP 118/68
[2020-05-20] MEDS: MIRTAZAPINE 15 MG TABLET PO SCH (19:49)
--- NOTE | 2020-05-20 22:03 | PDOC ---
Exam Note: Derick Note: Please also refer to the separate dictated note~for this date of service dictated separately.~Patient seen individually. Discussed the patient with Nursing staff reviewed the chart.~Reviewed interim history and current functioning. Reviewed vital signs,~Labs/ Radiology~and current medications noted below. Continue current treatment with the changes noted in the dictated addendum note Assessment: Vital Signs/I&O: Vital Signs Date Time Temp Pulse Resp B/P (MAP) Pulse Ox O2 Delivery O2 Flow Rate FiO2 05/20/20 21:49 97.9 97 Nasal Cannula 6.0 05/20/20 16:10 78 18 118/68 (85) I & O 05/19/20 05/19/20 05/20/20 15:00 23:00 07:00 Intake Total 720 ml 720 ml Balance 720 ml 720 ml Labs: Laboratory Tests Test 05/20/20 05:52 Prothrombin Time 24.9 SEC (9.4-11.4) H Prothrombin Time INR 2.4 (0.9-1.1) H Current Medications: Meds: Current Medications Medications (Trade) Dose Ordered Sig/Marina Route PRN Reason Start Time Stop Time Status Last Admin Dose Admin Warfarin Sodium (Coumadin) 4 mg 1X WARF ONCE PO 05/20/20 16:00 05/20/20 16:01 DC 05/20/20 16:36 I have reviewed the current psychotropics carefully including drug interactions. Risk benefit ratio favors no change other than as noted in my dictated progress note. Diagnosis: Problems: (1) Dementia, vascular, with depression (2) Dementia, vascular, with delusions (3) Dementia in Alzheimer's disease with depression (4) Dementia in Alzheimer's disease with delusions (5) Major neurocognitive disorder (6) Dementia in Alzheimer's disease with early onset with behavioral disturbance (7) Major depressive disorder with psychotic features (8) Shortness of breath ROHIT SIBLEY MD May 20, 2020 22:03
--- NOTE | 2020-05-20 23:59 | NUR ---
Patient is in bed on assumption of care, awake. She is in pleasant spirits. Calm, cooperative and compliant with assessments and medications taken whole. No agitation. Denies any pain or discomfort. Denies SI. Patient appears to be sleeping comfortably at present time. Will continue to monitor.
[2020-05-21] MEDS: LEVOTHYROXINE 150 MCG TABLET PO SCH (05:45)
[2020-05-21 06:03] VITALS: BP 139/82
--- NOTE | 2020-05-21 06:59 | PDOC ---
Exam Note: Derick Note: This note is a late entry for 05/18/2020 covers elements not covered in my initial note. Subjective: The patient was evaluated via telehealth rounds in the evening of 05/18/2020 with nursing staff. Per Dione BRITO, she slept 2 hours previous night. She has had some GI symptoms consequent to her GERD, otherwise, doing better. Review of Systems: Ambulation impaired. Complains of shortness of breath. No CV, , eye system symptoms on review. Mental Status Exam: Oriented reasonably. She is quite verbal, animated, somewhat anxious but able to process this individually via telehealth rounds. Speech coherent. Abstraction fair. Computation impaired. Language function intact. Mood and affect somewhat anxious. No suicidal or homicidal ideation. Laboratory Data: Reviewed. Impression: Major neurocognitive disorder Alzheimer, vascular with delusion, depression, behavioral disturbance. Anxiety disorder unspecified. Impulse control disorder unspecified. Shortness of breath. Plan: No change from initial note. Assessment: Vital Signs/I&O: Vital Signs Date Time Temp Pulse Resp B/P (MAP) Pulse Ox O2 Delivery O2 Flow Rate FiO2 05/21/20 06:03 97.9 86 20 139/82 (101) 97 Nasal Cannula 5.0 I & O 05/20/20 05/20/20 05/21/20 15:00 23:00 07:00 Intake Total 480 ml 360 ml Balance 480 ml 360 ml Current Medications: Meds: Current Medications Medications (Trade) Dose Ordered Sig/Marina Route PRN Reason Start Time Stop Time Status Last Admin Dose Admin Warfarin Sodium (Coumadin) 4 mg 1X WARF ONCE PO 05/20/20 16:00 05/20/20 16:01 DC 05/20/20 16:36 I have reviewed the current psychotropics carefully including drug interactions. Risk benefit ratio favors no change other than as noted in my dictated progress note. Diagnosis: Problems: (1) Dementia, vascular, with depression (2) Dementia, vascular, with delusions (3) Dementia in Alzheimer's disease with depression (4) Dementia in Alzheimer's disease with delusions (5) Major neurocognitive disorder (6) Dementia in Alzheimer's disease with early onset with behavioral disturbance (7) Major depressive disorder with psychotic features (8) Shortness of breath ROHIT SIBLEY MD May 21, 2020 06:59
--- NOTE | 2020-05-21 07:06 | PDOC ---
Exam Note: Derick Note: This note is a late entry for 05/19/2020 covers elements not covered in my initial note. Subjective: The patient was evaluated via telehealth rounds in the evening of 05/19/2020 with nursing staff. Per Dione BRITO, during individual visit the patient was quite persistent that she had done well on Triavil in the past and wanted to take this. I discussed the pros and cons of this with her including the increased side effects in the elderly. I am not sure if we have it available at the hospital pharmacy but I told her we will check and discuss it again on 05/20. Review of Systems: Ambulation impaired. Complains of shortness of breath and anxiety. No CV, GI/, eye system symptoms on review. Mental Status Exam: Oriented reasonably. She is quite verbal, anxious. Speech coherent. Abstraction fair. Computation impaired. Language function intact. Mood and affect somewhat anxious. No suicidal or homicidal ideation. Laboratory Data: Reviewed. Impression: Major neurocognitive disorder Alzheimer, vascular with delusion, depression, behavioral disturbance. Anxiety disorder unspecified. Impulse control disorder unspecified. Shortness of breath. Plan: No change from initial note. Assessment: Vital Signs/I&O: Vital Signs Date Time Temp Pulse Resp B/P (MAP) Pulse Ox O2 Delivery O2 Flow Rate FiO2 05/21/20 06:03 97.9 86 20 139/82 (101) 97 Nasal Cannula 5.0 I & O 05/20/20 05/20/20 05/21/20 15:00 23:00 07:00 Intake Total 480 ml 360 ml Balance 480 ml 360 ml Current Medications: Meds: Current Medications Medications (Trade) Dose Ordered Sig/Marina Route PRN Reason Start Time Stop Time Status Last Admin Dose Admin Warfarin Sodium (Coumadin) 4 mg 1X WARF ONCE PO 05/20/20 16:00 05/20/20 16:01 DC 05/20/20 16:36 I have reviewed the current psychotropics carefully including drug interactions. Risk benefit ratio favors no change other than as noted in my dictated progress note. Diagnosis: Problems: (1) Dementia, vascular, with depression (2) Dementia, vascular, with delusions (3) Dementia in Alzheimer's disease with depression (4) Dementia in Alzheimer's disease with delusions (5) Major neurocognitive disorder (6) Dementia in Alzheimer's disease with early onset with behavioral disturbance (7) Major depressive disorder with psychotic features (8) Shortness of breath ROHIT SIBLEY MD May 21, 2020 07:06
--- NOTE | 2020-05-21 07:17 | PDOC ---
Exam Note: Derick Note: This note is a late entry for 05/20/2020 covers elements not covered in my initial note. Subjective: The patient was evaluated via telehealth rounds in the evening of 05/20/2020 with nursing staff. Per Dione BRITO, she slept 6-3/4 hours previous night. She had a good day. We have checked with the pharmacy and Triavil is not available and I again discussed with the patient that it was probably not the right option for her. She has been asking for Xanax from the nursing staff earlier in the day and then making repeated statements we need to do something quickly. Review of Systems: Ambulation impaired. Complains of shortness of breath. No CV, , eye system symptoms on review. Mental Status Exam: Oriented reasonably. She is quite animated on telehealth rounds. Speech coherent. Abstraction fair. Computation impaired. Language function intact. Mood and affect somewhat anxious. No suicidal or homicidal ideation. Laboratory Data: Reviewed. Impression: Major neurocognitive disorder Alzheimer, vascular with delusion, depression, behavioral disturbance. Anxiety disorder unspecified. Impulse control disorder unspecified. Shortness of breath. Plan: We will maintain the patient on her current psychotropics. It is best that she stays off Xanax even though she asked for it off and on. Assessment: Vital Signs/I&O: Vital Signs Date Time Temp Pulse Resp B/P (MAP) Pulse Ox O2 Delivery O2 Flow Rate FiO2 05/21/20 06:03 97.9 86 20 139/82 (101) 97 Nasal Cannula 5.0 I & O 05/20/20 05/20/20 05/21/20 15:00 23:00 07:00 Intake Total 480 ml 360 ml Balance 480 ml 360 ml Current Medications: Meds: Current Medications Medications (Trade) Dose Ordered Sig/Marina Route PRN Reason Start Time Stop Time Status Last Admin Dose Admin Warfarin Sodium (Coumadin) 4 mg 1X WARF ONCE PO 05/20/20 16:00 05/20/20 16:01 DC 05/20/20 16:36 I have reviewed the current psychotropics carefully including drug interactions. Risk benefit ratio favors no change other than as noted in my dictated progress note. Diagnosis: Problems: (1) Dementia, vascular, with depression (2) Dementia, vascular, with delusions (3) Dementia in Alzheimer's disease with depression (4) Dementia in Alzheimer's disease with delusions (5) Major neurocognitive disorder (6) Dementia in Alzheimer's disease with early onset with behavioral disturbance (7) Major depressive disorder with psychotic features (8) Shortness of breath ROHIT SIBLEY MD May 21, 2020 07:17
[2020-05-21] MEDS: IPRATROPIUM/ALBUTEROL 20/100mcg/INH INHALER. INH SCH ×4 (08:59→19:33)
[2020-05-21] MEDS: POLYETHYLENE GLYCOL 3350 17 GM PACKET. PO SCH (08:59)
[2020-05-21] MEDS: DIVALPROEX 125 MG CAP.SPRINK PO SCH ×3 (08:59→19:33)
[2020-05-21] MEDS: KETOROLAC TROMETHAMINE 0.5% OPHTH SOLUTION BOTTLE. OU SCH ×4 (08:59→19:33)
[2020-05-21] MEDS: CHOLECALCIFEROL (VITAMIN D3) 1,000 UNIT TABLET PO SCH (09:00)
[2020-05-21] MEDS: FLUoxetine HCL 20 MG CAPSULE PO SCH (09:00)
[2020-05-21] MEDS: MULTIVITAMIN I-VITE TABLET. PO SCH ×2 (09:00→19:33)
[2020-05-21] MEDS: VITAMIN B COMPLEX CAPSULE. PO SCH (09:00)
[2020-05-21] MEDS: FUROSEMIDE 80 MG TABLET PO SCH ×2 (09:00→17:13)
[2020-05-21] MEDS: SPIRONOLACTONE 25 MG TABLET PO SCH (09:00)
[2020-05-21] MEDS: QUEtiapine 25 MG TABLET. PO SCH ×2 (09:00→17:13)
[2020-05-21] MEDS: FLUTICASONE 50MCG/NASAL SPRAY 16GM BOTTLE. NS SCH (09:01)
[2020-05-21] MEDS: METHENAMINE HIPPURATE 1 GM TABLET PO SCH ×2 (09:02→19:33)
--- NOTE | 2020-05-21 09:53 | NUR ---
Patient is cooperative and compliant with medications. She was joking with this nurse and patient registration representative during blood draw and med pass. Patient requested Gatorade to drink with her meds however there is none on unit. She used chocolate boost. Patient in bed wearing medi-boots for heel protection. She has some bruising noted on her arm, r/t daily blood draws for INR/PT. No delusions, aggression or agitation noted at this time.
--- NOTE | 2020-05-21 11:56 | NUR ---
Pharmacy Warfarin Dosing Note S:Pharmacy consulted to assist with anticoagulation therapy started with target INR: 2-2.5 O:ARNULFO KEVIN is a 85 year old F with Atrial Fibrillation LABS: Last INR: 2.3 Last HGB: 11.4 Last HCT: 35.6 Last PLT: 325 Last dose of 4 mg given on 05/20/20 at 1630 Previous Regimen: Vitamin K given: N Drug Interaction Changes: Same Interacting Drug Ongoing Drug Interactions: FLUOXETINE A:INR Within desired Range. Target Range for this patient is: 2-2.5 P: Warfarin dose: 4 mg Today at 1600 Bridge Therapy: None Next INR due 05/22/20 Pharmacy anticoagulation service will continue to follow. INDERJIT SALES, 05/21/20 [id number]
[2020-05-21] MEDS ORDERED: WARFARIN 4 MG TABLET. PO ONE (16:00)
[2020-05-21 16:49] VITALS: BP 120/78
--- NOTE | 2020-05-21 17:06 | NUR ---
Patient spoke to Dr. Rebolledo on tele-visit. She indicated that she still feels anxious. New order received to increase Seroquel to 12.5mg at 0900, 1300, 1700.
[2020-05-21] MEDS: MIRTAZAPINE 15 MG TABLET PO SCH (19:33)
--- NOTE | 2020-05-21 22:03 | PDOC ---
Exam Note: Derick Note: Please also refer to the separate dictated note~for this date of service dictated separately.~Patient seen individually. Discussed the patient with Nursing staff reviewed the chart.~Reviewed interim history and current functioning. Reviewed vital signs,~Labs/ Radiology~and current medications noted below. Continue current treatment with the changes noted in the dictated addendum note Assessment: Vital Signs/I&O: Vital Signs Date Time Temp Pulse Resp B/P (MAP) Pulse Ox O2 Delivery O2 Flow Rate FiO2 05/21/20 20:40 97.9 97 Nasal Cannula 6.0 05/21/20 16:49 89 20 120/78 (92) I & O 05/20/20 05/20/20 05/21/20 15:00 23:00 07:00 Intake Total 480 ml 360 ml Balance 480 ml 360 ml Labs: Laboratory Tests Test 05/21/20 09:05 Prothrombin Time 23.8 SEC (9.4-11.4) H Prothrombin Time INR 2.3 (0.9-1.1) H Current Medications: Meds: Current Medications Medications (Trade) Dose Ordered Sig/Marina Route PRN Reason Start Time Stop Time Status Last Admin Dose Admin Warfarin Sodium (Coumadin) 4 mg 1X WARF ONCE PO 05/21/20 16:00 05/21/20 16:01 DC 05/21/20 17:13 I have reviewed the current psychotropics carefully including drug interactions. Risk benefit ratio favors no change other than as noted in my dictated progress note. Diagnosis: Problems: (1) Dementia, vascular, with depression (2) Dementia, vascular, with delusions (3) Dementia in Alzheimer's disease with depression (4) Dementia in Alzheimer's disease with delusions (5) Major neurocognitive disorder (6) Dementia in Alzheimer's disease with early onset with behavioral disturbance (7) Major depressive disorder with psychotic features (8) Shortness of breath ROHIT SIBLEY MD May 21, 2020 22:03
--- NOTE | 2020-05-21 22:32 | NUR ---
Nursing Note The patient was calm and compliant during interactions with this nurse this shift. The patient took her medication whole. The patient discussed her interests in ancestry and history with this nurse. The patient is currently sleeping in her room.
[2020-05-22] MEDS: LEVOTHYROXINE 150 MCG TABLET PO SCH (05:17)
[2020-05-22 05:56] VITALS: BP 107/62
[2020-05-22] MEDS: IPRATROPIUM/ALBUTEROL 20/100mcg/INH INHALER. INH SCH ×4 (08:14→20:00)
[2020-05-22] MEDS: KETOROLAC TROMETHAMINE 0.5% OPHTH SOLUTION BOTTLE. OU SCH ×4 (08:15→20:14)
[2020-05-22] MEDS: FLUTICASONE 50MCG/NASAL SPRAY 16GM BOTTLE. NS SCH (08:15)
[2020-05-22] MEDS: VITAMIN B COMPLEX CAPSULE. PO SCH (08:16)
[2020-05-22] MEDS: METHENAMINE HIPPURATE 1 GM TABLET PO SCH ×2 (08:16→20:21)
[2020-05-22] MEDS: SPIRONOLACTONE 25 MG TABLET PO SCH (08:16)
[2020-05-22] MEDS: DIVALPROEX 125 MG CAP.SPRINK PO SCH ×3 (08:16→20:13)
[2020-05-22] MEDS: MULTIVITAMIN I-VITE TABLET. PO SCH ×2 (08:17→20:13)
[2020-05-22] MEDS: FUROSEMIDE 80 MG TABLET PO SCH ×2 (08:17→17:12)
[2020-05-22] MEDS: CHOLECALCIFEROL (VITAMIN D3) 1,000 UNIT TABLET PO SCH (08:17)
[2020-05-22] MEDS: QUEtiapine 25 MG TABLET. PO SCH ×3 (08:18→17:12)
[2020-05-22] MEDS: FLUoxetine HCL 20 MG CAPSULE PO SCH (08:22)
[2020-05-22] MEDS: POLYETHYLENE GLYCOL 3350 17 GM PACKET. PO SCH (09:00)
--- NOTE | 2020-05-22 10:55 | NUR ---
Pt is calm, cooperative, compliant, no aggression, no hallucinations, no delusions noted. Pt is irritable and helpless today. She was demanding food at 0750 when NICKER AND BREAKER reassured her breakfast would be here in 10 minutes she stated "thats fine, I'll just have my son come and get me." Staff redirected pt. She is compliant with her medications and assessment.
[2020-05-22 13:01] LABS: BASO # 0.1 x10^3/uL (0.0-0.2); BASO % 1 % (0-3); EOS # 0.2 x10^3/uL (0.0-0.7); EOS % 2 % (0-3); HEMOGLOBIN 12.9 g/dL (12.0-15.5); LYMPH # 0.8 x10^3/uL (1.0-4.8); LYMPH % 10 % (24-48); MEAN CORPUSCULAR HEMOGLOBIN 29 pg (25-35); MEAN CORPUSCULAR HGB CONC 32 g/dL (31-37); MEAN CORPUSCULAR VOLUME 91 fL (79-100); MONO # 0.6 x10^3/uL (0.0-1.1); MONO % 8 % (0-9); NEUT # 6.3 x10^3uL (1.8-7.7); NEUT % 79 % (31-73); PLATELET COUNT 275 x10^3/uL (140-400); RED BLOOD COUNT 4.52 x10^6/uL (3.50-5.40); RED CELL DISTRIBUTION WIDTH 16.2 % (11.5-14.5); WHITE BLOOD COUNT 7.9 x10^3/uL (4.0-11.0)
[2020-05-22 13:23] LABS: ALBUMIN 2.7 g/dL (3.4-5.0); ALBUMIN/GLOBULIN RATIO 0.6 (1.0-1.7); CALCIUM 9.2 mg/dL (8.5-10.1); GFR 52.6; TOTAL BILIRUBIN 0.3 mg/dL (0.2-1.0); TOTAL PROTEIN 7.2 g/dL (6.4-8.2)
[2020-05-22 15:30] VITALS: BP 118/78
[2020-05-22] MEDS ORDERED: WARFARIN 4 MG TABLET. PO ONE (16:00)
[2020-05-22] MEDS: MIRTAZAPINE 15 MG TABLET PO SCH (20:13)
--- NOTE | 2020-05-22 21:13 | NUR ---
Nursing Note The patient was calm and compliant during interactions with this nurse this shift. The patient took her medication whole. Pt is concerned her inhaler may be causing some discomfort in her mouth. On assessment pts tongue a dark red with white on the back side of tongue. Pt refused HS inhaler due to this. Will continue to monitor.
[2020-05-23] MEDS: LEVOTHYROXINE 150 MCG TABLET PO SCH (05:44)
[2020-05-23 06:13] VITALS: BP 105/71
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
--- NOTE | 2020-05-23 07:11 | PDOC ---
Exam Note: Derick Note: This is a late entry for DOS 05/22/2020. Please also refer to the separate dictated note~for this date of service dictated separately.~Patient seen individually. Discussed the patient with Nursing staff reviewed the chart.~Reviewed interim history and current functioning. Reviewed vital signs,~Labs/ Radiology~and current medications noted below. Continue current treatment with the changes noted in the dictated addendum note Assessment: Vital Signs/I&O: Vital Signs Date Time Temp Pulse Resp B/P (MAP) Pulse Ox O2 Delivery O2 Flow Rate FiO2 05/23/20 06:13 97.8 85 18 105/71 (82) 95 6.0 05/22/20 15:30 Nasal Cannula I & O 05/22/20 05/22/20 05/23/20 15:00 23:00 07:00 Intake Total 820 ml 360 ml 50 ml Balance 820 ml 360 ml 50 ml Labs: Laboratory Tests Test 05/22/20 12:45 White Blood Count 7.9 x10^3/uL (4.0-11.0) Red Blood Count 4.52 x10^6/uL (3.50-5.40) Hemoglobin 12.9 g/dL (12.0-15.5) Hematocrit 41.0 % (36.0-47.0) Mean Corpuscular Volume 91 fL (79-100) Mean Corpuscular Hemoglobin 29 pg (25-35) Mean Corpuscular Hemoglobin Concent 32 g/dL (31-37) Red Cell Distribution Width 16.2 % (11.5-14.5) H Platelet Count 275 x10^3/uL (140-400) Neutrophils (%) (Auto) 79 % (31-73) H Lymphocytes (%) (Auto) 10 % (24-48) L Monocytes (%) (Auto) 8 % (0-9) Eosinophils (%) (Auto) 2 % (0-3) Basophils (%) (Auto) 1 % (0-3) Neutrophils # (Auto) 6.3 x10^3uL (1.8-7.7) Lymphocytes # (Auto) 0.8 x10^3/uL (1.0-4.8) L Monocytes # (Auto) 0.6 x10^3/uL (0.0-1.1) Eosinophils # (Auto) 0.2 x10^3/uL (0.0-0.7) Basophils # (Auto) 0.1 x10^3/uL (0.0-0.2) Sodium Level 139 mmol/L (136-145) Potassium Level 4.0 mmol/L (3.5-5.1) Chloride Level 96 mmol/L (98-107) L Carbon Dioxide Level 38 mmol/L (21-32) H Anion Gap 5 (6-14) L Blood Urea Nitrogen 19 mg/dL (7-20) Creatinine 1.0 mg/dL (0.6-1.0) Estimated GFR (Cockcroft-Gault) 52.6 BUN/Creatinine Ratio 19 (6-20) Glucose Level 130 mg/dL (70-99) H Calcium Level 9.2 mg/dL (8.5-10.1) Total Bilirubin 0.3 mg/dL (0.2-1.0) Aspartate Amino Transferase (AST) 22 U/L (15-37) Alanine Aminotransferase (ALT) 13 U/L (14-59) L Alkaline Phosphatase 89 U/L (46-116) Total Protein 7.2 g/dL (6.4-8.2) Albumin 2.7 g/dL (3.4-5.0) L Albumin/Globulin Ratio 0.6 (1.0-1.7) L Current Medications: Meds: Current Medications Medications (Trade) Dose Ordered Sig/Marina Route PRN Reason Start Time Stop Time Status Last Admin Dose Admin Quetiapine Fumarate (SEROquel) 12.5 mg 1300 PO 05/22/20 13:00 05/22/20 12:27 Warfarin Sodium (Coumadin) 4 mg 1X WARF ONCE PO 05/22/20 16:00 05/22/20 16:01 DC 05/22/20 17:11 I have reviewed the current psychotropics carefully including drug interactions. Risk benefit ratio favors no change other than as noted in my dictated progress note. Diagnosis: Problems: (1) Dementia, vascular, with depression (2) Dementia, vascular, with delusions (3) Dementia in Alzheimer's disease with depression (4) Dementia in Alzheimer's disease with delusions (5) Major neurocognitive disorder (6) Dementia in Alzheimer's disease with early onset with behavioral disturbance (7) Major depressive disorder with psychotic features (8) Shortness of breath MARYJO,MAN M MD May 23, 2020 07:11
[2020-05-23] MEDS: MULTIVITAMIN I-VITE TABLET. PO SCH ×2 (08:42→20:20)
[2020-05-23] MEDS: SPIRONOLACTONE 25 MG TABLET PO SCH (08:42)
[2020-05-23] MEDS: CHOLECALCIFEROL (VITAMIN D3) 1,000 UNIT TABLET PO SCH (08:42)
[2020-05-23] MEDS: DIVALPROEX 125 MG CAP.SPRINK PO SCH ×3 (08:42→20:21)
[2020-05-23] MEDS: VITAMIN B COMPLEX CAPSULE. PO SCH (08:42)
[2020-05-23] MEDS: FUROSEMIDE 80 MG TABLET PO SCH ×2 (08:42→16:56)
[2020-05-23] MEDS: IPRATROPIUM/ALBUTEROL 20/100mcg/INH INHALER. INH SCH ×5 (08:43→20:20)
[2020-05-23] MEDS: QUEtiapine 25 MG TABLET. PO SCH ×3 (08:43→16:55)
[2020-05-23] MEDS: KETOROLAC TROMETHAMINE 0.5% OPHTH SOLUTION BOTTLE. OU SCH ×4 (08:43→20:20)
[2020-05-23] MEDS: FLUoxetine HCL 20 MG CAPSULE PO SCH (08:43)
[2020-05-23] MEDS: FLUTICASONE 50MCG/NASAL SPRAY 16GM BOTTLE. NS SCH ×2 (08:43→08:45)
[2020-05-23] MEDS: POLYETHYLENE GLYCOL 3350 17 GM PACKET. PO SCH ×2 (08:43→08:45)
[2020-05-23] MEDS: METHENAMINE HIPPURATE 1 GM TABLET PO SCH ×2 (08:44→20:20)
--- NOTE | 2020-05-23 12:01 | NUR ---
Pharmacy Warfarin Dosing Note S:Pharmacy consulted to assist with anticoagulation therapy started with target INR: 2-2.5 O:ARNULFO KEVIN is a 85 year old F with Atrial Fibrillation LABS: Last INR: 2.6 Last HGB: 12.9 Last HCT: 41 Last PLT: 275 Last dose of 4 mg given on 05/22/20 at 1600 Previous Regimen: Vitamin K given: N Drug Interaction Changes: Same Interacting Drug Ongoing Drug Interactions: FLUOXETINE A:INR Above desired Range. Target Range for this patient is: 2-2.5 P: Warfarin dose: 3.5MG Today at 1600 Bridge Therapy: None Next INR due 05/24/20 @ 0600 Pharmacy anticoagulation service will continue to follow. CURTIS COOPER [facility], 05/23/20 1201
--- NOTE | 2020-05-23 13:47 | NUR ---
Patient has been calm, compliant, and pleasant during this shift. POLICE CAPTAIN SENIOR reports that patient was able to transfer with one person assist and has expressed interest in using a walker. Patient was able to use her inhaler and nasal spray independently; she did require assistance with her eye drops. Patient refused morning inhaler and nasal spray due to concerns that these medications were causing her to develop thrush. Discussed with pharmacy and provided education to patient that the inhaler is not the cause but that the nasal spray is a possible cause. Patient agreed to continue inhaler use. Will continue to monitor and report to oncoming shift.
[2020-05-23 15:32] VITALS: BP 125/67
[2020-05-23] MEDS ORDERED: WARFARIN 2.5 MG TABLET. PO ONE (16:00)
[2020-05-23] MEDS ORDERED: WARFARIN 1 MG TABLET. PO ONE (16:00)
[2020-05-23] MEDS: MIRTAZAPINE 15 MG TABLET PO SCH (20:20)
--- NOTE | 2020-05-23 21:56 | PDOC ---
Exam Note: Derick Note: Please also refer to the separate dictated note~for this date of service dictated separately.~Patient seen individually. Discussed the patient with Nursing staff reviewed the chart.~Reviewed interim history and current functioning. Reviewed vital signs,~Labs/ Radiology~and current medications noted below. Continue current treatment with the changes noted in the dictated addendum note Assessment: Vital Signs/I&O: Vital Signs Date Time Temp Pulse Resp B/P (MAP) Pulse Ox O2 Delivery O2 Flow Rate FiO2 05/23/20 19:53 97.9 05/23/20 15:32 91 18 125/67 (86) 94 6.0 05/22/20 15:30 Nasal Cannula I & O 05/22/20 05/22/20 05/23/20 15:00 23:00 07:00 Intake Total 820 ml 360 ml 50 ml Balance 820 ml 360 ml 50 ml Labs: Laboratory Tests Test 05/23/20 09:03 Prothrombin Time 27.4 SEC (9.4-11.4) H Prothrombin Time INR 2.6 (0.9-1.1) H Current Medications: Meds: Current Medications Medications (Trade) Dose Ordered Sig/Marina Route PRN Reason Start Time Stop Time Status Last Admin Dose Admin Warfarin Sodium (Coumadin) 2.5 mg 1X WARF ONCE PO 05/23/20 16:00 05/23/20 16:01 DC 05/23/20 16:55 Warfarin Sodium (Coumadin) 1 mg 1X WARF ONCE PO 05/23/20 16:00 05/23/20 16:01 DC 05/23/20 16:55 I have reviewed the current psychotropics carefully including drug interactions. Risk benefit ratio favors no change other than as noted in my dictated progress note. Diagnosis: Problems: (1) Dementia, vascular, with depression (2) Dementia, vascular, with delusions (3) Dementia in Alzheimer's disease with depression (4) Dementia in Alzheimer's disease with delusions (5) Major neurocognitive disorder (6) Dementia in Alzheimer's disease with early onset with behavioral disturbance (7) Major depressive disorder with psychotic features (8) Shortness of breath ROHIT SIBLEY MD May 23, 2020 21:56
--- NOTE | 2020-05-23 22:00 | NUR ---
Patient is in her room on assumption of care. She is in pleasant spirits. Calm, cooperative and compliant with medications and assessments. No agitation. Denies any pain or discomfort. Denies SI.
[2020-05-24] MEDS: LEVOTHYROXINE 150 MCG TABLET PO SCH (05:20)
[2020-05-24 06:03] VITALS: BP 132/80
[2020-05-24] MEDS: KETOROLAC TROMETHAMINE 0.5% OPHTH SOLUTION BOTTLE. OU SCH ×4 (08:43→20:21)
[2020-05-24] MEDS: QUEtiapine 25 MG TABLET. PO SCH ×3 (08:43→16:10)
[2020-05-24] MEDS: FLUoxetine HCL 20 MG CAPSULE PO SCH (08:43)
[2020-05-24] MEDS: SPIRONOLACTONE 25 MG TABLET PO SCH (08:43)
[2020-05-24] MEDS: MULTIVITAMIN I-VITE TABLET. PO SCH ×2 (08:43→20:21)
[2020-05-24] MEDS: CHOLECALCIFEROL (VITAMIN D3) 1,000 UNIT TABLET PO SCH (08:43)
[2020-05-24] MEDS: DIVALPROEX 125 MG CAP.SPRINK PO SCH ×3 (08:43→20:22)
[2020-05-24] MEDS: VITAMIN B COMPLEX CAPSULE. PO SCH (08:43)
[2020-05-24] MEDS: METHENAMINE HIPPURATE 1 GM TABLET PO SCH ×2 (08:43→20:22)
[2020-05-24] MEDS: FUROSEMIDE 80 MG TABLET PO SCH ×2 (08:43→16:10)
[2020-05-24] MEDS: POLYETHYLENE GLYCOL 3350 17 GM PACKET. PO SCH (08:44)
[2020-05-24] MEDS: IPRATROPIUM/ALBUTEROL 20/100mcg/INH INHALER. INH SCH ×4 (09:06→20:21)
[2020-05-24] MEDS: FLUTICASONE 50MCG/NASAL SPRAY 16GM BOTTLE. NS SCH (09:06)
--- NOTE | 2020-05-24 11:24 | NUR ---
Nursing note: Pt in her room for morning meds and assessment. She was pleasant, med compliant, and cooperative. Pt continues to c/o bad taste in her mouth. Orders received for nystatin swish and swallow QID x3days. She is currently up in her wheelchair in her room. Will continue to monitor.
[2020-05-24] MEDS: NYSTATIN 100,000 UNITS/ML ORAL SUSPENSION 60ML BOTTLE. SWSW SCH ×3 (12:27→20:22)
--- NOTE | 2020-05-24 12:48 | NUR ---
Pharmacy Warfarin Dosing Note S:Pharmacy consulted to assist with anticoagulation therapy started with target INR: 2-2.5 O:ARNULFO KEVIN is a 85 year old F with Atrial Fibrillation LABS: Last INR: 2.9 Last HGB: 12.9 Last HCT: 41 Last PLT: 275 Last dose of 3.5MG given on 05/23/20 at 1600 Previous Regimen: Vitamin K given: N Drug Interaction Changes: Same Interacting Drug Ongoing Drug Interactions: FLUOXETINE A:INR Above desired Range. Target Range for this patient is: 2-2.5 P: Warfarin dose: Hold Today at 1600 Bridge Therapy: None Next INR due 05/25/20 @ 0600 Pharmacy anticoagulation service will continue to follow. CURTIS COOPER [facility], 05/24/20 0826
[2020-05-24 15:23] VITALS: BP 106/73
[2020-05-24] MEDS: MIRTAZAPINE 15 MG TABLET PO SCH (20:22)
--- NOTE | 2020-05-24 21:52 | NUR ---
On assessment patient is laying in bed. Pt is pleasant and cooperative with staff. Pt compliant with assessment and medications whole. Pt denies no complaints at this time.
--- NOTE | 2020-05-24 21:58 | PDOC ---
Exam Note: Derick Note: Please also refer to the separate dictated note~for this date of service dictated separately.~Patient seen individually. Discussed the patient with Nursing staff reviewed the chart.~Reviewed interim history and current functioning. Reviewed vital signs,~Labs/ Radiology~and current medications noted below. Continue current treatment with the changes noted in the dictated addendum note Assessment: Vital Signs/I&O: Vital Signs Date Time Temp Pulse Resp B/P (MAP) Pulse Ox O2 Delivery O2 Flow Rate FiO2 05/24/20 19:43 97.7 100 Nasal Cannula 6.0 05/24/20 15:23 83 16 106/73 (84) I & O 05/23/20 05/23/20 05/24/20 15:00 23:00 07:00 Intake Total 720 ml 420 ml Balance 720 ml 420 ml Labs: Laboratory Tests Test 05/24/20 09:56 Prothrombin Time 29.6 SEC (9.4-11.4) H Prothrombin Time INR 2.9 (0.9-1.1) H Current Medications: Meds: Current Medications Medications (Trade) Dose Ordered Sig/Marina Route PRN Reason Start Time Stop Time Status Last Admin Dose Admin Nystatin (Mycostatin) 5 ml QID SWSW 05/24/20 13:00 05/27/20 21:00 05/24/20 20:22 I have reviewed the current psychotropics carefully including drug interactions. Risk benefit ratio favors no change other than as noted in my dictated progress note. Diagnosis: Problems: (1) Dementia, vascular, with depression (2) Dementia, vascular, with delusions (3) Dementia in Alzheimer's disease with depression (4) Dementia in Alzheimer's disease with delusions (5) Major neurocognitive disorder (6) Dementia in Alzheimer's disease with early onset with behavioral disturbance (7) Major depressive disorder with psychotic features (8) Shortness of breath ROHIT SIBLEY MD May 24, 2020 21:58
[2020-05-24] MEDS: DICLOFENAC SODIUM 1% TOPICAL GEL 100GM TUBE. TP PRN (22:27)
[2020-05-25] MEDS: LEVOTHYROXINE 150 MCG TABLET PO SCH (05:34)
[2020-05-25 06:28] VITALS: BP 111/71
--- NOTE | 2020-05-25 06:51 | PDOC ---
Exam Note: Derick Note: This note is a late entry for 05/22/2020 covers elements not covered in my initial note. Subjective: The patient was evaluated via telehealth rounds in the evening of 05/22/2020 with Dominique BRITO. Per Dominique RN, she slept 6-1/2 hours previous night. She was irritable in the morning, demanding, later did better. She was threatening staff Ill get my son get me discharged. I addressed this with the patient and then she minimized and explained the above as circumstance related rather than anything specific. She does get frustrated with the COVID- 19 isolation that the unit is currently placed on due to active COVID cases on our unit. Those patients have since been transferred off the unit. Review of Systems: Ambulation impaired but states she is trying to make an effort to transfer on her own. No CV, , eye system symptoms on review. Mental Status Exam: Patient is oriented reasonably. She was pleasant, verbal, interactive, reasonably oriented. No suicidal or homicidal ideation. Abstraction fair. Computation impaired. Language function intact. Attention span is short. Mood and affect remains anxious. Laboratory Data: Reviewed. Impression: Major neurocognitive disorder Alzheimer, vascular with delusion, depression, behavioral disturbance. Anxiety disorder unspecified. Impulse control disorder unspecified. Shortness of breath. Plan: No change from initial note. Assessment: Vital Signs/I&O: Vital Signs Date Time Temp Pulse Resp B/P (MAP) Pulse Ox O2 Delivery O2 Flow Rate FiO2 05/25/20 06:28 98.0 88 20 111/71 (84) 94 Nasal Cannula 6.0 I & O 05/24/20 05/24/20 05/25/20 14:59 22:59 06:59 Intake Total 480 ml 720 ml Balance 480 ml 720 ml Labs: Laboratory Tests Test 05/24/20 09:56 Prothrombin Time 29.6 SEC (9.4-11.4) H Prothrombin Time INR 2.9 (0.9-1.1) H Current Medications: Meds: Current Medications Medications (Trade) Dose Ordered Sig/Marina Route PRN Reason Start Time Stop Time Status Last Admin Dose Admin Nystatin (Mycostatin) 5 ml QID SWSW 05/24/20 13:00 05/27/20 21:00 05/24/20 20:22 I have reviewed the current psychotropics carefully including drug interactions. Risk benefit ratio favors no change other than as noted in my dictated progress note. 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
--- NOTE | 2020-05-25 07:02 | PDOC ---
Exam Note: Derick Note: This note is a late entry for 05/23/2020 covers elements not covered in my initial note. Subjective: The patient was evaluated in the morning of 05/23/2020 with treatment team meeting with Fredo (social service staff) and Lacho BRITO. As before she is trying to do more for herself. She slept 5 hours average but previous night she slept 6-1/2 hours. Review of Systems: Ambulation impaired. No CV, , eye system symptoms on review. Mental Status Exam: Patient is quite verbal, interactive, a little anxious, less fixated on wanting Triavil or Xanax and she did not bring this up during the visit. Speech coherent, rapid at times. Abstraction fair. Computation impaired. Language function intact. Attention span is short. Mood and affect slightly dysphoric with some mood lability but showing some improvement. Laboratory Data: Reviewed. Impression: Major neurocognitive disorder Alzheimer, vascular with delusion, depression, behavioral disturbance. Anxiety disorder unspecified. Impulse control disorder unspecified. Shortness of breath. Plan: No change from initial note. Assessment: Vital Signs/I&O: Vital Signs Date Time Temp Pulse Resp B/P (MAP) Pulse Ox O2 Delivery O2 Flow Rate FiO2 05/25/20 06:28 98.0 88 20 111/71 (84) 94 Nasal Cannula 6.0 I & O 05/24/20 05/24/20 05/25/20 15:00 23:00 07:00 Intake Total 480 ml 720 ml Balance 480 ml 720 ml Labs: Laboratory Tests Test 05/24/20 09:56 Prothrombin Time 29.6 SEC (9.4-11.4) H Prothrombin Time INR 2.9 (0.9-1.1) H Current Medications: Meds: Current Medications Medications (Trade) Dose Ordered Sig/Marina Route PRN Reason Start Time Stop Time Status Last Admin Dose Admin Nystatin (Mycostatin) 5 ml QID SWSW 05/24/20 13:00 05/27/20 21:00 05/24/20 20:22 I have reviewed the current psychotropics carefully including drug interactions. Risk benefit ratio favors no change other than as noted in my dictated progress note. 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
--- NOTE | 2020-05-25 07:15 | PDOC ---
Exam Note: Derick Note: This note is a late entry for 05/24/2020 covers elements not covered in my initial note. Subjective: The patient was evaluated via telehealth rounds in the evening of 05/24/2020 with Emely BRITO taking the camera around. Per Dione BRITO, she slept 6-1/4 hours previous night. Again she is trying to transfer more for herself with 1-person assist. I met with her over her supper and she was very appreciative of the dinner which was steak and potatoes. Review of Systems: Ambulation impaired. No CV, , eye system symptoms on review. Mental Status Exam: As before the patient is quite interactive, not requesting to be placed back on Xanax which is an improvement less obsessive. Speech coh erent. Abstraction fair. Computation impaired. Language function intact. Attention span is short. Mood and affect remains anxious. Laboratory Data: Reviewed. Impression: Major neurocognitive disorder Alzheimer, vascular with delusion, depression, behavioral disturbance. Anxiety disorder unspecified. Impulse control disorder unspecified. Shortness of breath. Plan: We will increase the Seroquel to 12.5 mg t.i.d. Continue the rest psychotropics unchanged. Reviewed risk-benefit ratio and answered the questions. Assessment: Vital Signs/I&O: Vital Signs Date Time Temp Pulse Resp B/P (MAP) Pulse Ox O2 Delivery O2 Flow Rate FiO2 05/25/20 06:28 98.0 88 20 111/71 (84) 94 Nasal Cannula 6.0 I & O 05/24/20 05/24/20 05/25/20 15:00 23:00 07:00 Intake Total 480 ml 720 ml Balance 480 ml 720 ml Labs: Laboratory Tests Test 05/24/20 09:56 Prothrombin Time 29.6 SEC (9.4-11.4) H Prothrombin Time INR 2.9 (0.9-1.1) H Current Medications: Meds: Current Medications Medications (Trade) Dose Ordered Sig/Marina Route PRN Reason Start Time Stop Time Status Last Admin Dose Admin Nystatin (Mycostatin) 5 ml QID SWSW 05/24/20 13:00 05/27/20 21:00 05/24/20 20:22 I have reviewed the current psychotropics carefully including drug interactions. Risk benefit ratio favors no change other than as noted in my dictated progress note. Diagnosis: Problems: (1) Dementia, vascular, with depression (2) Dementia, vascular, with delusions (3) Dementia in Alzheimer's disease with depression (4) Dementia in Alzheimer's disease with delusions (5) Major neurocognitive disorder (6) Dementia in Alzheimer's disease with early onset with behavioral disturbance (7) Major depressive disorder with psychotic features (8) Shortness of breath ROHIT SIBLEY MD May 25, 2020 07:15
[2020-05-25] MEDS: FLUTICASONE 50MCG/NASAL SPRAY 16GM BOTTLE. NS SCH (08:40)
[2020-05-25] MEDS: QUEtiapine 25 MG TABLET. PO SCH ×3 (08:40→16:56)
[2020-05-25] MEDS: CHOLECALCIFEROL (VITAMIN D3) 1,000 UNIT TABLET PO SCH (08:40)
[2020-05-25] MEDS: NYSTATIN 100,000 UNITS/ML ORAL SUSPENSION 60ML BOTTLE. SWSW SCH ×4 (08:40→20:10)
[2020-05-25] MEDS: KETOROLAC TROMETHAMINE 0.5% OPHTH SOLUTION BOTTLE. OU SCH ×4 (08:40→20:10)
[2020-05-25] MEDS: METHENAMINE HIPPURATE 1 GM TABLET PO SCH ×2 (08:40→20:11)
[2020-05-25] MEDS: IPRATROPIUM/ALBUTEROL 20/100mcg/INH INHALER. INH SCH ×4 (08:40→20:09)
[2020-05-25] MEDS: FUROSEMIDE 80 MG TABLET PO SCH ×2 (08:40→16:56)
[2020-05-25] MEDS: SPIRONOLACTONE 25 MG TABLET PO SCH (08:41)
[2020-05-25] MEDS: DIVALPROEX 125 MG CAP.SPRINK PO SCH ×3 (08:41→20:11)
[2020-05-25] MEDS: VITAMIN B COMPLEX CAPSULE. PO SCH (08:41)
[2020-05-25] MEDS: FLUoxetine HCL 20 MG CAPSULE PO SCH (08:41)
[2020-05-25] MEDS: MULTIVITAMIN I-VITE TABLET. PO SCH ×2 (08:41→20:11)
[2020-05-25] MEDS: POLYETHYLENE GLYCOL 3350 17 GM PACKET. PO SCH (08:41)
--- NOTE | 2020-05-25 10:34 | NUR ---
Nursing note: Pt in bed eating breakfast when approached for morning meds and assessment. She was pleasant, med compliant, and cooperative. She has no complaints at this time. She is currently sleeping. Will continue to monitor.
--- NOTE | 2020-05-25 12:30 | NUR ---
Pharmacy Warfarin Dosing Note S:Pharmacy consulted to assist with anticoagulation therapy started with target INR: 2-2.5 O:ARNULFO KEVIN is a 85 year old F with Atrial Fibrillation LABS: Last INR: 2.8 Last HGB: 12.9 Last HCT: 41 Last PLT: 275 Last dose of Hold (ZERO) given on 05/24/20 at 1600 Previous Regimen: Vitamin K given: N Drug Interaction Changes: Same Interacting Drug Ongoing Drug Interactions: FLUOXETINE A:INR Above desired Range. Target Range for this patient is: 2-2.5 P: Warfarin dose: Hold Today at 1600 Bridge Therapy: None Next INR due 05/26/20 Pharmacy anticoagulation service will continue to follow. VERNON VALDEZ, 05/25/20 [id number]
[2020-05-25 15:27] VITALS: BP 100/69
[2020-05-25] MEDS: MIRTAZAPINE 15 MG TABLET PO SCH (20:11)
--- NOTE | 2020-05-25 21:59 | PDOC ---
Exam Note: Derick Note: Please also refer to the separate dictated note~for this date of service dictated separately.~Patient seen individually. Discussed the patient with Nursing staff reviewed the chart.~Reviewed interim history and current functioning. Reviewed vital signs,~Labs/ Radiology~and current medications noted below. Continue current treatment with the changes noted in the dictated addendum note Assessment: Vital Signs/I&O: Vital Signs Date Time Temp Pulse Resp B/P (MAP) Pulse Ox O2 Delivery O2 Flow Rate FiO2 05/25/20 20:28 98.0 96 High Flow Nasal Cannula 6.0 05/25/20 15:27 77 18 100/69 (79) I & O 05/24/20 05/24/20 05/25/20 15:00 23:00 07:00 Intake Total 480 ml 720 ml Balance 480 ml 720 ml Labs: Laboratory Tests Test 05/25/20 09:44 Prothrombin Time 28.9 SEC (9.4-11.4) H Prothrombin Time INR 2.8 (0.9-1.1) H Current Medications: I have reviewed the current psychotropics carefully including drug interactions. Risk benefit ratio favors no change other than as noted in my dictated progress note. Diagnosis: Problems: (1) Dementia, vascular, with depression (2) Dementia, vascular, with delusions (3) Dementia in Alzheimer's disease with depression (4) Dementia in Alzheimer's disease with delusions (5) Major neurocognitive disorder (6) Dementia in Alzheimer's disease with early onset with behavioral disturbance (7) Major depressive disorder with psychotic features (8) Shortness of breath ROHIT SIBLEY MD May 25, 2020 21:59
--- NOTE | 2020-05-26 02:36 | NUR ---
Pt has been in bed this shift. She took meds whole without difficulty and has had no complaints tonight. She has not slept much and was offered PRN meds for sleep but she refused saying she does not want to take anything for sleep.
[2020-05-26 04:59] VITALS: BP 121/74
[2020-05-26] MEDS: LEVOTHYROXINE 150 MCG TABLET PO SCH (05:26)
[2020-05-26] MEDS: IPRATROPIUM/ALBUTEROL 20/100mcg/INH INHALER. INH SCH ×5 (08:55→20:28)
[2020-05-26] MEDS: METHENAMINE HIPPURATE 1 GM TABLET PO SCH ×2 (08:55→20:29)
[2020-05-26] MEDS: NYSTATIN 100,000 UNITS/ML ORAL SUSPENSION 60ML BOTTLE. SWSW SCH ×4 (08:55→20:28)
[2020-05-26] MEDS: POLYETHYLENE GLYCOL 3350 17 GM PACKET. PO SCH ×2 (08:55→09:00)
[2020-05-26] MEDS: VITAMIN B COMPLEX CAPSULE. PO SCH (08:55)
[2020-05-26] MEDS: KETOROLAC TROMETHAMINE 0.5% OPHTH SOLUTION BOTTLE. OU SCH ×5 (08:55→20:28)
[2020-05-26] MEDS: DIVALPROEX 125 MG CAP.SPRINK PO SCH ×3 (08:56→20:28)
[2020-05-26] MEDS: FUROSEMIDE 80 MG TABLET PO SCH ×2 (08:56→17:08)
[2020-05-26] MEDS: FLUoxetine HCL 20 MG CAPSULE PO SCH (08:56)
[2020-05-26] MEDS: CHOLECALCIFEROL (VITAMIN D3) 1,000 UNIT TABLET PO SCH (08:56)
[2020-05-26] MEDS: MULTIVITAMIN I-VITE TABLET. PO SCH ×2 (08:56→20:29)
[2020-05-26] MEDS: QUEtiapine 25 MG TABLET. PO SCH ×3 (08:56→17:08)
[2020-05-26] MEDS: SPIRONOLACTONE 25 MG TABLET PO SCH (08:56)
[2020-05-26] MEDS: FLUTICASONE 50MCG/NASAL SPRAY 16GM BOTTLE. NS SCH (08:57)
--- NOTE | 2020-05-26 12:38 | NUR ---
PINKY contacted Jennifer at [facility] to discuss how pt is doing. PINKY went over having pt swabbed again over the weekend and looking at discharges for Jun 01 and for pts to return to placement. PINKY and Jennifer went over the dates pt was tested and she will contact PINKY with which date is most appropriate and any request if any from their DON. PINKY did let Jennifer know that SW would be out next week; however, she would be able to contact Catina with those plans.
--- NOTE | 2020-05-26 13:20 | NUR ---
Patient is drowsy this morning. States she did not sleep well. Compliant with medications. Pt is cooperative and compliant. Sleeping in bed most of day, not wanting to get up. WCTM.
[2020-05-26 15:04] VITALS: BP 113/77
[2020-05-26] MEDS ORDERED: WARFARIN 4 MG TABLET. PO ONE (16:00)
--- NOTE | 2020-05-26 17:04 | NUR ---
Pharmacy Warfarin Dosing Note S:Pharmacy consulted to assist with anticoagulation therapy with target INR: 2-2.5 O:ARNULFO KEVIN is a 85 year old F with Atrial Fibrillation LABS: Last INR: 1.7 Last HGB: 12.9 Last HCT: 41 Last PLT: 275 Last dose of Hold given on 05/24/20 at 1600 Vitamin K given: N Drug Interaction Changes: Same Interacting Drug Ongoing Drug Interactions: FLUOXETINE A:INR Below desired Range. Target Range for this patient is: 2-2.5 P: Warfarin dose: 4 mg Today at 1600 MARYLIN PETERSEN, 05/26/20 1709
[2020-05-26] MEDS ORDERED: NYSTATIN TOPICAL POWDER 15GM BOTTLE. TP PRN (17:30)
[2020-05-26] MEDS: MIRTAZAPINE 15 MG TABLET PO SCH (20:29)
--- NOTE | 2020-05-26 21:56 | PDOC ---
Exam Note: Derick Note: Please also refer to the separate dictated note~for this date of service dictated separately.~Patient seen individually. Discussed the patient with Nursing staff reviewed the chart.~Reviewed interim history and current functioning. Reviewed vital signs,~Labs/ Radiology~and current medications noted below. Continue current treatment with the changes noted in the dictated addendum note Assessment: Vital Signs/I&O: Vital Signs Date Time Temp Pulse Resp B/P (MAP) Pulse Ox O2 Delivery O2 Flow Rate FiO2 05/26/20 20:17 98.5 96 High Flow Nasal Cannula 6.0 05/26/20 15:04 78 20 113/77 (89) I & O 05/25/20 05/25/20 05/26/20 14:59 22:59 06:59 Intake Total 480 ml 360 ml Balance 480 ml 360 ml Labs: Laboratory Tests Test 05/26/20 07:40 Prothrombin Time 17.9 SEC (9.4-11.4) H Prothrombin Time INR 1.7 (0.9-1.1) H Current Medications: Meds: Current Medications Medications (Trade) Dose Ordered Sig/Marina Route PRN Reason Start Time Stop Time Status Last Admin Dose Admin Warfarin Sodium (Coumadin) 4 mg 1X WARF ONCE PO 05/26/20 16:00 05/26/20 16:01 DC 05/26/20 17:09 I have reviewed the current psychotropics carefully including drug interactions. Risk benefit ratio favors no change other than as noted in my dictated progress note. Diagnosis: Problems: (1) Dementia, vascular, with depression (2) Dementia, vascular, with delusions (3) Dementia in Alzheimer's disease with depression (4) Dementia in Alzheimer's disease with delusions (5) Major neurocognitive disorder (6) Dementia in Alzheimer's disease with early onset with behavioral disturbance (7) Major depressive disorder with psychotic features (8) Shortness of breath ROHIT SIBLEY MD May 26, 2020 21:56
--- NOTE | 2020-05-27 05:06 | NUR ---
Nursing Note The patient was calm and compliant with all cares and medication this shift. The patient is currently sleeping in her room.
[2020-05-27] MEDS: LEVOTHYROXINE 150 MCG TABLET PO SCH (05:27)
[2020-05-27 05:50] VITALS: BP 165/88
--- NOTE | 2020-05-27 07:07 | PDOC ---
Exam Note: Derick Note: This note is a late entry for 05/25/2020 covers elements not covered in my initial note. Subjective: The patient was evaluated via telehealth rounds in the evening of 05/25/2020 with nursing staff. Per Dione BRITO, she slept 5 hours previous night, quite pleasant. I met with her in her room. Review of Systems: Ambulation impaired. Complains of some tiredness, weakness, shortness of breath on O2 supplements. No CV, GI/, eye system symptoms on review. Mental Status Exam: She was quite verbal, animated. Speech coherent. Abstraction fair. Computation impaired. Language function intact. Attention span is short. Mood and affect remains anxious. Laboratory Data: Reviewed. Impression: Major neurocognitive disorder Alzheimer, vascular with delusion, depression, behavioral disturbance. Anxiety disorder unspecified. Impulse control disorder unspecified. Shortness of breath. Plan: Continue the rest psychotropics unchanged. Assessment: Vital Signs/I&O: Vital Signs Date Time Temp Pulse Resp B/P (MAP) Pulse Ox O2 Delivery O2 Flow Rate FiO2 05/27/20 05:50 98.1 94 20 165/88 (113) 94 6.0 05/26/20 20:17 High Flow Nasal Cannula I & O 05/26/20 05/26/20 05/27/20 15:00 23:00 07:00 Intake Total 480 ml 480 ml Balance 480 ml 480 ml Labs: Laboratory Tests Test 05/26/20 07:40 Prothrombin Time 17.9 SEC (9.4-11.4) H Prothrombin Time INR 1.7 (0.9-1.1) H Current Medications: Meds: Current Medications Medications (Trade) Dose Ordered Sig/Marina Route PRN Reason Start Time Stop Time Status Last Admin Dose Admin Warfarin Sodium (Coumadin) 4 mg 1X WARF ONCE PO 05/26/20 16:00 05/26/20 16:01 DC 05/26/20 17:09 I have reviewed the current psychotropics carefully including drug interactions. Risk benefit ratio favors no change other than as noted in my dictated progress note. Diagnosis: Problems: (1) Dementia, vascular, with depression (2) Dementia, vascular, with delusions (3) Dementia in Alzheimer's disease with depression (4) Dementia in Alzheimer's disease with delusions (5) Major neurocognitive disorder (6) Dementia in Alzheimer's disease with early onset with behavioral disturbance (7) Major depressive disorder with psychotic features (8) Shortness of breath ROHIT SIBLEY MD May 27, 2020 07:07
--- NOTE | 2020-05-27 07:15 | PDOC ---
Exam Note: Derick Note: This note is a late entry for 05/26/2020 covers elements not covered in my initial note. Subjective: The patient was evaluated via telehealth rounds in the evening of 05/26/2020 with nursing staff. Per Nixon BRITO, she slept reasonably previous night. Today she does complain of feeling tired but states she will feel better when she has had something to eat. Review of Systems: Ambulation impaired, lying in bed. Shortness of breath on O2 supplements. No CV, , eye system symptoms on review. Mental Status Exam: The patient was not very verbal and interactive today, otherwise, oriented. Speech coherent, has some latency. She is otherwise pleasant. Abstraction fair. Computation impaired. Language function intact. Mood is somewhat dysphoric, tired. No suicidal or homicidal ideation. Laboratory Data: Reviewed. Impression: Major neurocognitive disorder Alzheimer, vascular with delusion, depression, behavioral disturbance. Anxiety disorder unspecified. Impulse control disorder unspecified. Shortness of breath. Plan: No change from initial note. We will monitor her vitals. There has been COVID-19 exposure on the unit and we will watch her carefully for any symptoms. Assessment: Vital Signs/I&O: Vital Signs Date Time Temp Pulse Resp B/P (MAP) Pulse Ox O2 Delivery O2 Flow Rate FiO2 05/27/20 05:50 98.1 94 20 165/88 (113) 94 6.0 05/26/20 20:17 High Flow Nasal Cannula I & O 05/26/20 05/26/20 05/27/20 15:00 23:00 07:00 Intake Total 480 ml 480 ml Balance 480 ml 480 ml Labs: Laboratory Tests Test 05/26/20 07:40 Prothrombin Time 17.9 SEC (9.4-11.4) H Prothrombin Time INR 1.7 (0.9-1.1) H Current Medications: Meds: Current Medications Medications (Trade) Dose Ordered Sig/Marina Route PRN Reason Start Time Stop Time Status Last Admin Dose Admin Warfarin Sodium (Coumadin) 4 mg 1X WARF ONCE PO 05/26/20 16:00 05/26/20 16:01 DC 05/26/20 17:09 I have reviewed the current psychotropics carefully including drug interactions. Risk benefit ratio favors no change other than as noted in my dictated progress note. Diagnosis: Problems: (1) Dementia, vascular, with depression (2) Dementia, vascular, with delusions (3) Dementia in Alzheimer's disease with depression (4) Dementia in Alzheimer's disease with delusions (5) Major neurocognitive disorder (6) Dementia in Alzheimer's disease with early onset with behavioral disturbance (7) Major depressive disorder with psychotic features (8) Shortness of breath ROHIT SIBLEY MD May 27, 2020 07:15
[2020-05-27] MEDS: CHOLECALCIFEROL (VITAMIN D3) 1,000 UNIT TABLET PO SCH (08:45)
[2020-05-27] MEDS: FUROSEMIDE 80 MG TABLET PO SCH ×2 (08:45→16:19)
[2020-05-27] MEDS: POLYETHYLENE GLYCOL 3350 17 GM PACKET. PO SCH (08:45)
[2020-05-27] MEDS: SPIRONOLACTONE 25 MG TABLET PO SCH (08:45)
[2020-05-27] MEDS: DIVALPROEX 125 MG CAP.SPRINK PO SCH ×3 (08:46→20:17)
[2020-05-27] MEDS: MULTIVITAMIN I-VITE TABLET. PO SCH ×2 (08:46→20:18)
[2020-05-27] MEDS: QUEtiapine 25 MG TABLET. PO SCH ×3 (08:46→16:19)
[2020-05-27] MEDS: VITAMIN B COMPLEX CAPSULE. PO SCH (08:46)
[2020-05-27] MEDS: FLUoxetine HCL 20 MG CAPSULE PO SCH (08:46)
[2020-05-27] MEDS: METHENAMINE HIPPURATE 1 GM TABLET PO SCH ×2 (08:47→20:17)
[2020-05-27] MEDS: IPRATROPIUM/ALBUTEROL 20/100mcg/INH INHALER. INH SCH ×4 (08:47→20:16)
[2020-05-27] MEDS: NYSTATIN 100,000 UNITS/ML ORAL SUSPENSION 60ML BOTTLE. SWSW SCH ×4 (08:47→20:18)
[2020-05-27] MEDS: FLUTICASONE 50MCG/NASAL SPRAY 16GM BOTTLE. NS SCH (08:47)
[2020-05-27] MEDS: KETOROLAC TROMETHAMINE 0.5% OPHTH SOLUTION BOTTLE. OU SCH ×4 (08:47→20:16)
--- NOTE | 2020-05-27 11:04 | NUR ---
Nursing note: Pt in her room for morning meds and assessment. She was pleasant, med compliant, and cooperative. Pt had no complaints at time of assessment and is currently laying quietly in her bed. Will continue to monitor.
[2020-05-27 16:03] VITALS: BP 108/65
[2020-05-27] MEDS: MIRTAZAPINE 15 MG TABLET PO SCH (20:17)
[2020-05-27] MEDS: APIXABAN 5 MG TABLET. PO SCH (20:17)
--- NOTE | 2020-05-27 21:57 | PDOC ---
Exam Note: Derick Note: Please also refer to the separate dictated note~for this date of service dictated separately.~Patient seen individually. Discussed the patient with Nursing staff reviewed the chart.~Reviewed interim history and current functioning. Reviewed vital signs,~Labs/ Radiology~and current medications noted below. Continue current treatment with the changes noted in the dictated addendum note Assessment: Vital Signs/I&O: Vital Signs Date Time Temp Pulse Resp B/P (MAP) Pulse Ox O2 Delivery O2 Flow Rate FiO2 05/27/20 20:31 98.0 98 Nasal Cannula 6.0 05/27/20 16:03 81 18 108/65 (79) I & O 05/26/20 05/26/20 05/27/20 15:00 23:00 07:00 Intake Total 480 ml 480 ml Balance 480 ml 480 ml Labs: Laboratory Tests Test 05/27/20 17:35 Prothrombin Time 15.8 SEC (9.4-11.4) H Prothrombin Time INR 1.5 (0.9-1.1) H Current Medications: Meds: Current Medications Medications (Trade) Dose Ordered Sig/Marina Route PRN Reason Start Time Stop Time Status Last Admin Dose Admin Apixaban (Eliquis) 5 mg BID PO 05/27/20 21:00 05/27/20 20:17 I have reviewed the current psychotropics carefully including drug interactions. Risk benefit ratio favors no change other than as noted in my dictated progress note. Diagnosis: Problems: (1) Dementia, vascular, with depression (2) Dementia, vascular, with delusions (3) Dementia in Alzheimer's disease with depression (4) Dementia in Alzheimer's disease with delusions (5) Major neurocognitive disorder (6) Dementia in Alzheimer's disease with early onset with behavioral disturbance (7) Major depressive disorder with psychotic features (8) Shortness of breath ROHIT SIBLEY MD May 27, 2020 21:57
--- NOTE | 2020-05-27 22:36 | NUR ---
Patient is in her room on assumption of care. She is in pleasant spirits. Calm, cooperative and compliant with assessments and medications taken whole. No agitation. Denies pain or discomfort. Denies SI. Patient appears to be sleeping comfortably at present time. Will continue to monitor.
[2020-05-28] MEDS: LEVOTHYROXINE 150 MCG TABLET PO SCH (05:16)
[2020-05-28 05:50] VITALS: BP 134/80
[2020-05-28] MEDS: IPRATROPIUM/ALBUTEROL 20/100mcg/INH INHALER. INH SCH ×4 (08:00→19:46)
[2020-05-28] MEDS: KETOROLAC TROMETHAMINE 0.5% OPHTH SOLUTION BOTTLE. OU SCH ×4 (08:38→19:47)
[2020-05-28] MEDS: FLUTICASONE 50MCG/NASAL SPRAY 16GM BOTTLE. NS SCH (08:38)
[2020-05-28] MEDS: VITAMIN B COMPLEX CAPSULE. PO SCH (08:40)
[2020-05-28] MEDS: APIXABAN 5 MG TABLET. PO SCH ×2 (08:40→19:47)
[2020-05-28] MEDS: MULTIVITAMIN I-VITE TABLET. PO SCH ×2 (08:40→19:47)
[2020-05-28] MEDS: DIVALPROEX 125 MG CAP.SPRINK PO SCH ×3 (08:40→19:48)
[2020-05-28] MEDS: SPIRONOLACTONE 25 MG TABLET PO SCH (08:40)
[2020-05-28] MEDS: METHENAMINE HIPPURATE 1 GM TABLET PO SCH ×2 (08:40→19:47)
[2020-05-28] MEDS: FUROSEMIDE 80 MG TABLET PO SCH ×2 (08:41→17:03)
[2020-05-28] MEDS: FLUoxetine HCL 20 MG CAPSULE PO SCH (08:41)
[2020-05-28] MEDS: POLYETHYLENE GLYCOL 3350 17 GM PACKET. PO SCH (08:41)
[2020-05-28] MEDS: CHOLECALCIFEROL (VITAMIN D3) 1,000 UNIT TABLET PO SCH (08:42)
[2020-05-28] MEDS: QUEtiapine 25 MG TABLET. PO SCH ×3 (08:42→17:03)
--- NOTE | 2020-05-28 09:42 | NUR ---
Pt is calm, cooperative, compliant, no agitation, no aggression, no hallucinations, no delusions noted. She is compliant with her medications and assessment.
[2020-05-28 09:56] LABS: BASO % 1 % (0-3); EOS # 0.1 x10^3/uL (0.0-0.7); EOS % 2 % (0-3); HEMATOCRIT 36.2 % (36.0-47.0); HEMOGLOBIN 11.7 g/dL (12.0-15.5); LYMPH # 0.8 x10^3/uL (1.0-4.8); LYMPH % 13 % (24-48); MEAN CORPUSCULAR HEMOGLOBIN 29 pg (25-35); MEAN CORPUSCULAR HGB CONC 32 g/dL (31-37); MEAN CORPUSCULAR VOLUME 91 fL (79-100); MONO # 0.6 x10^3/uL (0.0-1.1); MONO % 9 % (0-9); NEUT % 76 % (31-73); PLATELET COUNT 237 x10^3/uL (140-400); RED CELL DISTRIBUTION WIDTH 15.4 % (11.5-14.5); WHITE BLOOD COUNT 6.6 x10^3/uL (4.0-11.0)
[2020-05-28 10:14] LABS: ALBUMIN 2.4 g/dL (3.4-5.0); ALBUMIN/GLOBULIN RATIO 0.6 (1.0-1.7); CREATININE 1.2 mg/dL (0.6-1.0); GFR 42.6; POTASSIUM 3.8 mmol/L (3.5-5.1); TOTAL BILIRUBIN 0.3 mg/dL (0.2-1.0); TOTAL PROTEIN 6.5 g/dL (6.4-8.2)
[2020-05-28 15:58] VITALS: BP 121/77
[2020-05-28] MEDS: MIRTAZAPINE 15 MG TABLET PO SCH (19:47)
--- NOTE | 2020-05-28 21:59 | PDOC ---
Exam Note: Derick Note: Please also refer to the separate dictated note~for this date of service dictated separately.~Patient seen individually. Discussed the patient with Nursing staff reviewed the chart.~Reviewed interim history and current functioning. Reviewed vital signs,~Labs/ Radiology~and current medications noted below. Continue current treatment with the changes noted in the dictated addendum note Assessment: Vital Signs/I&O: Vital Signs Date Time Temp Pulse Resp B/P (MAP) Pulse Ox O2 Delivery O2 Flow Rate FiO2 05/28/20 20:00 98.4 05/28/20 15:58 86 18 121/77 (92) 98 05/28/20 08:43 Nasal Cannula 6.0 I & O 05/27/20 05/27/20 05/28/20 15:00 23:00 07:00 Intake Total 480 ml 720 ml Balance 480 ml 720 ml Labs: Laboratory Tests Test 05/28/20 09:25 White Blood Count 6.6 x10^3/uL (4.0-11.0) Red Blood Count 4.00 x10^6/uL (3.50-5.40) Hemoglobin 11.7 g/dL (12.0-15.5) L Hematocrit 36.2 % (36.0-47.0) Mean Corpuscular Volume 91 fL (79-100) Mean Corpuscular Hemoglobin 29 pg (25-35) Mean Corpuscular Hemoglobin Concent 32 g/dL (31-37) Red Cell Distribution Width 15.4 % (11.5-14.5) H Platelet Count 237 x10^3/uL (140-400) Neutrophils (%) (Auto) 76 % (31-73) H Lymphocytes (%) (Auto) 13 % (24-48) L Monocytes (%) (Auto) 9 % (0-9) Eosinophils (%) (Auto) 2 % (0-3) Basophils (%) (Auto) 1 % (0-3) Neutrophils # (Auto) 5.0 x10^3uL (1.8-7.7) Lymphocytes # (Auto) 0.8 x10^3/uL (1.0-4.8) L Monocytes # (Auto) 0.6 x10^3/uL (0.0-1.1) Eosinophils # (Auto) 0.1 x10^3/uL (0.0-0.7) Basophils # (Auto) 0.0 x10^3/uL (0.0-0.2) Sodium Level 139 mmol/L (136-145) Potassium Level 3.8 mmol/L (3.5-5.1) Chloride Level 96 mmol/L (98-107) L Carbon Dioxide Level 41 mmol/L (21-32) H Anion Gap 2 (6-14) L Blood Urea Nitrogen 20 mg/dL (7-20) Creatinine 1.2 mg/dL (0.6-1.0) H Estimated GFR (Cockcroft-Gault) 42.6 BUN/Creatinine Ratio 17 (6-20) Glucose Level 121 mg/dL (70-99) H Calcium Level 9.0 mg/dL (8.5-10.1) Total Bilirubin 0.3 mg/dL (0.2-1.0) Aspartate Amino Transferase (AST) 21 U/L (15-37) Alanine Aminotransferase (ALT) 10 U/L (14-59) L Alkaline Phosphatase 79 U/L (46-116) Total Protein 6.5 g/dL (6.4-8.2) Albumin 2.4 g/dL (3.4-5.0) L Albumin/Globulin Ratio 0.6 (1.0-1.7) L Current Medications: I have reviewed the current psychotropics carefully including drug interactions. Risk benefit ratio favors no change other than as noted in my dictated progress note. Diagnosis: Problems: (1) Dementia, vascular, with depression (2) Dementia, vascular, with delusions (3) Dementia in Alzheimer's disease with depression (4) Dementia in Alzheimer's disease with delusions (5) Major neurocognitive disorder (6) Dementia in Alzheimer's disease with early onset with behavioral disturbance (7) Major depressive disorder with psychotic features (8) Shortness of breath ROHIT SIBLEY MD May 28, 2020 21:59
--- NOTE | 2020-05-28 22:00 | NUR ---
Patient is in her room on assumption of care, sitting in her wheelchair. She is in pleasant spirits. Calm, cooperative and compliant with assessments and medications taken whole. No agitation. Denies any pain or discomfort. Denies SI. Patient appears to be sleeping comfortably at present time. Will continue to monitor.
[2020-05-29] MEDS: LEVOTHYROXINE 150 MCG TABLET PO SCH (05:15)
[2020-05-29 06:03] VITALS: BP 145/77
--- NOTE | 2020-05-29 06:54 | PDOC ---
Exam Note: Derick Note: This note is a late entry for 05/27/2020 covers elements not covered in my initial note. Subjective: The patient was evaluated via telehealth rounds in the evening of 05/27/2020 with Dione BRITO. Per Dione BRITO, she slept 7-1/2 hours previous night. She has been pleasant, cooperative. Review of Systems: Ambulation impaired. She remains in bed. No CV, , eye system symptoms on review. Mental Status Exam: The patient is reasonably oriented. Speech coherent, has some latency. Abstraction fair. Computation impaired. Language function intact. Mood and affect is improved. Laboratory Data: Reviewed. Impression: Major neurocognitive disorder Alzheimer, vascular with delusion, de pression, behavioral disturbance. Anxiety disorder unspecified. Impulse control disorder unspecified. Plan: No change from initial note. Assessment: Vital Signs/I&O: Vital Signs Date Time Temp Pulse Resp B/P (MAP) Pulse Ox O2 Delivery O2 Flow Rate FiO2 05/29/20 06:03 98.2 89 20 145/77 (99) 96 Nasal Cannula 6.0 I & O 05/28/20 05/28/20 05/29/20 14:59 22:59 06:59 Intake Total 460 ml 600 ml Balance 460 ml 600 ml Labs: Laboratory Tests Test 05/28/20 09:25 White Blood Count 6.6 x10^3/uL (4.0-11.0) Red Blood Count 4.00 x10^6/uL (3.50-5.40) Hemoglobin 11.7 g/dL (12.0-15.5) L Hematocrit 36.2 % (36.0-47.0) Mean Corpuscular Volume 91 fL (79-100) Mean Corpuscular Hemoglobin 29 pg (25-35) Mean Corpuscular Hemoglobin Concent 32 g/dL (31-37) Red Cell Distribution Width 15.4 % (11.5-14.5) H Platelet Count 237 x10^3/uL (140-400) Neutrophils (%) (Auto) 76 % (31-73) H Lymphocytes (%) (Auto) 13 % (24-48) L Monocytes (%) (Auto) 9 % (0-9) Eosinophils (%) (Auto) 2 % (0-3) Basophils (%) (Auto) 1 % (0-3) Neutrophils # (Auto) 5.0 x10^3uL (1.8-7.7) Lymphocytes # (Auto) 0.8 x10^3/uL (1.0-4.8) L Monocytes # (Auto) 0.6 x10^3/uL (0.0-1.1) Eosinophils # (Auto) 0.1 x10^3/uL (0.0-0.7) Basophils # (Auto) 0.0 x10^3/uL (0.0-0.2) Sodium Level 139 mmol/L (136-145) Potassium Level 3.8 mmol/L (3.5-5.1) Chloride Level 96 mmol/L (98-107) L Carbon Dioxide Level 41 mmol/L (21-32) H Anion Gap 2 (6-14) L Blood Urea Nitrogen 20 mg/dL (7-20) Creatinine 1.2 mg/dL (0.6-1.0) H Estimated GFR (Cockcroft-Gault) 42.6 BUN/Creatinine Ratio 17 (6-20) Glucose Level 121 mg/dL (70-99) H Calcium Level 9.0 mg/dL (8.5-10.1) Total Bilirubin 0.3 mg/dL (0.2-1.0) Aspartate Amino Transferase (AST) 21 U/L (15-37) Alanine Aminotransferase (ALT) 10 U/L (14-59) L Alkaline Phosphatase 79 U/L (46-116) Total Protein 6.5 g/dL (6.4-8.2) Albumin 2.4 g/dL (3.4-5.0) L Albumin/Globulin Ratio 0.6 (1.0-1.7) L Current Medications: I have reviewed the current psychotropics carefully including drug interactions. Risk benefit ratio favors no change other than as noted in my dictated progress note. Diagnosis: Problems: (1) Dementia, vascular, with depression (2) Dementia, vascular, with delusions (3) Dementia in Alzheimer's disease with depression (4) Dementia in Alzheimer's disease with delusions (5) Major neurocognitive disorder (6) Dementia in Alzheimer's disease with early onset with behavioral disturbance (7) Major depressive disorder with psychotic features (8) Shortness of breath ROHIT SIBLEY MD May 29, 2020 06:54
--- NOTE | 2020-05-29 07:12 | PDOC ---
Exam Note: Derick Note: This note is a late entry for 05/28/2020 covers elements not covered in my initial note. Subjective: The patient was evaluated via telehealth rounds in the evening of 05/28/2020 with Dominique BRITO. Per Dominique, she slept 6-3/4 hours previous night. She has been pleasant, cooperative. No overt behaviors, does seem a little withdrawn at times but denies being depressed when I questioned her individually. Review of Systems: Ambulation impaired, lying in bed. No CV, , eye system symptoms on review. Mental Status Exam: Oriented reasonably. Speech coherent, has some latency. She is otherwise pleasant. Abstraction fair. Computation impaired. Language function intact. Mood and affect improved. No suicidal or homicidal ideation. Laboratory Data: Reviewed. Impression: Major neurocognitive disorder Alzheimer, vascular with delusion, depression, behavioral disturbance. Anxiety disorder unspecified. Impulse control disorder unspecified. Shortness of breath. Plan: No change from initial note. Assessment: Vital Signs/I&O: Vital Signs Date Time Temp Pulse Resp B/P (MAP) Pulse Ox O2 Delivery O2 Flow Rate FiO2 05/29/20 06:03 98.2 89 20 145/77 (99) 96 Nasal Cannula 6.0 I & O 05/28/20 05/28/20 05/29/20 15:00 23:00 07:00 Intake Total 460 ml 600 ml Balance 460 ml 600 ml Labs: Laboratory Tests Test 05/28/20 09:25 White Blood Count 6.6 x10^3/uL (4.0-11.0) Red Blood Count 4.00 x10^6/uL (3.50-5.40) Hemoglobin 11.7 g/dL (12.0-15.5) L Hematocrit 36.2 % (36.0-47.0) Mean Corpuscular Volume 91 fL (79-100) Mean Corpuscular Hemoglobin 29 pg (25-35) Mean Corpuscular Hemoglobin Concent 32 g/dL (31-37) Red Cell Distribution Width 15.4 % (11.5-14.5) H Platelet Count 237 x10^3/uL (140-400) Neutrophils (%) (Auto) 76 % (31-73) H Lymphocytes (%) (Auto) 13 % (24-48) L Monocytes (%) (Auto) 9 % (0-9) Eosinophils (%) (Auto) 2 % (0-3) Basophils (%) (Auto) 1 % (0-3) Neutrophils # (Auto) 5.0 x10^3uL (1.8-7.7) Lymphocytes # (Auto) 0.8 x10^3/uL (1.0-4.8) L Monocytes # (Auto) 0.6 x10^3/uL (0.0-1.1) Eosinophils # (Auto) 0.1 x10^3/uL (0.0-0.7) Basophils # (Auto) 0.0 x10^3/uL (0.0-0.2) Sodium Level 139 mmol/L (136-145) Potassium Level 3.8 mmol/L (3.5-5.1) Chloride Level 96 mmol/L (98-107) L Carbon Dioxide Level 41 mmol/L (21-32) H Anion Gap 2 (6-14) L Blood Urea Nitrogen 20 mg/dL (7-20) Creatinine 1.2 mg/dL (0.6-1.0) H Estimated GFR (Cockcroft-Gault) 42.6 BUN/Creatinine Ratio 17 (6-20) Glucose Level 121 mg/dL (70-99) H Calcium Level 9.0 mg/dL (8.5-10.1) Total Bilirubin 0.3 mg/dL (0.2-1.0) Aspartate Amino Transferase (AST) 21 U/L (15-37) Alanine Aminotransferase (ALT) 10 U/L (14-59) L Alkaline Phosphatase 79 U/L (46-116) Total Protein 6.5 g/dL (6.4-8.2) Albumin 2.4 g/dL (3.4-5.0) L Albumin/Globulin Ratio 0.6 (1.0-1.7) L Current Medications: I have reviewed the current psychotropics carefully including drug interactions. Risk benefit ratio favors no change other than as noted in my dictated progress note. Diagnosis: Problems: (1) Dementia, vascular, with depression (2) Dementia, vascular, with delusions (3) Dementia in Alzheimer's disease with depression (4) Dementia in Alzheimer's disease with delusions (5) Major neurocognitive disorder (6) Dementia in Alzheimer's disease with early onset with behavioral disturbance (7) Major depressive disorder with psychotic features (8) Shortness of breath ROHIT SIBLEY MD May 29, 2020 07:12
[2020-05-29] MEDS: KETOROLAC TROMETHAMINE 0.5% OPHTH SOLUTION BOTTLE. OU SCH ×4 (08:19→19:40)
[2020-05-29] MEDS: DIVALPROEX 125 MG CAP.SPRINK PO SCH ×3 (08:20→19:42)
[2020-05-29] MEDS: SPIRONOLACTONE 25 MG TABLET PO SCH (08:20)
[2020-05-29] MEDS: APIXABAN 5 MG TABLET. PO SCH ×2 (08:20→19:41)
[2020-05-29] MEDS: FUROSEMIDE 80 MG TABLET PO SCH ×2 (08:21→17:13)
[2020-05-29] MEDS: FLUoxetine HCL 20 MG CAPSULE PO SCH (08:21)
[2020-05-29] MEDS: QUEtiapine 25 MG TABLET. PO SCH ×3 (08:21→17:12)
[2020-05-29] MEDS: METHENAMINE HIPPURATE 1 GM TABLET PO SCH ×2 (08:21→19:42)
[2020-05-29] MEDS: FLUTICASONE 50MCG/NASAL SPRAY 16GM BOTTLE. NS SCH (08:23)
[2020-05-29] MEDS: IPRATROPIUM/ALBUTEROL 20/100mcg/INH INHALER. INH SCH ×4 (08:23→19:40)
[2020-05-29] MEDS: VITAMIN B COMPLEX CAPSULE. PO SCH (08:24)
[2020-05-29] MEDS: MULTIVITAMIN I-VITE TABLET. PO SCH ×2 (08:24→19:42)
[2020-05-29] MEDS: CHOLECALCIFEROL (VITAMIN D3) 1,000 UNIT TABLET PO SCH (08:24)
[2020-05-29] MEDS: POLYETHYLENE GLYCOL 3350 17 GM PACKET. PO SCH (09:00)
--- NOTE | 2020-05-29 09:41 | NUR ---
She is compliant with her medications and assessment. Pt is calm, cooperative, compliant, no agitation, no aggression, no hallucinations, no delusions noted.
[2020-05-29] MEDS ORDERED: PANTOPRAZOLE 40 MG TABLET. PO ONE (13:45)
[2020-05-29 15:29] VITALS: BP 113/74
[2020-05-29] MEDS: MIRTAZAPINE 15 MG TABLET PO SCH (19:41)
--- NOTE | 2020-05-29 22:00 | NUR ---
Patient is in her room on assumption of care, sitting in bed awake. She is in pleasant spirits. Calm, cooperative and compliant with assessments and medications taken whole. No agitation. Denies any pain or discomfort. Denies SI. Patient appears to be sleeping comfortably at present time. Will continue to monitor.
--- NOTE | 2020-05-29 22:13 | PDOC ---
Exam Note: Derick Note: Please also refer to the separate dictated note~for this date of service dictated separately.~Patient seen individually. Discussed the patient with Nursing staff reviewed the chart.~Reviewed interim history and current functioning. Reviewed vital signs,~Labs/ Radiology~and current medications noted below. Continue current treatment with the changes noted in the dictated addendum note Assessment: Vital Signs/I&O: Vital Signs Date Time Temp Pulse Resp B/P (MAP) Pulse Ox O2 Delivery O2 Flow Rate FiO2 05/29/20 20:02 97.8 94 05/29/20 15:29 85 16 113/74 (87) Nasal Cannula 6.0 I & O 05/28/20 05/28/20 05/29/20 15:00 23:00 07:00 Intake Total 460 ml 600 ml Balance 460 ml 600 ml Current Medications: Meds: Current Medications Medications (Trade) Dose Ordered Sig/Marina Route PRN Reason Start Time Stop Time Status Last Admin Dose Admin Pantoprazole Sodium (Protonix) 40 mg 1X ONCE PO 05/29/20 13:45 05/29/20 13:46 DC 05/29/20 17:12 I have reviewed the current psychotropics carefully including drug interactions. Risk benefit ratio favors no change other than as noted in my dictated progress note. Diagnosis: Problems: (1) Dementia, vascular, with depression (2) Dementia, vascular, with delusions (3) Dementia in Alzheimer's disease with depression (4) Dementia in Alzheimer's disease with delusions (5) Major neurocognitive disorder (6) Dementia in Alzheimer's disease with early onset with behavioral disturbance (7) Major depressive disorder with psychotic features ROHIT SIBLEY MD May 29, 2020 22:13
[2020-05-30] MEDS: LEVOTHYROXINE 150 MCG TABLET PO SCH (05:30)
[2020-05-30 06:03] VITALS: BP 143/79
[2020-05-30] MEDS: IPRATROPIUM/ALBUTEROL 20/100mcg/INH INHALER. INH SCH ×4 (08:14→19:27)
[2020-05-30] MEDS: FUROSEMIDE 80 MG TABLET PO SCH ×2 (08:15→16:12)
[2020-05-30] MEDS: FLUoxetine HCL 20 MG CAPSULE PO SCH (08:15)
[2020-05-30] MEDS: FLUTICASONE 50MCG/NASAL SPRAY 16GM BOTTLE. NS SCH (08:15)
[2020-05-30] MEDS: APIXABAN 5 MG TABLET. PO SCH ×2 (08:15→19:28)
[2020-05-30] MEDS: KETOROLAC TROMETHAMINE 0.5% OPHTH SOLUTION BOTTLE. OU SCH ×4 (08:15→19:28)
[2020-05-30] MEDS: DIVALPROEX 125 MG CAP.SPRINK PO SCH ×3 (08:15→19:28)
[2020-05-30] MEDS: QUEtiapine 25 MG TABLET. PO SCH ×3 (08:16→16:12)
[2020-05-30] MEDS: SPIRONOLACTONE 25 MG TABLET PO SCH (08:16)
[2020-05-30] MEDS: PANTOPRAZOLE 40 MG TABLET. PO SCH (08:18)
[2020-05-30] MEDS: METHENAMINE HIPPURATE 1 GM TABLET PO SCH ×2 (08:18→19:28)
[2020-05-30] MEDS: POLYETHYLENE GLYCOL 3350 17 GM PACKET. PO SCH (09:00)
[2020-05-30] MEDS: VITAMIN B COMPLEX CAPSULE. PO SCH (09:00)
[2020-05-30] MEDS: MULTIVITAMIN I-VITE TABLET. PO SCH ×2 (09:00→19:28)
[2020-05-30] MEDS: CHOLECALCIFEROL (VITAMIN D3) 1,000 UNIT TABLET PO SCH (09:00)
[2020-05-30] MEDS ORDERED: POLYETHYLENE GLYCOL 3350 17 GM PACKET. PO PRN (09:30)
--- NOTE | 2020-05-30 10:30 | TX PLAN ---
Interdisciplinary Tx Plan Admission Information Apr 16, 2020 at 14:34 Legal Status (on Admission): Voluntary DPOA/Guardian Name: Federico Arzola Contact Other Contact Name: David Cagle Contact Verified Code Status: DNR Allergies: Coded Allergies: acetaminophen (Verified Allergy, Intermediate, 04/22/20) codeine (Verified Allergy, Intermediate, 04/22/20) formoterol (Verified Allergy, Intermediate, 04/22/20) "get sick and can't think" gabapentin (Verified Allergy, Intermediate, 04/22/20) hydrocodone (Verified Allergy, Intermediate, 04/22/20) latex (Verified Allergy, Intermediate, 04/22/20) meperidine (Verified Allergy, Intermediate, 04/22/20) neomycin (Verified Allergy, Intermediate, 04/22/20) propoxyphene (Verified Allergy, Intermediate, 04/22/20) tropicamide (Verified Allergy, Intermediate, 04/22/20) "felt strange" cortisone (Verified Adverse Reaction, Intermediate, 04/22/20) Elevated BP prednisone (Verified Adverse Reaction, Intermediate, 04/22/20) Increased BP Diagnoses Primary Diagnosis: Major Neurocognitive D/O with delusions and behavioral disturbance; MDD recurrent Reasons for Admission: Aggressive, Anxiety/Panic, Combative, Suspicious/par anoid Problem in Patient's Words: N/A Additional Admission Comments: According to the intake, pt is anxious, aggressive towards staff, punching, throwing a chair, paranoid, things she being poisoned, delusional that there is a bomb in her room. Problems Active Problems: Anxious Delusional Inactive Problems: Medication compliance Pt Strengths/Limitations Ability for [place]: Poor Cognitive Functioning/Ability: Poor Communication Skills/Ability: Fair Financial Resources: Fair Insight/Judgement: Poor Intellectual Ability: Fair Physical Health: Poor Social Skills: Fair Stability in Family: Poor Stability in School/Work: Poor Verbal Skills: Fair Discharge Criteria Discharge Criteria: No need for close observ., Adequate arrangements @DC, Improved behavior, Improved mood/thought Preliminary Discharge Plan Preliminary DC Plan: Current Living Arrange. Special Precautions Fall Risk: Moderate Initial D/C Plan Pt will plan to return to [facility] once stable Identified Discharge Needs: Continued mental health support Currently Utilized Resources Currently Utilized Resources/P: Primary Care Physician Identified Problems/Hx/Goals Objectives/Short-Term Goals Short Term Goals: Dec. Aggression, Dec. 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 She tends to be picky at times related to medications and which ones she wants to take and has expressed she feels she takes too many pills. She has been started on Protonix for GERD. She is averaging 7 hours of sleep at night and 75% of meal intakes. Jocelyn is stable for discharge once unit quarantine has been completed. Jocelyn will return to [facility] where she has been a resident previously. D/C plans are to be arranged with Jennifer, director acute at [facility]. SW will follow. AZALIA AGUILAR May 30, 2020 10:30
--- NOTE | 2020-05-30 10:31 | NUR ---
Pt in room at shift change. Pt is becoming particular about her medications. RN entered room at 0820 to give medications, pt had not started eating breakfast. Pt requesting to eat breakfast then take medications. RN had a new medication, protonix, for patient as patient has had recent complaints of acid reflux. Pt hesitant to take this stating, "im not sure I want to add another medication and one that is new." RN explained what the medication was for again, reminding patient of her acid reflux complaints. Pt took medication. RN came back at 0900 to give pills. RN informed patient that her vitamins were not in the mix since patient had been complaining about the number of pills (last and this weekend) but that if she wanted them this morning, RN would get them. Pt said "why did you do that?" RN again explained and asked patient if she would like RN to get them, pt stated, "no". Pt also refusing inhaler at this time stating her mouth feels funny and would like to take a break from her inhaler. Pt was compliant with the rest of her meds and with assessment. WCKIMI.
--- NOTE | 2020-05-30 13:16 | NUR ---
Call placed to Jennifer, director global market research at [facility], with intent to coordinate upcoming d/c for 06/01/20. left message with request for return phone call. Awaiting call. Addendum: 05/30/20 at 1451 by AZALIA VANCE No return call from Jennifer at [facility]. Left message two with intent to clarify if [facility] will be able to accept Jocelyn on 06/01/20 or 06/02/20, awaiting return call. Faxed the last weeks physician and nursing notes, labs, Covid swab results, and medication list to Jennifer for review. Requested nurse complete another Covid swab in preparation for upcoming d/c.
[2020-05-30 15:26] VITALS: BP 136/77
--- NOTE | 2020-05-30 16:03 | NUR ---
Received return call from Jennifer at [facility] who will accept Jocelyn back for care on 06/01/20. Jennifer will call SW back to inform of transport time. Awaiting call. Call placed to Federico, son/POA, to provide progress report and update. Federico was agreeable to plan for Jocelyn to return to [place] on 06/01/20.
[2020-05-30] MEDS: MIRTAZAPINE 15 MG TABLET PO SCH (19:28)
--- NOTE | 2020-05-30 21:59 | PDOC ---
Exam Note: Derick Note: Please also refer to the separate dictated note~for this date of service dictated separately.~Patient seen individually. Discussed the patient with Nursing staff reviewed the chart.~Reviewed interim history and current functioning. Reviewed vital signs,~Labs/ Radiology~and current medications noted below. Continue current treatment with the changes noted in the dictated addendum note Assessment: Vital Signs/I&O: Vital Signs Date Time Temp Pulse Resp B/P (MAP) Pulse Ox O2 Delivery O2 Flow Rate FiO2 05/30/20 19:39 98.2 94 05/30/20 15:26 86 18 136/77 (96) 5.0 05/30/20 06:03 Nasal Cannula I & O 05/29/20 05/29/20 05/30/20 15:00 23:00 07:00 Intake Total 420 ml 240 ml Balance 420 ml 240 ml Current Medications: Meds: Current Medications Medications (Trade) Dose Ordered Sig/Marina Route PRN Reason Start Time Stop Time Status Last Admin Dose Admin Pantoprazole Sodium (Protonix) 40 mg DAILYAC PO 05/30/20 07:30 05/30/20 08:18 I have reviewed the current psychotropics carefully including drug interactions. Risk benefit ratio favors no change other than as noted in my dictated progress note. Diagnosis: Problems: (1) Dementia, vascular, with depression (2) Dementia, vascular, with delusions (3) Dementia in Alzheimer's disease with depression (4) Dementia in Alzheimer's disease with delusions (5) Major neurocognitive disorder (6) Dementia in Alzheimer's disease with early onset with behavioral disturbance (7) Major depressive disorder with psychotic features ROHIT SIBLEY MD May 30, 2020 21:59
--- NOTE | 2020-05-30 22:31 | NUR ---
Pt took HS meds without difficulty, she has been pleasant and cooperative. She has had somatic complaints of sinus and back and neck discomfort. She was assisted OOB for awhile and sat in WC while bed was changed. Since going back to bed she has been sleeping with no further complaints.
[2020-05-31] MEDS: LEVOTHYROXINE 150 MCG TABLET PO SCH (05:35)
[2020-05-31 06:02] VITALS: BP 104/70
[2020-05-31] MEDS: CHOLECALCIFEROL (VITAMIN D3) 1,000 UNIT TABLET PO SCH (09:00)
[2020-05-31] MEDS: FLUTICASONE 50MCG/NASAL SPRAY 16GM BOTTLE. NS SCH (09:07)
[2020-05-31] MEDS: DIVALPROEX 125 MG CAP.SPRINK PO SCH ×4 (09:07→19:40)
[2020-05-31] MEDS: IPRATROPIUM/ALBUTEROL 20/100mcg/INH INHALER. INH SCH ×5 (09:07→19:40)
[2020-05-31] MEDS: APIXABAN 5 MG TABLET. PO SCH ×2 (09:07→19:40)
[2020-05-31] MEDS: KETOROLAC TROMETHAMINE 0.5% OPHTH SOLUTION BOTTLE. OU SCH ×5 (09:07→19:40)
[2020-05-31] MEDS: PANTOPRAZOLE 40 MG TABLET. PO SCH (09:08)
[2020-05-31] MEDS: FLUoxetine HCL 20 MG CAPSULE PO SCH (09:08)
[2020-05-31] MEDS: MULTIVITAMIN I-VITE TABLET. PO SCH ×2 (09:08→19:40)
[2020-05-31] MEDS: METHENAMINE HIPPURATE 1 GM TABLET PO SCH ×2 (09:08→19:40)
[2020-05-31] MEDS: SPIRONOLACTONE 25 MG TABLET PO SCH (09:08)
[2020-05-31] MEDS: VITAMIN B COMPLEX CAPSULE. PO SCH (09:08)
[2020-05-31] MEDS: FUROSEMIDE 80 MG TABLET PO SCH ×2 (09:08→17:09)
[2020-05-31] MEDS: QUEtiapine 25 MG TABLET. PO SCH ×4 (09:08→17:09)
--- NOTE | 2020-05-31 09:51 | NUR ---
Patient was sitting on the side of the bed finishing up her breakfast when nurse approached her for medications and assessment. Patient stated she is in a good mood today as she will be discharging soon. She was compliant with medications, inhaler, eye drops and nose spray. Patient has medi boots to protect heals when laying in bed. She has been calm and cooperative, no adverse or aggressive behaviors noted.
--- NOTE | 2020-05-31 14:55 | NUR ---
Patient sleeping, non-administered 1200 inhaler and 1300 eye drops. Will give 1400 depakote and seroquel at 1500 when it is time for vitals to be taken.
--- NOTE | 2020-05-31 15:09 | NUR ---
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 Special Instructions/Notes: Call nursing report to [facility] at [phone]. Upon return to [facility], arrange for f/u with house physician within 7-10 days. DISCHARGE TO FACILITY Facility: [facility] Address: [address] [place] [address] Contact Name: lucille Hutchinson director Contact Name: PINKY Shrestha PCP: Dr. Roselia Pedroza [phone], (fax) Psychiatrist: Tyree
[2020-05-31 16:00] VITALS: BP 108/54
[2020-05-31 16:07] VITALS: BP 108/54
[2020-05-31] MEDS ORDERED: APIX5TAB3 PO (18:35)
[2020-05-31] MEDS ORDERED: MAG-95 PO (18:47)
[2020-05-31] MEDS: MIRTAZAPINE 15 MG TABLET PO SCH (19:40)
--- NOTE | 2020-05-31 22:20 | PDOC ---
Exam Note: Derick Note: Please also refer to the separate dictated note~for this date of service dictated separately.~Patient seen individually. Discussed the patient with Nursing staff reviewed the chart.~Reviewed interim history and current functioning. Reviewed vital signs,~Labs/ Radiology~and current medications noted below. Continue current treatment with the changes noted in the dictated addendum note Assessment: Vital Signs/I&O: Vital Signs Date Time Temp Pulse Resp B/P (MAP) Pulse Ox O2 Delivery O2 Flow Rate FiO2 05/31/20 20:24 98.2 95 6.0 05/31/20 16:07 73 108/54 (72) 05/31/20 16:00 20 Room Air I & O 05/30/20 05/30/20 05/31/20 14:59 22:59 06:59 Intake Total 720 ml 480 ml Balance 720 ml 480 ml Current Medications: I have reviewed the current psychotropics carefully including drug interactions. Risk benefit ratio favors no change other than as noted in my dictated progress note. Diagnosis: Problems: (1) Dementia, vascular, with depression (2) Dementia, vascular, with delusions (3) Dementia in Alzheimer's disease with depression (4) Dementia in Alzheimer's disease with delusions (5) Major neurocognitive disorder (6) Dementia in Alzheimer's disease with early onset with behavioral disturbance (7) Major depressive disorder with psychotic features ROHIT SIBLEY MD May 31, 2020 22:20
--- NOTE | 2020-05-31 23:12 | NUR ---
Pt has been in bed this shift. Meds were taken without difficulty. Pt looking forward to upcoming discharge. No behaviors tonight and she has been pleasant and cooperative.
[2020-06-01] MEDS ORDERED: BENZ1LOZ48 PO (00:54)
[2020-06-01] MEDS ORDERED: MIRT15TA3 PO (00:56)
[2020-06-01] MEDS ORDERED: NYST15PO9 TP (00:57)
[2020-06-01] MEDS ORDERED: PANT40TA3 PO (00:59)
[2020-06-01] MEDS ORDERED: QUET25TA5 PO ×2 (01:01→01:02)
[2020-06-01] MEDS ORDERED: SODI50DR NS (01:07)
[2020-06-01] MEDS ORDERED: TRAZ-120 PO (01:08)
[2020-06-01] MEDS: LEVOTHYROXINE 150 MCG TABLET PO SCH (05:35)
[2020-06-01 05:52] VITALS: BP 126/73
--- NOTE | 2020-06-01 07:05 | PDOC ---
Exam Note: Derick Note: This note is a late entry for 05/29/2020 covers elements not covered in my initial note. Subjective: The patient was evaluated via telehealth rounds in the evening of 05/29/2020 with Dominique BRITO. Per Dominique, she slept 7 hours previous night. Reportedly, the patient was somewhat irritable with the ROOMING HOUSE KEEPER but redirected. Review of Systems: Ambulation impaired. She has shortness of breath, remains on oxygen supplements. No CV, , eye system symptoms on review. Mental Status Exam: Oriented reasonably. Speech coherent. Abstraction fair. Computation impaired. Language function intact. Mood and affect improved. No suicidal or homicidal ideation. Laboratory Data: Reviewed. Impression: Major neurocognitive disorder Alzheimer, vascular with delusion, depression, behavioral disturbance. Anxiety disorder unspecified. Impulse control disorder unspecified. Shortness of breath. Plan: No change from initial note. During the individual visit, the patient talked at some length about discharge plans and her desire to leave here as soon as possible, I addressed this. Assessment: Vital Signs/I&O: Vital Signs Date Time Temp Pulse Resp B/P (MAP) Pulse Ox O2 Delivery O2 Flow Rate FiO2 06/01/20 05:52 97.8 89 22 126/73 (90) 94 6.0 05/31/20 16:00 Room Air I & O 05/31/20 05/31/20 06/01/20 15:00 23:00 07:00 Intake Total 960 ml 480 ml Balance 960 ml 480 ml Current Medications: I have reviewed the current psychotropics carefully including drug interactions. Risk benefit ratio favors no change other than as noted in my dictated progress note. Diagnosis: Problems: (1) Dementia, vascular, with depression (2) Dementia, vascular, with delusions (3) Dementia in Alzheimer's disease with depression (4) Dementia in Alzheimer's disease with delusions (5) Major neurocognitive disorder (6) Dementia in Alzheimer's disease with early onset with behavioral disturbance (7) Major depressive disorder with psychotic features (8) Shortness of breath ROHIT SIBLEY MD Jun 01, 2020 07:05
--- NOTE | 2020-06-01 07:20 | PDOC ---
Exam Note: Derick Note: This note is a late entry for 05/30/2020 covers elements not covered in my initial note. Subjective: The patient was evaluated in the morning of 05/30/2020 with treatment team meeting with Catina (social service staff) and Nixon BRITO. She was also evaluated in the evening with Gordy BRITO, slept 7 hours previous night. She has been calm, cooperative. She has had some GI symptoms, remains on Protonix. She will be returning to [facility] once she is stable. Review of Systems: Ambulation impaired, lying in bed. Positive for shortness of breath. No CV, , eye system symptoms on review. Mental Status Exam: Oriented reasonably. Speech coherent. She is otherwise pleasant. Abstraction fair. Computation impaired. Language function intact. Mood and affect improved. No suicidal or homicidal ideation. Laboratory Data: Reviewed. Impression: Major neurocognitive disorder Alzheimer, vascular with delusion, depression, behavioral disturbance. Anxiety disorder unspecified. Impulse control disorder unspecified. Shortness of breath. Plan: No change from initial note. Assessment: Vital Signs/I&O: Vital Signs Date Time Temp Pulse Resp B/P (MAP) Pulse Ox O2 Delivery O2 Flow Rate FiO2 06/01/20 05:52 97.8 89 22 126/73 (90) 94 6.0 05/31/20 16:00 Room Air I & O 05/31/20 05/31/20 06/01/20 15:00 23:00 07:00 Intake Total 960 ml 480 ml Balance 960 ml 480 ml Current Medications: I have reviewed the current psychotropics carefully including drug interactions. Risk benefit ratio favors no change other than as noted in my dictated progress note. Diagnosis: Problems: (1) Dementia, vascular, with depression (2) Dementia, vascular, with delusions (3) Dementia in Alzheimer's disease with depression (4) Dementia in Alzheimer's disease with delusions (5) Major neurocognitive disorder (6) Dementia in Alzheimer's disease with early onset with behavioral disturbance (7) Major depressive disorder with psychotic features (8) Shortness of breath ROHIT SIBLEY MD Jun 01, 2020 07:20
--- NOTE | 2020-06-01 07:28 | PDOC ---
Exam Note: Derick Note: This note is a late entry for 05/31/2020 covers elements not covered in my initial note. Subjective: The patient was evaluated via telehealth rounds in the evening of 05/31/2020 with Natalee BRITO. She slept 6-1/4 hours previous night. She has been little more anxious, states she does not feel as well, took a 2-hour nap in the afternoon. Review of Systems: She has some shortness of breath but no different than before. Impair ambulation impaired. No CV, , eye system symptoms on review. Mental Status Exam: Oriented reasonably. Speech coherent. Abstraction fair. Computation impaired. Language function intact. Mood and affect improved. No suicidal or homicidal ideation. Laboratory Data: Reviewed. Impression: Major neurocognitive disorder Alzheimer, vascular with delusion, depression, behavioral disturbance. Anxiety disorder unspecified. Impulse control disorder unspecified. Shortness of breath. Plan: The patient to be discharged back to the [facility] in the next day or so since the COVID-19 restriction on the unit has been lifted. Assessment: Vital Signs/I&O: Vital Signs Date Time Temp Pulse Resp B/P (MAP) Pulse Ox O2 Delivery O2 Flow Rate FiO2 06/01/20 05:52 97.8 89 22 126/73 (90) 94 6.0 05/31/20 16:00 Room Air I & O 05/31/20 05/31/20 06/01/20 15:00 23:00 07:00 Intake Total 960 ml 480 ml Balance 960 ml 480 ml Current Medications: I have reviewed the current psychotropics carefully including drug interactions. Risk benefit ratio favors no change other than as noted in my dictated progress note. Diagnosis: Problems: (1) Dementia, vascular, with depression (2) Dementia, vascular, with delusions (3) Dementia in Alzheimer's disease with depression (4) Dementia in Alzheimer's disease with delusions (5) Major neurocognitive disorder (6) Dementia in Alzheimer's disease with early onset with behavioral disturbance (7) Major depressive disorder with psychotic features (8) Shortness of breath ROHIT SIBLEY MD Jun 01, 2020 07:28
[2020-06-01] MEDS: IPRATROPIUM/ALBUTEROL 20/100mcg/INH INHALER. INH SCH ×2 (09:02→13:38)
[2020-06-01] MEDS: KETOROLAC TROMETHAMINE 0.5% OPHTH SOLUTION BOTTLE. OU SCH ×2 (09:02→13:38)
[2020-06-01] MEDS: FLUoxetine HCL 20 MG CAPSULE PO SCH (09:03)
[2020-06-01] MEDS: MULTIVITAMIN I-VITE TABLET. PO SCH (09:03)
[2020-06-01] MEDS: METHENAMINE HIPPURATE 1 GM TABLET PO SCH (09:03)
[2020-06-01] MEDS: VITAMIN B COMPLEX CAPSULE. PO SCH (09:03)
[2020-06-01] MEDS: DIVALPROEX 125 MG CAP.SPRINK PO SCH ×2 (09:03→13:38)
[2020-06-01] MEDS: SPIRONOLACTONE 25 MG TABLET PO SCH (09:03)
[2020-06-01] MEDS: FUROSEMIDE 80 MG TABLET PO SCH (09:03)
[2020-06-01] MEDS: APIXABAN 5 MG TABLET. PO SCH (09:04)
[2020-06-01] MEDS: PANTOPRAZOLE 40 MG TABLET. PO SCH (09:04)
[2020-06-01] MEDS: CHOLECALCIFEROL (VITAMIN D3) 1,000 UNIT TABLET PO SCH (09:04)
[2020-06-01] MEDS: FLUTICASONE 50MCG/NASAL SPRAY 16GM BOTTLE. NS SCH (09:06)
[2020-06-01] MEDS: QUEtiapine 25 MG TABLET. PO SCH ×2 (09:06→13:38)
--- NOTE | 2020-06-01 10:31 | NUR ---
Patient is pleasant and cooperative. She is compliant with her medications. Patient asked nurse some questions about her discharge later today. Patient stated she is glad to be going back home. She expressed concern that she "does not have any clothes here". Patient arrived to [facility] in a hospital gown and socks. Patients son called and requested that patients cell phone be charged prior to her discharge. Nurse verified that patients cell phone is in our safe, nurse advised son that we would attempt to charge phone if it arrived on the unit prior to patients departure. Multimedia Authoring Specialist notified that we had patient items in safe that we would need for discharge this afternoon.
--- NOTE | 2020-06-01 15:28 | NUR ---
Transition Record was faxed to follow-up provider with the following elements: Reason for admission, procedures, tests, principal diagnosis, pending studies, patient instructions, 20/05 contact information for unit, phone number to obtain pending test results, plan for follow-up care, physician follow-up, advanced directive information, and medication list with dose, duration and instructions. This information was included in the following documents: History and physical, lab results, study results, progress notes, social work planning form, DC instruction form, patient visit summary, and medication reconciliation form. Date & time record faxed: 06/01/20 0124 Record faxed to: [facility] Record discussed with/ report given to: left message at [phone] for nurse at "[facility]" at [facility] to call back for report. Also spoke with "shan" at the main number [phone], she stated no one was available at this time. Packet was faxed and discharge packet was sent with patient to facility. Addendum: 06/01/20 at 1733 by NATALEE MCNAIR RN JAY Evangelista called at 1720 and got report and her medication questions were clarified at that time as well. Natalee Mcnair RN
--- NOTE | 2020-06-01 15:36 | NUR ---
Called twice and was unable to speak to nurse at facility. Left message with "Kenyetta?" for nurse to call here for report. Addendum: 06/01/20 at 1734 by DAVID MCNAIR RN Report given to Tonja nurse at [facility] when she called back.
--- NOTE | 2020-06-01 21:51 | PDOC ---
Exam Note: Derick Note: Please also refer to the separate dictated note~for this date of service dictated separately.~Patient seen individually. Discussed the patient with Nursing staff reviewed the chart.~Reviewed interim history and current functioning. Reviewed vital signs,~Labs/ Radiology~and current medications noted below. Continue current treatment with the changes noted in the dictated addendum note Assessment: Vital Signs/I&O: Vital Signs Date Time Temp Pulse Resp B/P (MAP) Pulse Ox O2 Delivery O2 Flow Rate FiO2 06/01/20 08:19 97.9 97 Nasal Cannula 6.0 06/01/20 05:52 89 22 126/73 (90) I & O 05/31/20 05/31/20 06/01/20 15:00 23:00 07:00 Intake Total 960 ml 480 ml Balance 960 ml 480 ml Current Medications: I have reviewed the current psychotropics carefully including drug interactions. Risk benefit ratio favors no change other than as noted in my dictated progress note. Diagnosis: Problems: (1) Dementia, vascular, with depression (2) Dementia, vascular, with delusions (3) Dementia in Alzheimer's disease with depression (4) Dementia in Alzheimer's disease with delusions (5) Major neurocognitive disorder (6) Dementia in Alzheimer's disease with early onset with behavioral disturbance (7) Major depressive disorder with psychotic features (8) Shortness of breath ROHIT SIBLEY MD Jun 01, 2020 21:51
--- NOTE | 2020-06-01 23:08 | DS ---
DATE OF DISCHARGE: 06/01/2020 PSYCHIATRIC PROGRESS NOTE This note covers elements not covered in my initial note of 06/01/2020. REASON FOR ADMISSION: Please refer to the admission history for details. Briefly, the patient is an 85-year-old female referred to us from [facility] where she was sent from [facility] on account of increasing confusion, anxiety, being aggressive towards staff. She was punching staff members, throwing chairs, paranoid, believes she was being poisoned, was delusional, believed there was a bomb in her room. Behaviors were dangerous, unmanageable at the facility, had failed outpatient the patient's psychiatric interventions resulting in this referral. SIGNIFICANT FINDINGS AND CLINICAL COURSE: Following admission, the patient was seen daily individually by myself from a psychiatric standpoint, medical followup per Dr. Rodríguez/Dr. Mercedes. Initially, the patient was extremely anxious, irritable, labile, paranoid with marked mood lability. Adjustments were made in her psychotropic. She seemed to respond to a combination of Depakote 375 mg t.i.d. with a valproic acid level therapeutic at 56. Prozac 20 mg a day, melatonin 4.5 mg at bedtime p.r.n., Remeron 15 mg at bedtime, Seroquel 12.5 mg t.i.d., trazodone 50 mg at bedtime p.r.n. insomnia, may repeat x 1. Gradually, the patient's mood appeared to improve. She is much less labile, paranoid, seemed to subside. Her stay was prolonged significantly because there was COVID-19 exposure on the unit with several staff members and patients testing positive and the Department of Health had quarantined the entire unit with no admissions at discharges. Otherwise, she could have been discharged much earlier prior to discharge on 06/01/2020. REVIEW OF SYSTEMS: Positive for some shortness of breath, impaired ambulation, in wheelchair. No CV, GI, , ENT system symptoms on review. MENTAL STATUS EXAM: The patient is reasonably oriented. Speech is coherent, abstraction fair, computation impaired, language function intact, attention span short. Mood and affect, lability is much improved. No suicidal or homicidal ideation. Paranoia has subsided. LABORATORY DATA: Reviewed. CONDITION AT DISCHARGE: Improved. FINAL DIAGNOSES: Major depressive disorder, recurrent with psychotic features; bipolar disorder, unspecified; anxiety disorder, unspecified; mild cognitive impairment. Rest unchanged from admission. DISCHARGE MEDICATIONS: Please refer to the [facility]AD. DISCHARGE INSTRUCTIONS: Outpatient psychiatric and medical followup at the intermediate. MAN Lena SIBLEY MD DR: VAN/brianda JOB#: [id number] / [id number]
== END 2020-06-01 15:00 | DRG 885 ==
LOC: GEROPSY 14:34
PROVIDERS: ADMIT Psychiatry & Neurology Psychiatry; ATTEND Psychiatry & Neurology Psychiatry
DX: F33.3 Major depressive disorder, recurrent, severe with psychotic symptoms (principal); J96.11 Chronic respiratory failure with hypoxia; F01.51 Vascular dementia, unspecified severity, with behavioral disturbance; F02.81 Dementia in other diseases classified elsewhere, unspecified severity, with behavioral disturbance; I50.30 Unspecified diastolic (congestive) heart failure; B37.9 Candidiasis, unspecified; E03.9 Hypothyroidism, unspecified; F41.9 Anxiety disorder, unspecified; F63.9 Impulse disorder, unspecified; G30.9 Alzheimer's disease, unspecified; H91.90 Unspecified hearing loss, unspecified ear; I11.0 Hypertensive heart disease with heart failure; I27.20 Pulmonary hypertension, unspecified; I48.91 Unspecified atrial fibrillation; J44.9 Chronic obstructive pulmonary disease, unspecified; M79.7 Fibromyalgia; Z66 Do not resuscitate; Z79.899 Other long term (current) drug therapy; Z98.41 Cataract extraction status, right eye; Z98.42 Cataract extraction status, left eye; G47.33 Obstructive sleep apnea (adult) (pediatric); K21.9 Gastro-esophageal reflux disease without esophagitis; Z88.8 Allergy status to other drugs, medicaments and biological substances; Z20.828 Contact with and (suspected) exposure to other viral communicable diseases; Z91.040 Latex allergy status
CPT/HCPCS: 36415; 36600; 71045; 80048; 80053; 80061; 80164; 81001; 82306; 82607; 82803; 83036; 83540; 83550; 83735; 83880; 84436; 84443; 84480; 85025; 85027; 85610; 86592; 93970; 94640; J7613; U0003-CS